=== PATIENT | female | born 1955 | race African-American/Black ===

== ENCOUNTER 2017-09-06 04:04 | Inpatient (IN) | payer MEDICARE ==
[~2017-09-06] VITALS: Ht 152.4 cm; Wt 76.6 kg
[2017-09-06] MEDS ORDERED: methylPREDNISolone SOD SUCC 125 MG/2 ML VL IV ONE (04:15)
[2017-09-06 04:43] LABS: Basophils # (auto) 0.2 uL; Basophils % (auto) 2.5 % (0.0-2.0); Eosinophils # (auto) 0.4 uL; Eosinophils % (auto) 5.7 % (0.0-7.0); Hematocrit 42.5 % (36.0-46.0); Hemoglobin 13.9 g/dL (12.2-16.2); Lymphocytes # (auto) 3.1 uL; Lymphocytes % (auto) 43.4 % (10.0-50.0); Mean Corpuscular Hemoglobin 28.5 pg (28.0-32.0); Mean Corpuscular Hgb Conc. 32.6 g/dL (32.0-36.0); Mean Corpuscular Volume 87.5 fL (80.0-100.0); Monocytes # (auto) 0.5 uL; Monocytes % (auto) 6.7 % (0.0-12.0); Neutrophils % (auto) 41.7 % (37.0-80.0); Nucleated Red Blood Cells % 0.1 %; Platelet Count (auto) 206 10^3/uL (140-450); Red Blood Cells 4.86 10^6/uL (4.0-5.20); White Blood Cell 7.2 10^3/uL (4.4-10.8)
[2017-09-06] MEDS ORDERED: ALBUTEROL SULF 2.5 MG/0.5ML(0.5%) NEB SOLN NEB ONE (04:45)
[2017-09-06] MEDS ORDERED: HYDROcodone-ACET 5/325MG TAB PO ONE (04:45)
[2017-09-06] MEDS ORDERED: IPRATROPIUM BROM 0.5 MG/2.5ML INH SOL NEB ONE (04:45)
[2017-09-06 04:59] LABS: Albumin 3.7 g/dL (3.4-5.0); Anion Gap 10 (5-15); BUN/Creatinine Ratio 17.1; Blood Urea Nitrogen 12 mg/dL (7-18); Carbon Dioxide 24 mmol/L (21-32); Chloride 106 mmol/L (98-107); GFR African American 109 mL/min; GFR Non-African American 90 mL/min; Glucose 142 mg/dL (74-106); INR 0.92 (0.9-1.15); Magnesium 2.3 mg/dL (1.6-2.6); Potassium 4.7 mmol/L (3.5-5.1); Sodium 140 mmol/L (136-145)
[2017-09-06 05:04] LABS: Alanine Aminotransferase 33 U/L (13-56); Alkaline Phosphatase 91 U/L (45-117); Aspartate Aminotransferase 33 U/L (15-37); Bilirubin, Total 0.3 mg/dL (0.2-1.0); Total Protein 7.6 g/dL (6.4-8.2)
[2017-09-06 06:56] LABS: Urine Bacteria NONE SEEN /hpf (None Seen); Urine Blood Negative /uL (Negative); Urine Specific Gravity 1.021 (1.001-1.035); Urine WBC 3 /hpf (0 - 5)
[2017-09-06] MEDS ORDERED: METOCLOPRAMIDE HCL 5MG/ml INJ 2ml VIAL IV ONE (07:30)
[2017-09-06] MEDS ORDERED: MORPHINE SULFATE 4 MG/ML SYR/VIAL IV ONE (07:30)
[2017-09-06] MEDS ORDERED: DOXYCYCLINE 100MG/250ML 250 ML IV SCH (09:00)
[2017-09-06] MEDS ORDERED: NITROGLYCERIN 0.4 MG SL TAB SL PRN (09:00)
[2017-09-06] MEDS ORDERED: PROMETHAZINE HCL 25 MG/ML 1ML IV PRN (09:00)
[2017-09-06] MEDS ORDERED: LACTULOSE 20Gm/30ML SOLN PO PRN (09:00)
[2017-09-06] MEDS ORDERED: DEXTROSE (50%) 50ML SYRG IV PRN (09:00)
[2017-09-06] MEDS ORDERED: LORazepam 0.5 MG TAB PO PRN (09:00)
[2017-09-06] MEDS ORDERED: ACETAMINOPHEN 500 MG TAB PO PRN (09:00)
[2017-09-06] MEDS ORDERED: HYDROcodone-ACET 5/325MG TAB PO PRN (09:00)
[2017-09-06] MEDS ORDERED: ALBUTEROL SULF 2.5 MG/0.5ML(0.5%) NEB SOLN NEB PRN (09:00)
[2017-09-06] MEDS ORDERED: MORPHINE SULFATE 4 MG/ML SYR/VIAL IV PRN ×3 (09:00→15:15)
[2017-09-06] MEDS: SODIUM CHLORIDE 0.9% 1,000 ML IV SCH ×2 (09:22→22:11)
[2017-09-06] MEDS: ALBUTEROL SULF 2.5 MG/0.5ML(0.5%) NEB SOLN NEB SCH ×2 (09:25→20:14)
[2017-09-06] MEDS: ENOXAPARIN SOD 40 MG/0.4 ML SYRINGE SC SCH (09:41)
[2017-09-06] MEDS: PANTOPRAZOLE 40 MG TAB PO SCH (09:42)
[2017-09-06] MEDS: cefTRIAXone 1GM/10ml IVPUSH 10 ML IV SCH (09:42)
[2017-09-06] MEDS: DOXYCYCLINE 100MG/250ML 250 ML IV SCH ×2 (09:42→20:40)
[2017-09-06] MEDS: ACCU-CHEK COMFORT CURVE STRIP VI SCH ×3 (12:00→20:38)
[2017-09-06] MEDS: InsuLIN REG 1unit/0.01ml Soln (100units/ml) SC SCH ×3 (12:00→20:39)
[2017-09-06] MEDS: IPRATROPIUM BROM 0.5 MG/2.5ML INH SOL NEB SCH ×2 (12:57→20:14)
[2017-09-06] MEDS: methylPREDNISolone SOD SUCC 40 MG/ML VL IV SCH ×2 (13:06→17:38)
[2017-09-06 13:37] VITALS: BP 109/77
[2017-09-06 14:22] VITALS: BP 113/77
[2017-09-06] MEDS ORDERED: CARISOPRODOL 350 MG TAB PO ONE (15:30)
[2017-09-06 16:21] VITALS: BP 119/82
[2017-09-06] MEDS ORDERED: MORPHINE SULFATE 8mg/ml INJ SDV IV PRN (18:00)
[2017-09-06] MEDS ORDERED: CARI-277 PO (18:30)
[2017-09-06] MEDS ORDERED: HYDR-531 PO (18:38)
[2017-09-06] MEDS ORDERED: METF-370 PO (18:38)
[2017-09-06] MEDS ORDERED: FLUT250M2 INH (18:38)
[2017-09-06] MEDS ORDERED: AML5T PO (18:38)
[2017-09-06] MEDS: MORPHINE SULFATE 8mg/ml INJ SDV IV PRN (19:27)
[2017-09-06 20:00] VITALS: BP 139/77
[2017-09-06] MEDS: CARISOPRODOL 350 MG TAB PO SCH (20:40)
[2017-09-06] MEDS: TEMAZEPAM 15 MG CAP PO PRN (20:40)
[2017-09-07] MEDS: IPRATROPIUM BROM 0.5 MG/2.5ML INH SOL NEB SCH ×4 (01:19→19:24)
[2017-09-07] MEDS: ALBUTEROL SULF 2.5 MG/0.5ML(0.5%) NEB SOLN NEB SCH ×4 (01:19→19:24)
[2017-09-07 04:55] VITALS: BP 151/104
[2017-09-07] MEDS: CARISOPRODOL 350 MG TAB PO SCH ×3 (05:14→21:38)
[2017-09-07] MEDS: MORPHINE SULFATE 8mg/ml INJ SDV IV PRN ×3 (05:14→15:26)
[2017-09-07] MEDS: methylPREDNISolone SOD SUCC 40 MG/ML VL IV SCH ×4 (05:15→18:00)
[2017-09-07] MEDS: InsuLIN REG 1unit/0.01ml Soln (100units/ml) SC SCH ×4 (05:16→22:00)
[2017-09-07] MEDS: ACCU-CHEK COMFORT CURVE STRIP VI SCH ×4 (05:16→22:08)
[2017-09-07 07:26] LABS: Cholesterol 278 mg/dL (< 200); HDL Cholesterol 98 mg/dL (40-59); LDL Cholesterol 172 mg/dL (< 100); Triglycerides 73 mg/dL (< 150)
[2017-09-07 09:00] VITALS: BP 135/99
[2017-09-07] MEDS: cefTRIAXone 1GM/10ml IVPUSH 10 ML IV SCH (10:02)
[2017-09-07] MEDS: DOXYCYCLINE 100MG/250ML 250 ML IV SCH (10:02)
[2017-09-07] MEDS: ENOXAPARIN SOD 40 MG/0.4 ML SYRINGE SC SCH (10:03)
[2017-09-07] MEDS: PANTOPRAZOLE 40 MG TAB PO SCH (10:03)
[2017-09-07] MEDS: SODIUM CHLORIDE 0.9% 1,000 ML IV SCH (11:48)
[2017-09-07 13:00] VITALS: BP 140/62
[2017-09-07 17:00] VITALS: BP 141/87
[2017-09-07] MEDS ORDERED: HYDROcodone-ACET 10/325MG TAB PO PRN (20:45)
[2017-09-07] MEDS: TEMAZEPAM 15 MG CAP PO PRN (21:38)
[2017-09-08] MEDS: methylPREDNISolone SOD SUCC 40 MG/ML VL IV SCH ×4 (00:11→18:19)
[2017-09-08 05:00] VITALS: BP 138/92
[2017-09-08] MEDS: CARISOPRODOL 350 MG TAB PO SCH ×3 (06:06→21:51)
[2017-09-08] MEDS: ACCU-CHEK COMFORT CURVE STRIP VI SCH ×4 (06:22→21:52)
[2017-09-08] MEDS: InsuLIN REG 1unit/0.01ml Soln (100units/ml) SC SCH ×4 (06:36→22:00)
[2017-09-08] MEDS: HYDROcodone-ACET 10/325MG TAB PO PRN ×3 (06:37→20:51)
[2017-09-08] MEDS: IPRATROPIUM BROM 0.5 MG/2.5ML INH SOL NEB SCH ×4 (06:42→18:27)
[2017-09-08] MEDS: ALBUTEROL SULF 2.5 MG/0.5ML(0.5%) NEB SOLN NEB SCH ×4 (06:42→18:27)
[2017-09-08 09:14] VITALS: BP 139/58
[2017-09-08] MEDS: cefTRIAXone 1GM/10ml IVPUSH 10 ML IV SCH (10:23)
[2017-09-08] MEDS: ENOXAPARIN SOD 40 MG/0.4 ML SYRINGE SC SCH (10:24)
[2017-09-08] MEDS: PANTOPRAZOLE 40 MG TAB PO SCH (10:24)
[2017-09-08 12:23] VITALS: BP 147/98
[2017-09-08 16:41] VITALS: BP 148/97
[2017-09-08] MEDS: TEMAZEPAM 15 MG CAP PO PRN (21:52)
[2017-09-08 22:00] VITALS: BP 137/92
[2017-09-09] VITALS (7 sets, daily range): BP systolic 126–154; BP diastolic 91–110
[2017-09-09] MEDS: methylPREDNISolone SOD SUCC 40 MG/ML VL IV SCH ×3 (00:36→12:07)
[2017-09-09] MEDS: ALBUTEROL SULF 2.5 MG/0.5ML(0.5%) NEB SOLN NEB SCH ×4 (01:00→18:25)
[2017-09-09] MEDS: IPRATROPIUM BROM 0.5 MG/2.5ML INH SOL NEB SCH ×4 (01:00→18:24)
[2017-09-09] MEDS: CARISOPRODOL 350 MG TAB PO SCH ×3 (05:46→21:26)
[2017-09-09] MEDS: ACCU-CHEK COMFORT CURVE STRIP VI SCH ×4 (05:46→21:30)
[2017-09-09] MEDS: InsuLIN REG 1unit/0.01ml Soln (100units/ml) SC SCH ×4 (06:32→21:28)
[2017-09-09 06:38] LABS: Basophils # (auto) 0 uL; Basophils % (auto) 0.1 % (0.0-2.0); Eosinophils # (auto) 0 uL; Hematocrit 43.1 % (36.0-46.0); Hemoglobin 14.2 g/dL (12.2-16.2); Lymphocytes # (auto) 0.8 uL; Lymphocytes % (auto) 7.7 % (10.0-50.0); Mean Corpuscular Volume 87.8 fL (80.0-100.0); Monocytes # (auto) 0.4 uL; Monocytes % (auto) 3.5 % (0.0-12.0); Neutrophils # (auto) 9.4 uL; Neutrophils % (auto) 88.7 % (37.0-80.0); Platelet Count (auto) 227 10^3/uL (140-450); Red Cell Distribution Width 13.7 % (11.8-14.3); White Blood Cell 10.6 10^3/uL (4.4-10.8)
[2017-09-09] MEDS: HYDROcodone-ACET 10/325MG TAB PO PRN ×2 (08:13→15:45)
[2017-09-09] MEDS: cefTRIAXone 1GM/10ml IVPUSH 10 ML IV SCH (08:14)
[2017-09-09] MEDS: ENOXAPARIN SOD 40 MG/0.4 ML SYRINGE SC SCH (08:14)
[2017-09-09] MEDS: PANTOPRAZOLE 40 MG TAB PO SCH (08:14)
[2017-09-09] MEDS: amLODIPine BESYLATE 5 MG TAB PO SCH (09:39)
[2017-09-09] MEDS: TEMAZEPAM 15 MG CAP PO PRN (21:27)
[2017-09-10] MEDS: ALBUTEROL SULF 2.5 MG/0.5ML(0.5%) NEB SOLN NEB SCH ×2 (00:12→07:00)
[2017-09-10] MEDS: IPRATROPIUM BROM 0.5 MG/2.5ML INH SOL NEB SCH ×2 (00:12→07:00)
[2017-09-10 05:00] VITALS: BP 135/98
[2017-09-10] MEDS: HYDROcodone-ACET 10/325MG TAB PO PRN (05:38)
[2017-09-10] MEDS: CARISOPRODOL 350 MG TAB PO SCH (05:38)
[2017-09-10] MEDS: ACCU-CHEK COMFORT CURVE STRIP VI SCH (06:12)
[2017-09-10] MEDS: InsuLIN REG 1unit/0.01ml Soln (100units/ml) SC SCH (06:13)
[2017-09-10] MEDS: PANTOPRAZOLE 40 MG TAB PO SCH (08:12)
[2017-09-10] MEDS: ENOXAPARIN SOD 40 MG/0.4 ML SYRINGE SC SCH (08:13)
[2017-09-10] MEDS: amLODIPine BESYLATE 5 MG TAB PO SCH (08:13)
[2017-09-10] MEDS: cefTRIAXone 1GM/10ml IVPUSH 10 ML IV SCH (08:14)
[2017-09-10 08:33] VITALS: BP 145/108
[2017-09-10] MEDS ORDERED: HCTZ 25 MG TAB PO SCH (10:00)
[2017-09-10] MEDS ORDERED: predniSONE 20 MG TAB PO SCH (10:00)
== END 2017-09-10 10:38 | disposition home or self-care (01) | DRG 189 ==
LOC: EDBD 04:04 → ER 04:15 → TELE 04:16 → TELE-WESTW 14:53
PROVIDERS: ADMIT Internal Medicine; ATTEND Internal Medicine
PROC: 5A09357 Assistance with Respiratory Ventilation, Less than 24 Consecutive Hours, Continuous Positive Airway Pressure (ICD-10-PCS; principal; 2017-09-06)
DX: J96.20 Acute and chronic respiratory failure, unspecified whether with hypoxia or hypercapnia (principal); I11.0 Hypertensive heart disease with heart failure; I50.9 Heart failure, unspecified; J45.902 Unspecified asthma with status asthmaticus; N39.0 Urinary tract infection, site not specified; M19.90 Unspecified osteoarthritis, unspecified site; E66.9 Obesity, unspecified; E11.9 Type 2 diabetes mellitus without complications; G89.4 Chronic pain syndrome; Z90.710 Acquired absence of both cervix and uterus; Z98.51 Tubal ligation status; Z79.899 Other long term (current) drug therapy; Z68.33 Body mass index [BMI] 33.0-33.9, adult
CPT/HCPCS: 36415; 36600; 71045; 80053; 80061; 81001; 82805; 82962; 83036; 83605; 83735; 83880; 84132; 84484; 85025; 85379; 85610; 85730; 87040; 87086; 93005; 94640; 94660; 94761; 96361; 96374; J1815; J2270; J3490

== ENCOUNTER 2021-01-13 08:01 | Inpatient (IN) | payer BC, MEDICAID ==
[2021-01-12] MEDS: CLINDAMYCIN 600MG IV 50 ML IV SCH (23:50)
[~2021-01-13] VITALS: Ht 152.4 cm; Wt 79.0 kg
[~2021-01-13 08:01] MED LIST: ALBU1AER4 IN; AML5T PO; CARI-277 PO; FLUT250M2 INH; HYDR-531 PO; LEVO500T31 PO; METF-370 PO
[2021-01-13] MEDS ORDERED: methylPREDNISolone SOD SUCC 125 MG/2 ML VL IV ONE (08:30)
[2021-01-13] MEDS ORDERED: IPRATROPIUM BROM 0.5 MG/2.5ML INH SOL NEB ONE ×2 (08:30→14:00)
[2021-01-13] MEDS ORDERED: ALBUTEROL SULF 2.5 MG/0.5ML(0.5%) NEB SOLN NEB ONE ×2 (08:30→14:00)
[2021-01-13] MEDS ORDERED: NALOXONE HCL 0.4 MG/ML VIAL IV ONE (08:30)
[2021-01-13] MEDS ORDERED: ONDANSETRON HCL 4 MG/2 ML VIAL IV ONE (08:30)
[2021-01-13] MEDS ORDERED: FUROSEMIDE 40 MG/4 ML VIAL IV ONE (08:30)
[2021-01-13 09:06] LABS: Basophils # (auto) 0.1 10 ^3/uL (0-0.2); Basophils % (auto) 0.5 % (0.0-2.0); Eosinophils # (auto) 0 10 ^3/uL (0-0.8); Eosinophils % (auto) 0.4 % (0.0-7.0); Hematocrit 40.9 % (36.0-46.0); Hemoglobin 12.9 g/dL (12.2-16.2); Lymphocytes # (auto) 0.6 10 ^3/uL (0.4-5.4); Lymphocytes % (auto) 5.3 % (10.0-50.0); Mean Corpuscular Hemoglobin 27.4 pg (28.0-32.0); Mean Corpuscular Hgb Conc. 31.6 g/dL (32.0-36.0); Mean Corpuscular Volume 86.8 fL (80.0-100.0); Monocytes # (auto) 0.6 10 ^3/uL (0-1.3); Monocytes % (auto) 4.9 % (0.0-12.0); Neutrophils # (auto) 10.3 10 ^3/uL (1.6-8.6); Neutrophils % (auto) 88.9 % (37.0-80.0); Red Blood Cells 4.71 10^6/uL (4.0-5.20); White Blood Cell 11.6 10^3/uL (4.4-10.8)
[2021-01-13 09:21] LABS: Salicylate < 1.7 mg/dL (2.8-20.0)
[2021-01-13 09:21] LABS: Urine Bacteria NONE SEEN /hpf (None Seen); Urine Blood Negative /uL (Negative); Urine Hyaline Cast MOD /lpf (0 - 2); Urine Mucus FEW (None Seen); Urine Specific Gravity 1.016 (1.001-1.035); Urine WBC 1 /hpf (0 - 5)
[2021-01-13 09:22] LABS: Albumin 3.9 g/dL (3.4-5.0); Calcium 8.9 mg/dL (8.5-10.1)
[2021-01-13 09:23] LABS: Alanine Aminotransferase 31 U/L (13-56); Albumin 3.8 g/dL (3.4-5.0); Aspartate Aminotransferase 40 U/L (15-37); Bilirubin, Direct < 0.1 mg/dL (0-0.2)
[2021-01-13 09:25] LABS: Alkaline Phosphatase 66 U/L (45-117); Bilirubin, Total 0.3 mg/dL (0.2-1.0); Total Protein 7.3 g/dL (6.4-8.2)
[2021-01-13 09:26] LABS: BUN/Creatinine Ratio 8.4; Bilirubin, Total 0.2 mg/dL (0.2-1.0); Total Protein 7.4 g/dL (6.4-8.2)
[2021-01-13 09:29] LABS: Acetaminophen < 2.0 ug/mL (10-30)
[2021-01-13 09:36] LABS: Amphetamine Screen, Urine NEGATIVE (NEGATIVE); Benzodiazephine Screen, Urine NEGATIVE (NEGATIVE); Cannabinoid Screen, Urine POSITIVE (NEGATIVE); Cocaine Screen, Urine NEGATIVE (NEGATIVE); Opiate Scree,Urine NEGATIVE (NEGATIVE); Phencyclidine Screen, Urine NEGATIVE (NEGATIVE)
[2021-01-13 09:43] LABS: Barbiturate Scree,Urine NEGATIVE (NEGATIVE)
[2021-01-13 13:23] LABS: Albumin 3.9 g/dL (3.4-5.0); Potassium 4.3 mmol/L (3.5-5.1)
[2021-01-13 13:27] LABS: BUN/Creatinine Ratio 8.5; Bilirubin, Total 0.4 mg/dL (0.2-1.0); Total Protein 7.6 g/dL (6.4-8.2)
[2021-01-13] MEDS ORDERED: DEXTROSE (50%) 50ML SYRG IV PRN (13:30)
[2021-01-13] MEDS ORDERED: MORPHINE SULFATE INJECTION 2 MG/ML SYRG IV PRN ×2 (13:30→14:00)
[2021-01-13] MEDS ORDERED: NITROGLYCERIN 0.4 MG SL TAB SL PRN ×2 (13:30→14:00)
[2021-01-13] MEDS ORDERED: METF-929 PO (13:57)
[2021-01-13] MEDS ORDERED: NITR0.4S29 SL (13:58)
[2021-01-13] MEDS ORDERED: ACETAMINOPHEN 325 MG TAB PO PRN (14:00)
[2021-01-13] MEDS ORDERED: LORazepam 0.5 MG TAB PO PRN (14:00)
[2021-01-13] MEDS ORDERED: METOPROLOL SUCCINATE XL 50 MG TAB PO ONE (14:00)
[2021-01-13] MEDS ORDERED: ALUM & MAG HYDROX-SIMETH LIQ(MAALOX) 30 ML PO PRN (14:00)
[2021-01-13] MEDS ORDERED: ONDANSETRON HCL 4 MG/2 ML VIAL IV PRN (14:00)
[2021-01-13] MEDS ORDERED: LISINOPRIL 5 MG TAB PO ONE (14:00)
[2021-01-13] MEDS ORDERED: ENOXAPARIN SOD 40 MG/0.4 ML SYRINGE SC ONE (14:00)
[2021-01-13] MEDS ORDERED: NIFEdipine ER 30 MG TAB PO ONE (14:00)
[2021-01-13] MEDS ORDERED: DOCUSATE SOD 100 MG CAP PO PRN (14:00)
[2021-01-13] MEDS ORDERED: FAMOTIDINE (10MG/ML) 2ML VL IV ONE (14:15)
[2021-01-13] MEDS ORDERED: METH12IN SC (14:22)
[2021-01-13] MEDS ORDERED: PRAV20TA3 PO (14:22)
[2021-01-13] MEDS ORDERED: ALBU108A5 INH (14:22)
[2021-01-13] MEDS ORDERED: DICL1GEL50 TOP (14:22)
[2021-01-13] MEDS ORDERED: GABA-339 PO (14:22)
[2021-01-13] MEDS ORDERED: MET25T PO (14:22)
[2021-01-13] MEDS ORDERED: PRED20TA2 PO (14:22)
[2021-01-13] MEDS ORDERED: OXYC325T14 PO (14:23)
[2021-01-13] MEDS ORDERED: AMLO-496 PO (14:24)
[2021-01-13] MEDS ORDERED: BENA5TAB9 PO (14:24)
[2021-01-13] MEDS ORDERED: DOCU100C10 PO (14:26)
[2021-01-13] MEDS ORDERED: ALBU0.084 NEB (14:26)
[2021-01-13] MEDS ORDERED: OXY5T PO (14:27)
[2021-01-13] MEDS ORDERED: cefTRIAXone 1GM/50ML D5W 50 ML IV ONE (14:30)
[2021-01-13] MEDS: SODIUM CHLORIDE 0.9% 1,000 ML IV SCH (14:47)
[2021-01-13] MEDS: IPRATROPIUM BROM 0.5 MG/2.5ML INH SOL NEB SCH ×2 (14:49→18:59)
[2021-01-13] MEDS: ALBUTEROL SULF 2.5 MG/0.5ML(0.5%) NEB SOLN NEB SCH ×2 (14:50→18:59)
[2021-01-13] MEDS ORDERED: CLINDAMYCIN 600MG IV 50 ML IV ONE (15:00)
[2021-01-13 15:05] VITALS: BP 145/99
[2021-01-13] MEDS: CLINDAMYCIN 600MG IV 50 ML IV SCH (15:10)
[2021-01-13] MEDS ORDERED: AZITHROMYCIN 500MG/ 250ML 250 ML IV ONE (16:00)
[2021-01-13] MEDS: InsuLIN REG 1unit/0.01ml Soln (100units/ml) SC SCH ×2 (17:04→22:25)
[2021-01-13] MEDS: ACCU-CHEK COMFORT CURVE STRIP VI SCH ×2 (17:04→22:00)
[2021-01-13] MEDS: FUROSEMIDE 20 MG/2 ML VIAL IV SCH (18:07)
[2021-01-13] MEDS: MORPHINE SULFATE INJECTION 2 MG/ML SYRG IV PRN (20:21)
[2021-01-13] MEDS: FAMOTIDINE (10MG/ML) 2ML VL IV SCH (22:00)
[2021-01-13] MEDS: ATORVASTATIN 20 MG TAB PO SCH (22:30)
[2021-01-13] MEDS: methylPREDNISolone SOD SUCC 40 MG/ML VL IV SCH (22:30)
[2021-01-14] MEDS: CLINDAMYCIN 600MG IV 50 ML IV SCH ×3 (06:00→13:54)
[2021-01-14] MEDS: SODIUM CHLORIDE 0.9% 1,000 ML IV SCH ×2 (06:10→08:30)
[2021-01-14] MEDS: IPRATROPIUM BROM 0.5 MG/2.5ML INH SOL NEB SCH ×5 (06:10→22:23)
[2021-01-14] MEDS: ALBUTEROL SULF 2.5 MG/0.5ML(0.5%) NEB SOLN NEB SCH ×5 (06:10→22:23)
[2021-01-14] MEDS: FUROSEMIDE 20 MG/2 ML VIAL IV SCH (06:21)
[2021-01-14] MEDS: methylPREDNISolone SOD SUCC 40 MG/ML VL IV SCH ×3 (06:21→23:24)
[2021-01-14] MEDS: ACCU-CHEK COMFORT CURVE STRIP VI SCH ×4 (07:35→23:16)
[2021-01-14] MEDS: InsuLIN REG 1unit/0.01ml Soln (100units/ml) SC SCH ×4 (07:41→23:00)
[2021-01-14] MEDS: cefTRIAXone 1GM/50ML D5W 50 ML IV SCH (09:00)
[2021-01-14] MEDS: ASPirin 81 mg TAB PO SCH (09:57)
[2021-01-14] MEDS: FAMOTIDINE (10MG/ML) 2ML VL IV SCH ×2 (09:57→23:00)
[2021-01-14] MEDS: NIFEdipine ER 30 MG TAB PO SCH (09:58)
[2021-01-14] MEDS: METOPROLOL SUCCINATE XL 50 MG TAB PO SCH (09:58)
[2021-01-14] MEDS: LISINOPRIL 5 MG TAB PO SCH (09:58)
[2021-01-14] MEDS: ENOXAPARIN SOD 40 MG/0.4 ML SYRINGE SC SCH (10:09)
[2021-01-14] MEDS: AZITHROMYCIN 500MG/ 250ML 250 ML IV SCH (10:48)
[2021-01-14] MEDS: HYDROcodone-ACET 5/325MG TAB PO PRN (16:45)
[2021-01-14] MEDS ORDERED: HALOPERIDOL LACTATE 5 MG/ML INJ VIAL IM STA (19:22)
[2021-01-14] MEDS ORDERED: diphenhdrAMINE HCL 50 MG/1 ML VL ONE (19:24)
[2021-01-14] MEDS ORDERED: HALOPERIDOL LACTATE 5 MG/ML INJ VIAL ONE (19:24)
[2021-01-14] MEDS ORDERED: LORazepam 2MG/ML-1ML VIAL ONE (19:25)
[2021-01-14] MEDS ORDERED: LORazepam 2MG/ML-1ML VIAL IM ONE (19:30)
[2021-01-14] MEDS ORDERED: diphenhdrAMINE HCL 50 MG/1 ML VL IM ONE (19:30)
[2021-01-14] MEDS: ATORVASTATIN 20 MG TAB PO SCH ×2 (22:00→23:00)
[2021-01-15] MEDS: HALOPERIDOL LACTATE 5 MG/ML INJ VIAL IM PRN ×3 (00:27→17:09)
[2021-01-15] MEDS ORDERED: LORazepam 2MG/ML-1ML VIAL ONE (01:14)
[2021-01-15] MEDS: LORazepam 2MG/ML-1ML VIAL IV PRN ×4 (01:22→23:15)
[2021-01-15] MEDS: IPRATROPIUM BROM 0.5 MG/2.5ML INH SOL NEB SCH ×6 (02:38→23:41)
[2021-01-15] MEDS: ALBUTEROL SULF 2.5 MG/0.5ML(0.5%) NEB SOLN NEB SCH ×6 (02:39→23:40)
[2021-01-15] MEDS: CLINDAMYCIN 600MG IV 50 ML IV SCH ×3 (05:35→23:00)
[2021-01-15] MEDS: methylPREDNISolone SOD SUCC 40 MG/ML VL IV SCH ×3 (05:35→21:59)
[2021-01-15] MEDS: InsuLIN REG 1unit/0.01ml Soln (100units/ml) SC SCH ×4 (07:18→23:48)
[2021-01-15] MEDS: ACCU-CHEK COMFORT CURVE STRIP VI SCH ×4 (07:20→23:44)
[2021-01-15 07:28] LABS: Basophils # (auto) 0 10 ^3/uL (0-0.2); Basophils % (auto) 0.3 % (0.0-2.0); Eosinophils # (auto) 0 10 ^3/uL (0-0.8); Eosinophils % (auto) 0.3 % (0.0-7.0); Hematocrit 40.8 % (36.0-46.0); Hemoglobin 13.6 g/dL (12.2-16.2); Lymphocytes # (auto) 0.8 10 ^3/uL (0.4-5.4); Lymphocytes % (auto) 5.5 % (10.0-50.0); Mean Corpuscular Hemoglobin 28.4 pg (28.0-32.0); Mean Corpuscular Hgb Conc. 33.2 g/dL (32.0-36.0); Mean Corpuscular Volume 85.5 fL (80.0-100.0); Monocytes # (auto) 0.4 10 ^3/uL (0-1.3); Monocytes % (auto) 2.9 % (0.0-12.0); Nucleated Red Blood Cells % 0.1 %; Red Blood Cells 4.78 10^6/uL (4.0-5.20); Red Cell Distribution Width 13.8 % (11.8-14.3); White Blood Cell 14.2 10^3/uL (4.4-10.8)
[2021-01-15 07:36] LABS: BUN/Creatinine Ratio 17.4; Potassium 3.9 mmol/L (3.5-5.1)
[2021-01-15] MEDS ORDERED: LORazepam 2MG/ML-1ML VIAL IM ONE (07:45)
[2021-01-15] MEDS: cefTRIAXone 1GM/50ML D5W 50 ML IV SCH (09:25)
[2021-01-15] MEDS: ASPirin 81 mg TAB PO SCH (10:00)
[2021-01-15] MEDS: ENOXAPARIN SOD 40 MG/0.4 ML SYRINGE SC SCH (10:00)
[2021-01-15] MEDS: AZITHROMYCIN 500MG/ 250ML 250 ML IV SCH (10:00)
[2021-01-15] MEDS: LISINOPRIL 5 MG TAB PO SCH (10:00)
[2021-01-15] MEDS: NIFEdipine ER 30 MG TAB PO SCH (10:00)
[2021-01-15] MEDS: FAMOTIDINE (10MG/ML) 2ML VL IV SCH ×2 (10:00→21:58)
[2021-01-15] MEDS: METOPROLOL SUCCINATE XL 50 MG TAB PO SCH (10:00)
[2021-01-15] MEDS: OLANZapine 5 MG TAB PO SCH (10:22)
[2021-01-15] MEDS: MORPHINE SULFATE INJECTION 2 MG/ML SYRG IV PRN (12:07)
[2021-01-15] MEDS ORDERED: HALOPERIDOL LACTATE 5 MG/ML INJ VIAL IM ONE (22:00)
[2021-01-16] MEDS: hydrALAZINE HCL 20 MG/ML VL IV PRN ×2 (01:30→21:30)
[2021-01-16] MEDS: HALOPERIDOL LACTATE 5 MG/ML INJ VIAL IM PRN ×2 (01:39→13:51)
[2021-01-16] MEDS ORDERED: KETAMINE 50mg/ML 10ml Vial (500mg/10ml) IV STA (05:17)
[2021-01-16] MEDS ORDERED: KETAMINE HCL 10 ML ONE (05:23)
[2021-01-16] MEDS ORDERED: LORazepam 2MG/ML-1ML VIAL IV STA ×2 (06:00→07:03)
[2021-01-16] MEDS: ALBUTEROL SULF 2.5 MG/0.5ML(0.5%) NEB SOLN NEB SCH ×5 (06:06→22:20)
[2021-01-16] MEDS: IPRATROPIUM BROM 0.5 MG/2.5ML INH SOL NEB SCH ×5 (06:06→22:20)
[2021-01-16] MEDS: methylPREDNISolone SOD SUCC 40 MG/ML VL IV SCH ×3 (06:46→21:55)
[2021-01-16] MEDS: CLINDAMYCIN 600MG IV 50 ML IV SCH ×2 (06:46→15:06)
[2021-01-16] MEDS: ACCU-CHEK COMFORT CURVE STRIP VI SCH ×4 (06:47→21:57)
[2021-01-16] MEDS: InsuLIN REG 1unit/0.01ml Soln (100units/ml) SC SCH ×4 (07:02→21:58)
[2021-01-16 09:06] VITALS: BP 150/82
[2021-01-16] MEDS: cefTRIAXone 1GM/50ML D5W 50 ML IV SCH (09:06)
[2021-01-16] MEDS: LORazepam 2MG/ML-1ML VIAL IV PRN ×4 (09:11→22:20)
[2021-01-16] MEDS: OLANZapine 5 MG TAB PO SCH (10:00)
[2021-01-16] MEDS: NIFEdipine ER 30 MG TAB PO SCH (10:00)
[2021-01-16] MEDS: METOPROLOL SUCCINATE XL 50 MG TAB PO SCH (10:00)
[2021-01-16] MEDS: ASPirin 81 mg TAB PO SCH (10:00)
[2021-01-16] MEDS: LISINOPRIL 5 MG TAB PO SCH (10:00)
[2021-01-16 10:05] LABS: Folate (Folic Acid) 20.25 ng/mL (5.38-24)
[2021-01-16] MEDS: FAMOTIDINE (10MG/ML) 2ML VL IV SCH ×2 (10:17→21:54)
[2021-01-16] MEDS: AZITHROMYCIN 500MG/ 250ML 250 ML IV SCH (10:17)
[2021-01-16] MEDS: ENOXAPARIN SOD 40 MG/0.4 ML SYRINGE SC SCH (10:18)
[2021-01-16] MEDS: BUDESONIDE (INHALATION) 0.5 MG/2 ML NEB NEB SCH (18:20)
[2021-01-16] MEDS: ATORVASTATIN 20 MG TAB PO SCH (21:55)
[2021-01-17] MEDS: IPRATROPIUM BROM 0.5 MG/2.5ML INH SOL NEB SCH ×3 (02:22→09:53)
[2021-01-17] MEDS: ALBUTEROL SULF 2.5 MG/0.5ML(0.5%) NEB SOLN NEB SCH ×3 (02:22→09:54)
[2021-01-17] MEDS: LORazepam 2MG/ML-1ML VIAL IV PRN ×2 (04:30→09:04)
[2021-01-17] MEDS: BUDESONIDE (INHALATION) 0.5 MG/2 ML NEB NEB SCH ×2 (05:52→22:00)
[2021-01-17 06:00] LABS: Basophils # (auto) 0 10 ^3/uL (0-0.2); Basophils % (auto) 0.3 % (0.0-2.0); Eosinophils # (auto) 0 10 ^3/uL (0-0.8); Hematocrit 47.7 % (36.0-46.0); Hemoglobin 15.9 g/dL (12.2-16.2); Lymphocytes % (auto) 9.6 % (10.0-50.0); Mean Corpuscular Hemoglobin 28.5 pg (28.0-32.0); Mean Corpuscular Hgb Conc. 33.4 g/dL (32.0-36.0); Mean Corpuscular Volume 85.3 fL (80.0-100.0); Monocytes # (auto) 0.6 10 ^3/uL (0-1.3); Neutrophils % (auto) 84.1 % (37.0-80.0); Red Blood Cells 5.59 10^6/uL (4.0-5.20); White Blood Cell 10.7 10^3/uL (4.4-10.8)
[2021-01-17] MEDS: methylPREDNISolone SOD SUCC 40 MG/ML VL IV SCH (06:01)
[2021-01-17] MEDS: ACCU-CHEK COMFORT CURVE STRIP VI SCH ×4 (06:02→23:15)
[2021-01-17] MEDS: InsuLIN REG 1unit/0.01ml Soln (100units/ml) SC SCH ×4 (06:14→23:30)
[2021-01-17 06:18] LABS: BUN/Creatinine Ratio 18.8; Calcium 9.6 mg/dL (8.5-10.1); Potassium 3.8 mmol/L (3.5-5.1)
[2021-01-17] MEDS: HALOPERIDOL LACTATE 5 MG/ML INJ VIAL IM PRN (08:19)
[2021-01-17] MEDS: cefTRIAXone 1GM/50ML D5W 50 ML IV SCH (08:19)
[2021-01-17] MEDS ORDERED: SODIUM CHLORIDE 0.9% 1,000 ML IV ONE (09:30)
[2021-01-17] MEDS: ENOXAPARIN SOD 40 MG/0.4 ML SYRINGE SC SCH (10:55)
[2021-01-17] MEDS: METOPROLOL SUCCINATE XL 50 MG TAB PO SCH (10:55)
[2021-01-17] MEDS: AZITHROMYCIN 500MG/ 250ML 250 ML IV SCH ×2 (10:55→12:55)
[2021-01-17] MEDS: LISINOPRIL 5 MG TAB PO SCH (10:55)
[2021-01-17] MEDS: NIFEdipine ER 30 MG TAB PO SCH (10:55)
[2021-01-17] MEDS: FAMOTIDINE (10MG/ML) 2ML VL IV SCH ×2 (10:55→23:00)
[2021-01-17] MEDS: ASPirin 81 mg TAB PO SCH (10:55)
[2021-01-17] MEDS: OLANZapine 5 MG TAB PO SCH (10:55)
[2021-01-17] MEDS ORDERED: diphenhdrAMINE HCL 50 MG/1 ML VL IM ONE (12:45)
[2021-01-17] MEDS ORDERED: HALOPERIDOL LACTATE 5 MG/ML INJ VIAL IM ONE (12:45)
[2021-01-17] MEDS ORDERED: LORazepam 2MG/ML-1ML VIAL IM ONE (12:45)
[2021-01-17] MEDS ORDERED: OLANZAPINE IM ONE (13:00)
[2021-01-17] MEDS: ATORVASTATIN 20 MG TAB PO SCH (23:00)
[2021-01-18] MEDS: HALOPERIDOL LACTATE 5 MG/ML INJ VIAL IM PRN (01:00)
[2021-01-18] MEDS: ALBUTEROL SULF 2.5 MG/0.5ML(0.5%) NEB SOLN NEB PRN ×2 (05:49→22:03)
[2021-01-18] MEDS: BUDESONIDE (INHALATION) 0.5 MG/2 ML NEB NEB SCH ×2 (05:49→22:04)
[2021-01-18] MEDS: IPRATROPIUM BROM 0.5 MG/2.5ML INH SOL NEB PRN ×2 (05:49→22:03)
[2021-01-18] MEDS: ACCU-CHEK COMFORT CURVE STRIP VI SCH ×4 (06:28→22:18)
[2021-01-18] MEDS: InsuLIN REG 1unit/0.01ml Soln (100units/ml) SC SCH ×4 (06:33→22:22)
[2021-01-18] MEDS ORDERED: LORazepam 2MG/ML-1ML VIAL IV STA (07:00)
[2021-01-18 09:00] VITALS: BP 121/75
[2021-01-18] MEDS: cefTRIAXone 1GM/50ML D5W 50 ML IV SCH (09:00)
[2021-01-18] MEDS: FAMOTIDINE (10MG/ML) 2ML VL IV SCH ×2 (09:39→22:17)
[2021-01-18] MEDS: OLANZapine 5 MG TAB PO SCH (09:40)
[2021-01-18] MEDS: NIFEdipine ER 30 MG TAB PO SCH (09:40)
[2021-01-18] MEDS: ENOXAPARIN SOD 40 MG/0.4 ML SYRINGE SC SCH (09:40)
[2021-01-18] MEDS: METOPROLOL SUCCINATE XL 50 MG TAB PO SCH (09:40)
[2021-01-18] MEDS: LISINOPRIL 5 MG TAB PO SCH (09:40)
[2021-01-18] MEDS: ASPirin 81 mg TAB PO SCH (09:40)
[2021-01-18 13:00] VITALS: BP 114/69
[2021-01-18 17:00] VITALS: BP 119/86
[2021-01-18] MEDS: HYDROcodone-ACET 5/325MG TAB PO PRN ×2 (17:05→22:28)
[2021-01-18 20:00] VITALS: BP 132/81
[2021-01-18 22:00] VITALS: BP 132/81
[2021-01-18] MEDS: ATORVASTATIN 20 MG TAB PO SCH (22:17)
[2021-01-19 05:00] VITALS: BP 115/70
[2021-01-19] MEDS: ACCU-CHEK COMFORT CURVE STRIP VI SCH ×4 (06:36→22:20)
[2021-01-19] MEDS: InsuLIN REG 1unit/0.01ml Soln (100units/ml) SC SCH ×4 (06:36→22:35)
[2021-01-19] MEDS: BUDESONIDE (INHALATION) 0.5 MG/2 ML NEB NEB SCH ×2 (07:43→19:10)
[2021-01-19] MEDS: ALBUTEROL SULF 2.5 MG/0.5ML(0.5%) NEB SOLN NEB PRN ×2 (07:43→19:09)
[2021-01-19] MEDS: HYDROcodone-ACET 5/325MG TAB PO PRN ×3 (08:09→18:47)
[2021-01-19 08:52] VITALS: BP 117/78
[2021-01-19] MEDS: FAMOTIDINE (10MG/ML) 2ML VL IV SCH ×2 (09:17→22:10)
[2021-01-19] MEDS: ASPirin 81 mg TAB PO SCH (09:18)
[2021-01-19] MEDS: LISINOPRIL 5 MG TAB PO SCH (09:19)
[2021-01-19] MEDS: NIFEdipine ER 30 MG TAB PO SCH (09:20)
[2021-01-19] MEDS: cefTRIAXone 1GM/50ML D5W 50 ML IV SCH (09:23)
[2021-01-19] MEDS: AZITHROMYCIN 500MG/ 250ML 250 ML IV SCH (09:23)
[2021-01-19] MEDS: ENOXAPARIN SOD 40 MG/0.4 ML SYRINGE SC SCH (09:23)
[2021-01-19] MEDS: OLANZapine 5 MG TAB PO SCH (09:28)
[2021-01-19] MEDS: METOPROLOL SUCCINATE XL 50 MG TAB PO SCH (09:39)
[2021-01-19 13:00] VITALS: BP 90/62
[2021-01-19 15:09] VITALS: BP 117/78
[2021-01-19] MEDS ORDERED: METH500T22 PO (16:00)
[2021-01-19] MEDS ORDERED: CYCL-839 PO (16:00)
[2021-01-19] MEDS ORDERED: CALC500C52 PO (16:00)
[2021-01-19 17:00] VITALS: BP 92/58
[2021-01-19 22:00] VITALS: BP 93/56
[2021-01-19] MEDS: ATORVASTATIN 20 MG TAB PO SCH (22:10)
[2021-01-19] MEDS: LORazepam 2MG/ML-1ML VIAL IV PRN (22:35)
[2021-01-20 05:00] VITALS: BP 90/58
[2021-01-20] MEDS: ACCU-CHEK COMFORT CURVE STRIP VI SCH ×4 (06:35→21:11)
[2021-01-20 06:36] VITALS: BP 106/73
[2021-01-20] MEDS: InsuLIN REG 1unit/0.01ml Soln (100units/ml) SC SCH ×4 (06:47→21:25)
[2021-01-20 07:09] LABS: Basophils # (auto) 0 10 ^3/uL (0-0.2); Basophils % (auto) 0.4 % (0.0-2.0); Eosinophils # (auto) 0.3 10 ^3/uL (0-0.8); Eosinophils % (auto) 4.9 % (0.0-7.0); Hematocrit 45.3 % (36.0-46.0); Hemoglobin 14.4 g/dL (12.2-16.2); Lymphocytes # (auto) 2.2 10 ^3/uL (0.4-5.4); Mean Corpuscular Hemoglobin 27.9 pg (28.0-32.0); Mean Corpuscular Hgb Conc. 31.8 g/dL (32.0-36.0); Mean Corpuscular Volume 87.7 fL (80.0-100.0); Monocytes # (auto) 0.5 10 ^3/uL (0-1.3); Monocytes % (auto) 6.8 % (0.0-12.0); Neutrophils % (auto) 56.9 % (37.0-80.0); Nucleated Red Blood Cells % 0.1 %; Red Blood Cells 5.16 10^6/uL (4.0-5.20); Red Cell Distribution Width 13.7 % (11.8-14.3); White Blood Cell 7.1 10^3/uL (4.4-10.8)
[2021-01-20 07:24] LABS: Calcium 8.4 mg/dL (8.5-10.1)
[2021-01-20 07:26] LABS: BUN/Creatinine Ratio 28.1
[2021-01-20] MEDS: IPRATROPIUM BROM 0.5 MG/2.5ML INH SOL NEB PRN ×3 (07:35→19:43)
[2021-01-20] MEDS: BUDESONIDE (INHALATION) 0.5 MG/2 ML NEB NEB SCH ×2 (07:35→19:43)
[2021-01-20] MEDS: ALBUTEROL SULF 2.5 MG/0.5ML(0.5%) NEB SOLN NEB PRN ×3 (07:35→19:43)
[2021-01-20] MEDS: FAMOTIDINE (10MG/ML) 2ML VL IV SCH ×2 (09:42→21:09)
[2021-01-20] MEDS: METOPROLOL SUCCINATE XL 50 MG TAB PO SCH (09:42)
[2021-01-20] MEDS: ASPirin 81 mg TAB PO SCH (09:42)
[2021-01-20] MEDS: OLANZapine 5 MG TAB PO SCH (09:43)
[2021-01-20] MEDS: ENOXAPARIN SOD 40 MG/0.4 ML SYRINGE SC SCH (09:43)
[2021-01-20] MEDS: LISINOPRIL 5 MG TAB PO SCH (09:43)
[2021-01-20] MEDS: HYDROcodone-ACET 10/325MG TAB PO PRN ×2 (10:53→21:10)
[2021-01-20] MEDS: amLODIPine BESYLATE 5 MG TAB PO SCH (10:53)
[2021-01-20 17:00] VITALS: BP 106/69
[2021-01-20] MEDS: ATORVASTATIN 20 MG TAB PO SCH (21:09)
[2021-01-20 22:00] VITALS: BP 114/69
[2021-01-20] MEDS: LORazepam 2MG/ML-1ML VIAL IV PRN (22:08)
[2021-01-21 05:00] VITALS: BP 139/93
[2021-01-21] MEDS: ACCU-CHEK COMFORT CURVE STRIP VI SCH ×4 (06:06→21:45)
[2021-01-21] MEDS: InsuLIN REG 1unit/0.01ml Soln (100units/ml) SC SCH ×4 (06:26→21:46)
[2021-01-21 08:15] VITALS: BP 120/80
[2021-01-21] MEDS: HYDROcodone-ACET 10/325MG TAB PO PRN ×2 (08:37→21:20)
[2021-01-21 09:00] VITALS: BP 120/80
[2021-01-21] MEDS: ASPirin 81 mg TAB PO SCH (09:46)
[2021-01-21] MEDS: FAMOTIDINE (10MG/ML) 2ML VL IV SCH ×2 (09:46→21:45)
[2021-01-21] MEDS: amLODIPine BESYLATE 5 MG TAB PO SCH (09:46)
[2021-01-21] MEDS: LISINOPRIL 5 MG TAB PO SCH (09:47)
[2021-01-21] MEDS: ENOXAPARIN SOD 40 MG/0.4 ML SYRINGE SC SCH (09:47)
[2021-01-21] MEDS: OLANZapine 5 MG TAB PO SCH (09:47)
[2021-01-21] MEDS: METOPROLOL SUCCINATE XL 50 MG TAB PO SCH (09:47)
[2021-01-21] MEDS: ALBUTEROL SULF 2.5 MG/0.5ML(0.5%) NEB SOLN NEB PRN ×2 (10:48→19:18)
[2021-01-21] MEDS: BUDESONIDE (INHALATION) 0.5 MG/2 ML NEB NEB SCH ×2 (10:48→19:18)
[2021-01-21 13:00] VITALS: BP 101/58
[2021-01-21 17:00] VITALS: BP 114/79
[2021-01-21] MEDS: IPRATROPIUM BROM 0.5 MG/2.5ML INH SOL NEB PRN (19:18)
[2021-01-21] MEDS: ATORVASTATIN 20 MG TAB PO SCH (21:45)
[2021-01-21 22:00] VITALS: BP 102/60
[2021-01-21] MEDS: LORazepam 2MG/ML-1ML VIAL IV PRN (22:17)
[2021-01-22 05:00] VITALS: BP 125/80
[2021-01-22] MEDS: ACCU-CHEK COMFORT CURVE STRIP VI SCH ×2 (06:17→11:50)
[2021-01-22] MEDS: HYDROcodone-ACET 10/325MG TAB PO PRN (06:17)
[2021-01-22] MEDS: InsuLIN REG 1unit/0.01ml Soln (100units/ml) SC SCH ×2 (06:20→11:49)
[2021-01-22 06:24] LABS: Basophils # (auto) 0 10 ^3/uL (0-0.2); Basophils % (auto) 0.5 % (0.0-2.0); Eosinophils # (auto) 0.3 10 ^3/uL (0-0.8); Eosinophils % (auto) 3.8 % (0.0-7.0); Hematocrit 41.6 % (36.0-46.0); Hemoglobin 13.2 g/dL (12.2-16.2); Lymphocytes # (auto) 2.6 10 ^3/uL (0.4-5.4); Lymphocytes % (auto) 38.9 % (10.0-50.0); Mean Corpuscular Hemoglobin 27.2 pg (28.0-32.0); Mean Corpuscular Hgb Conc. 31.6 g/dL (32.0-36.0); Monocytes # (auto) 0.7 10 ^3/uL (0-1.3); Monocytes % (auto) 10.7 % (0.0-12.0); Neutrophils % (auto) 46.1 % (37.0-80.0); Nucleated Red Blood Cells % 0.1 %; Red Blood Cells 4.84 10^6/uL (4.0-5.20); Red Cell Distribution Width 13.7 % (11.8-14.3); White Blood Cell 6.6 10^3/uL (4.4-10.8)
[2021-01-22] MEDS: ALBUTEROL SULF 2.5 MG/0.5ML(0.5%) NEB SOLN NEB PRN (06:31)
[2021-01-22] MEDS: BUDESONIDE (INHALATION) 0.5 MG/2 ML NEB NEB SCH (06:31)
[2021-01-22 06:39] LABS: INR 0.99 (0.9-1.15); Partial Thromboplastin Time 26.1 sec (23.6-33.0)
[2021-01-22 06:43] LABS: Albumin 2.7 g/dL (3.4-5.0); Anion Gap 2 (5-15); Blood Urea Nitrogen 11 mg/dL (7-18); Calcium 8.3 mg/dL (8.5-10.1); Carbon Dioxide 29 mmol/L (21-32); Chloride 108 mmol/L (98-107); Glucose 166 mg/dL (74-106); Magnesium 2.1 mg/dL (1.6-2.6); Potassium 4.3 mmol/L (3.5-5.1); Sodium 139 mmol/L (136-145)
[2021-01-22 06:48] LABS: Alanine Aminotransferase 37 U/L (13-56); Alkaline Phosphatase 55 U/L (45-117); Aspartate Aminotransferase 19 U/L (15-37); BUN/Creatinine Ratio 14.5; Bilirubin, Total 0.6 mg/dL (0.2-1.0); GFR African American 98 mL/min; GFR Non-African American 81 mL/min; Phosphorus 3.2 mg/dL (2.5-4.90); Total Protein 5.6 g/dL (6.4-8.2)
[2021-01-22 08:00] VITALS: BP 132/83
[2021-01-22] MEDS: FAMOTIDINE (10MG/ML) 2ML VL IV SCH (09:32)
[2021-01-22] MEDS: ASPirin 81 mg TAB PO SCH (09:32)
[2021-01-22] MEDS: METOPROLOL SUCCINATE XL 50 MG TAB PO SCH (09:33)
[2021-01-22] MEDS: amLODIPine BESYLATE 5 MG TAB PO SCH (09:33)
[2021-01-22] MEDS: LISINOPRIL 5 MG TAB PO SCH (09:36)
[2021-01-22] MEDS: ENOXAPARIN SOD 40 MG/0.4 ML SYRINGE SC SCH (09:36)
[2021-01-22] MEDS: OLANZapine 5 MG TAB PO SCH (09:36)
[2021-01-22 13:28] VITALS: BP 132/83
[2021-01-22 13:55] VITALS: BP 132/83
== END 2021-01-22 16:25 | disposition home or self-care (01) | DRG 917 ==
LOC: EDBD 08:01 → ER 08:01 → TELE 13:25 → TELE-WESTW 01-18 09:03 → WEST WING 01-20 10:51
PROVIDERS: ADMIT Family Medicine; ATTEND Internal Medicine
DX: T40.601A Poisoning by unspecified narcotics, accidental (unintentional), initial encounter (principal); G92.9 Unspecified toxic encephalopathy; N17.0 Acute kidney failure with tubular necrosis; J96.21 Acute and chronic respiratory failure with hypoxia; J69.0 Pneumonitis due to inhalation of food and vomit; J96.22 Acute and chronic respiratory failure with hypercapnia; J44.1 Chronic obstructive pulmonary disease with (acute) exacerbation; J45.901 Unspecified asthma with (acute) exacerbation; I16.9 Hypertensive crisis, unspecified; J44.0 Chronic obstructive pulmonary disease with (acute) lower respiratory infection; I13.0 Hypertensive heart and chronic kidney disease with heart failure and stage 1 through stage 4 chronic kidney disease, or unspecified chronic kidney disease; F41.9 Anxiety disorder, unspecified; G89.4 Chronic pain syndrome; E66.01 Morbid (severe) obesity due to excess calories; Z20.822 Contact with and (suspected) exposure to COVID-19; N18.31 Chronic kidney disease, stage 3a; E11.22 Type 2 diabetes mellitus with diabetic chronic kidney disease; E78.5 Hyperlipidemia, unspecified; F17.200 Nicotine dependence, unspecified, uncomplicated; F32.A Depression, unspecified; D72.829 Elevated white blood cell count, unspecified; F12.10 Cannabis abuse, uncomplicated; M06.9 Rheumatoid arthritis, unspecified; M19.90 Unspecified osteoarthritis, unspecified site; I50.9 Heart failure, unspecified; M54.9 Dorsalgia, unspecified; Z68.33 Body mass index [BMI] 33.0-33.9, adult; Z79.51 Long term (current) use of inhaled steroids; Z79.84 Long term (current) use of oral hypoglycemic drugs; Z82.49 Family history of ischemic heart disease and other diseases of the circulatory system; Z83.3 Family history of diabetes mellitus; Z90.710 Acquired absence of both cervix and uterus; Z99.81 Dependence on supplemental oxygen; Z98.51 Tubal ligation status; Y92.89 Other specified places as the place of occurrence of the external cause; Z91.89 Other specified personal risk factors, not elsewhere classified
CPT/HCPCS: 36415; 36600; 70450; 70551; 71045; 80048; 80053; 80076; 80307; 80320; 80329; 81001; 82607; 82746; 82805; 82962; 82977; 83036; 83735; 83880; 84100; 84439; 84443; 84484; 85025; 85379; 85610; 85730; 87040; 87086; 87426; 93005; 93306; 93970; 94640; 95819; 96374; 96375; 99291; G0378; J0696; J1815; J2405; J3490

== ENCOUNTER 2021-08-22 01:32 | Emergency (ER) | payer BC, MEDICAID ==
[~2021-08-22] VITALS: Ht 160 cm; Wt 77.1 kg
[~2021-08-22 01:32] MED LIST changes: +ALBU0.084 NEB; +ALBU108A5 INH; -ALBU1AER4 IN; -AML5T PO; +AMLO-496 PO; +BENA5TAB9 PO; +CALC500C52 PO; -CARI-277 PO; +CYCL-839 PO; +DICL1GEL50 TOP; +DOCU100C10 PO; -FLUT250M2 INH; +GABA-339 PO; -HYDR-531 PO; -LEVO500T31 PO; +MET25T PO; -METF-370 PO; +METF-929 PO; +METH12IN SC; +NITR0.4S29 SL; +OXYC325T14 PO; +PRAV20TA3 PO
[2021-08-22] MEDS ORDERED: methylPREDNISolone SOD SUCC 125 MG/2 ML VL IV ONE (01:45)
[2021-08-22] MEDS ORDERED: FUROSEMIDE 40 MG/4 ML VIAL IV ONE (01:45)
[2021-08-22 02:03] LABS: Basophils # (auto) 0.1 10 ^3/uL (0-0.2); Basophils % (auto) 2.5 % (0.0-2.0); Eosinophils # (auto) 0.4 10 ^3/uL (0-0.8); Eosinophils % (auto) 8.1 % (0.0-7.0); Hematocrit 35.4 % (36.0-46.0); Hemoglobin 11.7 g/dL (12.2-16.2); Lymphocytes % (auto) 39.8 % (10.0-50.0); Mean Corpuscular Hemoglobin 28.5 pg (28.0-32.0); Mean Corpuscular Hgb Conc. 33.2 g/dL (32.0-36.0); Mean Corpuscular Volume 85.9 fL (80.0-100.0); Monocytes # (auto) 0.5 10 ^3/uL (0-1.3); Monocytes % (auto) 10.2 % (0.0-12.0); Neutrophils % (auto) 39.4 % (37.0-80.0); Red Blood Cells 4.12 10^6/uL (4.0-5.20); Red Cell Distribution Width 13.4 % (11.8-14.3); White Blood Cell 5.1 10^3/uL (4.4-10.8)
[2021-08-22 02:18] LABS: INR 0.94 (0.9-1.15); Partial Thromboplastin Time 27.3 sec (23.6-33.0)
[2021-08-22 02:21] LABS: Calcium 9.3 mg/dL (8.5-10.1); Potassium 4.3 mmol/L (3.5-5.1)
[2021-08-22 02:23] LABS: Bilirubin, Total 0.1 mg/dL (0.2-1.0); Total Protein 6.7 g/dL (6.4-8.2)
[2021-08-22 06:23] VITALS: BP 133/98
== END 2021-08-22 06:38 | disposition home or self-care (01) ==
LOC: EDBD 01:32 → ER 01:32
DX: I11.0 Hypertensive heart disease with heart failure (principal); I50.9 Heart failure, unspecified; R06.03 Acute respiratory distress; E11.9 Type 2 diabetes mellitus without complications; Z90.710 Acquired absence of both cervix and uterus; Z20.822 Contact with and (suspected) exposure to COVID-19; Z98.51 Tubal ligation status
CPT/HCPCS: 36415; 71045; 80053; 83880; 84484; 85025; 85379; 85610; 85730; 87426; 93005; 96374; 96375; 99291; J1940; J2930

== ENCOUNTER 2022-03-17 21:58 | Inpatient (IN) | payer BC, MEDICAID ==
[~2022-03-17] VITALS: Ht 165.1 cm; Wt 80.0 kg
[2022-03-18 00:53] LABS: Eosinophils # (auto) 0 10 ^3/uL (0-0.8); Hematocrit 42.7 % (36.0-46.0); Monocytes # (auto) 0.2 10 ^3/uL (0-1.3); Nucleated Red Blood Cells % 0.1 %
[2022-03-18 00:54] LABS: Basophils # (auto) 0 10 ^3/uL (0-0.2); Basophils % (auto) 0.4 % (0.0-2.0); Eosinophils % (auto) 0.3 % (0.0-7.0); Hemoglobin 13.4 g/dL (12.2-16.2); Lymphocytes # (auto) 0.4 10 ^3/uL (0.4-5.4); Lymphocytes % (auto) 4.7 % (10.0-50.0); Mean Corpuscular Hemoglobin 26.3 pg (28.0-32.0); Mean Corpuscular Hgb Conc. 31.4 g/dL (32.0-36.0); Monocytes % (auto) 2.5 % (0.0-12.0); Neutrophils # (auto) 8.1 10 ^3/uL (1.6-8.6); Neutrophils % (auto) 92.1 % (37.0-80.0); Red Blood Cells 5.09 10^6/uL (4.0-5.20); Red Cell Distribution Width 13.7 % (11.8-14.3); White Blood Cell 8.8 10^3/uL (4.4-10.8)
[2022-03-18 01:07] LABS: INR 0.96 (0.9-1.15); Partial Thromboplastin Time 26.6 sec (24.6-33.4)
[2022-03-18 01:11] LABS: Albumin 3.6 g/dL (3.4-5.0); Calcium 9.9 mg/dL (8.5-10.1); Potassium 4.5 mmol/L (3.5-5.1)
[2022-03-18 01:17] LABS: BUN/Creatinine Ratio 13.6
[2022-03-18 01:18] LABS: Bilirubin, Total 0.3 mg/dL (0.2-1.0); Total Protein 7.1 g/dL (6.4-8.2)
[2022-03-18] MEDS ORDERED: InsuLIN REG 1unit/0.01ml Soln (100units/ml) IV ONE (02:00)
[2022-03-18] MEDS ORDERED: HYDROcodone-ACET 10/325MG TAB PO ONE (02:00)
[2022-03-18] MEDS ORDERED: IPRATROPIUM BROM 0.5 MG/2.5ML INH SOL NEB ONE (02:45)
[2022-03-18] MEDS ORDERED: ALBUTEROL SULF 2.5 MG/0.5ML(0.5%) NEB SOLN NEB ONE (02:45)
[2022-03-18] MEDS ORDERED: ALBUTEROL SULF 2.5 MG/0.5ML(0.5%) NEB SOLN NEB PRN (04:30)
[2022-03-18] MEDS ORDERED: IPRATROPIUM BROM 0.5 MG/2.5ML INH SOL NEB PRN (04:30)
[2022-03-18] MEDS ORDERED: ONDANSETRON HCL 4 MG/2 ML VIAL IV PRN (04:30)
[2022-03-18] MEDS ORDERED: MORPHINE SULFATE INJ 2 MG/ml SYRG IV PRN (04:30)
[2022-03-18] MEDS ORDERED: DOCUSATE SOD 100 MG CAP PO PRN (04:30)
[2022-03-18] MEDS ORDERED: ACETAMINOPHEN 325 MG TAB PO PRN (04:30)
[2022-03-18] MEDS ORDERED: DEXTROSE (50%) 50ML SYRG IV PRN (04:30)
[2022-03-18] MEDS ORDERED: NITROGLYCERIN 0.4 MG SL TAB SL PRN (04:30)
[2022-03-18] MEDS ORDERED: hydrALAZINE HCL 20 MG/ML VL IV PRN (05:00)
[2022-03-18] MEDS: ACCU-CHEK COMFORT CURVE STRIP VI SCH ×4 (07:08→21:37)
[2022-03-18] MEDS: InsuLIN REG 1unit/0.01ml Soln (100units/ml) SC SCH ×4 (07:09→21:58)
[2022-03-18] MEDS: HYDROcodone-ACET 5/325MG TAB PO PRN ×2 (08:16→20:17)
[2022-03-18] MEDS: ALBUTEROL SULF 2.5 MG/0.5ML(0.5%) NEB SOLN NEB SCH ×5 (08:54→22:11)
[2022-03-18] MEDS: IPRATROPIUM BROM 0.5 MG/2.5ML INH SOL NEB SCH ×5 (08:54→22:11)
[2022-03-18 09:09] LABS: Basophils # (auto) 0.1 10 ^3/uL (0-0.2); Basophils % (auto) 0.7 % (0.0-2.0); Eosinophils # (auto) 0 10 ^3/uL (0-0.8); Eosinophils % (auto) 0.1 % (0.0-7.0); Hematocrit 40.3 % (36.0-46.0); Hemoglobin 12.7 g/dL (12.2-16.2); Lymphocytes # (auto) 1.1 10 ^3/uL (0.4-5.4); Lymphocytes % (auto) 14.8 % (10.0-50.0); Mean Corpuscular Hemoglobin 26.4 pg (28.0-32.0); Mean Corpuscular Hgb Conc. 31.6 g/dL (32.0-36.0); Mean Corpuscular Volume 83.5 fL (80.0-100.0); Monocytes # (auto) 0.7 10 ^3/uL (0-1.3); Monocytes % (auto) 9.1 % (0.0-12.0); Neutrophils # (auto) 5.7 10 ^3/uL (1.6-8.6); Neutrophils % (auto) 75.3 % (37.0-80.0); Nucleated Red Blood Cells % 0.2 %; Red Blood Cells 4.82 10^6/uL (4.0-5.20); Red Cell Distribution Width 13.4 % (11.8-14.3); White Blood Cell 7.5 10^3/uL (4.4-10.8)
[2022-03-18 09:26] LABS: BUN/Creatinine Ratio 15.3; Potassium 3.6 mmol/L (3.5-5.1)
[2022-03-18] MEDS: methylPREDNISolone SOD SUCC 40 MG/ML VL IV SCH ×2 (11:03→21:30)
[2022-03-18] MEDS: DOXYCYCLINE 100 MG TAB/CAP PO SCH ×2 (11:03→21:30)
[2022-03-18 14:10] VITALS: BP 146/119
[2022-03-18] MEDS: OSELTAMIVIR 75 MG CAP PO SCH (21:33)
[2022-03-18] MEDS ORDERED: ZOLPIDEM TARTRATE 5 MG TAB PO ONE (21:45)
[2022-03-19] MEDS: ALBUTEROL SULF 2.5 MG/0.5ML(0.5%) NEB SOLN NEB SCH ×2 (01:55→06:05)
[2022-03-19] MEDS: IPRATROPIUM BROM 0.5 MG/2.5ML INH SOL NEB SCH ×2 (01:55→06:06)
[2022-03-19 04:56] LABS: Basophils # (auto) 0 10 ^3/uL (0-0.2); Basophils % (auto) 0.7 % (0.0-2.0); Eosinophils # (auto) 0 10 ^3/uL (0-0.8); Hematocrit 40.8 % (36.0-46.0); Hemoglobin 13.3 g/dL (12.2-16.2); Lymphocytes # (auto) 0.6 10 ^3/uL (0.4-5.4); Lymphocytes % (auto) 8.8 % (10.0-50.0); Mean Corpuscular Hemoglobin 27.1 pg (28.0-32.0); Mean Corpuscular Hgb Conc. 32.6 g/dL (32.0-36.0); Mean Corpuscular Volume 83.3 fL (80.0-100.0); Monocytes # (auto) 0.2 10 ^3/uL (0-1.3); Monocytes % (auto) 2.9 % (0.0-12.0); Neutrophils # (auto) 5.6 10 ^3/uL (1.6-8.6); Neutrophils % (auto) 87.6 % (37.0-80.0); Red Cell Distribution Width 13.7 % (11.8-14.3); White Blood Cell 6.4 10^3/uL (4.4-10.8)
[2022-03-19] MEDS: HYDROcodone-ACET 5/325MG TAB PO PRN ×2 (06:07→11:23)
[2022-03-19 06:33] LABS: Anion Gap 9 (5-15); BUN/Creatinine Ratio 15.2; Blood Urea Nitrogen 10 mg/dL (7-18); Calcium 9.3 mg/dL (8.5-10.1); Carbon Dioxide 27 mmol/L (21-32); Chloride 103 mmol/L (98-107); GFR African American 115 mL/min; GFR Non-African American 95 mL/min; Glucose 246 mg/dL (74-106); Potassium 4.7 mmol/L (3.5-5.1); Sodium 139 mmol/L (136-145)
[2022-03-19] MEDS: InsuLIN REG 1unit/0.01ml Soln (100units/ml) SC SCH ×2 (06:56→11:24)
[2022-03-19] MEDS: ACCU-CHEK COMFORT CURVE STRIP VI SCH ×2 (06:59→11:05)
[2022-03-19] MEDS: OSELTAMIVIR 75 MG CAP PO SCH (11:22)
[2022-03-19] MEDS: methylPREDNISolone SOD SUCC 40 MG/ML VL IV SCH (11:22)
[2022-03-19] MEDS: DOXYCYCLINE 100 MG TAB/CAP PO SCH (11:22)
[2022-03-19] MEDS ORDERED: TAMIFLU PO (12:29)
[2022-03-19 12:51] VITALS: BP 149/101
== END 2022-03-19 12:54 | disposition home or self-care (01) | DRG 193 ==
LOC: EDBD 21:58 → ER 21:58 → TELE 03-18 04:42
PROVIDERS: ADMIT Nurse Practitioner Family; ATTEND Nurse Practitioner Family
DX: J10.1 Influenza due to other identified influenza virus with other respiratory manifestations (principal); J96.01 Acute respiratory failure with hypoxia; E11.65 Type 2 diabetes mellitus with hyperglycemia; Z20.822 Contact with and (suspected) exposure to COVID-19; E78.00 Pure hypercholesterolemia, unspecified; I11.0 Hypertensive heart disease with heart failure; I50.9 Heart failure, unspecified; J44.9 Chronic obstructive pulmonary disease, unspecified; Z78.9 Other specified health status; Z82.49 Family history of ischemic heart disease and other diseases of the circulatory system; Z83.3 Family history of diabetes mellitus; Z90.710 Acquired absence of both cervix and uterus; Z98.51 Tubal ligation status; Z79.84 Long term (current) use of oral hypoglycemic drugs
CPT/HCPCS: 36415; 80048; 80053; 82962; 83880; 84484; 85025; 85379; 85610; 85730; 87426; 87804; 94640; 96374; G0378; J1815

== ENCOUNTER 2023-04-17 10:28 | Inpatient (IN) | payer BC, MEDICAID ==
[~2023-04-17] VITALS: Ht 165.1 cm; Wt 79.5 kg
[2023-04-17] VITALS (9 sets, daily range): PULSE 77–94; RESP 11–24; O2SAT 92–97
[~2023-04-17 10:28] MED LIST changes: -AMLO-496 PO; +AMLO1TAB23 PO; -DICL1GEL50 TOP; +DICL1GEL73 TOP; +DOCU-265 PO; -DOCU100C10 PO; +TAMIFLU PO
[2023-04-17] MEDS ORDERED: methylPREDNISolone SOD SUCC 125 MG/2 ML VL IV ONE (10:45)
[2023-04-17] MEDS ORDERED: MAGNESIUM SULFATE 1GM/100ML 100 ML IV ONE (11:15)
[2023-04-17 11:25] LABS: Basophils # (auto) 0.1 10 ^3/uL (0-0.2); Basophils % (auto) 1.1 % (0.0-2.0); Eosinophils # (auto) 0.5 10 ^3/uL (0-0.8); Eosinophils % (auto) 8.1 % (0.0-7.0); Hematocrit 41.3 % (36.0-46.0); Lymphocytes # (auto) 2.2 10 ^3/uL (0.4-5.4); Lymphocytes % (auto) 37.1 % (10.0-50.0); Mean Corpuscular Hemoglobin 27.2 pg (28.0-32.0); Mean Corpuscular Hgb Conc. 31.5 g/dL (32.0-36.0); Mean Corpuscular Volume 86.4 fL (80.0-100.0); Monocytes # (auto) 0.4 10 ^3/uL (0-1.3); Monocytes % (auto) 7.3 % (0.0-12.0); Neutrophils # (auto) 2.8 10 ^3/uL (1.6-8.6); Neutrophils % (auto) 46.4 % (37.0-80.0); Nucleated Red Blood Cells % 0.1 %; Red Blood Cells 4.79 10^6/uL (4.0-5.20); Red Cell Distribution Width 15.3 % (11.8-14.3)
[2023-04-17 11:43] LABS: Alanine Aminotransferase 12 U/L (7-40); Albumin 4.3 g/dL (3.2-4.8); Alkaline Phosphatase 66 U/L (46-116); Anion Gap 8 (5-15); Aspartate Aminotransferase 13 U/L (13-40); BUN/Creatinine Ratio 9.5 (10.0-20.0); Blood Urea Nitrogen 8 mg/dL (9-23); Calcium 9.2 mg/dL (8.5-10.1); Carbon Dioxide 25 mmol/L (20-30); Chloride 108 mmol/L (98-107); Glucose 130 mg/dL (74-106); Potassium 3.8 mmol/L (3.5-5.1); Sodium 141 mmol/L (136-145)
[2023-04-17 11:44] LABS: Bilirubin, Total 0.4 mg/dL (0.2-1.0); Total Protein 6.3 g/dL (5.7-8.2)
[2023-04-17] MEDS ORDERED: ONDANSETRON HCL 4 MG/2 ML VIAL IV PRN (13:00)
[2023-04-17] MEDS ORDERED: DEXTROSE (50%) 50ML SYRG IV PRN (13:00)
[2023-04-17] MEDS ORDERED: NITROGLYCERIN 0.4 MG SL TAB SL PRN (13:00)
[2023-04-17] MEDS ORDERED: ACETAMINOPHEN 325 MG TAB PO PRN (13:00)
[2023-04-17] MEDS ORDERED: DOCUSATE SOD 100 MG CAP PO PRN (13:00)
[2023-04-17] MEDS ORDERED: MORPHINE SULFATE INJ 2 MG/ml SYRG IV PRN (13:00)
[2023-04-17 13:25] LABS: COVID19 ANTIGEN SOFIA FIA NEGATIVE (NEGATIVE)
[2023-04-17 13:26] LABS: Rapid Influenza A Negative (Negative); Rapid Influenza B Negative (Negative)
[2023-04-17] MEDS ORDERED: LOSA100T58 PO (13:47)
[2023-04-17] MEDS ORDERED: GABA800T97 PO (13:47)
[2023-04-17] MEDS ORDERED: MONT-8 PO (13:47)
[2023-04-17] MEDS ORDERED: EZET-10 PO (13:47)
[2023-04-17] MEDS ORDERED: OXYC15TA PO (13:47)
[2023-04-17] MEDS: HYDROcodone-ACET 5/325MG TAB PO PRN (14:22)
[2023-04-17] MEDS: ALBUTEROL SULF 2.5 MG/0.5ML(0.5%) NEB SOLN NEB SCH ×3 (14:48→21:41)
[2023-04-17] MEDS: IPRATROPIUM BROM 0.5 MG/2.5ML INH SOL NEB SCH ×3 (14:48→21:41)
[2023-04-17] MEDS: InsuLIN REG 1unit/0.01ml Soln (100units/ml) SC SCH ×2 (16:39→21:36)
[2023-04-17] MEDS: ACCU-CHEK COMFORT CURVE STRIP VI SCH (16:40)
[2023-04-17] MEDS: oxyCODONE HCL 5MG TAB PO PRN (21:11)
[2023-04-17] MEDS: methylPREDNISolone SOD SUCC 40 MG/ML VL IV SCH (21:35)
[2023-04-17] MEDS: GABAPENTIN 400 MG CAP PO SCH (21:35)
[2023-04-18] VITALS (18 sets, daily range): BP systolic 121–155; BP diastolic 65–96; PULSE 60–100; RESP 17–20; TEMP 97.4–98.4; O2SAT 91–100
[2023-04-18] MEDS: ACCU-CHEK COMFORT CURVE STRIP VI SCH ×5 (00:46→21:01)
[2023-04-18] MEDS: oxyCODONE HCL 5MG TAB PO PRN ×4 (03:51→22:24)
[2023-04-18 05:46] LABS: Basophils # (auto) 0 10 ^3/uL (0-0.2); Basophils % (auto) 0.3 % (0.0-2.0); Eosinophils # (auto) 0 10 ^3/uL (0-0.8); Hematocrit 44.1 % (36.0-46.0); Hemoglobin 14.1 g/dL (12.2-16.2); Lymphocytes # (auto) 1.2 10 ^3/uL (0.4-5.4); Lymphocytes % (auto) 18.2 % (10.0-50.0); Mean Corpuscular Hemoglobin 27.7 pg (28.0-32.0); Mean Corpuscular Volume 86.4 fL (80.0-100.0); Monocytes # (auto) 0.3 10 ^3/uL (0-1.3); Neutrophils % (auto) 77.5 % (37.0-80.0); Nucleated Red Blood Cells % 0.1 %; Red Cell Distribution Width 15.1 % (11.8-14.3); White Blood Cell 6.4 10^3/uL (4.4-10.8)
[2023-04-18 06:01] LABS: Chloride 105 mmol/L (98-107); Potassium 4.6 mmol/L (3.5-5.1); Sodium 139 mmol/L (136-145)
[2023-04-18] MEDS: GABAPENTIN 400 MG CAP PO SCH ×3 (06:04→21:00)
[2023-04-18 06:33] LABS: Anion Gap 10 (5-15); Calcium 9.8 mg/dL (8.7-10.4); Carbon Dioxide 24 mmol/L (20-30)
[2023-04-18 06:37] LABS: Alkaline Phosphatase 73 U/L (46-116)
[2023-04-18 06:38] LABS: Alanine Aminotransferase 15 U/L (7-40); BUN/Creatinine Ratio 9.2 (10.0-20.0); Blood Urea Nitrogen 7 mg/dL (9-23); Glucose 153 mg/dL (74-106)
[2023-04-18 06:39] LABS: Albumin 4.9 g/dL (3.2-4.8)
[2023-04-18 06:40] LABS: Aspartate Aminotransferase 12 U/L (13-40); Bilirubin, Total 0.4 mg/dL (0.2-1.0); Total Protein 7.4 g/dL (5.7-8.2)
[2023-04-18] MEDS: InsuLIN REG 1unit/0.01ml Soln (100units/ml) SC SCH ×4 (07:09→21:01)
[2023-04-18] MEDS: IPRATROPIUM BROM 0.5 MG/2.5ML INH SOL NEB SCH ×5 (07:48→22:15)
[2023-04-18] MEDS: ALBUTEROL SULF 2.5 MG/0.5ML(0.5%) NEB SOLN NEB SCH ×5 (07:48→22:15)
[2023-04-18] MEDS: MONTELUKAST SODIUM 10 MG TAB PO SCH (09:30)
[2023-04-18] MEDS: LOSARTAN POTASSIUM 50 MG TAB PO SCH (09:31)
[2023-04-18] MEDS: methylPREDNISolone SOD SUCC 40 MG/ML VL IV SCH (09:31)
[2023-04-18] MEDS: EZETIMIBE 10 MG TABLETS PO SCH (09:32)
[2023-04-18] MEDS ORDERED: DICL75TA3 PO (09:58)
[2023-04-18] MEDS ORDERED: ROSU1TAB15 PO (09:58)
[2023-04-18] MEDS ORDERED: PANTOPRAZOLE 40 MG/10 ML VIAL INJ IV SCH (10:00)
[2023-04-18] MEDS ORDERED: FLUT110A INH (10:05)
[2023-04-18] MEDS ORDERED: AZITHROMYCIN 250 MG TAB PO ONE (18:00)
[2023-04-18] MEDS ORDERED: predniSONE 20 MG TAB PO ONE (18:00)
[2023-04-18] MEDS: HYDROcodone-ACET 5/325MG TAB PO PRN (22:12)
[2023-04-19] VITALS (17 sets, daily range): BP systolic 125–168; BP diastolic 65–109; PULSE 72–104; RESP 16–22; TEMP 36.6–36.8; O2SAT 91–99
[2023-04-19] MEDS: ALBUTEROL SULF 2.5 MG/0.5ML(0.5%) NEB SOLN NEB PRN ×2 (03:02→04:09)
[2023-04-19 05:34] LABS: Basophils # (auto) 0.1 10 ^3/uL (0-0.2); Basophils % (auto) 0.7 % (0.0-2.0); Eosinophils # (auto) 0 10 ^3/uL (0-0.8); Hematocrit 42.3 % (36.0-46.0); Hemoglobin 13.6 g/dL (12.2-16.2); Lymphocytes # (auto) 1.3 10 ^3/uL (0.4-5.4); Lymphocytes % (auto) 13.8 % (10.0-50.0); Mean Corpuscular Hemoglobin 27.7 pg (28.0-32.0); Mean Corpuscular Hgb Conc. 32.2 g/dL (32.0-36.0); Mean Corpuscular Volume 86.1 fL (80.0-100.0); Monocytes # (auto) 0.2 10 ^3/uL (0-1.3); Monocytes % (auto) 2.2 % (0.0-12.0); Neutrophils # (auto) 7.8 10 ^3/uL (1.6-8.6); Neutrophils % (auto) 83.3 % (37.0-80.0); Nucleated Red Blood Cells % 0.1 %; Red Blood Cells 4.91 10^6/uL (4.0-5.20); Red Cell Distribution Width 15.3 % (11.8-14.3); White Blood Cell 9.4 10^3/uL (4.4-10.8)
[2023-04-19 05:40] LABS: Anion Gap 10 (5-15); Carbon Dioxide 23 mmol/L (20-30); Chloride 106 mmol/L (98-107); Potassium 4.4 mmol/L (3.5-5.1); Sodium 139 mmol/L (136-145)
[2023-04-19 05:41] LABS: Calcium 9.7 mg/dL (8.5-10.1)
[2023-04-19 05:46] LABS: BUN/Creatinine Ratio 9.5 (10.0-20.0); Blood Urea Nitrogen 8 mg/dL (9-23); Glucose 213 mg/dL (74-106)
[2023-04-19] MEDS: GABAPENTIN 400 MG CAP PO SCH ×2 (05:53→14:11)
[2023-04-19] MEDS: InsuLIN REG 1unit/0.01ml Soln (100units/ml) SC SCH ×2 (05:53→12:15)
[2023-04-19] MEDS: oxyCODONE HCL 5MG TAB PO PRN ×2 (05:53→12:28)
[2023-04-19] MEDS: ACCU-CHEK COMFORT CURVE STRIP VI SCH ×2 (05:54→12:07)
[2023-04-19] MEDS: IPRATROPIUM BROM 0.5 MG/2.5ML INH SOL NEB SCH ×3 (06:29→14:51)
[2023-04-19] MEDS: ALBUTEROL SULF 2.5 MG/0.5ML(0.5%) NEB SOLN NEB SCH ×3 (06:29→14:50)
[2023-04-19] MEDS: MONTELUKAST SODIUM 10 MG TAB PO SCH (09:57)
[2023-04-19] MEDS: LOSARTAN POTASSIUM 50 MG TAB PO SCH (09:58)
[2023-04-19] MEDS: EZETIMIBE 10 MG TABLETS PO SCH (09:59)
[2023-04-19] MEDS ORDERED: AZITHROMYCIN 250 MG TAB PO SCH (10:00)
[2023-04-19] MEDS ORDERED: predniSONE 20 MG TAB PO SCH (10:00)
[2023-04-19] MEDS ORDERED: FLUT1AER3 IN (10:18)
[2023-04-19] MEDS ORDERED: AZIT500T66 PO (10:18)
[2023-04-19] MEDS ORDERED: ALBU108A5 INH (10:18)
[2023-04-19] MEDS ORDERED: PRED20TA2 PO (10:18)
== END 2023-04-19 16:15 | disposition home or self-care (01) | DRG 189 ==
LOC: EDBD 10:28 → ER 10:28 → TELE 12:58 → TELE-WESTW 23:18
PROVIDERS: ADMIT Internal Medicine Pulmonary Disease; ATTEND Emergency Medicine
DX: J96.21 Acute and chronic respiratory failure with hypoxia (principal); J44.1 Chronic obstructive pulmonary disease with (acute) exacerbation; J45.901 Unspecified asthma with (acute) exacerbation; I50.32 Chronic diastolic (congestive) heart failure; I11.0 Hypertensive heart disease with heart failure; Z20.822 Contact with and (suspected) exposure to COVID-19; E78.5 Hyperlipidemia, unspecified; E11.40 Type 2 diabetes mellitus with diabetic neuropathy, unspecified; Z90.710 Acquired absence of both cervix and uterus
CPT/HCPCS: 36415; 71045; 80048; 80053; 82962; 83880; 84484; 85025; 87426; 87804; 93005; 94640; C9113; G0378; J1815

== ENCOUNTER 2024-01-04 11:33 | Inpatient (IN) | payer BC, MEDICAID ==
[~2024-01-04] VITALS: Ht 152.4 cm; Wt 82.0 kg
[2024-01-04] VITALS (8 sets, daily range): BP systolic 137–144; BP diastolic 98–100; PULSE 80–98; RESP 16–22; TEMP 98–98.4; O2SAT 92–98
[~2024-01-04 11:33] MED LIST changes: -ALBU0.084 NEB; +AZIT500T66 PO; -BENA5TAB9 PO; -CALC500C52 PO; -CYCL-839 PO; -DICL1GEL73 TOP; +DICL75TA3 PO; -DOCU-265 PO; +EZET-10 PO; +FLUT110A INH; +FLUT1AER3 IN; -GABA-339 PO; +GABA800T97 PO; +LOSA-535 PO; -MET25T PO; -METH12IN SC; +MONT-8 PO; -NITR0.4S29 SL; +OXYC15TA PO; -OXYC325T14 PO; -PRAV20TA3 PO; +PRED20TA2 PO; +ROSU40TA47 PO; -TAMIFLU PO
[2024-01-04 12:28] LABS: Basophils # (auto) 0.1 10 ^3/uL (0-0.2); Eosinophils # (auto) 0.8 10 ^3/uL (0-0.8); Eosinophils % (auto) 12.1 % (0.0-7.0); Hematocrit 41.3 % (36.0-46.0); Hemoglobin 13.4 g/dL (12.2-16.2); Lymphocytes # (auto) 2.8 10 ^3/uL (0.4-5.4); Lymphocytes % (auto) 42.6 % (10.0-50.0); Mean Corpuscular Hemoglobin 27.8 pg (28.0-32.0); Mean Corpuscular Hgb Conc. 32.5 g/dL (32.0-36.0); Mean Corpuscular Volume 85.5 fL (80.0-100.0); Monocytes # (auto) 0.6 10 ^3/uL (0-1.3); Monocytes % (auto) 8.5 % (0.0-12.0); Neutrophils # (auto) 2.3 10 ^3/uL (1.6-8.6); Neutrophils % (auto) 35.8 % (37.0-80.0); Nucleated Red Blood Cells % 0.1 %; Platelet Count (auto) 151 10^3/uL (140-450); Red Blood Cells 4.82 10^6/uL (4.0-5.20); Red Cell Distribution Width 13.9 % (11.8-14.3); White Blood Cell 6.5 10^3/uL (4.4-10.8)
[2024-01-04 12:43] LABS: Alanine Aminotransferase 14 U/L (7-40); Albumin 4.4 g/dL (3.2-4.8); Alkaline Phosphatase 69 U/L (46-116); Anion Gap 9 (5-15); Aspartate Aminotransferase 13 U/L (13-40); BUN/Creatinine Ratio 10.8 (10.0-20.0); Blood Urea Nitrogen 10 mg/dL (9-23); Calcium 9.6 mg/dL (8.7-10.4); Carbon Dioxide 28 mmol/L (20-30); Chloride 105 mmol/L (98-107); Glucose 95 mg/dL (74-106); Magnesium 1.8 mg/dL (1.6-2.6); Potassium 4.7 mmol/L (3.5-5.1); Sodium 142 mmol/L (136-145)
[2024-01-04 12:44] LABS: Bilirubin, Total 0.4 mg/dL (0.2-1.0); Total Protein 6.3 g/dL (5.7-8.2)
[2024-01-04] MEDS: methylPREDNISolone SOD SUCC 125 MG/2 ML VL IV ONE (13:45)
[2024-01-04] MEDS: FUROSEMIDE 40 MG/4 ML VIAL IV ONE ×2 (13:45→17:00)
[2024-01-04] MEDS: ALBUTEROL SULF 2.5 MG/0.5ML(0.5%) NEB SOLN NEB ONE ×2 (13:56→18:13)
[2024-01-04] MEDS: IPRATROPIUM BROM 0.5 MG/2.5ML INH SOL NEB ONE ×2 (13:56→18:13)
[2024-01-04] MEDS: ASPirin 325 MG TAB PO ONE (14:38)
[2024-01-04] MEDS: NITROGLYCERIN 0.4 MG SL TAB SL ONE (14:38)
[2024-01-04] MEDS ORDERED: DOCUSATE SOD 100 MG CAP PO PRN ×2 (17:00→17:15)
[2024-01-04] MEDS: PANTOPRAZOLE 40 MG/10 ML VIAL INJ IV ONE (17:00)
[2024-01-04] MEDS ORDERED: FUROSEMIDE 40 MG/4 ML VIAL IV ONE (17:00)
[2024-01-04] MEDS ORDERED: PATIENTS OWN MEDICATION (Oxycodone HCl (Oxycodone Hydrochloride) 1 TAB) PO SCH (17:00)
[2024-01-04] MEDS ORDERED: PANTOPRAZOLE 40 MG/10 ML VIAL INJ IV ONE (17:00)
[2024-01-04] MEDS ORDERED: NITROGLYCERIN 0.4 MG SL TAB SL PRN ×2 (17:00→17:15)
[2024-01-04] MEDS ORDERED: ONDANSETRON HCL 4 MG/2 ML VIAL IV PRN ×2 (17:00→17:15)
[2024-01-04] MEDS ORDERED: ALBUTEROL SULF 2.5 MG/0.5ML(0.5%) NEB SOLN NEB ONE (17:00)
[2024-01-04] MEDS ORDERED: IPRATROPIUM BROM 0.5 MG/2.5ML INH SOL NEB ONE (17:00)
[2024-01-04] MEDS ORDERED: MORPHINE SULFATE INJ 2 MG/ml SYRG IV PRN ×2 (17:00→17:15)
[2024-01-04] MEDS ORDERED: FUROSEMIDE 40 MG/4 ML VIAL IV SCH (18:00)
[2024-01-04] MEDS ORDERED: ALBUTEROL SULF 2.5 MG/0.5ML(0.5%) NEB SOLN NEB SCH (18:00)
[2024-01-04] MEDS ORDERED: IPRATROPIUM BROM 0.5 MG/2.5ML INH SOL NEB SCH (18:00)
[2024-01-04] MEDS: FUROSEMIDE 40 MG/4 ML VIAL IV SCH (18:00)
[2024-01-04 19:35] LABS: INR 1.03 (0.9-1.15); Prothrombin Time 10.9 sec (9.3-11.8)
[2024-01-04] MEDS: oxyCODONE HCL 5MG TAB PO PRN (21:04)
[2024-01-04] MEDS: ENOXAPARIN SOD 80 MG/0.8ML SYRINGE SC SCH (21:04)
[2024-01-04] MEDS: ATORVASTATIN 20 MG TAB PO SCH (21:05)
[2024-01-04] MEDS: methylPREDNISolone SOD SUCC 125 MG/2 ML VL IV SCH (21:11)
[2024-01-04] MEDS: GABAPENTIN 400 MG CAP PO SCH (21:27)
[2024-01-04] MEDS ORDERED: methylPREDNISolone SOD SUCC 125 MG/2 ML VL IV SCH (22:00)
[2024-01-04] MEDS ORDERED: PATIENTS OWN MEDICATION (Gabapentin 1 TAB) PO SCH (22:00)
[2024-01-04] MEDS ORDERED: PATIENTS OWN MEDICATION (Rosuvastatin Calcium 1 TAB) PO SCH (22:00)
[2024-01-04] MEDS: IPRATROPIUM BROM 0.5 MG/2.5ML INH SOL NEB SCH (22:16)
[2024-01-04] MEDS: ALBUTEROL SULF 2.5 MG/0.5ML(0.5%) NEB SOLN NEB SCH (22:16)
[2024-01-05] VITALS (21 sets, daily range): BP systolic 118–153; BP diastolic 68–95; PULSE 58–107; RESP 16–20; TEMP 98–98.1; O2SAT 91–100
[2024-01-05 06:44] LABS: Basophils # (auto) 0 10 ^3/uL (0-0.2); Basophils % (auto) 0.5 % (0.0-2.0); Eosinophils # (auto) 0 10 ^3/uL (0-0.8); Hemoglobin 13.8 g/dL (12.2-16.2); Lymphocytes # (auto) 1.1 10 ^3/uL (0.4-5.4); Lymphocytes % (auto) 18.2 % (10.0-50.0); Mean Corpuscular Hemoglobin 28.5 pg (28.0-32.0); Mean Corpuscular Hgb Conc. 33.7 g/dL (32.0-36.0); Mean Corpuscular Volume 84.6 fL (80.0-100.0); Monocytes # (auto) 0.1 10 ^3/uL (0-1.3); Monocytes % (auto) 1.4 % (0.0-12.0); Neutrophils % (auto) 79.9 % (37.0-80.0); Nucleated Red Blood Cells % 0.1 %; Platelet Count (auto) 153 10^3/uL (140-450); Red Blood Cells 4.84 10^6/uL (4.0-5.20); Red Cell Distribution Width 13.2 % (11.8-14.3); White Blood Cell 6.2 10^3/uL (4.4-10.8)
[2024-01-05 06:51] LABS: Alanine Aminotransferase 13 U/L (7-40); Albumin 4.5 g/dL (3.2-4.8); Alkaline Phosphatase 65 U/L (46-116); Anion Gap 11 (5-15); Aspartate Aminotransferase 11 U/L (13-40); Blood Urea Nitrogen 12 mg/dL (9-23); Carbon Dioxide 22 mmol/L (20-30); Chloride 104 mmol/L (98-107); Glucose 216 mg/dL (74-106); Sodium 137 mmol/L (136-145)
[2024-01-05 06:52] LABS: Bilirubin, Total 0.4 mg/dL (0.2-1.0); Total Protein 6.7 g/dL (5.7-8.2)
[2024-01-05] MEDS ORDERED: EZETIMIBE 10 MG TAB PO SCH (10:00)
[2024-01-05] MEDS ORDERED: PATIENTS OWN MEDICATION (Losartan Potassium 1 TAB) PO SCH (10:00)
[2024-01-05] MEDS: EZETIMIBE 10 MG TAB PO SCH (10:00)
[2024-01-05] MEDS ORDERED: MONTELUKAST SODIUM 10 MG TAB PO SCH (10:00)
[2024-01-05] MEDS ORDERED: PANTOPRAZOLE 40 MG/10 ML VIAL INJ IV SCH (10:00)
[2024-01-05] MEDS ORDERED: PATIENTS OWN MEDICATION (Amlodipine Besylate 1 TAB) PO SCH (10:00)
[2024-01-05] MEDS: LOSARTAN POTASSIUM 50 MG TAB PO SCH (10:17)
[2024-01-05] MEDS: amLODIPine BESYLATE 5 MG TAB PO SCH (10:18)
[2024-01-05] MEDS: MONTELUKAST SODIUM 10 MG TAB PO SCH (10:18)
[2024-01-05] MEDS: PANTOPRAZOLE 40 MG/10 ML VIAL INJ IV SCH (10:19)
[2024-01-05] MEDS: methylPREDNISolone SOD SUCC 125 MG/2 ML VL IV SCH (14:13)
[2024-01-05] MEDS: FUROSEMIDE 40 MG/4 ML VIAL IV SCH (14:14)
[2024-01-05 15:11] LABS: Rapid Influenza A Negative (Negative); Rapid Influenza B Negative (Negative)
[2024-01-05 15:12] LABS: COVID19 ANTIGEN SOFIA FIA NEGATIVE (NEGATIVE)
[2024-01-06] VITALS (11 sets, daily range): BP systolic 95–137; BP diastolic 60–82; PULSE 73–90; RESP 16–20; TEMP 97.5–98.1; O2SAT 93–99
[2024-01-06 07:04] LABS: Basophils # (auto) 0 10 ^3/uL (0-0.2); Basophils % (auto) 0.2 % (0.0-2.0); Eosinophils # (auto) 0 10 ^3/uL (0-0.8); Hematocrit 41.1 % (36.0-46.0); Hemoglobin 13.7 g/dL (12.2-16.2); Lymphocytes # (auto) 1.9 10 ^3/uL (0.4-5.4); Lymphocytes % (auto) 16.2 % (10.0-50.0); Mean Corpuscular Hemoglobin 28.2 pg (28.0-32.0); Mean Corpuscular Hgb Conc. 33.4 g/dL (32.0-36.0); Mean Corpuscular Volume 84.5 fL (80.0-100.0); Monocytes # (auto) 0.8 10 ^3/uL (0-1.3); Monocytes % (auto) 6.6 % (0.0-12.0); Neutrophils # (auto) 9.1 10 ^3/uL (1.6-8.6); Nucleated Red Blood Cells % 0.1 %; Platelet Count (auto) 159 10^3/uL (140-450); Red Blood Cells 4.87 10^6/uL (4.0-5.20); Red Cell Distribution Width 13.4 % (11.8-14.3); White Blood Cell 11.8 10^3/uL (4.4-10.8)
[2024-01-06 07:05] LABS: Chloride 105 mmol/L (98-107); Sodium 141 mmol/L (136-145)
[2024-01-06 07:06] LABS: Anion Gap 6 (5-15); Carbon Dioxide 30 mmol/L (20-30)
[2024-01-06 07:07] LABS: Calcium 9.9 mg/dL (8.7-10.4)
[2024-01-06 07:11] LABS: Blood Urea Nitrogen 15 mg/dL (9-23); Glucose 119 mg/dL (74-106)
[2024-01-06 07:20] LABS: BUN/Creatinine Ratio 15.2 (10.0-20.0)
[2024-01-06] MEDS: ENOXAPARIN SOD 40 MG/0.4 ML SYRINGE SC SCH (09:30)
[2024-01-06] MEDS ORDERED: FUROSEMIDE 40 MG/4 ML VIAL IV SCH (10:00)
[2024-01-06] MEDS ORDERED: DOXY-286 PO (12:03)
[2024-01-06] MEDS ORDERED: ALBUAER3 IN (12:03)
[2024-01-06] MEDS ORDERED: PRED20TA2 PO (12:03)
== END 2024-01-06 14:54 | disposition home or self-care (01) | DRG 291 ==
LOC: ER 11:33 → EDBD 11:33 → TELE 17:06 → ER 17:06 → TELE-CENTR 23:31
PROVIDERS: ADMIT Internal Medicine; ATTEND Internal Medicine
DX: I11.0 Hypertensive heart disease with heart failure (principal); I50.43 Acute on chronic combined systolic (congestive) and diastolic (congestive) heart failure; J96.01 Acute respiratory failure with hypoxia; J45.901 Unspecified asthma with (acute) exacerbation; J98.11 Atelectasis; E78.5 Hyperlipidemia, unspecified; Z20.822 Contact with and (suspected) exposure to COVID-19; E11.65 Type 2 diabetes mellitus with hyperglycemia; T38.0X5A Adverse effect of glucocorticoids and synthetic analogues, initial encounter; J44.9 Chronic obstructive pulmonary disease, unspecified; Z90.710 Acquired absence of both cervix and uterus; Z83.3 Family history of diabetes mellitus; Z82.49 Family history of ischemic heart disease and other diseases of the circulatory system; Z79.899 Other long term (current) drug therapy; Y92.89 Other specified places as the place of occurrence of the external cause; I16.0 Hypertensive urgency; M19.90 Unspecified osteoarthritis, unspecified site
CPT/HCPCS: 36415; 71045; 80048; 80053; 83735; 83880; 84484; 85025; 85379; 85610; 87426; 87804; 93005; 93306; 94640; G0378; J2470

== ENCOUNTER 2024-02-25 16:34 | Inpatient (IN) | payer BC, MEDICAID ==
[~2024-02-25] VITALS: Ht 152.4 cm; Wt 68.9 kg
[~2024-02-25 16:34] MED LIST changes: +ALBUAER3 IN; +DOXY-286 PO
--- NOTE | 2024-02-25 16:41 | ECG ---
[facility] Test Date: 2024-02-25 Test Time: 16:40:03 Pat Name: BERNADINE PRUITT Department: er Room: [facility] Gender: F Director Of Enrollment: gp : 1955 Requested By: KRISTINA JACKSON Order Number: [id number] Reading MD: Tk Milligan Measurements Intervals [place] Rate: 124 P: 53 ND: 142 QRS: 31 QRSD: 90 T: 98 QT: 303 QTc: 436 Interpretive Statements Sinus tachycardia Low voltage, extremity and precordial leads Baseline wander in lead(s) II,V3 Electronically Signed On 02-27-2024 11:54:29 PST by Tk Milligan Please click the below link to view image of tracing.
--- NOTE | 2024-02-25 16:43 | ED.PDOC ---
SOB-HPI HPI Comments HPI: Poor Historian. 68-year-old female brought in by ambulance from home for shortness of breath for the last three days progressively getting worse. Patient does not use oxygen at home. Patient has history of COPD and CHF. She used her inhaler at least 3 times a day today. Patient complains of generalized shortness of breath on nonspecific chest discomfort. Vitals: Temp:98.6 F Heart rate: 112 RR: 20 BP: 116/72 02 sat: 91% on room air PMH: Hypertension ,diabetes ,CHF, hyperlipidemia, DDD, asthma, PSH: Hysterectomy social history: denies tobacco use, denies ETOH use, denies drug use medications: [place], metformin, nitroglycerin, allergies: NKDA REVIEW OF SYSTEMS: CONSTITUTIONAL: Denies acute: fever, diaphoresis, chills, HEAD: Denies acute: headache, photophobia Eyes: Denies acute: Double vision, vision loss, eye pain, eye discharge. EARS: Denies acute: tinnitus, hearing loss, ear discharge, ear pain, THROAT: Denies acute: sore throat, swelling, difficulty swallowing , pain with swallowing, change in voice. NECK: Denies acute: neck pain, neck swelling, stiff neck. HEART: Denies acute : palpitations, LUNGS: Denies acute: wheezing, cough, hemoptysis ABDOMEN: Denies acute: abdominal pain, Nausea, Vomiting, diarrhea, melena , hematemesis, hematochezia SKIN: Denies acute: rash, redness, lesions, itchiness. EXTREMITIES: Denies acute: calf pain, numbness, tingling, weakness, denies pain in extremity. Denies acute: Low back pain. Neuro: Denies acute: focal neurological deficit, motor or sensory focal neurological deficit, tremors, seizure like activity, confusion, dizziness, change in mental status, loss of bowel or bladder function, cauda equina like symptoms. : Denies acute: dysuria, hematuria, flank pain, increase in urinary frequency. PSYCH: Denies acute: hallucination, suicidal ideation, homicidal ideation. FEMALE: Denies acute: abnormal vaginal bleeding, foul odor, unusual discharge. PHYSICAL EXAM: General: mild acute distress, awake and alert. Head: normocephalic, atraumatic. Neck: supple, trachea is midline, no swelling. Throat: Normal phonation. Eyes:, no erythema, no purulent discharge, no proptosis, no icterus. Heart: regular tachycardic, no significant murmur appreciated. Lungs: Mild respiratory distress, Bilateral wheezing, no rhonchi, no crackles. No stridors Abdomen: non tender to palpation, non distended, soft, no guarding, no rebound, + bowel sounds. Neuro: Awake, Alert, oriented to name, self, situation, follows commands GCS=15. Speech is normal. Skin: no petechia, no purpura, no cyanosis, non-pale, not jaundice. Lower extremities: --trace bilateral - Pitting edema no deformity, no focal swelling, no calf TTP. Makes eye contact. moves all four extremities. Face: no apparent facial droop. Chief Complaint: shortness of breath Time Seen by MD: 16:35 Primary Care Provider: JUANCARLOS Garza notes: Medications, Allergies Information Source: Patient, Emergency Med Personnel Mode of Arrival: EMS Past Medical History PAST MEDICAL HISTORY: Arthritis, Asthma, CHF, COPD, DM, High Lipids, HTN Surgical History: , Hysterectomy, Tubal Ligation MATERIALS HANDLER History: No Pertinent MATERIALS HANDLER History Family History Family History: Unknown Social History Smoker: Non-Smoker Alcohol: Occasionally Drugs: Denies Drug Use Lives In: Home Was a procedure done? Was a procedure done?: No Differential Dx Differential Diagnosis: Other (DDx include ACS, unstable angina, anxiety, PE, pneumothroax, neoplasm, cardiac ischemia, COPD, asthma, CHF, pleural effusion, tobacco abuse, pneumonia, hypoxia, hypercapnia, anemia., infection/sepsis., pulmonary edema. Asthma, Cardiac tamponade, infection.) X-Ray, Labs, Meds, VS Vital Signs Date Time Temp Pulse Resp B/P (MAP) Pulse Ox O2 Delivery O2 Flow Rate FiO2 02/25/24 20:00 100.1 117 20 131/74 (93) 96 100.1 02/25/24 18:00 112 20 122/98 (106) 92 02/25/24 17:47 16 95 Nasal Cannula* 3 32 02/25/24 17:28 98.6 112 20 116/72 (87) 91 98.6 02/25/24 17:28 112 20 91 Nasal Cannula* 2 28 02/25/24 17:05 115 02/25/24 16:45 100.6 110 20 131/73 (92) 93 Lab Test 02/25/24 19:44 02/25/24 17:45 02/25/24 16:48 Range/Units Lactic Acid Level 1.2 2.1 H 0.4-2.0 mmol/L Troponin I High Sensitivity 4 4 < 3 L </=34 ng/L White Blood Count 13.2 H 4.4-10.8 10^3/uL Red Blood Count 4.40 4.0-5.20 10^6/uL Hemoglobin 12.1 L 12.2-16.2 g/dL Hematocrit 38.0 36.0-46.0 % Mean Corpuscular Volume 86.5 80.0-100.0 fL Mean Corpuscular Hemoglobin 27.6 L 28.0-32.0 pg Mean Corpuscular Hemoglobin Concent 31.9 L 32.0-36.0 g/dL Red Cell Distribution Width 14.5 H 11.8-14.3 % Platelet Count 172 140-450 10^3/uL Mean Platelet Volume 9.1 6.9-10.8 fL Neutrophils (%) (Auto) 77.1 37.0-80.0 % Lymphocytes (%) (Auto) 14.0 10.0-50.0 % Monocytes (%) (Auto) 6.1 0.0-12.0 % Eosinophils (%) (Auto) 2.0 0.0-7.0 % Basophils (%) (Auto) 0.8 0.0-2.0 % Neutrophils # (Auto) 10.2 H 1.6-8.6 10 ^3/uL Lymphocytes # (Auto) 1.9 0.4-5.4 10 ^3/uL Monocytes # (Auto) 0.8 0-1.3 10 ^3/uL Eosinophils # (Auto) 0.3 0-0.8 10 ^3/uL Basophils # (Auto) 0.1 0-0.2 10 ^3/uL Nucleated Red Blood Cells 0.1 % Sodium Level 139 136-145 mmol/L Potassium Level 4.1 3.5-5.1 mmol/L Chloride Level 106 98-107 mmol/L Carbon Dioxide Level 25 20-31 mmol/L Anion Gap 8 5-15 Blood Urea Nitrogen 27 H 9-23 mg/dL Creatinine 1.36 H 0.550-1.02 mg/dL Glomerular Filtration Rate Calc 42 >90 mL/min BUN/Creatinine Ratio 19.9 10.0-20.0 Serum Glucose 155 H 74-106 mg/dL Calcium Level 10.1 8.7-10.4 mg/dL Magnesium Level 1.9 1.6-2.6 mg/dL Total Bilirubin 0.4 0.2-1.0 mg/dL Aspartate Amino Transferase (AST) 27 13-40 U/L Alanine Aminotransferase (ALT) 17 7-40 U/L Alkaline Phosphatase 74 46-116 U/L B-Type Natriuretic Peptide 70.46 0-100 pg/mL Total Protein 6.9 5.7-8.2 g/dL Albumin 4.6 3.2-4.8 g/dL Current Medications Medications (Trade) Dose Ordered Sig/Liz Route Start Time Stop Time Status Last Admin Albuterol (Ventolin Medneb) 2.5 mg ONCE ONCE NEB 02/25/24 17:30 02/25/24 17:31 DC 02/25/24 17:47 Ipratropium [place] (Atrovent Medneb) 1 mg ONCE ONCE NEB 02/25/24 17:30 02/25/24 17:31 DC 02/25/24 17:46 Methylprednisolone Sodium Succinate (Solu Medrol) 125 mg ONCE ONCE IV 02/25/24 17:30 02/25/24 17:31 DC 02/25/24 17:36 [place] [id number] Ph: [phone] DIAGNOSTIC IMAGING Diagnostic Imaging Report : [id number] Signed PATIENT: BERNADINE PRUITT ACCT: [id number] UNIT: [id number] : 1955 LOC: ER ROOM / BED: / AGE / SEX: 68 / F ADM STATUS: REG ER SERVICE [id number] ORDERING PHYSICIAN: KRISTINA JACKSON DO PROCEDURE(s): CXRP - CHEST PORTABLE REASON: sob ORDER NUMBER(s): [id number], ACCESSION NUMBER(s): [id number] EXAMINATION: AP portable chest radiograph CLINICAL HISTORY: sob COMPARISON: XY CHEST PORTABLE on DOS: 01/04/24 FINDINGS: Lead wires overlie the thorax. Apices partially excluded. Patient is rotated to the left. Interstitial prominence. No dominant consolidation in the visualized lung ace. No definite pleural effusion or pneumothorax as visualized. The cardiomediastinal silhouette appears within normal limits given technique. IMPRESSION: Limited study. Pulmonary vascular congestion. Please correlate to exclude atypical infection. ATED BY: EDDIE BOX MD DICTATED DATE/TIME: 02/25/241754 SIGNED BY: EDDIE BOX MD SIGNED DATE/TIME: 02/25/241754 CC: Time of 1ST Reevaluation: 21:28 Reevaluation 1ST: Improved Patient Education/Counseling: Diagnosis, Treatment Family Education/Counseling: No Family Present Comments Patient presented with the above HPI.---dyspnea/chest pain---workup was initiated. patient was found with the above mentioned diagnosis. Patient was given: DuoNeb treatment, Solu-Medrol, Lasix. Patient ED course and VS have been stabilized. Patient has been reassessed in the ED and remained in a stable condition. Pertinent incidental findings were discussed with the patient and/or family. Patient/family voices understanding and is agreeable with plan. Patient has been observed in the ED adequate length of time to insure improvement/stability. patient was admitted to the medicine team for further evaluation and treatment of their presentation. All the reports of any imaging studies that were ordered by myself were reviewed by myself. Departure 1 Departure Time of Disposition: 18:19 Impression: Primary Impression: CHF exacerbation Additional Impression: COPD exacerbation Disposition: ADMITTED INPATIENT Admit to: [facility] Condition: Guarded Discharged With: Self Critical Care Note Critical Care Time?: Yes (45 min-critical care time only) Heart Score Heart Score: Heart Score Response (Comments) Value History Moderate Suspicious 1 EKG Normal 0 Age >65 2 Risk Factors >3 or Hx ASHD 2 Troponin Normal limit 0 Total 5 I personally scribed for KRISTINA JACKSON DO ([email or web address]) on 02/25/24 at 16:43. Electronically submitted by Jenniffer Kan ([email or web address]). I personally scribed for KRISTINA JACKSON DO ([email or web address]) on 02/25/24 at 17:41. Electronically submitted by Jenniffer Kan ([email or web address]). I personally scribed for KRISTINA JACKSON DO ([email or web address]) on 02/25/24 at 18:49. Electronically submitted by Jenniffer Kan ([facility] [place]). KRISTINA JACKSON DO Feb 25, 2024 16:43
[2024-02-25 17:02] LABS: Basophils # (auto) 0.1 10 ^3/uL (0-0.2); Basophils % (auto) 0.8 % (0.0-2.0); Eosinophils # (auto) 0.3 10 ^3/uL (0-0.8); Hemoglobin 12.1 g/dL (12.2-16.2); Lymphocytes # (auto) 1.9 10 ^3/uL (0.4-5.4); Mean Corpuscular Hemoglobin 27.6 pg (28.0-32.0); Mean Corpuscular Hgb Conc. 31.9 g/dL (32.0-36.0); Mean Corpuscular Volume 86.5 fL (80.0-100.0); Monocytes # (auto) 0.8 10 ^3/uL (0-1.3); Monocytes % (auto) 6.1 % (0.0-12.0); Neutrophils # (auto) 10.2 10 ^3/uL (1.6-8.6); Neutrophils % (auto) 77.1 % (37.0-80.0); Nucleated Red Blood Cells % 0.1 %; Platelet Count (auto) 172 10^3/uL (140-450); Red Cell Distribution Width 14.5 % (11.8-14.3); White Blood Cell 13.2 10^3/uL (4.4-10.8)
[2024-02-25 17:20] LABS: Alanine Aminotransferase 17 U/L (7-40); Albumin 4.6 g/dL (3.2-4.8); Alkaline Phosphatase 74 U/L (46-116); Anion Gap 8 (5-15); Aspartate Aminotransferase 27 U/L (13-40); BUN/Creatinine Ratio 19.9 (10.0-20.0); Bilirubin, Total 0.4 mg/dL (0.2-1.0); Blood Urea Nitrogen 27 mg/dL (9-23); Calcium 10.1 mg/dL (8.7-10.4); Carbon Dioxide 25 mmol/L (20-31); Chloride 106 mmol/L (98-107); Glucose 155 mg/dL (74-106); Lactic Acid w/Reflex 2.1 mmol/L (0.4-2.0); Magnesium 1.9 mg/dL (1.6-2.6); Potassium 4.1 mmol/L (3.5-5.1); Sodium 139 mmol/L (136-145); Total Protein 6.9 g/dL (5.7-8.2)
[2024-02-25 17:28] VITALS: PULSE 112; RESP 20; O2SAT 91
[2024-02-25] MEDS: methylPREDNISolone SOD SUCC 125 MG/2 ML VL IV ONE (17:36)
[2024-02-25] MEDS: IPRATROPIUM BROM 0.5 MG/2.5ML INH SOL NEB ONE (17:46)
[2024-02-25] MEDS: ALBUTEROL SULF 2.5 MG/0.5ML(0.5%) NEB SOLN NEB ONE (17:47)
--- NOTE | 2024-02-25 17:58 | DVH ---
EXAMINATION: AP portable chest radiograph CLINICAL HISTORY: sob COMPARISON: XY CHEST PORTABLE on DOS: 01/04/24 FINDINGS: Lead wires overlie the thorax. Apices partially excluded. Patient is rotated to the left. Interstitial prominence. No dominant consolidation in the visualized lung ace. No definite pleura l effusion or pneumothorax as visualized. The cardiomediastinal silhouette appears within normal viera its given technique. IMPRESSION: Limited study. Pulmonary vascular congestion. Please correlate to exclude atypical infection.
[2024-02-25] MEDS ORDERED: HYDROcodone-ACET 5/325MG TAB PO PRN (22:00)
[2024-02-25] MEDS ORDERED: MORPHINE SULFATE INJ 2 MG/ml SYRG IV PRN (22:00)
[2024-02-25] MEDS ORDERED: NITROGLYCERIN 0.4 MG SL TAB SL PRN (22:00)
[2024-02-25] MEDS ORDERED: ONDANSETRON HCL 4 MG/2 ML VIAL IV PRN (22:00)
--- NOTE | 2024-02-25 22:03 | DVHHPRES ---
History of Present Illness Resident Creating Document: FERNANDA RASHID RESIDENT History of Present Illness This is a 68-year-old female with past medical history of asthma, CHF, degenerative disc disease, type 2 diabetes mellitus, hypertension, hyperlipidemia, polysubstance abuse presented to the ED with a chief complaint of shortness of breath and dry cough for last 3 days prior to this admission. According to the patient shortness of breath started 3 days ago getting worse associated with dry cough which prompted this visit. The patient denies any flu-like illness, sick contact, recent traveling, chest pain, dizziness, diaphoresis, abdominal pain, nausea, vomiting or any change in bowel and bladder habit. The patient also mentioned generalized weakness, tiredness and back pain for the same duration. Past Medical History Asthma, CHF, degenerative disc disease, type 2 diabetes mellitus, hypertension, hyperlipidemia Past Surgical History Hysterectomy, Family History None Past Social History Smoker, 50 pack year smoking history and quit 2 months ago, occasional drinker and polysubstance abuse disorder Review of Systems Constitutional: Yes: Fever, Weakness; No: Chills, Sweats, Malaise, Other Eyes: No: Pain, Vision change, Conjunctivae inflammation, Eyelid inflammation, Other, Redness ENT: No: Ear pain, Ear discharge, Nose pain, Nose discharge, Nose congestion, Mouth pain, Mouth swelling, Throat pain, Throat swelling, Other Respiratory: Dry, Shortness of breath, Wheezing; No: Cough, SOB with excertion, Hemoptysis, Pleuritic Pain, Sputum, Wheezing, Other Cardiovascular: No: Chest Pain, Palpitations, Orthopnea, Paroxysmal Noc. Dyspnea, Edema, Lt Headedness, Other Gastrointestinal: No: Nausea, Vomiting, Abdominal Pain, Diarrhea, Constipation, Melena, Hematochezia, Other Genitourinary: No Dysuria, No Frequency, No Incontinence, No Hematuria, No Retention, No Other Musculoskeletal: No: other, neck pain, shoulder pain, arm pain, back pain, hand pain, leg pain, foot pain Skin: No: Rash, Lesions, Jaundice, Bruising, Other Neurological: No: Weakness, Numbness, Incoordination, Change in speech, Confusion, Seizures, Other Allergies: Coded Allergies: NO KNOWN ALLERGIES (Unverified , 09/06/17) Medications Current Medications Medications Dose Ordered Sig/Liz Route Start Time Stop Time Status Last Admin Dose Admin Sodium Chloride 10 ml Q8HR IV 02/25/24 22:00 UNV Acetaminophen 325 mg Q4HP PRN PO 02/25/24 22:00 UNV Acetaminophen/ Hydrocodone Bitart 1 tab Q4HP PRN PO 02/25/24 22:00 UNV Ondansetron HCl 4 mg Q4HP PRN IV 02/25/24 22:00 UNV Enoxaparin Sodium 40 mg DAILY SC 02/26/24 10:00 UNV Nitroglycerin 0.4 mg Q5MINP PRN SL 02/25/24 22:00 UNV Morphine Sulfate 2 mg Q30M PRN IV 02/25/24 22:00 UNV Exam Vital Signs Vital Signs Date Time Temp Pulse Resp B/P (MAP) Pulse Ox O2 Delivery O2 Flow Rate FiO2 02/25/24 20:00 100.1 117 20 131/74 (93) 96 100.1 02/25/24 17:47 Nasal Cannula* 3 32 Exam Physical examination: General Appearance: Alert, Oriented X3, Cooperative, mild distress with 3 L oxygen through nasal cannula HEENT: Atraumatic, PERRLA, EOMI, Mucous membrane moist/pink Respiratory: Bilateral wheezing and mild crackles in both lung field Cardiovascular: Regular rate, Normal S1, Normal S2, No murmurs, no chest wall tenderness Abdominal: Normal bowel sounds, Soft, No tenderness, No hepatospenomegaly, No masses Extremities: No clubbing, No cyanosis, No edema, Normal pulses, No tenderness/swelling Skin: No rashes, No breakdown, No significant lesion Neuro: Normal gait, Normal speech, Strength at 5/5 X4 ext, Normal tone, Sensation intact, grossly intact cranial nerves. Psych/Mental Status: Mental status NL, Mood NL Labs/Xrays Labs Test 02/25/24 19:44 02/25/24 16:48 Range/Units Lactic Acid Level 1.2 0.4-2.0 mmol/L Troponin I High Sensitivity 4 </=34 ng/L White Blood Count 13.2 H 4.4-10.8 10^3/uL Red Blood Count 4.40 4.0-5.20 10^6/uL Hemoglobin 12.1 L 12.2-16.2 g/dL Hematocrit 38.0 36.0-46.0 % Mean Corpuscular Volume 86.5 80.0-100.0 fL Mean Corpuscular Hemoglobin 27.6 L 28.0-32.0 pg Mean Corpuscular Hemoglobin Concent 31.9 L 32.0-36.0 g/dL Red Cell Distribution Width 14.5 H 11.8-14.3 % Platelet Count 172 140-450 10^3/uL Mean Platelet Volume 9.1 6.9-10.8 fL Neutrophils (%) (Auto) 77.1 37.0-80.0 % Lymphocytes (%) (Auto) 14.0 10.0-50.0 % Monocytes (%) (Auto) 6.1 0.0-12.0 % Eosinophils (%) (Auto) 2.0 0.0-7.0 % Basophils (%) (Auto) 0.8 0.0-2.0 % Neutrophils # (Auto) 10.2 H 1.6-8.6 10 ^3/uL Lymphocytes # (Auto) 1.9 0.4-5.4 10 ^3/uL Monocytes # (Auto) 0.8 0-1.3 10 ^3/uL Eosinophils # (Auto) 0.3 0-0.8 10 ^3/uL Basophils # (Auto) 0.1 0-0.2 10 ^3/uL Nucleated Red Blood Cells 0.1 % Sodium Level 139 136-145 mmol/L Potassium Level 4.1 3.5-5.1 mmol/L Chloride Level 106 98-107 mmol/L Carbon Dioxide Level 25 20-31 mmol/L Anion Gap 8 5-15 Blood Urea Nitrogen 27 H 9-23 mg/dL Creatinine 1.36 H 0.550-1.02 mg/dL Glomerular Filtration Rate Calc 42 >90 mL/min BUN/Creatinine Ratio 19.9 10.0-20.0 Serum Glucose 155 H 74-106 mg/dL Calcium Level 10.1 8.7-10.4 mg/dL Magnesium Level 1.9 1.6-2.6 mg/dL Total Bilirubin 0.4 0.2-1.0 mg/dL Aspartate Amino Transferase (AST) 27 13-40 U/L Alanine Aminotransferase (ALT) 17 7-40 U/L Alkaline Phosphatase 74 46-116 U/L B-Type Natriuretic Peptide 70.46 0-100 pg/mL Total Protein 6.9 5.7-8.2 g/dL Albumin 4.6 3.2-4.8 g/dL Assessment/Plan Assessment/Plan Assessment and plan: # Sepsis due to possible Gram-positive/Gram-negative pneumonia - Patient is presented elevated lactic acid, tachycardia, elevated temperature, tachypnea and WBC count is also elevated - IV normal saline at 75 mL/hour - IV ceftriaxone 1 g daily and IV azithromycin 500 mg daily - Ordered blood and urine culture # Acute respiratory failure due to possible acute exacerbation of bronchial asthma/Gram-positive or Gram-negative pneumonia - Patient is on 4 L oxygen with saturation 94% # Acute exacerbation of bronchial asthma - DuoNeb treatment with ipratropium and albuterol q.4 hours - IV methylprednisolone 40 mg b.i.d. # Possible Gram-positive/Gram-negative pneumonia - IV ceftriaxone 1 g daily and IV azithromycin 500 mg daily - Ordered blood and urine culture - Ordered COVID and flu # HIRAL likely secondary to hemodynamically mediated/VMN - IV normal saline at 75 mL/hour - Monitor BMP # Type 2 diabetes mellitus - mild sliding scale of insulin # DVT prophylaxis - Lovenox 40 mg sc daily Goal care discussed with the patient for more than 15 minutes full code Plan of treatment discussed with Dr. aZldivar Plan discussed with: Patient, Other My Orders Orders - FERNANDA RASHID RESIDENT Procedure Category Date Status Time Admit ADMIT 02/25/24 Transmitted 21:56 Allergies CRISSY 02/25/24 In Process 21:56 Code Status CODE 02/25/24 Transmitted 21:56 2 Gm Sodium Diet DIET 02/26/24 Transmitted Breakfast Sodium Chloride Lock PHA 02/25/24 Logged (Saline Lock Ns) 22:00 Oxygen Per Hour RT 02/25/24 Transmitted 21:56 Acetaminophen Tablet PHA 02/25/24 Logged (Tylenol Tablet) 22:00 Hydrocodone-Acet PHA 02/25/24 Logged 5/325mg Tab ([place] 22:00 Ondansetron Hcl PHA 02/25/24 Logged (Zofran) 22:00 Enoxaparin Sodium PHA 02/26/24 Logged (Lovenox) 10:00 Complete Blood Count LAB 02/26/24 Verified 04:00 Comprehensive LAB 02/26/24 Verified Metabolic Panel 04:00 Pt Request For Service PT 02/25/24 Logged 21:56 Echo 2d Mode Cardiac US 02/25/24 Logged DOP 21:56 Nitroglycerin PHA 02/25/24 Logged Sublingual (Ntrostat 22:00 Morphine Sulfate [facility] 02/25/24 Logged Injection 22:00 Oxygen By Nasal RT 02/25/24 Transmitted Cannula 21:56 Stat Ekg For Chest [facility] 02/25/24 In Process Pain 21:56 Notify Of Changes [facility] 02/25/24 In Process From Base 21:56 Family Preservation Officer For [facility] 02/25/24 In Process 24 Hours 21:56 Emergency Dysrhythmia [facility] 02/25/24 In Process Protocol 21:56 Rhythm Strips Once [facility] 02/25/24 In Process Every Shift 21:56 NS [facility] 02/25/24 Verified 22:15 FERNANDA RASHID RESIDENT Feb 25, 2024 22:03
[2024-02-25] MEDS: SODIUM CHLOR 0.9% PF (SALINE LOCK) 10ML VIAL/SYR IV SCH (22:13)
[2024-02-25] MEDS: SODIUM CHLORIDE 0.9% 1,000 ML IV SCH (22:15)
[2024-02-25] MEDS ORDERED: DEXTROSE (50%) 50ML SYRG IV PRN (23:00)
[2024-02-25 23:07] VITALS: BP 131/74; PULSE 117; RESP 20; TEMP 100.1; O2SAT 96
[2024-02-25 23:11] VITALS: O2SAT 96
[2024-02-26] VITALS (21 sets, daily range): BP systolic 119–157; BP diastolic 65–90; PULSE 82–118; RESP 17–21; TEMP 97.8–98.5; O2SAT 92–100
[2024-02-26] MEDS: AZITHROMYCIN 500MG/ 250ML 250 ML IV ONE (00:15)
[2024-02-26] MEDS: cefTRIAXone 1GM/50ML D5W 50 ML IV ONE (00:15)
[2024-02-26] MEDS: IPRATROPIUM BROM 0.5 MG/2.5ML INH SOL NEB SCH (02:04)
[2024-02-26] MEDS: ALBUTEROL SULF 2.5 MG/0.5ML(0.5%) NEB SOLN NEB SCH (02:05)
[2024-02-26] MEDS ORDERED: ENOXAPARIN SOD 30 MG/0.3 ML SYRINGE SC SCH ×2 (02:30→10:00)
[2024-02-26] MEDS: ACETAMINOPHEN 325 MG TAB PO PRN (03:16)
[2024-02-26] MEDS: oxyCODONE HCL 5MG TAB PO PRN (03:16)
[2024-02-26 03:45] LABS: Urine Bacteria FEW /hpf (None Seen); Urine Blood Negative /uL (Negative); Urine Clarity Clear (Clear); Urine Color Light-Yellow (Yellow); Urine Protein, UAD Negative (Negative); Urine Specific Gravity 1.018 (1.001-1.035); Urine Urobilinogen Normal (Negative); Urine WBC 3 /hpf (0 - 5)
[2024-02-26 03:49] LABS: Amphetamine Screen, Urine Neg (NEGATIVE); Barbiturate Scree,Urine Neg (NEGATIVE); Benzodiazephine Screen, Urine Neg (NEGATIVE); Cocaine Screen, Urine Neg (NEGATIVE)
[2024-02-26 03:50] LABS: Cannabinoid Screen, Urine Neg (NEGATIVE); Opiate Scree,Urine Neg (NEGATIVE); Phencyclidine Screen, Urine Neg (NEGATIVE)
[2024-02-26 06:43] LABS: Basophils # (auto) 0 10 ^3/uL (0-0.2); Basophils % (auto) 0.1 % (0.0-2.0); Eosinophils # (auto) 0 10 ^3/uL (0-0.8); Hematocrit 36.8 % (36.0-46.0); Hemoglobin 12.1 g/dL (12.2-16.2); Lymphocytes # (auto) 0.9 10 ^3/uL (0.4-5.4); Lymphocytes % (auto) 7.3 % (10.0-50.0); Mean Corpuscular Hemoglobin 28.3 pg (28.0-32.0); Mean Corpuscular Hgb Conc. 32.8 g/dL (32.0-36.0); Mean Corpuscular Volume 86.5 fL (80.0-100.0); Monocytes # (auto) 0.2 10 ^3/uL (0-1.3); Monocytes % (auto) 1.5 % (0.0-12.0); Neutrophils # (auto) 10.9 10 ^3/uL (1.6-8.6); Neutrophils % (auto) 91.1 % (37.0-80.0); Platelet Count (auto) 163 10^3/uL (140-450); Red Blood Cells 4.26 10^6/uL (4.0-5.20); Red Cell Distribution Width 14.8 % (11.8-14.3)
[2024-02-26 06:54] LABS: Alanine Aminotransferase 19 U/L (7-40); Albumin 4.6 g/dL (3.2-4.8); Alkaline Phosphatase 74 U/L (46-116); Anion Gap 9 (5-15); Aspartate Aminotransferase 21 U/L (13-40); BUN/Creatinine Ratio 19.8 (10.0-20.0); Blood Urea Nitrogen 24 mg/dL (9-23); Calcium 9.9 mg/dL (8.7-10.4); Carbon Dioxide 23 mmol/L (20-31); Chloride 104 mmol/L (98-107); Glucose 317 mg/dL (74-106); Potassium 4.7 mmol/L (3.5-5.1); Sodium 136 mmol/L (136-145)
[2024-02-26 06:55] LABS: Bilirubin, Total 0.4 mg/dL (0.2-1.0)
[2024-02-26] MEDS: ACCU-CHEK COMFORT CURVE STRIP VI SCH (07:07)
[2024-02-26] MEDS: InsuLIN REG 1unit/0.01ml Soln (100units/ml) SC SCH (07:08)
[2024-02-26] MEDS: ENOXAPARIN SOD 30 MG/0.3 ML SYRINGE SC SCH (10:00)
[2024-02-26] MEDS ORDERED: AZITHROMYCIN 500MG/ 250ML 250 ML IV SCH (10:00)
[2024-02-26] MEDS ORDERED: ENOXAPARIN SOD 40 MG/0.4 ML SYRINGE SC SCH (10:00)
[2024-02-26] MEDS: methylPREDNISolone SOD SUCC 40 MG/ML VL IV SCH (10:56)
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
[2024-02-26] MEDS: MELATONIN 5 MG TAB PO ONE (21:44)
[2024-02-26] MEDS: GABAPENTIN 300 MG CAP PO SCH (21:44)
[2024-02-26] MEDS: ERGOCALCIFEROL 50,000 UNIT(1.25MG) CAP PO SCH (21:44)
[2024-02-26] MEDS: oxyCODONE ER 10 MG TAB PO SCH (21:44)
[2024-02-26] MEDS: CYANOCOBALAMIN (B-12) 1000 MCG/1 ML VIAL IM ONE (21:49)
[2024-02-26] MEDS ORDERED: PATIENTS OWN MEDICATION (Gabapentin 1 TAB) PO SCH (22:00)
[2024-02-27] VITALS (11 sets, daily range): BP systolic 93–160; BP diastolic 42–97; PULSE 51–112; RESP 16–20; TEMP 97.9–98.2; O2SAT 91–98
[2024-02-27] MEDS: cefTRIAXone 1GM/50ML D5W 50 ML IV SCH (01:59)
[2024-02-27 06:44] LABS: Basophils # (auto) 0 10 ^3/uL (0-0.2); Basophils % (auto) 0.3 % (0.0-2.0); Eosinophils # (auto) 0 10 ^3/uL (0-0.8); Hematocrit 43.8 % (36.0-46.0); Hemoglobin 14.1 g/dL (12.2-16.2); Lymphocytes # (auto) 0.8 10 ^3/uL (0.4-5.4); Lymphocytes % (auto) 8.5 % (10.0-50.0); Mean Corpuscular Hemoglobin 27.6 pg (28.0-32.0); Mean Corpuscular Hgb Conc. 32.3 g/dL (32.0-36.0); Mean Corpuscular Volume 85.4 fL (80.0-100.0); Monocytes # (auto) 0.3 10 ^3/uL (0-1.3); Monocytes % (auto) 2.6 % (0.0-12.0); Neutrophils # (auto) 8.7 10 ^3/uL (1.6-8.6); Neutrophils % (auto) 88.6 % (37.0-80.0); Nucleated Red Blood Cells % 0.1 %; Platelet Count (auto) 189 10^3/uL (140-450); Red Blood Cells 5.12 10^6/uL (4.0-5.20); Red Cell Distribution Width 14.6 % (11.8-14.3); White Blood Cell 9.8 10^3/uL (4.4-10.8)
[2024-02-27 06:49] LABS: Chloride 105 mmol/L (98-107); Potassium 4.2 mmol/L (3.5-5.1); Sodium 138 mmol/L (136-145)
[2024-02-27 06:50] LABS: Anion Gap 7 (5-15); Calcium 10.1 mg/dL (8.7-10.4); Carbon Dioxide 26 mmol/L (20-31)
[2024-02-27 06:55] LABS: BUN/Creatinine Ratio 10.7 (10.0-20.0); Blood Urea Nitrogen 9 mg/dL (9-23); Glucose 192 mg/dL (74-106)
[2024-02-27 09:16] LABS: Hepatitis B Surface Antigen Negative (Negative)
[2024-02-27] MEDS: AZITHROMYCIN 500MG/ 250ML 250 ML IV SCH (09:32)
[2024-02-27 09:37] LABS: Hepatitis A Ab IgM Negative; Hepatitis B Core IgM Negative
[2024-02-27 09:38] LABS: Hepatitis C Antibody Negative (Negative)
[2024-02-27] MEDS ORDERED: PRED20TA2 PO (18:31)
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
== END 2024-02-27 13:30 | disposition home or self-care (01) | DRG 871 ==
LOC: EDUNIT# 16:34 → EDBD 16:34 → ER 16:38 → OVERFLOW 21:56 → WEST WING 23:55
PROVIDERS: ADMIT Student in an Organized Health Care Education/Training Program; ATTEND Student in an Organized Health Care Education/Training Program
DX: A41.50 Gram-negative sepsis, unspecified (principal); J15.69 Pneumonia due to other Gram-negative bacteria; J96.01 Acute respiratory failure with hypoxia; J15.9 Unspecified bacterial pneumonia; J45.901 Unspecified asthma with (acute) exacerbation; J44.1 Chronic obstructive pulmonary disease with (acute) exacerbation; N17.9 Acute kidney failure, unspecified; Z20.822 Contact with and (suspected) exposure to COVID-19; E78.5 Hyperlipidemia, unspecified; E53.8 Deficiency of other specified B group vitamins; E55.9 Vitamin D deficiency, unspecified; I12.9 Hypertensive chronic kidney disease with stage 1 through stage 4 chronic kidney disease, or unspecified chronic kidney disease; N18.2 Chronic kidney disease, stage 2 (mild); E11.22 Type 2 diabetes mellitus with diabetic chronic kidney disease; E66.3 Overweight; Z90.710 Acquired absence of both cervix and uterus; Z68.29 Body mass index [BMI] 29.0-29.9, adult; Z79.899 Other long term (current) drug therapy
CPT/HCPCS: 36415; 71045; 80048; 80053; 80074; 80307; 81001; 82306; 82607; 82962; 83036; 83605; 83735; 83880; 84443; 84484; 85025; 86703; 87040; 93005; 94640; 97116; 97163; 97530; 99291; G0378; J1815

== ENCOUNTER 2024-05-10 14:11 | Inpatient (IN) | payer BC, MEDICAID ==
[~2024-05-10] VITALS: Ht 152.4 cm; Wt 79.0 kg
[~2024-05-10 14:11] MED LIST changes: +ALBU108A5 IN; +ASPI81CH59 PO; +DOCU250C12 PO
--- NOTE | 2024-05-10 14:51 | ECG ---
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
--- NOTE | 2024-05-10 15:03 | ED.PDOC ---
SOB-HPI HPI Comments 68-year-old female brought in by EMS presents with a chief complaint of cough, SOB, and wheezing. Patient states that she was given a breathing treatment by EMS and reports feeling relief of symptoms. Patient mentions that she has an inhaler, but that it was not providing her any relief. Patient received 1 breathing treatment en route, according to EMS. No other symptoms or modifying factors present at this time. 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 History Family History Family History: Unknown Social History Smoker: Non-Smoker Alcohol: Occasionally Drugs: Denies Drug Use Lives In: Home Constitutional: denies: chills, diaphoresis, fatigue, fever, malaise, sweats, weakness, others EENTM: denies: blurred vision, double vision, ear bleeding, ear discharge, ear drainage, ear pain, ear ringing, eye pain, eye redness, hearing loss, mouth pain, mouth swelling, nasal discharge, nose bleeding, nose congestion, nose pain, photophobia, tearing, throat pain, throat swelling, voice changes, others Respiratory: reports: cough, shortness of breath, wheezing; denies: hemoptysis, orthopnea, SOB at rest, SOB with excertion, stridor, others Cardiovascular: denies: chest pain, dizzy spells, diaphoresis, Dyspnea on exertion, edema, irregular heart beat, left arm pain, lightheadedness, palpitations, PND, syncope, others Gastrointestinal: denies: abdomen distended, abdominal pain, blood streaked bowels, constipated, diarrhea, dysphagia, difficulty swallowing, hematemesis, melena, nausea, poor appetite, poor fluid intake, rectal bleeding, rectal pain, vomiting, others Genitourinary: denies: abnormal vagina bleeding, burning, dyspareunia, dysuria, flank pain, frequency, hematuria, incontinence, pain, , vagina discharge, urgency, others Neurological: denies: dizziness, fainting, headache, left sided numbness, left sided weakness, numbness, paresthesia, pre-existing deficit, right sided numbness, right sided weakness, seizure, speech problems, tingling, tremors, weakness, others Musculoskeletal: denies: back pain, gout, joint pain, joint swelling, muscle pain, muscle stiffness, neck pain, others Integumetry: denies: bruises, change in color, change in hair/nails, dryness, laceration, lesions, lumps, rash, wounds, others Allergic/Immunocompromised: denies: Difficulty Healing, Frequent Infections, Hives, Itching, others Hematologic/Lymphatic: denies: anemia, blood clots, easy bleeding, easy bruising, swollen glands, others Endocrine: denies: excessive hunger, excessive sweating, excessive thirst, excessive urination, flushing, intolerance to cold, intolerance to heat, unexplained weight gain, unexplained weight loss, others Psychiatric: denies: anxiety, bipolar disorder, depression, hopeless, panic disorder, schizophrenia, sleepless, suicidal, others All Other Systems: Reviewed and Negative Physical Exam General Appearance: No Apparent Distress, Normal HEENT: Normal ENT Inspection, Pharynx Normal, TMs Normal Neck: Full Range of Motion, Non-Tender, Normal, Normal Inspection Respiratory: Chest Non-Tender, Wheezing (BILATERAL) Cardiovascular: No Edema, No JVD, No Murmur, No Gallop, Normal Peripheral Pulses, Regular Rate/Rhythm Breast Exam: Deferred Gastrointestinal: No Organomegaly, Non Tender, No Pulsatile Mass, Normal Bowel Sounds, Soft Genitalia: Deferred Pelvic: Deferred Rectal: Deferred Extremities: No calf tenderness, Normal capillary refill, Normal inspection, Normal range of motion, Non-tender, No pedal edema Musculoskeletal : Apperance: Normal Neurologic: Alert, salesforce trainer II-XII nml as Tested, No Motor Deficits, Normal Affect, Normal Mood, No Sensory Deficits Cerebellar Function: Normal Reflexes: Normal Skin: Dry, Normal Color, Warm Lymphatic: No Adenopathy EKG EKG : Pulse Rate (adult): 91 [place]: Normal Cardiac Rhythm: NSR Block: None Hypertrophy: None ST: Normal Was a procedure done? Was a procedure done?: No Differential Dx Differential Diagnosis: Anxiety, Asthma, Bronchitis, CHF, COPD, Dysrhythmia, Hyperventilation, Myocardial infarction, Panic Attack, Pneumonia, Pneumothorax, Respiratory Distress, URI X-Ray, Labs, Meds, VS Vital Signs Date Time Temp Pulse Resp B/P (MAP) Pulse Ox O2 Delivery O2 Flow Rate FiO2 05/10/24 14:35 91 05/10/24 14:24 98.3 94 18 115/60 (78) 95 Lab Test 05/10/24 16:26 05/10/24 16:14 Range/Units White Blood Count 7.7 4.4-10.8 10^3/uL Red Blood Count 4.65 4.0-5.20 10^6/uL Hemoglobin 12.9 12.2-16.2 g/dL Hematocrit 40.3 36.0-46.0 % Mean Corpuscular Volume 86.8 80.0-100.0 fL Mean Corpuscular Hemoglobin 27.7 L 28.0-32.0 pg Mean Corpuscular Hemoglobin Concent 31.9 L 32.0-36.0 g/dL Red Cell Distribution Width 13.9 11.8-14.3 % Platelet Count 162 140-450 10^3/uL Mean Platelet Volume 9.2 6.9-10.8 fL Neutrophils (%) (Auto) 46.5 37.0-80.0 % Lymphocytes (%) (Auto) 31.0 10.0-50.0 % Monocytes (%) (Auto) 12.7 H 0.0-12.0 % Eosinophils (%) (Auto) 8.6 H 0.0-7.0 % Basophils (%) (Auto) 1.2 0.0-2.0 % Neutrophils # (Auto) 3.6 1.6-8.6 10 ^3/uL Lymphocytes # (Auto) 2.4 0.4-5.4 10 ^3/uL Monocytes # (Auto) 1.0 0-1.3 10 ^3/uL Eosinophils # (Auto) 0.7 0-0.8 10 ^3/uL Basophils # (Auto) 0.1 0-0.2 10 ^3/uL Nucleated Red Blood Cells 0.1 % Sodium Level 142 136-145 mmol/L Potassium Level 4.2 3.5-5.1 mmol/L Chloride Level 106 98-107 mmol/L Carbon Dioxide Level 29 20-31 mmol/L Anion Gap 7 5-15 Blood Urea Nitrogen 16 9-23 mg/dL Creatinine 0.86 0.550-1.02 mg/dL Glomerular Filtration Rate Calc 73 >90 mL/min BUN/Creatinine Ratio 18.6 10.0-20.0 Serum Glucose 80 74-106 mg/dL Calcium Level 10.5 H 8.7-10.4 mg/dL Troponin I High Sensitivity < 3 L </=34 ng/L Influenza Type A Antigen Pending Influenza Type B Antigen Pending SARS-CoV-2 Antigen (Rapid) Pending Current Medications Medications (Trade) Dose Ordered Sig/Liz Route Start Time Stop Time Status Last Admin Prednisone 40 mg ONCE ONCE PO 05/10/24 16:00 05/10/24 16:21 DC 05/10/24 16:26 Azithromycin 250 ml @ 125 mls/hr ONCE ONCE IV 05/10/24 16:00 05/10/24 17:59 05/10/24 16:27 Time of 1ST Reevaluation: 15:29 Reevaluation 1ST: Unchanged (PRIVATE DUTY RN- NSR) Time of 2ND Reevaluation: 17:07 Reevaluation 2ND: Unchanged (PRIVATE DUTY RN NSR) Time of 3RD Reevaluation: 17:11 Reevaluation 3RD: Unchanged (PRIVATE DUTY RN- NSR) Patient Education/Counseling: Diagnosis, Treatment, Prognosis, Need For Follow Up Family Education/Counseling: No Family Present Additional Information PT HAS ASTHMA AND HAS BEEN COUGHING FOR 5 DAYS. SHE HAS COARSE BREATH SOUNDS AND RES[PONDS TO MED NEB TREATMENTS. HOWEVER, SHE STILL IS VERY SYMPTOMATIC. IN ADDITION, THE CXR SUGGESTS CHF A COMPONENT OF HER SYMPTOMS WELL. SHE WILL BE ADMITTED FOR FURTHER TREATMENTS AND EVALUATION Departure 1 Departure Time of Disposition: 17:09 Impression: Primary Impression: Asthma exacerbation Additional Impressions: Bronchitis CHF (congestive heart failure) Disposition: ADMITTED INPATIENT Admit to: Tele Condition: Serious Discharged With: Self Critical Care Note Critical Care Time?: Yes (1 hr-critical care time only) Critical care comment: Due to concerns for patients condition deteriorating, the care required my highest level of attention and readiness to intervene. I assessed the patient, reviewed the medical records, ordered the appropriate tests and treatments, then reassessed for results and responsiveness. I communicated with medical personnel and consultants and formulated a plan of care. Total critical care time excludes any procedures Stability Stability form required: No Heart Score Heart Score: Heart Score Response (Comments) Value History Slightly Suspicious (91) 0 EKG Normal 0 Age >65 2 Risk Factors 1 or 2 risk factors 1 Troponin Normal limit 0 Total 3 I personally scribed for PAULETTE RIVERA MD ([email or web address]) on 05/10/24 at 15:03. Electronically submitted by Pramod Sheldon ([email or web address]). PAULETTE RIVERA MD May 10, 2024 15:03
--- NOTE | 2024-05-10 16:18 | DVH ---
EXAM: XY CHEST PORTABLE TECHNIQUE: Single frontal chest radiograph CLINICAL HISTORY: sob COMPARISON: XY CHEST PORTABLE on DOS: 02/25/24, XY CHEST PORTABLE on DOS: 01/04/24, XY CHEST PORTABLE o n DOS: 04/17/23 Findings/Impression: Frontal chest radiograph demonstrates no acute osseous or superficial soft tissue abnormalities. The trachea is midline. Borderline cardiomegaly with pulmonary vascular congestion. No pneumothorax, pleural effusions, or consolidations.
[2024-05-10] MEDS: predniSONE 20 MG TAB PO ONE (16:26)
[2024-05-10] MEDS: AZITHROMYCIN 500MG/ 250ML 250 ML IV ONE (16:27)
[2024-05-10 16:34] LABS: Basophils # (auto) 0.1 10 ^3/uL (0-0.2); Basophils % (auto) 1.2 % (0.0-2.0); Eosinophils # (auto) 0.7 10 ^3/uL (0-0.8); Eosinophils % (auto) 8.6 % (0.0-7.0); Hematocrit 40.3 % (36.0-46.0); Hemoglobin 12.9 g/dL (12.2-16.2); Lymphocytes # (auto) 2.4 10 ^3/uL (0.4-5.4); Mean Corpuscular Hemoglobin 27.7 pg (28.0-32.0); Mean Corpuscular Hgb Conc. 31.9 g/dL (32.0-36.0); Mean Corpuscular Volume 86.8 fL (80.0-100.0); Monocytes % (auto) 12.7 % (0.0-12.0); Neutrophils # (auto) 3.6 10 ^3/uL (1.6-8.6); Neutrophils % (auto) 46.5 % (37.0-80.0); Nucleated Red Blood Cells % 0.1 %; Platelet Count (auto) 162 10^3/uL (140-450); Red Blood Cells 4.65 10^6/uL (4.0-5.20); Red Cell Distribution Width 13.9 % (11.8-14.3); White Blood Cell 7.7 10^3/uL (4.4-10.8)
[2024-05-10 16:51] LABS: Anion Gap 7 (5-15); Carbon Dioxide 29 mmol/L (20-31); Chloride 106 mmol/L (98-107); Potassium 4.2 mmol/L (3.5-5.1); Sodium 142 mmol/L (136-145)
[2024-05-10 16:57] LABS: BUN/Creatinine Ratio 18.6 (10.0-20.0); Blood Urea Nitrogen 16 mg/dL (9-23); Glucose 80 mg/dL (74-106)
[2024-05-10 16:59] LABS: Calcium 10.5 mg/dL (8.7-10.4)
[2024-05-10] MEDS: ALBUTEROL SULF 2.5 MG/0.5ML(0.5%) NEB SOLN NEB ONE (17:19)
[2024-05-10] MEDS: IPRATROPIUM BROM 0.5 MG/2.5ML INH SOL NEB ONE (17:20)
[2024-05-10 18:05] LABS: Rapid Influenza A Negative (Negative); Rapid Influenza B Negative (Negative)
[2024-05-10 18:06] LABS: COVID19 ANTIGEN SOFIA FIA NEGATIVE (NEGATIVE)
[2024-05-10] MEDS: HYDROcodone-ACET 5/325MG TAB PO ONE (18:30)
[2024-05-10] MEDS: FUROSEMIDE 40 MG/4 ML VIAL IV ONE (18:31)
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
[2024-05-10] MEDS ORDERED: DOCUSATE SOD 100 MG CAP PO PRN (21:30)
[2024-05-10 21:55] VITALS: PULSE 91; RESP 18; O2SAT 96
[2024-05-10] MEDS: IPRATROPIUM BROM 0.5 MG/2.5ML INH SOL NEB SCH (21:57)
[2024-05-10] MEDS: LEVALBUTEROL HCL 1.25 MG/3 ML NEB NEB SCH (21:58)
[2024-05-10] MEDS: ENOXAPARIN SOD 40 MG/0.4 ML SYRINGE SC ONE (22:00)
[2024-05-10 22:03] VITALS: PULSE 85; RESP 20; O2SAT 99
[2024-05-10 22:15] VITALS: BP 124/76; PULSE 91; PULSE 97; RESP 14; RESP 18; TEMP 98.3; O2SAT 96; O2SAT 98
[2024-05-10 22:22] LABS: Alanine Aminotransferase 14 U/L (7-40); Alkaline Phosphatase 72 U/L (46-116); Aspartate Aminotransferase 16 U/L (13-40); Total Protein 6.9 g/dL (5.7-8.2)
[2024-05-10 22:23] LABS: Albumin 4.8 g/dL (3.2-4.8); Bilirubin, Total 0.3 mg/dL (0.2-1.0)
[2024-05-10 22:24] LABS: Bilirubin, Direct < 0.1 mg/dL (<0.3)
[2024-05-10] MEDS: GABAPENTIN 400 MG CAP PO SCH (22:28)
[2024-05-10] MEDS: oxyCODONE HCL 5MG TAB PO PRN (22:29)
[2024-05-10] MEDS: FUROSEMIDE 20 MG/2 ML VIAL IV ONE (22:33)
[2024-05-10 23:08] VITALS: BP 138/76; PULSE 99; RESP 16; RESP 20; TEMP 97.8; O2SAT 95
[2024-05-10 23:56] VITALS: BP 107/59; PULSE 99; RESP 18; TEMP 98.3; O2SAT 95
[2024-05-11] VITALS (15 sets, daily range): BP systolic 110–135; BP diastolic 69–89; PULSE 62–104; RESP 14–20; TEMP 97.8–98.3; O2SAT 91–100
--- NOTE | 2024-05-11 09:47 | ECG ---
[facility] Test Date: 2024-05-10 Test Time: 21:00:28 Pat Name: BERNADINE PRUITT Department: ER Room: 0298 B Gender: F Planning Assistant: CAROLYN : 1955 Requested By: KENDAL GODOY Order Number: [id number] Reading MD: Tk Milligan Measurements Intervals [place] Rate: 97 P: 35 WI: 153 QRS: -6 QRSD: 70 T: -4 QT: 325 QTc: 413 Interpretive Statements Sinus rhythm LVH by voltage Inferior infarct, old Electronically Signed On 05-14-2024 16:29:10 PST by Tk Milligan Please click the below link to view image of tracing.
[2024-05-11] MEDS: FUROSEMIDE 20 MG/2 ML VIAL IV SCH (10:00)
[2024-05-11] MEDS: methylPREDNISolone SOD SUCC 40 MG/ML VL IV SCH (10:00)
[2024-05-11] MEDS: LOSARTAN POTASSIUM 50 MG TAB PO SCH (10:01)
[2024-05-11] MEDS: EZETIMIBE 10 MG TAB PO SCH (10:01)
[2024-05-11] MEDS: amLODIPine BESYLATE 5 MG TAB PO SCH (10:01)
[2024-05-11] MEDS: MONTELUKAST SODIUM 10 MG TAB PO SCH (10:01)
[2024-05-11] MEDS: ENOXAPARIN SOD 40 MG/0.4 ML SYRINGE SC SCH (10:02)
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
[2024-05-11] MEDS: cefTRIAXone 1GM/50ML D5W 50 ML IV SCH (13:47)
[2024-05-11] MEDS: AZITHROMYCIN 500MG/ 250ML 250 ML IV SCH (14:38)
[2024-05-11] MEDS: methylPREDNISolone SOD SUCC 40 MG/ML VL IV ONE (17:29)
[2024-05-11] MEDS: MELATONIN 5 MG TAB PO ONE (21:58)
[2024-05-12] VITALS (19 sets, daily range): BP systolic 113–127; BP diastolic 63–80; PULSE 83–107; RESP 17–24; TEMP 98–98.4; O2SAT 91–100
[2024-05-12] MEDS: MAGNESIUM SULFATE 1GM/100ML 100 ML IV SCH (07:27)
[2024-05-12 07:32] LABS: Basophils # (auto) 0.1 10 ^3/uL (0-0.2); Basophils % (auto) 0.9 % (0.0-2.0); Eosinophils # (auto) 0.1 10 ^3/uL (0-0.8); Eosinophils % (auto) 1.2 % (0.0-7.0); Hematocrit 39.3 % (36.0-46.0); Hemoglobin 12.8 g/dL (12.2-16.2); Lymphocytes % (auto) 28.7 % (10.0-50.0); Mean Corpuscular Hgb Conc. 32.6 g/dL (32.0-36.0); Monocytes # (auto) 0.8 10 ^3/uL (0-1.3); Monocytes % (auto) 11.1 % (0.0-12.0); Neutrophils # (auto) 4.1 10 ^3/uL (1.6-8.6); Neutrophils % (auto) 58.1 % (37.0-80.0); Nucleated Red Blood Cells % 0.1 %; Platelet Count (auto) 168 10^3/uL (140-450); Red Blood Cells 4.57 10^6/uL (4.0-5.20); Red Cell Distribution Width 13.6 % (11.8-14.3)
[2024-05-12 07:43] LABS: Chloride 107 mmol/L (98-107); Potassium 4.3 mmol/L (3.5-5.1); Sodium 140 mmol/L (136-145)
[2024-05-12 07:44] LABS: Anion Gap 5 (5-15); Calcium 9.9 mg/dL (8.7-10.4); Carbon Dioxide 28 mmol/L (20-31)
[2024-05-12 07:49] LABS: BUN/Creatinine Ratio 12.4 (10.0-20.0); Blood Urea Nitrogen 11 mg/dL (9-23)
[2024-05-12 07:50] LABS: Magnesium 1.9 mg/dL (1.6-2.6)
[2024-05-12 08:00] LABS: Glucose 225 mg/dL (74-106)
[2024-05-12] MEDS: methylPREDNISolone SOD SUCC 40 MG/ML VL IV SCH (09:49)
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
[2024-05-12] MEDS: BUDESONIDE (INHALATION) 0.5 MG/2 ML NEB NEB SCH (10:54)
[2024-05-12] MEDS ORDERED: guaiFENesin 200 MG/10 ML UD GT PRN (14:15)
[2024-05-12] MEDS: ACETYLCYSTEINE 20%(200MG/ML) SOL 4ML NEB SCH (18:52)
[2024-05-12] MEDS: methylPREDNISolone SOD SUCC 40 MG/ML VL IV ONE (21:02)
[2024-05-12] MEDS: MELATONIN 5 MG TAB PO SCH (21:05)
[2024-05-13] VITALS (22 sets, daily range): BP systolic 121–144; BP diastolic 70–96; PULSE 83–115; RESP 18–24; TEMP 97.6–98.2; O2SAT 90–100
[2024-05-13 07:46] LABS: Anion Gap 9 (5-15); Carbon Dioxide 26 mmol/L (20-31); Chloride 103 mmol/L (98-107); Potassium 4.7 mmol/L (3.5-5.1); Sodium 138 mmol/L (136-145)
[2024-05-13 07:52] LABS: BUN/Creatinine Ratio 11.2 (10.0-20.0); Blood Urea Nitrogen 11 mg/dL (9-23)
[2024-05-13 07:55] LABS: Calcium 10.8 mg/dL (8.7-10.4); Glucose 235 mg/dL (74-106)
[2024-05-13 08:03] LABS: Basophils # (auto) 0 10 ^3/uL (0-0.2); Basophils % (auto) 0.4 % (0.0-2.0); Eosinophils # (auto) 0 10 ^3/uL (0-0.8); Hematocrit 42.9 % (36.0-46.0); Hemoglobin 13.7 g/dL (12.2-16.2); Lymphocytes # (auto) 1.5 10 ^3/uL (0.4-5.4); Lymphocytes % (auto) 15.7 % (10.0-50.0); Mean Corpuscular Hemoglobin 27.9 pg (28.0-32.0); Mean Corpuscular Volume 87.2 fL (80.0-100.0); Monocytes # (auto) 0.4 10 ^3/uL (0-1.3); Monocytes % (auto) 4.7 % (0.0-12.0); Neutrophils # (auto) 7.4 10 ^3/uL (1.6-8.6); Neutrophils % (auto) 79.2 % (37.0-80.0); Nucleated Red Blood Cells % 0.1 %; Platelet Count (auto) 184 10^3/uL (140-450); Red Blood Cells 4.92 10^6/uL (4.0-5.20); Red Cell Distribution Width 13.6 % (11.8-14.3); White Blood Cell 9.3 10^3/uL (4.4-10.8)
[2024-05-13] MEDS: guaiFENesin 200 MG/10 ML UD GT SCH (10:16)
[2024-05-13] MEDS ORDERED: DEXTROSE (50%) 50ML SYRG IV PRN (11:00)
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
[2024-05-13] MEDS: ACCU-CHEK COMFORT CURVE STRIP VI SCH (12:25)
[2024-05-13] MEDS: InsuLIN REG 1unit/0.01ml Soln (100units/ml) SC SCH ×2 (12:37→21:09)
[2024-05-13 23:56] LABS: Urine Bacteria None Seen /hpf (None Seen)
[2024-05-14] VITALS (10 sets, daily range): BP systolic 113–135; BP diastolic 65–90; PULSE 80–110; RESP 18–20; TEMP 98.2–98.6; O2SAT 90–100
[2024-05-14 00:08] LABS: Urine Blood Negative /uL (Negative); Urine Clarity Clear (Clear); Urine Color Light-Yellow (Yellow); Urine Protein, UAD Negative (Negative); Urine Specific Gravity 1.013 (1.001-1.035); Urine Squamous Epithelial Cell FEW /hpf (<5); Urine Urobilinogen Normal (Negative); Urine WBC 1 /hpf (0 - 5)
[2024-05-14 00:23] LABS: Opiate Scree,Urine Neg (NEGATIVE)
[2024-05-14 00:25] LABS: Amphetamine Screen, Urine Neg (NEGATIVE); Barbiturate Scree,Urine Neg (NEGATIVE); Benzodiazephine Screen, Urine Neg (NEGATIVE); Cannabinoid Screen, Urine Neg (NEGATIVE); Cocaine Screen, Urine Neg (NEGATIVE); Phencyclidine Screen, Urine Neg (NEGATIVE)
[2024-05-14] MEDS ORDERED: FLUT1AER3 IN (07:05)
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
[2024-05-14 07:53] LABS: Chloride 103 mmol/L (98-107); Potassium 4.2 mmol/L (3.5-5.1); Sodium 138 mmol/L (136-145)
[2024-05-14 07:54] LABS: Anion Gap 8 (5-15); Carbon Dioxide 27 mmol/L (20-31)
[2024-05-14 08:00] LABS: BUN/Creatinine Ratio 12.5 (10.0-20.0); Blood Urea Nitrogen 12 mg/dL (9-23); Magnesium 2.1 mg/dL (1.6-2.6)
[2024-05-14 08:04] LABS: Glucose 141 mg/dL (74-106)
[2024-05-14] MEDS: ACETAMINOPHEN 325 MG TAB PO PRN (12:36)
== END 2024-05-14 13:36 | disposition home or self-care (01) | DRG 177 ==
LOC: EDBD 14:11 → ER 14:11 → OVERFLOW 21:16 → WEST WING 23:51 → TELE 05-11 00:44 → WEST WING 05-11 04:32
PROVIDERS: ADMIT Student in an Organized Health Care Education/Training Program; ATTEND Student in an Organized Health Care Education/Training Program
DX: J15.69 Pneumonia due to other Gram-negative bacteria (principal); I50.33 Acute on chronic diastolic (congestive) heart failure; J45.901 Unspecified asthma with (acute) exacerbation; J82.83 Eosinophilic asthma; J44.0 Chronic obstructive pulmonary disease with (acute) lower respiratory infection; J44.1 Chronic obstructive pulmonary disease with (acute) exacerbation; Z20.822 Contact with and (suspected) exposure to COVID-19; I11.0 Hypertensive heart disease with heart failure; E11.9 Type 2 diabetes mellitus without complications; E78.5 Hyperlipidemia, unspecified; G89.29 Other chronic pain; J15.9 Unspecified bacterial pneumonia; Z90.710 Acquired absence of both cervix and uterus; Z87.891 Personal history of nicotine dependence
CPT/HCPCS: 36415; 71045; 80048; 80076; 80307; 81001; 82962; 83735; 83880; 84484; 85025; 87426; 87804; 93005; 94640; 96365; 96375; 99291; G0378; J1815

== ENCOUNTER 2024-05-30 13:17 | Emergency (ER) | payer BC, MEDICAID ==
[~2024-05-30] VITALS: Ht 154.9 cm; Wt 73.4 kg
[~2024-05-30 13:17] MED LIST changes: -ALBU108A5 INH; -ALBUAER3 IN; -AZIT500T66 PO; -DOXY-286 PO; -FLUT110A INH; -PRED20TA2 PO
--- NOTE | 2024-05-30 13:51 | ED.PDOC ---
History of Present Illness Chief Complaint: Body Pain Comments pt is on chronic percocet. and her doctor refilled it, but the pharmacy does not have it in stock. she has chronic back pain, no new symptoms Time Seen by MD: 13:22 Primary Care Provider: JUANCARLOS Allergies: Coded Allergies: NO KNOWN ALLERGIES (Unverified , 09/06/17) Home Meds Active Scripts [id number] (Trelegy Ellipta 100-62.5-25 Mcg/INH) 1 Aer Aer, 1 AER IN BID for 30 Days, #1 AER Prov:GREGORIO LAWSON RESIDENT 05/14/24 Reported Medications Albuterol Sulfate (Albuterol Sulfate Hfa) 108 Mcg/Act Aer, 108 MCG IN UD for 16 Days, #6.7 05/11/24 Aspirin (Aspirin Low Dose) 81 Mg Chw, 1 TAB PO DAILY for 90 Days, #90 05/11/24 Docusate Sodium (Docusate Sodium) 250 Mg Cap, 1 CAP PO BID for 30 Days, #60 05/11/24 Rosuvastatin Calcium (Rosuvastatin Calcium) 40 Mg Tab, 1 TAB PO HS 04/18/23 Diclofenac Sodium (Diclofenac Sodium Dr) 75 Mg Tab, 1 TAB PO BID 04/18/23 Montelukast Sodium (MONTELUKAST SODIUM) 10 Mg Tab, 1 TAB PO DAILY 04/17/23 Ezetimibe (Ezetimibe) 10 Mg Tab, 1 TAB PO DAILY 04/17/23 Gabapentin (Gabapentin) 800 Mg Tab, 1 TAB PO TID 04/17/23 Losartan Potassium (Losartan Potassium) 100 Mg Tab, 1 TAB PO DAILY 04/17/23 Oxycodone HCl (Oxycodone Hydrochloride) 15 Mg Tab, 1 TAB PO Q6H PRN 04/17/23 Amlodipine Besylate (Amlodipine Besylate) 10 Mg Tab, 1 TAB PO DAILY 01/13/21 Metformin HCl (Metformin Hydrochloride) 1,000 Mg Tab, 1 TAB PO BID 01/13/21 Mode of Arrival: Ambulatory Past Medical History PAST MEDICAL HISTORY: Arthritis, Asthma, CHF, COPD, DM, High Lipids, HTN Surgical History: , Hysterectomy, 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: No Pertinent ACID LEVELER History Family History Family History: Unknown Social History Smoker: Non-Smoker Alcohol: Occasionally Drugs: Denies Drug Use Lives In: Home Musculoskeletal: reports: back pain Physical Exam General Appearance: No Apparent Distress, Normal HEENT: Normal ENT Inspection, Pharynx Normal, TMs Normal Neck: Full Range of Motion, Non-Tender, Normal, Normal Inspection Respiratory: Chest Non-Tender, Lungs Clear, No Accessory Muscle Use, No Respiratory Distress, Normal Breath Sounds Cardiovascular: No Edema, No JVD, No Murmur, No Gallop, Normal Peripheral Pulses, Regular Rate/Rhythm Breast Exam: Deferred Gastrointestinal: No Organomegaly, Non Tender, No Pulsatile Mass, Normal Bowel Sounds, Soft Genitalia: Deferred Pelvic: Deferred Rectal: Deferred Extremities: No calf tenderness, Normal capillary refill, Normal inspection, Normal range of motion, Non-tender, No pedal edema Musculoskeletal : Apperance: Normal Neurologic: Alert, rewriter II-XII nml as Tested, No Motor Deficits, Normal Affect, Normal Mood, No Sensory Deficits Cerebellar Function: Normal Reflexes: Normal Skin: Dry, Normal Color, Warm Lymphatic: No Adenopathy Was a procedure done? Was a procedure done?: No Differential Dx Considerations may include: chronic pain syndrome. medicatin refill, drug seeking behavior. chronic lbp, renal colic X-Ray, Labs, Meds, VS Vital Signs Date Time Temp Pulse Resp B/P (MAP) Pulse Ox O2 Delivery O2 Flow Rate FiO2 05/30/24 13:38 97.7 104 18 150/120 (130) 96 Time of 1ST Reevaluation: 13:50 Reevaluation 1ST: Improved Patient Education/Counseling: Diagnosis, Treatment, Prognosis, Need For Follow Up Family Education/Counseling: No Family Present Additional Information i will give pt one dose of oxycodone here, but she will follow up with her doctor to get her refills Departure 1 Departure Time of Disposition: 13:51 Impression: Primary Impression: Chronic pain syndrome Disposition: 01 HOME / SELF CARE / HOMELESS Condition: Good Discharged With: Self Critical Care Note Critical Care Time?: No Stability Stability form required: PAULETTE Akhtar MD May 30, 2024 13:51
[2024-05-30 15:16] VITALS: TEMP 98.5
[2024-05-30] MEDS: oxyCODONE ER 10 MG TAB PO ONE (15:22)
[2024-05-30 15:43] VITALS: BP 140/99; PULSE 100; RESP 16; O2SAT 98
== END 2024-05-30 15:44 | disposition home or self-care (01) ==
LOC: ER 13:17
DX: G89.4 Chronic pain syndrome (principal); M54.59 Other low back pain; J44.9 Chronic obstructive pulmonary disease, unspecified; J45.909 Unspecified asthma, uncomplicated; I11.0 Hypertensive heart disease with heart failure; I50.89 Other heart failure; E11.9 Type 2 diabetes mellitus without complications; E78.5 Hyperlipidemia, unspecified; Z98.890 Other specified postprocedural states; Z90.710 Acquired absence of both cervix and uterus; Z79.899 Other long term (current) drug therapy; Z79.84 Long term (current) use of oral hypoglycemic drugs

== ENCOUNTER 2024-12-07 22:50 | Emergency (ER) | payer BC, MEDICAID ==
[~2024-12-07] VITALS: Ht 152.4 cm; Wt 72.8 kg
[2024-12-07 23:27] LABS: Hematocrit 38.0 % (36.0-46.0); Hemoglobin 12.7 g/dL (12.2-16.2); Mean Corpuscular Hemoglobin 27.2 pg (28.0-32.0); Mean Corpuscular Volume 81.6 fL (80.0-100.0); Nucleated Red Blood Cells % 0.2 %
[2024-12-07 23:39] LABS: Alanine Aminotransferase 13 U/L (7-40); Alkaline Phosphatase 56 U/L (46-116); Calcium 9.1 mg/dL (8.7-10.4); Carbon Dioxide 27 mmol/L (20-31); Chloride 106 mmol/L (98-107)
[2024-12-07 23:40] LABS: Albumin 4.0 g/dL (3.2-4.8); Anion Gap 9 (5-15); BUN/Creatinine Ratio 6.2 (10.0-20.0); Bilirubin, Total 0.4 mg/dL (0.2-1.0); Blood Urea Nitrogen 6 mg/dL (9-23); Glucose 94 mg/dL (74-106); Potassium 3.9 mmol/L (3.5-5.1); Sodium 142 mmol/L (136-145); Total Protein 5.8 g/dL (5.7-8.2)
[2024-12-07 23:57] VITALS: RESP 17; O2SAT 99
--- NOTE | 2024-12-08 00:30 | DVH ---
CT HEAD WITHOUT CONTRAST INDICATION: ALOC EXAM DATE: 12/07/2024 11:42 PM COMPARISON: BRAIN HEAD WO CONTRAST on DOS: 01/19/21, HEAD WITHOUT CONTRAST on DOS: 01/13/21 RADIATION DOSE: CTDIvol: 58.09 mGy, DLP: 1047.31 mGy*cm PROCEDURE: CT scans of the head were obtained from the vertex to the skull base. Sagittal and coronal reconstructions were provided. All CT scans at this medical facility are performed using dose modulation techniques as appropriate t o a performed exam including the following: Automated exposure control was utilized; adjustment of th e MA and/or KV according to patient size; and use of iterative reconstruction technique. FINDINGS: No acute territorial infarct, intracranial hemorrhage, or mass effect. There are global involutional changes with compensatory prominence of the ventricles and sulci. Patchy periventricular and subcorti devan white matter hypoattenuation is nonspecific but may be related to small vessel ischemic disease. Chronic deep cerebral lacunar infarcts. The orbits are normal. The paranasal sinuses and mastoid air cells are clear. The osseous structures are unremarkable. IMPRESSION: 1. No acute territorial infarct, intracranial hemorrhage, or mass effect. 2. Age-related involutional changes. Chronic microvascular changes. Chronic lacunar infarcts.
--- NOTE | 2024-12-08 00:48 | ED.PDOC ---
History of Present Illness HPI Comments 69 obese F is BIBA from home for generalized weakness and AMS. Per EMS report, patient's family called after endorsing on patient acting more lethargic than her usual baseline. Patient was noted to have been slow to respond, with a notable SpO2 of 93% on 2LPM home O2, capillary refill of 36, and a blood glucose of 91. All other vitals were noted ot have been stable and within normal limits. No endorsed recent ailments or sick contact. No chest pain, shortness of breath, or further acute symptoms endorsed. Significant history of CHF, NSTEMI, HTN, DMII, CVA, and noncompliance. Chief Complaint: General Weakness Time Seen by MD: 23:00 Primary Care Provider: JUANCARLOS Reviewed Notes: Nurses Notes, Ham Sawyer Notes, Medications, Allergies Allergies: Coded Allergies: NO KNOWN ALLERGIES (Unverified , 09/06/17) Home Meds Active Scripts Ghvnhzpgfab-Zyewahfisgia-Uuhly (Trelegy Ellipta 100-62.5-25 Mcg/INH) 1 Aer Aer, 1 AER IN BID for 30 Days, #1 AER Prov:GREGORIO LAWSON RESIDENT 05/14/24 Reported Medications Albuterol Sulfate (Albuterol Sulfate Hfa) 108 Mcg/Act Aer, 108 MCG IN UD for 16 Days, #6.7 05/11/24 Aspirin (Aspirin Low Dose) 81 Mg Chw, 1 TAB PO DAILY for 90 Days, #90 05/11/24 Docusate Sodium (Docusate Sodium) 250 Mg Cap, 1 CAP PO BID for 30 Days, #60 05/11/24 Rosuvastatin Calcium (Rosuvastatin Calcium) 40 Mg Tab, 1 TAB PO HS 04/18/23 Diclofenac Sodium (Diclofenac Sodium Dr) 75 Mg Tab, 1 TAB PO BID 04/18/23 Montelukast Sodium (MONTELUKAST SODIUM) 10 Mg Tab, 1 TAB PO DAILY 04/17/23 Ezetimibe (Ezetimibe) 10 Mg Tab, 1 TAB PO DAILY 04/17/23 Gabapentin (Gabapentin) 800 Mg Tab, 1 TAB PO TID 04/17/23 Losartan Potassium (Losartan Potassium) 100 Mg Tab, 1 TAB PO DAILY 04/17/23 Oxycodone HCl (Oxycodone Hydrochloride) 15 Mg Tab, 1 TAB PO Q6H PRN 04/17/23 Amlodipine Besylate (Amlodipine Besylate) 10 Mg Tab, 1 TAB PO DAILY 01/13/21 Metformin HCl (Metformin Hydrochloride) 1,000 Mg Tab, 1 TAB PO BID 01/13/21 Information Source: Patient, Relative, Emergency Med Personnel Mode of Arrival: EMS Severity: Moderate Timing: Hours Duration: Since onset Prehospital treatment: 12 Lead EKG, Accucheck, Yardage Control Operator Forming Past Medical History PAST MEDICAL HISTORY: Arthritis, Asthma, CHF, COPD, DM, High Lipids, HTN Surgical History: , Hysterectomy, Tubal Ligation CELERY TIER History: No Pertinent CELERY TIER History Family History Family History: Unknown Social History Smoker: Non-Smoker Alcohol: Occasionally Drugs: Denies Drug Use Lives In: Home All Other Systems: Reviewed and Negative (Comprehensive systems review obtained and negative except for what is stated in the HPI.) Physical Exam General Appearance: Mild Distress, Obese, Other (elderly appearing ) HEENT: Normal ENT Inspection, Pharynx Normal, TMs Normal Neck: Full Range of Motion, Non-Tender, Normal, Normal Inspection Respiratory: Chest Non-Tender, Lungs Clear, No Accessory Muscle Use, No Respiratory Distress, Normal Breath Sounds Cardiovascular: No Edema, No JVD, No Murmur, No Gallop, Normal Peripheral Pulses, Regular Rate/Rhythm Breast Exam: Deferred Gastrointestinal: No Organomegaly, Non Tender, No Pulsatile Mass, Normal Bowel Sounds, Soft Genitalia: Deferred Pelvic: Deferred Rectal: Deferred Extremities: No calf tenderness, Normal capillary refill, Normal inspection, Normal range of motion, Non-tender, No pedal edema Musculoskeletal : Apperance: Normal Neurologic: Alert, review engineer II-XII nml as Tested, No Motor Deficits, Normal Affect, Normal Mood, No Sensory Deficits Cerebellar Function: Normal Reflexes: Normal Skin: Dry, Normal Color, Warm Lymphatic: No Adenopathy Was a procedure done? Was a procedure done?: No Differential Dx Considerations may include: CHF exacerbation, hypoxia, hypoglycemia, dehydration, electrolyte imbalance, viral syndrome, encephalopathy, noncompliance, among others X-Ray, Labs, Meds, VS Vital Signs Date Time Temp Pulse Resp B/P (MAP) Pulse Ox O2 Delivery O2 Flow Rate FiO2 12/08/24 01:36 96 20 128/80 (96) 100 12/07/24 23:57 98.6 80 17 108/70 (83) 99 98.6 12/07/24 23:57 17 99 Nasal Cannula* 2 28 12/07/24 23:03 98.8 71 20 153/89 93 98.8 12/07/24 22:57 79 Lab Test 12/08/24 00:47 12/07/24 23:14 Range/Units Troponin I High Sensitivity < 3 L < 3 L </=34 ng/L White Blood Count 5.3 4.4-10.8 10^3/uL Red Blood Count 4.66 4.0-5.20 10^6/uL Hemoglobin 12.7 12.2-16.2 g/dL Hematocrit 38.0 36.0-46.0 % Mean Corpuscular Volume 81.6 80.0-100.0 fL Mean Corpuscular Hemoglobin 27.2 L 28.0-32.0 pg Mean Corpuscular Hemoglobin Concent 33.4 32.0-36.0 g/dL Red Cell Distribution Width 14.5 H 11.8-14.3 % Platelet Count 151 140-450 10^3/uL Mean Platelet Volume 9.3 6.9-10.8 fL Neutrophils (%) (Auto) 39.8 37.0-80.0 % Lymphocytes (%) (Auto) 44.7 10.0-50.0 % Monocytes (%) (Auto) 7.0 0.0-12.0 % Eosinophils (%) (Auto) 7.8 H 0.0-7.0 % Basophils (%) (Auto) 0.7 0.0-2.0 % Neutrophils # (Auto) 2.1 1.6-8.6 10 ^3/uL Lymphocytes # (Auto) 2.4 0.4-5.4 10 ^3/uL Monocytes # (Auto) 0.4 0-1.3 10 ^3/uL Eosinophils # (Auto) 0.4 0-0.8 10 ^3/uL Basophils # (Auto) 0 0-0.2 10 ^3/uL Nucleated Red Blood Cells 0.2 % Sodium Level 142 136-145 mmol/L Potassium Level 3.9 3.5-5.1 mmol/L Chloride Level 106 98-107 mmol/L Carbon Dioxide Level 27 20-31 mmol/L Anion Gap 9 5-15 Blood Urea Nitrogen 6 L 9-23 mg/dL Creatinine 0.97 0.550-1.02 mg/dL Glomerular Filtration Rate Calc 63 >90 mL/min BUN/Creatinine Ratio 6.2 L 10.0-20.0 Serum Glucose 94 74-106 mg/dL Calcium Level 9.1 8.7-10.4 mg/dL Total Bilirubin 0.4 0.2-1.0 mg/dL Aspartate Amino Transferase (AST) 16 13-40 U/L Alanine Aminotransferase (ALT) 13 7-40 U/L Alkaline Phosphatase 56 46-116 U/L Total Protein 5.8 5.7-8.2 g/dL Albumin 4.0 3.2-4.8 g/dL [place] [id number] Ph: [phone] DIAGNOSTIC IMAGING Diagnostic Imaging Report : [id number] Signed PATIENT: BERNADINE PRUITT ACCT: [id number] UNIT: [id number] : 1955 LOC: ER ROOM / BED: / AGE / SEX: 69 / F ADM STATUS: REG ER SERVICE 2310 ORDERING PHYSICIAN: TANJA JOHNSON MD PROCEDURE(s): HWOCT - HEAD WITHOUT CONTRAST REASON: ALOC ORDER NUMBER(s): [id number], ACCESSION NUMBER(s): [id number] CT HEAD WITHOUT CONTRAST INDICATION: ALOC EXAM DATE: 12/07/2024 11:42 PM COMPARISON: BRAIN HEAD WO CONTRAST on DOS: 01/19/21, HEAD WITHOUT CONTRAST on DOS: 01/13/21 RADIATION DOSE: CTDIvol: 58.09 mGy, DLP: 1047.31 mGy*cm PROCEDURE: CT scans of the head were obtained from the vertex to the skull base. Sagittal and coronal reconstructions were provided. All CT scans at this medical facility are performed using dose modulation techniques as appropriate to a performed exam including the following: Automated exposure control was utilized; adjustment of the MA and/or KV according to patient size; and use of iterative reconstruction technique. FINDINGS: No acute territorial infarct, intracranial hemorrhage, or mass effect. There are global involutional changes with compensatory prominence of the ventricles and sulci. Patchy periventricular and subcortical white matter hypoattenuation is nonspecific but may be related to small vessel ischemic disease. Chronic deep cerebral lacunar infarcts. The orbits are normal. The paranasal sinuses and mastoid air cells are clear. The osseous structures are unremarkable. IMPRESSION: 1. No acute territorial infarct, intracranial hemorrhage, or mass effect. 2. Age-related involutional changes. Chronic microvascular changes. Chronic lacunar infarcts. ATED BY: FABRIZIO WHITNEY MD DICTATED DATE/TIME: 12/08/2426 SIGNED BY: FABRIZIO WHITNEY MD SIGNED DATE/TIME: 12/08/2426 CC: Time of 1ST Reevaluation: 23:30 Reevaluation 1ST: Unchanged Patient Education/Counseling: Diagnosis, Treatment, Need For Follow Up Family Education/Counseling: Diagnosis, Treatment, Need For Follow Up SEPSIS Sepsis Screen Date sepsis recognized/suspect: Dec 08, 2024 Time Sepsis recognized/suspect: 0001 Recent Procedure: No On Antibiotic Therapy: No Respiratory Rate >20: No Heart Rate >90: No Temp<36 C (96.8 F) or >38.3 C: No SBP <90 or MAP <65 mmHG: No New Acute Mental Status Change: No Is the patient on CPAP, BIPAP,: No Physician Orders Urinalysis (12/07/24 23:07) Drug Screen (12/07/24 23:07) Head Without Contrast (12/07/24 23:10) Vital Signs Date Time Temp Pulse Resp B/P (MAP) Pulse Ox O2 Delivery O2 Flow Rate FiO2 12/08/24 01:36 96 20 128/80 (96) 100 12/07/24 23:57 98.6 80 17 108/70 (83) 99 98.6 12/07/24 23:57 17 99 Nasal Cannula* 2 28 12/07/24 23:03 98.8 71 20 153/89 93 98.8 12/07/24 22:57 79 Laboratory Tests Test 12/07/24 23:14 White Blood Count 5.3 10^3/uL (4.4-10.8) Departure 1 Departure Time of Disposition: 01:30 Impression: Primary Impression: Generalized weakness Disposition: 01 HOME / SELF CARE / HOMELESS Condition: Stable Discharged With: Self Critical Care Note Critical Care Time?: No Stability Stability form required: No Heart Score Heart Score: Heart Score Response (Comments) Value History N/A 0 EKG N/A 0 Age N/A 0 Risk Factors N/A 0 Troponin N/A 0 Total 0 I personally scribed for TANJA JOHNSON MD ([email or web address]) on 12/08/24 at 00:48. Electronically submitted by Yg Reyes [email or web address]). TANJA JOHNSON MD Dec 08, 2024 00:48
[2024-12-08 01:36] VITALS: BP 128/80; PULSE 96; RESP 20; O2SAT 100
--- NOTE | 2024-12-08 02:27 | ECG ---
[facility] Test Date: 2024-12-07 Test Time: 22:57:39 Pat Name: BERNADINE PRUITT Department: [facility] ED Patient ID: [id number] Room: Gender: F Water Main Inspector: DHEERAJ : 1955 Requested By: TANJA JOHNSON Order Number: [id number] Reading MD: Tk Milligan Measurements Intervals [place] Rate: 79 P: 48 PA: 150 QRS: -21 QRSD: 72 T: 3 QT: 355 QTc: 407 Interpretive Statements Sinus rhythm Borderline left axis deviation Low voltage, precordial leads Electronically Signed On 12-08-2024 22:59:04 PDT by Tk Milligan Please click the below link to view image of tracing.
== END 2024-12-08 01:24 | disposition home or self-care (01) ==
LOC: EDBD 22:50 → ER 22:50
DX: R53.1 Weakness (principal); R40.4 Transient alteration of awareness; I11.0 Hypertensive heart disease with heart failure; I50.9 Heart failure, unspecified; E78.5 Hyperlipidemia, unspecified; J44.9 Chronic obstructive pulmonary disease, unspecified; J45.909 Unspecified asthma, uncomplicated; M19.90 Unspecified osteoarthritis, unspecified site; F10.90 Alcohol use, unspecified, uncomplicated; E66.9 Obesity, unspecified; I25.2 Old myocardial infarction; Z79.899 Other long term (current) drug therapy; Z90.710 Acquired absence of both cervix and uterus; Z86.73 Personal history of transient ischemic attack (TIA), and cerebral infarction without residual deficits; Z79.84 Long term (current) use of oral hypoglycemic drugs; Z79.82 Long term (current) use of aspirin; Z68.31 Body mass index [BMI] 31.0-31.9, adult; Y90.9 Presence of alcohol in blood, level not specified
CPT/HCPCS: 36415; 70450; 80053; 84484; 85025; 93005

== ENCOUNTER 2024-12-25 16:03 | Inpatient (IN) | payer BC, MEDICAID ==
[~2024-12-25] VITALS: Ht 152.4 cm; Wt 66.7 kg
[2024-12-25 16:30] VITALS: PULSE 121; RESP 15; O2SAT 93
--- NOTE | 2024-12-25 16:33 | ED.PDOC ---
History of Present Illness HPI Comments This is a 69-year-old female with past medical history of diabetes, hypertension, asthma, degenerative disc disease, brought brought in by EMS due to generalized weakness since 2 days. Per patient's family, has patient has been more weak and altered since 2 weeks. She also reports of decreased oral intake. Upon my assessment, patient is alert, but disoriented to time, place and person. Collateral history taken from patient's family at the bedside and AMS. Per EMS report, blood pressure at the scene was low. She also reports of nausea, vomiting, chest pain on shortness of breaths. Chief Complaint: Low Blood Pressure Time Seen by MD: 16:15 Primary Care Provider: JUANCARLOS Reviewed Notes: Instructional Paraprofessional Notes Allergies: Coded Allergies: NO KNOWN ALLERGIES (Unverified , 09/06/17) Home Meds Active Scripts Ojzkofytxpk-Hdyfvkdmnijk-Stetd (Trelegy Ellipta 100-62.5-25 Mcg/INH) 1 Aer Aer, 1 AER IN BID for 30 Days, #1 AER Prov:GREGORIO LAWSON RESIDENT 05/14/24 Reported Medications Albuterol Sulfate (Albuterol Sulfate Hfa) 108 Mcg/Act Aer, 108 MCG IN UD for 16 Days, #6.7 05/11/24 Aspirin (Aspirin Low Dose) 81 Mg Chw, 1 TAB PO DAILY for 90 Days, #90 05/11/24 Docusate Sodium (Docusate Sodium) 250 Mg Cap, 1 CAP PO BID for 30 Days, #60 05/11/24 Rosuvastatin Calcium (Rosuvastatin Calcium) 40 Mg Tab, 1 TAB PO HS 04/18/23 Diclofenac Sodium (Diclofenac Sodium Dr) 75 Mg Tab, 1 TAB PO BID 04/18/23 Montelukast Sodium (MONTELUKAST SODIUM) 10 Mg Tab, 1 TAB PO DAILY 04/17/23 Ezetimibe (Ezetimibe) 10 Mg Tab, 1 TAB PO DAILY 04/17/23 Gabapentin (Gabapentin) 800 Mg Tab, 1 TAB PO TID 04/17/23 Losartan Potassium (Losartan Potassium) 100 Mg Tab, 1 TAB PO DAILY 04/17/23 Oxycodone HCl (Oxycodone Hydrochloride) 15 Mg Tab, 1 TAB PO Q6H PRN 04/17/23 Amlodipine Besylate (Amlodipine Besylate) 10 Mg Tab, 1 TAB PO DAILY 9/24/21 Metformin HCl (Metformin Hydrochloride) 1,000 Mg Tab, 1 TAB PO BID 01/13/21 Information Source: Significant Other Mode of Arrival: EMS Severity: Severe Timing: Days Past Medical History PAST MEDICAL HISTORY: Arthritis, Asthma, CHF, COPD, DM, High Lipids, HTN Surgical History: , Hysterectomy, Tubal Ligation KETTLEMAN History: No Pertinent KETTLEMAN History Family History Family History: Unknown Social History Smoker: Non-Smoker Alcohol: Occasionally Drugs: Denies Drug Use Lives In: Home Constitutional: reports: fatigue, malaise, weakness EENTM: denies: blurred vision, double vision, ear bleeding, ear discharge, ear drainage, ear pain, ear ringing, eye pain, eye redness, hearing loss, mouth pain, mouth swelling, nasal discharge, nose bleeding, nose congestion, nose pain , photophobia, tearing, throat pain, throat swelling, voice changes, others Respiratory: reports: cough, shortness of breath; denies: hemoptysis, orthopnea, SOB at rest, SOB with excertion, stridor, wheezing, others Cardiovascular: denies: chest pain, dizzy spells, diaphoresis, Dyspnea on exertion, edema, irregular heart beat, left arm pain, lightheadedness, palpitations, PND, syncope, others Gastrointestinal: reports: abdominal pain; denies: abdomen distended, blood streaked bowels, constipated, diarrhea, dysphagia, difficulty swallowing, hematemesis, melena, nausea, poor appetite, poor fluid intake, rectal bleeding, rectal pain, vomiting, others Genitourinary: denies: abnormal vagina bleeding, burning, dyspareunia, dysuria, flank pain, frequency, hematuria, incontinence, pain, , vagina discharge, urgency, others Neurological: denies: dizziness, fainting, headache, left sided numbness, left sided weakness, numbness, paresthesia, pre-existing deficit, right sided numbness, right sided weakness, seizure, speech problems, tingling, tremors, weakness, others Musculoskeletal: denies: back pain, gout, joint pain, joint swelling, muscle pain, muscle stiffness, neck pain, others Integumetry: denies: bruises, change in color, change in hair/nails, dryness, laceration, lesions, lumps, rash, wounds, others Allergic/Immunocompromised: denies: Difficulty Healing, Frequent Infections, Hives, Itching, others Hematologic/Lymphatic: denies: anemia, blood clots, easy bleeding, easy bruising, swollen glands, others Endocrine: denies: excessive hunger, excessive sweating, excessive thirst, excessive urination, flushing, intolerance to cold, intolerance to heat, unexplained weight gain, unexplained weight loss, others Psychiatric: denies: anxiety, bipolar disorder, depression, hopeless, panic disorder, schizophrenia, sleepless, suicidal, others Physical Exam General Appearance: Moderate Distress HEENT: Normal ENT Inspection, Pharynx Normal, TMs Normal Neck: Full Range of Motion, Non-Tender, Normal, Normal Inspection Respiratory: Chest Non-Tender, Lungs Clear, No Accessory Muscle Use, No Respiratory Distress, Normal Breath Sounds Cardiovascular: No Edema, No JVD, No Murmur, No Gallop, Normal Peripheral Pulses, Regular Rate/Rhythm Breast Exam: Deferred Gastrointestinal: Distended, Tenderness Genitalia: Deferred Pelvic: Deferred Rectal: Deferred Extremities: No calf tenderness, Normal capillary refill, Normal inspection, Normal range of motion, Non-tender, No pedal edema Neurologic: Alert, machine farmworker II-XII nml as Tested, No Motor Deficits, Normal Affect, Normal Mood, No Sensory Deficits Cerebellar Function: Normal Reflexes: Normal Skin: Dry, Normal Color, Warm Lymphatic: No Adenopathy Was a procedure done? Was a procedure done?: No Differential Dx Considerations may include: Pneumonia Gastroenteritis Respiratory failure HIRAL You tract infection Pancreatitis X-Ray, Labs, Meds, VS Vital Signs Date Time Temp Pulse Resp B/P (MAP) Pulse Ox O2 Delivery O2 Flow Rate FiO2 12/25/24 19:27 115 95 Nasal Cannula* 4 36 12/25/24 19:27 97.6 115 16 91/73 (79) 95 97.6 12/25/24 17:19 12 92 Nasal Cannula* 5 40 12/25/24 16:55 99.4 121 15 92/58 93 99.4 12/25/24 16:30 99.4 121 15 92/58 (69) 93 99.4 12/25/24 16:30 121 15 93 Nasal Cannula* 4 36 12/25/24 16:05 118 Lab Test 12/25/24 20:42 12/25/24 19:00 12/25/24 17:43 12/25/24 16:44 Range/Units Lactic Acid Level Pending 8.8 *H 0.4-2.0 mmol/L Troponin I High Sensitivity Pending 10 </=34 ng/L Influenza Type A Antigen Negative Negative Influenza Type B Antigen Negative Negative SARS-CoV-2 Antigen (Rapid) Negative NEGATIVE Blood Gas Specimen Type Arterial Blood Gas Sample Site Left radial Blood Gas Patient Temperature 37.0 Arterial Blood Date Drawn [id number] Arterial Blood pH 7.206 *L 7.350-7.450 Arterial Blood Partial Pressure CO2 28.8 L 32.0-45.0 mmHg Arterial Blood Partial Pressure O2 86.0 83.0-108.0 mmHg Arterial Blood HCO3 11.2 L 21.0-28.0 mmol/L Arterial Blood Oxygen Saturation 95.6 94.0-98.0 % Arterial Blood Base Excess -15.3 L -2.0-3.0 mmol/L Arterial Blood Oxyhemoglobin 94.5 94.0-98.0 % Arterial Blood Carboxyhemoglobin 0.4 L 0.5-1.5 % Arterial Blood Methemoglobin 0.7 0.0-1.5 % Willem Test Yes Blood Gas Total Hemoglobin 12.80 12.0-16.0 g/dL Blood Gas Modality Nasal cannula FiO2 % 32.0 Specimen Drawn By Head Cook varsha gardner Blood Gas Critical Value Read Back Yes Blood Gas Notified Whom jabari Montalvo Blood Gas Notified Time [id number] Blood Gas Notified By Head Cook varsha gardner White Blood Count 10.5 4.4-10.8 10^3/uL Red Blood Count 4.68 4.0-5.20 10^6/uL Hemoglobin 12.9 12.2-16.2 g/dL Hematocrit 39.2 36.0-46.0 % Mean Corpuscular Volume 83.8 80.0-100.0 fL Mean Corpuscular Hemoglobin 27.5 L 28.0-32.0 pg Mean Corpuscular Hemoglobin Concent 32.8 32.0-36.0 g/dL Red Cell Distribution Width 15.1 H 11.8-14.3 % Platelet Count 134 L 140-450 10^3/uL Mean Platelet Volume 9.8 6.9-10.8 fL Neutrophils (%) (Auto) 71.8 37.0-80.0 % Lymphocytes (%) (Auto) 17.5 10.0-50.0 % Monocytes (%) (Auto) 8.6 0.0-12.0 % Eosinophils (%) (Auto) 1.3 0.0-7.0 % Basophils (%) (Auto) 0.8 0.0-2.0 % Neutrophils # (Auto) 7.5 1.6-8.6 10 ^3/uL Lymphocytes # (Auto) 1.8 0.4-5.4 10 ^3/uL Monocytes # (Auto) 0.9 0-1.3 10 ^3/uL Eosinophils # (Auto) 0.1 0-0.8 10 ^3/uL Basophils # (Auto) 0.1 0-0.2 10 ^3/uL Nucleated Red Blood Cells 0.1 % Sodium Level 137 136-145 mmol/L Potassium Level 5.0 3.5-5.1 mmol/L Chloride Level 99 98-107 mmol/L Carbon Dioxide Level 14 L 20-31 mmol/L Anion Gap 24 H 5-15 Blood Urea Nitrogen 46 H 9-23 mg/dL Creatinine 7.31 H 0.550-1.02 mg/dL Glomerular Filtration Rate Calc 6 >90 mL/min BUN/Creatinine Ratio 6.3 L 10.0-20.0 Serum Glucose 77 74-106 mg/dL Calcium Level 8.5 L 8.7-10.4 mg/dL Total Bilirubin 0.5 0.2-1.0 mg/dL Aspartate Amino Transferase (AST) 44 H 13-40 U/L Alanine Aminotransferase (ALT) 20 7-40 U/L Alkaline Phosphatase 57 46-116 U/L B-Type Natriuretic Peptide 148.36 0-100 pg/mL Total Protein 6.2 5.7-8.2 g/dL Albumin 4.0 3.2-4.8 g/dL Current Medications Medications (Trade) Dose Ordered Sig/Liz Route Start Time Stop Time Status Last Admin Sodium Chloride 1,000 ml @ 1,000 mls/hr Q1H ONCE IV 12/25/24 16:30 12/25/24 17:29 DC 12/25/24 16:47 Cefepime HCl 50 ml @ 12.5 mls/hr ONCE ONCE IV 12/25/24 16:30 12/25/24 20:29 DC 12/25/24 16:47 Albuterol (Ventolin Medneb) 2.5 mg ONCE ONCE NEB 12/25/24 16:30 12/25/24 16:33 DC 12/25/24 17:19 Ipratropium [place] (Atrovent Medneb) 0.5 mg ONCE ONCE NEB 12/25/24 16:30 12/25/24 16:33 DC 12/25/24 17:19 Methylprednisolone Sodium Succinate (Solu Medrol) 40 mg ONCE ONCE IV 12/25/24 16:30 12/25/24 16:33 DC 12/25/24 16:48 Sodium Chloride 1,000 ml @ 1,000 mls/hr Q1H ONCE IV 12/25/24 17:45 12/25/24 18:44 DC 12/25/24 18:35 Acetaminophen/ Hydrocodone Bitart ([place] 5/325MG Tab) 1 tab ONCE ONCE PO 12/25/24 19:00 12/25/24 19:01 DC 12/25/24 19:05 Time of 1ST Reevaluation: 19:00 Reevaluation 1ST: Unchanged Patient Education/Counseling: Diagnosis, Treatment, Prognosis, Need For Follow Up Family Education/Counseling: Diagnosis, Treatment, Prognosis, Need For Follow Up Comments Patient was brought to the hospital due to generalized weakness, shortness of breaths nausea and vomiting. Patient's blood pressure was low CBC showed raised creatinine at 7.3 ABGs shows metabolic acidosis Lactic acid raised at 8.8 Chest x-ray shows right lower zone infiltration Head CT scan shows chronic changes Patient was given IV fluid Patient was given IV antibiotic On subsequent checkup, patient's status had not improved. Patient will be admitted for inpatient care. SEPSIS Sepsis Screen Physician Orders Urinalysis (12/25/24 16:26) Chest Portable (12/25/24 16:26) Head Without Contrast (12/25/24 16:26) Blood Culture (12/25/24 16:26) Urine Bacterial Culture (12/25/24 16:26) Electrocardigram (12/25/24 16:26) Troponin-I Hs (12/25/24 17:26) Troponin-I Hs (12/25/24 19:26) Electrocardigram (12/25/24 17:26) Electrocardigram (12/25/24 19:26) Abg W/ Co-Ox (12/25/24 16:30) Ct Ab Pel Wo Con-No Oral Or Iv (12/25/24 18:48) Respiratory Culture W/ Gs (12/25/24 18:51) Vital Signs Date Time Temp Pulse Resp B/P (MAP) Pulse Ox O2 Delivery O2 Flow Rate FiO2 12/25/24 19:27 115 95 Nasal Cannula* 4 36 12/25/24 19:27 97.6 115 16 91/73 (79) 95 97.6 12/25/24 17:19 12 92 Nasal Cannula* 5 40 12/25/24 16:55 99.4 121 15 92/58 93 99.4 12/25/24 16:30 99.4 121 15 92/58 (69) 93 99.4 12/25/24 16:30 121 15 93 Nasal Cannula* 4 36 12/25/24 16:05 118 Laboratory Tests Test 12/25/24 16:44 12/25/24 20:42 Lactic Acid Level 8.8 mmol/L (0.4-2.0) *H Pending White Blood Count 10.5 10^3/uL (4.4-10.8) Medications Medications Dose Ordered Sig/Liz Route Start Time Stop Time Status Last Admin Dose Admin Acetaminophen/ Hydrocodone Bitart 1 tab ONCE ONCE PO 12/25/24 19:00 12/25/24 19:01 DC 12/25/24 19:05 Albuterol 2.5 mg ONCE ONCE NEB 12/25/24 16:30 12/25/24 16:33 DC 12/25/24 17:19 Cefepime HCl 50 ml @ 12.5 mls/hr ONCE ONCE IV 12/25/24 16:30 12/25/24 20:29 DC 12/25/24 16:47 Ipratropium [place] 0.5 mg ONCE ONCE NEB 12/25/24 16:30 12/25/24 16:33 DC 12/25/24 17:19 Methylprednisolone Sodium Succinate 40 mg ONCE ONCE IV 12/25/24 16:30 12/25/24 16:33 DC 12/25/24 16:48 Sodium Chloride 1,000 ml @ 1,000 mls/hr Q1H ONCE IV 12/25/24 16:30 12/25/24 17:29 DC 12/25/24 16:47 Sodium Chloride 1,000 ml @ 1,000 mls/hr Q1H ONCE IV 12/25/24 17:45 12/25/24 18:44 DC 12/25/24 18:35 Departure 1 Departure Time of Disposition: 21:22 Impression: Primary Impression: Asthma exacerbation Additional Impressions: Hypoxia Acute respiratory distress COPD exacerbation Generalized weakness Disposition: ADMITTED INPATIENT Condition: Serious Critical Care Note Critical Care Time?: No Stability Stability form required: No Heart Score Heart Score: Heart Score Response (Comments) Value History N/A 0 EKG N/A 0 Age N/A 0 Risk Factors N/A 0 Troponin N/A 0 Total 0 KENDAL GODOY RESNELSONENT Dec 25, 2024 16:33
[2024-12-25] MEDS: CEFEPIME 2GM/50ML NS 50 ML IV ONE (16:47)
[2024-12-25] MEDS: SODIUM CHLORIDE 0.9% 1,000 ML IV ONE ×3 (16:47→21:32)
[2024-12-25] MEDS: methylPREDNISolone SOD SUCC 40 MG/ML VL IV ONE (16:48)
[2024-12-25 17:02] LABS: Hematocrit 39.2 % (36.0-46.0); Hemoglobin 12.9 g/dL (12.2-16.2); Mean Corpuscular Hemoglobin 27.5 pg (28.0-32.0); Mean Corpuscular Volume 83.8 fL (80.0-100.0); Nucleated Red Blood Cells % 0.1 %
[2024-12-25 17:18] LABS: Alanine Aminotransferase 20 U/L (7-40); Albumin 4.0 g/dL (3.2-4.8); Alkaline Phosphatase 57 U/L (46-116); Anion Gap 24 (5-15); BUN/Creatinine Ratio 6.3 (10.0-20.0); Chloride 99 mmol/L (98-107); Glucose 77 mg/dL (74-106); Potassium 5.0 mmol/L (3.5-5.1); Sodium 137 mmol/L (136-145); Total Protein 6.2 g/dL (5.7-8.2)
[2024-12-25 17:19] LABS: Bilirubin, Total 0.5 mg/dL (0.2-1.0)
[2024-12-25] MEDS: IPRATROPIUM BROM 0.5 MG/2.5ML INH SOL NEB ONE (17:19)
[2024-12-25] MEDS: ALBUTEROL SULF 2.5 MG/0.5ML(0.5%) NEB SOLN NEB ONE (17:19)
[2024-12-25 17:24] LABS: Blood Urea Nitrogen 46 mg/dL (9-23); Calcium 8.5 mg/dL (8.7-10.4); Carbon Dioxide 14 mmol/L (20-31)
--- NOTE | 2024-12-25 17:26 | DVH ---
Indication: ams Comparison: CT HEAD WITHOUT CONTRAST on DOS: 12/07/24, BRAIN HEAD WO CONTRAST on DOS: 01/19/21, HEAD WI THOUT CONTRAST on DOS: 01/13/21 Technique: Utilizing a multislice CT scanner, a CT scan of the brain was performed without intravenou s contrast. Coronal and sagittal reformatted images. All CT scans at this facility use dose modulation, iterative reconstruction, and/or weight based dosi ng when appropriate to reduce radiation dose to as low as reasonably achievable. Findings: There is no acute infarct, intracranial hemorrhage, or mass effect. There is no hydrocephalus or sign ificant midline shift. chronic infarction of the striatocapsular region bilaterally. There is mild chronic microvascular ischemic changes and mild parenchymal volume loss. No acute, depressed calvarial fractures. No large scalp hematomas. Impression: 1. There is no acute infarct, intracranial hemorrhage, or mass effect. 2. There is no hydrocephalus or significant midline shift. 3. 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 4. Mild chronic microvascular ischemic changes and mild parenchymal volume loss. 5. No acute, depressed calvarial fractures. 6. No large scalp hematomas.
--- NOTE | 2024-12-25 17:30 | DVH ---
CHEST RADIOGRAPH Indication: ams Technique: Single frontal view of the chest was obtained Comparison: XY CHEST PORTABLE on DOS: 05/10/24, XY CHEST PORTABLE on DOS: 02/25/24, XY CHEST PORTABLE o n DOS: 01/04/24 FINDINGS: Lines and Tubes: None Lungs: Bronchovascular crowding due 2 low lung volumes. Mild cardiomegaly. Mild interstitial promine nce. Pleura: No effusion. No pneumothorax. Cardiomediastinal contours: Unremarkable Bones: No acute osseous abnormality. IMPRESSION: Bronchovascular crowding due to low lung volumes. Underlying pulmonary vascular congestion can not b e excluded.
[2024-12-25 17:32] LABS: Lactic Acid w/Reflex 8.8 mmol/L (0.4-2.0)
[2024-12-25 17:59] LABS: Base Excess -15.3 mmol/L (-2.0-3.0)
[2024-12-25] MEDS: HYDROcodone-ACET 5/325MG TAB PO ONE (19:05)
[2024-12-25 19:27] VITALS: PULSE 115; O2SAT 95
[2024-12-25 19:56] LABS: COVID19 ANTIGEN SOFIA FIA NEGATIVE (NEGATIVE)
--- NOTE | 2024-12-25 20:13 | DVH ---
Exam: CT CT AB PEL WO CON-NO ORAL OR IV History: ABDOMINAL PAIN Comparison Study: None TECHNIQUE: Multidetector CT of the abdomen pelvis without IV contrast. Axial, coronal and sagittal mu ltiplanar reformats were obtained from the axial data set by the technologist. Radiation Dose Information: CT Dose: CTDI volume is 21.17 mGy. Dose-length product is 3.92 mGy*cm FINDINGS: Small right-sided pleural effusion with bibasilar atelectasis. Mild cardiomegaly with trace pericardi al effusion. Calcified granulomas within the spleen. Otherwise, liver, spleen, gallbladder, pancreas and adrenal glands are unremarkable. Kidneys, ureters and urinary bladder are unremarkable. Status post hysterectomy. Small hiatal hernia. Stomach is unremarkable. Small bowel loops unremarkable. Appendix is unremarka ble. Moderate amount of fecal material within the colon. Descending colon and sigmoid diverticulosi s without diverticulitis. Wall thickening of the rectum. No evidence of intraperitoneal free air or free fluid. No evidence of aortic aneurysm. Mild atherosclerotic calcification of the aorta. No significant lymphadenopathy. Minimal body wall edema. Tiny fat containing umbilical hernia. 2.3 x 1.2 cm lipoma within the left a nterolateral hip musculatures. No evidence of acute osseous abnormalities. IMPRESSION: Wall thickening of the rectum which may be due to inadequate distention /proctitis. Descending colon and sigmoid diverticulosis without diverticulitis. Moderate amount of fecal material within the colon. Small right-sided pleural effusion with bibasilar atelectasis. Right basilar pneumonia can not be exc luded.
[2024-12-25] MEDS ORDERED: MORPHINE SULFATE INJ 2 MG/ml SYRG IV PRN (23:45)
[2024-12-25] MEDS ORDERED: VANCOMYCIN PER PHARMACY 0 MG IV SCH (23:45)
[2024-12-25] MEDS ORDERED: NITROGLYCERIN 0.4 MG SL TAB SL PRN (23:45)
[2024-12-25] MEDS: VANCOMYCIN 1GM/250ML KIT 250 ML IV ONE (23:56)
[2024-12-25] MEDS: LACTATED RINGER'S 1,000 ML IV ONE (23:56)
[2024-12-26] VITALS (10 sets, daily range): BP systolic 96–149; BP diastolic 55–90; PULSE 114–129; RESP 22–25; O2SAT 93–100
[2024-12-26 00:20] LABS: Chloride 100 mmol/L (98-107); Sodium 138 mmol/L (136-145)
[2024-12-26] MEDS: PANTOPRAZOLE 40 MG/10 ML VIAL INJ IV SCH (00:20)
[2024-12-26 00:21] LABS: Anion Gap 28.00001 (5-15)
[2024-12-26 00:27] LABS: BUN/Creatinine Ratio 5.0 (10.0-20.0); Glucose 83 mg/dL (74-106)
[2024-12-26] MEDS: ONDANSETRON HCL 4 MG/2 ML VIAL IV ONE (00:41)
--- NOTE | 2024-12-26 00:46 | DVH ---
INDICATION: rule out obstruction on kidenys, ureter and bladder TECHNIQUE: Multiple real-time sonographic images of the kidneys and bladder were obtained. COMPARISON: None FINDINGS: RIGHT kidney measures 8.3 cm in length with normal parenchymal echotexture and cortical thickness. No evidence of nephrolithiasis or hydronephrosis. LEFT kidney measures 10.4 cm in length with normal parenchymal echotexture and cortical thickness. No evidence of nephrolithiasis or hydronephrosis. Urinary bladder is partially distended. No large intraluminal masses are seen in the bladder. No calc eric. No significant postvoid residual. IMPRESSION: 1. Mild right renal atrophy relative to the left without evidence of focal abnormality. 2. The urinary bladder is partially distended but otherwise unremarkable.
[2024-12-26] MEDS: LEVALBUTEROL HCL 1.25 MG/3 ML NEB NEB SCH (00:50)
[2024-12-26] MEDS: IPRATROPIUM BROM 0.5 MG/2.5ML INH SOL NEB SCH (00:51)
[2024-12-26 00:54] LABS: Blood Urea Nitrogen 37 mg/dL (9-23)
[2024-12-26] MEDS: SODIUM BICARB 8.4% 50Meq/50ml SYR Vial IV ONE ×6 (00:55→21:33)
[2024-12-26 00:56] LABS: Calcium 8.4 mg/dL (8.7-10.4)
[2024-12-26 01:02] LABS: Carbon Dioxide < 10 mmol/L (20-31); Potassium 6.1 mmol/L (3.5-5.1)
[2024-12-26 01:35] LABS: Base Excess -22.6 mmol/L (-2.0-3.0)
[2024-12-26 02:01] LABS: Urine Budding Yeast MODERATE /hpf (None Seen); Urine Protein, UAD 2+ (Negative); Urine WBC Clumps PRESENT /hpf (None Seen)
[2024-12-26 02:06] LABS: Protein, Urine 249.3 mg/dL (1-14)
[2024-12-26] MEDS: LACTATED RINGER'S 500 ML IV ONE (02:16)
--- NOTE | 2024-12-26 03:19 | DVHHPRES ---
History of Present Illness Resident Creating Document: LETICIA DANIELS RESIDENT History of Present Illness Ms. Felice Del Angel, a 69-year-old female with a history of diabetes, hypertension, asthma, and degenerative disc disease was brought to the ER by EMS for generalized weakness for 2 days, with family reporting progressive weakness and altered mental status for 2 weeks. She also has decreased oral intake and reports nausea, vomiting, chest pain, and shortness of breath. On arrival, the patient was alert but disoriented to time, place, and person; collateral history was obtained from family. EMS noted hypotension at the scene. Symptoms have been severe and ongoing for several days. Past Medical History: Arthritis, Asthma, CHF, COPD, DM, High Lipids, HTN Surgical History: denies MELTING SUPERVISOR History: No Pertinent MELTING SUPERVISOR History Family History: Not pertinent to this hospitalization. Social History: The patient is a non-smoker, drinks alcohol occasionally, denies drug use, and lives at home. Review of Systems Constitutional: Yes: Weakness; No: Fever, Chills, Sweats, Malaise, Other Eyes: No: Pain, Vision change, Conjunctivae inflammation, Eyelid inflammation, Other, Redness ENT: No: Ear pain, Ear discharge, Nose pain, Nose discharge, Nose congestion, Mouth pain, Mouth swelling, Throat pain, Throat swelling, Other Respiratory: Shortness of breath Cardiovascular: No: Chest Pain, Palpitations, Orthopnea, Paroxysmal Noc. Dyspnea, Edema, Lt Headedness, Other Gastrointestinal: Vomiting, Abdominal Pain; No: Nausea, Diarrhea, Constipation, Melena, Hematochezia, Other Genitourinary: No Dysuria, No Frequency, No Incontinence, No Hematuria, No Retention, No Other Musculoskeletal: No: other, neck pain, shoulder pain, arm pain, back pain, hand pain, leg pain, foot pain Skin: No: Rash, Lesions, Jaundice, Bruising, Other Neurological: No: Weakness, Numbness, Incoordination, Change in speech, Confusion, Seizures, Other Allergies: Coded Allergies: NO KNOWN ALLERGIES (Unverified , 09/06/17) Medications Current Medications Medications Dose Ordered Sig/Liz Route Start Time Stop Time Status Last Admin Dose Admin Nitroglycerin 0.4 mg Q5MINP PRN SL 12/25/24 23:45 Morphine Sulfate 2 mg Q30M PRN IV 12/25/24 23:45 Vancomycin HCl 0 ml @ 0 mls/hr UD IV 12/25/24 23:45 UNV Cefepime HCl 50 ml @ 12.5 mls/hr Q24H IV 12/26/24 16:00 Pantoprazole Sodium 40 mg DAILY IV 12/26/24 00:00 12/26/24 00:20 40 MG Levalbuterol HCl 0.625 mg Q6HR NEB 12/26/24 00:00 12/26/24 00:50 0.625 MG Ipratropium [place] 0.5 mg Q6HR NEB 12/26/24 00:00 12/26/24 00:51 0.5 MG Exam Vital Signs Vital Signs Date Time Temp Pulse Resp B/P (MAP) Pulse Ox O2 Delivery O2 Flow Rate FiO2 12/26/24 02:00 97.6 112 17 90/47 (61) 96 97.6 12/26/24 00:54 Nasal Cannula* 5 40 Exam General: Patient alert and oriented in person, and time but not to place. Patient following commands. Moderate distress, labored breathing HEENT: Normocephalic, atraumatic, moist mucous membranes Respiratory/pulmonary: labored breathing, bilateral expiratory wheezes heard on auscultation Cardiovascular: Normal heart sounds S1 and S2 with no associated murmurs Abdomen: Abdomen mildly distended, left sided tenderness on palpation Extremities: There is no peripheral edema present at the lower extremities. Peripheral Pulses: 3+ Radial (R). 3+ Radial (L). 3+ Dorsalis pedis (R). 3+ Dorsalis pedis(L) Skin: No rashes or pruritus, there is no sacral edema present at this time. Neurological: Intact cranial nerves with no focal neurologic deficits Psych/mood: Disoriented, Labs/Xrays Labs Test 12/26/24 00:04 12/25/24 20:42 12/25/24 19:00 12/25/24 17:43 Range/Units Blood Gas Specimen Type Arterial Blood Gas Sample Site Left radial Blood Gas Patient Temperature 37.0 Arterial Blood Date Drawn [id number] Arterial Blood pH 7.047 *L 7.350-7.450 Arterial Blood Partial Pressure CO2 24.2 L 32.0-45.0 mmHg Arterial Blood Partial Pressure O2 79.7 L 83.0-108.0 mmHg Arterial Blood HCO3 6.5 L 21.0-28.0 mmol/L Arterial Blood Oxygen Saturation 93.5 L 94.0-98.0 % Arterial Blood Base Excess -22.6 L -2.0-3.0 mmol/L Arterial Blood Oxyhemoglobin 92.1 L 94.0-98.0 % Arterial Blood Carboxyhemoglobin 0.7 0.5-1.5 % Arterial Blood Methemoglobin 0.8 0.0-1.5 % Willem Test Yes Blood Gas Total Hemoglobin 12.80 12.0-16.0 g/dL Blood Gas Liter Flow 4.00 Blood Gas Modality Nasal cannula FiO2 % 36.0 Blood Gas Critical Value Read Back Yes Blood Gas Notified Whom masha Bolden Blood Gas Notified Time [id number] Blood Gas Notified By Brush Holder Assembler varsha gardner Sodium Level 138 136-145 mmol/L Potassium Level 6.1 *H 3.5-5.1 mmol/L Chloride Level 100 98-107 mmol/L Carbon Dioxide Level < 10 *L 20-31 mmol/L Anion Gap 28.83110 H 5-15 Blood Urea Nitrogen 37 H 9-23 mg/dL Creatinine 7.34 H 0.550-1.02 mg/dL Glomerular Filtration Rate Calc 6 >90 mL/min BUN/Creatinine Ratio 5.0 L 10.0-20.0 Serum Glucose 83 74-106 mg/dL Lactic Acid Level 10.0 *H 0.4-2.0 mmol/L Calcium Level 8.4 L 8.7-10.4 mg/dL Troponin I High Sensitivity 12 </=34 ng/L Influenza Type A Antigen Negative Negative Influenza Type B Antigen Negative Negative SARS-CoV-2 Antigen (Rapid) Negative NEGATIVE Specimen Drawn By Brush Holder Assembler varsha gardner Test 12/25/24 16:44 12/25/24 00:45 Range/Units White Blood Count 10.5 4.4-10.8 10^3/uL Red Blood Count 4.68 4.0-5.20 10^6/uL Hemoglobin 12.9 12.2-16.2 g/dL Hematocrit 39.2 36.0-46.0 % Mean Corpuscular Volume 83.8 80.0-100.0 fL Mean Corpuscular Hemoglobin 27.5 L 28.0-32.0 pg Mean Corpuscular Hemoglobin Concent 32.8 32.0-36.0 g/dL Red Cell Distribution Width 15.1 H 11.8-14.3 % Platelet Count 134 L 140-450 10^3/uL Mean Platelet Volume 9.8 6.9-10.8 fL Neutrophils (%) (Auto) 71.8 37.0-80.0 % Lymphocytes (%) (Auto) 17.5 10.0-50.0 % Monocytes (%) (Auto) 8.6 0.0-12.0 % Eosinophils (%) (Auto) 1.3 0.0-7.0 % Basophils (%) (Auto) 0.8 0.0-2.0 % Neutrophils # (Auto) 7.5 1.6-8.6 10 ^3/uL Lymphocytes # (Auto) 1.8 0.4-5.4 10 ^3/uL Monocytes # (Auto) 0.9 0-1.3 10 ^3/uL Eosinophils # (Auto) 0.1 0-0.8 10 ^3/uL Basophils # (Auto) 0.1 0-0.2 10 ^3/uL Nucleated Red Blood Cells 0.1 % Total Bilirubin 0.5 0.2-1.0 mg/dL Aspartate Amino Transferase (AST) 44 H 13-40 U/L Alanine Aminotransferase (ALT) 20 7-40 U/L Alkaline Phosphatase 57 46-116 U/L B-Type Natriuretic Peptide 148.36 0-100 pg/mL Total Protein 6.2 5.7-8.2 g/dL Albumin 4.0 3.2-4.8 g/dL Urine Color Light-orange Yellow Urine Clarity Ex.turbid Clear Urine pH 5.5 5.0-9.0 Urine Specific [place] 1.024 1.001-1.035 Urine Protein 2+ H Negative Urine Ketones Negative Negative Urine Blood 1+ H Negative /uL Urine Nitrite Negative Negative Urine Bilirubin Negative Negative Urine Urobilinogen Normal Negative mg/dL Urine Leukocyte Esterase 3+ Negative /uL Urine RBC 10 0 - 4 /hpf Urine WBC Clumps Present None Seen /hpf Urine Microscopic WBC 342 H 0-5 /HPF Urine Squamous Epithelial Cells Few <5 /hpf Urine Bacteria Many H None Seen /hpf Urine Hyaline Casts Few 0 - 2 /lpf Urine Yeast (Budding) Moderate None Seen /hpf Urine Creatinine 196.43 H 30.0-125.0 mg/dL Urine Sodium 41 40-220 mmol/L Urine Potassium 15 12-62 mmol/L Urine Glucose Normal Normal mg/dL Urine Total Protein 249.3 H 1-14 mg/dL SEPSIS Sepsis Screen Date sepsis recognized/suspect: Dec 25, 2024 Time Sepsis recognized/suspect: 1926 Recent Procedure: No On Antibiotic Therapy: Yes Respiratory Rate >20: No Heart Rate >90: Yes Temp<36 C (96.8 F) or >38.3 C: No SBP <90 or MAP <65 mmHG: No New Acute Mental Status Change: Yes Is the patient on CPAP, BIPAP,: No Physician Orders Admit (12/25/24 23:35) Nitroglycerin Sublingual (Ntrostat Subli (12/25/24 23:45) Morphine Sulfate Injection (12/25/24 23:45) Oxygen By Nasal Cannula (12/25/24 23:35) Stat Ekg For Chest Pain (12/25/24 23:35) Notify Md Of Changes From Base (12/25/24 23:35) Shipping Agent For 24 Hours (12/25/24 23:35) Emergency Dysrhythmia Protocol (12/25/24 23:35) Rhythm Strips Once Every Shift (12/25/24 23:35) Vancomycin Per Pharmacy (12/25/24 23:45) Intake And Output (12/25/24 23:35) Insert/Manage Urinary Catheter QSHIFT (12/25/24 23:35) Cefepime 1gm/50ml (Maxipime 1gm/50ml) (12/26/24 16:00) Lactated Ringer's (12/25/24 23:45) *[facility] (12/25/24 23:42) Respiratory Culture W/ Gs (12/25/24 23:42) Urine Bacterial Culture (12/25/24 23:42) Mrsa Screen (12/25/24 23:44) Strict Aspiration Precautions (12/25/24 23:44) Abg W/ Co-Ox (12/25/24 23:44) Pantoprazole (Protonix) (12/26/24 00:00) Osmolality Urine (12/25/24 23:53) Kidney (12/26/24 00:03) Levalbuterol Hcl (Xopenex Medneb) (12/26/24 00:00) Ipratropium Medneb (Atrovent Medneb) (12/26/24 00:00) * Video Game Script Writer Consult (12/26/24 ) * Neurology Consult (12/26/24 01:32) Vital Signs Date Time Temp Pulse Resp B/P (MAP) Pulse Ox O2 Delivery O2 Flow Rate FiO2 12/26/24 02:00 97.6 112 17 90/47 (61) 96 97.6 12/26/24 00:54 18 97 Nasal Cannula* 5 40 12/26/24 00:53 97 Nasal Cannula* 5 40 12/26/24 00:00 97.7 114 18 87/61 (70) 95 97.7 12/25/24 23:00 115 16 94/52 (66) 95 12/25/24 22:00 97.6 114 16 101/68 (79) 95 97.6 12/25/24 21:00 115 16 93/64 (74) 95 12/25/24 20:00 116 14 96/64 (75) 95 12/25/24 19:27 115 95 Nasal Cannula* 4 36 12/25/24 19:27 97.6 115 16 91/73 (79) 95 97.6 Laboratory Tests Test 12/25/24 16:44 12/25/24 20:42 Lactic Acid Level 8.8 mmol/L (0.4-2.0) *H 10.0 mmol/L (0.4-2.0) *H White Blood Count 10.5 10^3/uL (4.4-10.8) Medications Medications Dose Ordered Sig/Liz Route Start Time Stop Time Status Last Admin Dose Admin Acetaminophen/ Hydrocodone Bitart 1 tab ONCE ONCE PO 12/25/24 19:00 12/25/24 19:01 DC 12/25/24 19:05 1 TAB Albuterol 2.5 mg ONCE ONCE NEB 12/25/24 16:30 12/25/24 16:33 DC 12/25/24 17:19 2.5 MG Cefepime HCl 50 ml @ 12.5 mls/hr ONCE ONCE IV 12/25/24 16:30 12/25/24 20:29 DC 12/25/24 16:47 12.5 MLS/HR Ipratropium [place] 0.5 mg ONCE ONCE NEB 12/25/24 16:30 12/25/24 16:33 DC 12/25/24 17:19 0.5 MG Ipratropium [place] 0.5 mg Q6HR NEB 12/26/24 00:00 12/26/24 00:51 0.5 MG Lactated Ringer's 500 ml @ 500 mls/hr Q1H ONCE IV 12/26/24 02:15 12/26/24 03:14 [place] 12/26/24 02:16 500 MLS/HR Lactated Ringer's 1,000 ml @ 50 mls/hr Q20H ONCE IV 12/25/24 23:45 12/26/24 19:44 12/25/24 23:56 50 MLS/HR Levalbuterol HCl 0.625 mg Q6HR [facility] 12/26/24 00:00 12/26/24 00:50 0.625 MG Methylprednisolone Sodium Succinate 40 mg ONCE ONCE IV 12/25/24 16:30 12/25/24 16:33 [place] 12/25/24 16:48 40 MG Ondansetron HCl 4 mg ONCE ONCE IV 12/26/24 00:45 12/26/24 00:46 [place] 12/26/24 00:41 4 MG Pantoprazole Sodium 40 mg DAILY IV 12/26/24 00:00 12/26/24 00:20 40 MG Sodium Bicarbonate 50 ml ONCE ONCE IV 12/26/24 00:15 12/26/24 00:30 W[place] 12/26/24 00:55 50 ML Sodium Chloride 1,000 ml @ 1,000 mls/hr Q1H ONCE IV 12/25/24 16:30 12/25/24 17:29 W[place] 12/25/24 16:47 1,000 MLS/HR Sodium Chloride 1,000 ml @ 1,000 mls/hr Q1H ONCE IV 12/25/24 17:45 12/25/24 18:44 WV 12/25/24 18:35 1,000 MLS/HR Sodium Chloride 1,000 ml @ 1,000 mls/hr Q1H ONCE IV 12/25/24 21:30 12/25/24 22:29 W[place] 12/25/24 21:32 1,000 MLS/HR Vancomycin HCl 250 ml @ 250 mls/hr ONCE ONCE IV 12/25/24 23:45 12/26/24 00:44 W[place] 12/25/24 23:56 250 MLS/HR Assessment/Plan Assessment/Plan #Aspiration pneumonia: repeat cxr in 24 hours, check MRSA sputum culture, broad- spectrum antibiotic to continue, patient came from home, less chance of vigilant bacteria. #Likely community-acquired pneumonia Gram-positive/Gram-negative: Came from home low probability of high violent infection, check MRSA aspiration precautions #R/o Viral pneumonia with negative COVID and influenza: Patient is well immunized as per family. #Severe Septic shock check lactate cultures f/u with broad abx #Mild thrombocytopenia: fu cbc and rule out petechia avoid anti pletlets, avoid linezolid #Anion-Gap Metabolic acidosis with lactic acidosis: repeat lactic acid shows persistent increase and worsening acidosis: Status post several IV #Chronic hypoxic respiratory failure: At baseline patient has 3-4 L of nasal cannula oxygen most of the time round the clock #Acute on chronic hypoxic respiratory failure: At presentation 5-6 L of nasal cannula oxygen, close respiratory monitoring if needed/respiratory fatigue/hypoxic/hypercapnic failure noted possible need of intubation. ABG ordered close follow up. #Acute Renal Failure / HIRAL due to VMN: Nephrology close follow up, check intake output, foleys shows poor urine output, no previous history of hemodialysis. Persistently hypotensive- Has narrow room for initiation of dialysis needs close follow up by Nephrology for further discussion with the family for initiation of dialysis. #Type 2 lactic acidosis: As per family patient is taking metformin 1000 b.i.d., along with albuterol for shortness of breath, could be contributory of lactic acidosis #history of hypertension: At present patient is septic, we will hold any antihypertensives in this hospital, target to keep the map over 65. IV fluid given, likely septic shock worsening hemodynamics, on peripheral line with IV Levophed. #Toxic vs Metabolic encephalopathy: Active infection, sepsis, uremia, among others to precipitate encephalopathy. Delirium precautions, seizure precautions to continue. #Possible COPD exacerbation: Likely due to aspiration/community-acquired pneumonia, Check for sputum culture, active wheezing, levalbuterol and ipratropium to continue, IV steroid to continue, antibiotic to continue. #Prior history of aspiration pneumonia: Could be due to dementia, delirium, poor bulbar function, continue aspiration precautions. 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 \Mild chronic microvascular ischemic changes and mild parenchymal volume loss: Patient is waiting for follow up with Neurology outpatient phillips. Likely we will not need inpatient MRI at this point, neurology consult for expert opinion, poor overall outcome likely, family discussion reveals different expectations. Perhaps a goals of care discussion might be helpful. #Atelectasis: Noted in CXR, incentive spirometry to continue, out of bed. #hypertensive heart disease, with Cardiomegaly: Echo and further workup pending. EKG to follow #known dyslipidemia: NPO for now in possible restart home statin. #known diabetes mellitus: Target blood glucose between 140-180 as per NICE sugar trial. #Possible proctitis: As noted in CT abdomen, could be due to secondary to constipation. No known last bowel movement. Gram-negative and anaerobic coverage to continue, patient denies any active pain, stool culture/blood culture to cough follow. #Chronic constipation: Lactulose, with Colace to continue, high-fiber diet when possible. #Small right-sided pleural effusion likely parapneumonic collection: continue treatment with current medications if needed repeat CXR/CT chest #Surgical History of distant prior , Hysterectomy, Tubal Ligation. #Osteoarthritis [id number]: Likely age-related, as needed Tylenol, no active joint pain noted. #Diet: NPO high risk for aspiration. Aspiration precautions to continue. #DVT prophylaxis: With low platelets SCDs only #GI Prophylaxis: IV PPI PCP: Dr. Diego, patient follows at [facility]. Specialist relevant to admission: New consult for Nephrology for acute renal failure/ ATN. Neurology consult done for encephalopathy versus vascular dementia, worsening decline. Patient waiting for outpatient neurology close follow up Barriers to discharge: multiorgan failure, septic shock with extremely poor prognosis. Family updated Case discussed with Dr. Samayoa. Code status: Full code. Complex patient care discussion needed total 39 minute s. Critical care time spent 47 minutes without any procedure. Extensive discussion with the family members for close follow up. Granddaughter aware of the poor prognosis and family is on the way to visit the patient at bedside. Disposition: Patient is upgraded from the telemetry floor to ICU level of care with peripheral IV line for Levophed, family is aware of poor prognosis and impending intubation/ central venous catheter placement for vasopressor support. Discussed with POI over phone erica Bonds at [phone] Plan discussed with: Patient, Other (Granddaughter over phone, power of litigation attorney next kin, Cammie) My Orders Orders - LETICIA DANIELS Procedure Category Date Status Time Admit ADMIT 12/25/24 Transmitted 23:35 Nitroglycerin [facility] 12/25/24 In Process Sublingual (Ntrostat 23:45 Morphine Sulfate PHA 12/25/24 In Process Injection 23:45 Oxygen By Nasal RT 12/25/24 Transmitted Cannula 23:35 Stat Ekg For Chest [facility] 12/25/24 In Process Pain 23:35 Notify Md Of Changes [facility] 12/25/24 In Process From Base 23:35 Shipping Agent For [facility] 12/25/24 In Process 24 Hours 23:35 Emergency Dysrhythmia [facility] 12/25/24 In Process Protocol 23:35 Rhythm Strips Once [facility] 12/25/24 In Process Every Shift 23:35 * Video Game Script Writer CONS 12/26/24 Transmitted Consult * Neurology Consult CONS 12/26/24 Transmitted 01:32 Date of Service: Dec 26, 2024 Billing Provider: PAULINO SAMAYOA MD Common Visit Codes: 73587-[id number] INP/OBS CARE (HIGH) Secondary Visit Codes: [id number] CARE PLAN 30 MINUTES LETICIA DANIELS RESIDENT Dec 26, 2024 03:19 VINCENT GOODEN RESIDENT Dec 26, 2024 07:53
[2024-12-26] MEDS: NOREPINEPHRINE 8 MG/250ML KIT 250 ML IV SCH (04:10)
[2024-12-26 06:16] LABS: Base Excess -29.1 mmol/L (-2.0-3.0)
[2024-12-26 07:47] LABS: Lactic Acid w/Reflex 13.1 mmol/L (0.4-2.0)
[2024-12-26] MEDS ORDERED: LACTATED RINGER'S 1,000 ML IV SCH (08:15)
[2024-12-26] MEDS ORDERED: SODIUM CHLORIDE 0.9% 1,000 ML IV SCH (09:45)
[2024-12-26] MEDS ORDERED: ENOXAPARIN SOD 30 MG/0.3 ML SYRINGE SC SCH (10:00)
--- NOTE | 2024-12-26 10:09 | DVH ---
CHEST RADIOGRAPH Indication: CVC placement Technique: Single frontal view of the chest was obtained Comparison: XY CHEST PORTABLE on DOS: 12/25/24, XY CHEST PORTABLE on DOS: 05/10/24, XY CHEST PORTABLE on DOS: 02/25/24, XY CHEST PORTABLE on DOS: 01/04/24, XY CHEST PORTABLE on DOS: 04/17/23 FINDINGS: Lines and Tubes: Right IJ line. Lungs: Right middle lobe opacity. Mild pulmonary vascular congestion. Pleura: No effusion. No pneumothorax. Cardiomediastinal contours: Mild cardiomegaly. Bones: No acute osseous abnormality. IMPRESSION: 1. Right IJ line in appropriate position. 2. Right middle lobe opacity. 3. Mild pulmonary vascular congestion. Mild cardiomegaly.
[2024-12-26] MEDS: SODIUM BICARB 50mEq/50ml Vial 75 ML in D5W 5% 1,000 ML IV SCH (10:20)
[2024-12-26] MEDS: SODIUM BICARB 8.4% 50Meq/50ml SYR INJ ONE (11:02)
[2024-12-26 11:20] LABS: Hematocrit 42.3 % (36.0-46.0); Hemoglobin 12.5 g/dL (12.2-16.2); Mean Corpuscular Hemoglobin 27.0 pg (28.0-32.0)
[2024-12-26 11:22] LABS: Mean Corpuscular Volume 91.3 fL (80.0-100.0); Nucleated Red Blood Cells % 0.1 %
[2024-12-26] MEDS: SODIUM CHLORIDE 0.9% 1,000 ML IV ONE (11:28)
[2024-12-26 11:29] LABS: Alanine Aminotransferase 27 U/L (7-40); Albumin 4.3 g/dL (3.2-4.8); Alkaline Phosphatase 62 U/L (46-116); Anion Gap 29.00001 (5-15); BUN/Creatinine Ratio 5.5 (10.0-20.0); Chloride 100 mmol/L (98-107); Cholesterol 188 mg/dL (< 200); HDL Cholesterol 52 mg/dL (40-59); Magnesium 1.9 mg/dL (1.6-2.6); Sodium 139 mmol/L (136-145); Total Protein 6.7 g/dL (5.7-8.2)
[2024-12-26] MEDS: SODIUM CHLORIDE 0.9% 1,000 ML IV SCH ×2 (11:29→19:15)
[2024-12-26 11:30] LABS: Bilirubin, Total 0.4 mg/dL (0.2-1.0)
[2024-12-26] MEDS: methylPREDNISolone SOD SUCC 125 MG/2 ML VL IV ONE (11:48)
[2024-12-26] MEDS: AZITHROMYCIN 500MG/ 250ML 250 ML IV SCH (11:48)
[2024-12-26] MEDS: methylPREDNISolone SOD SUCC 40 MG/ML VL IV SCH (11:49)
[2024-12-26 11:53] LABS: Lactic Acid w/Reflex 12.3 mmol/L (0.4-2.0); Potassium 7.5 mmol/L (3.5-5.1)
[2024-12-26 11:54] LABS: Blood Urea Nitrogen 47 mg/dL (9-23); Calcium 8.2 mg/dL (8.7-10.4); Carbon Dioxide < 10 mmol/L (20-31); Glucose 107 mg/dL (74-106); Triglycerides 154 mg/dL (< 150)
[2024-12-26 12:07] LABS: Lipase 31 U/L (12-53)
[2024-12-26 12:54] LABS: INR 1.03 (0.9-1.15); Partial Thromboplastin Time 30.5 SEC (24.5-34.5); Prothrombin Time 10.9 sec (9.3-11.8)
[2024-12-26] MEDS ORDERED: InsuLIN REG 1unit/0.01ml Soln (100units/ml) IV ONE (14:00)
[2024-12-26] MEDS ORDERED: SODIUM ZIRCONIUM CYCL 10 GM PAK PO ONE (14:00)
[2024-12-26] MEDS: SODIUM BICARB 8.4% 50Meq/50ml SYR INJ IV ONE (14:00)
[2024-12-26] MEDS ORDERED: ALBUTEROL SULF 2.5 MG/0.5ML(0.5%) NEB SOLN NEB ONE (14:00)
[2024-12-26] MEDS ORDERED: DEXTROSE (50%) 50ML SYRG IV ONE (14:00)
[2024-12-26] MEDS ORDERED: CALCIUM GLUC 1,000mg/50ml-NS 50 ML IV ONE (14:00)
[2024-12-26] MEDS: CALCIUM GLUC 1,000mg/50ml-NS 50 ML IV ONE (14:17)
[2024-12-26] MEDS: ETOMIDATE (2MG/ML) 20ML VIAL IV ONE ×2 (14:40→14:41)
[2024-12-26] MEDS: ROCURONIUM 10MG/ML 10ML VIAL IV ONE ×2 (14:41→14:42)
[2024-12-26 14:56] LABS: Base Excess -27.0 mmol/L (-2.0-3.0)
[2024-12-26] MEDS: DEXTROSE (50%) 50ML SYRG IV ONE (15:13)
[2024-12-26] MEDS: SODIUM ZIRCONIUM CYCL 10 GM PAK PO ONE (15:14)
[2024-12-26] MEDS: InsuLIN REG 1unit/0.01ml Soln (100units/ml) IV ONE (15:14)
--- NOTE | 2024-12-26 15:14 | DVHNC2 ---
Central Line Recorder of insertion practice: Boiler Fitter Occupation of pallet stone inserter: Attending Physician Indication: Hypotension, CVP monitoring Room prepared for procedure: Yes Boiler Fitter performed hand hygien: Yes Maximal sterile barrier precau: Mask/Eye shield, Sterile gown Skin Preparation: Chlorhexidine gluconate, Providine iodine Skin preparation completely dr: Yes Insertion site: Right, Internal jugular Central line catheter type: Nsd-[id number] dialysis Number of lumens: 3 Antiseptic ointment applied to: Yes Post Assessment: Chest X-Ray Date of Service: Dec 26, 2024 Billing Provider: SAMMY GONZALEZ MD Common Visit Codes: [id number] INP/OBS CARE (HIGH) Secondary Visit Codes: [id number] STANDBY SERVICE Consultation Codes: [id number] CONSULT <45MIN Procedure Codes: [id number] NON-TUNNEL CV CATH SAMMY GONZALEZ MD Dec 26, 2024 15:14
[2024-12-26] MEDS: FUROSEMIDE 20 MG/2 ML VIAL IV ONE (15:15)
--- NOTE | 2024-12-26 15:29 | DVHINCON2 ---
Date of service: Dec 26, 2024 Reason for Consultation HIRAL History of Present Illness 69-year-old female limited history as patient is critically ill intubated. Obtained limited information from patient's granddaughter. 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 The ER course is notable for respiratory distress status post intubation. She is known to have severe hyperkalemia and metabolic acidosis with a pH less than 7.0. Nephrology consulted for stat hemodialysis. Past Medical History As above Past Surgical History As above Allergies: Coded Allergies: NO KNOWN ALLERGIES (Unverified , 09/06/17) Home Meds Active Scripts Rrwdsiovqqw-Mlrziquusdpk-Skodj (Trelegy Ellipta 100-62.5-25 Mcg/INH) 1 Aer Aer, 1 AER IN BID for 30 Days, #1 AER Prov:GREGORIO LAWSON RESIDENT 05/14/24 Reported Medications Albuterol Sulfate (Albuterol Sulfate Hfa) 108 Mcg/Act Aer, 108 MCG IN UD for 16 Days, #6.7 05/11/24 Aspirin (Aspirin Low Dose) 81 Mg Chw, 1 TAB PO DAILY for 90 Days, #90 05/11/24 Docusate Sodium (Docusate Sodium) 250 Mg Cap, 1 CAP PO BID for 30 Days, #60 05/11/24 Rosuvastatin Calcium (Rosuvastatin Calcium) 40 Mg Tab, 1 TAB PO HS 04/18/23 Diclofenac Sodium (Diclofenac Sodium Dr) 75 Mg Tab, 1 TAB PO BID 04/18/23 Montelukast Sodium (MONTELUKAST SODIUM) 10 Mg Tab, 1 TAB PO DAILY 04/17/23 Ezetimibe (Ezetimibe) 10 Mg Tab, 1 TAB PO DAILY 04/17/23 Gabapentin (Gabapentin) 800 Mg Tab, 1 TAB PO TID 04/17/23 Losartan Potassium (Losartan Potassium) 100 Mg Tab, 1 TAB PO DAILY 04/17/23 Oxycodone HCl (Oxycodone Hydrochloride) 15 Mg Tab, 1 TAB PO Q6H PRN 04/17/23 Amlodipine Besylate (Amlodipine Besylate) 10 Mg Tab, 1 TAB PO DAILY 01/13/21 Metformin HCl (Metformin Hydrochloride) 1,000 Mg Tab, 1 TAB PO BID 01/13/21 Current Medications Current Medications Medications (Trade) Dose Ordered Sig/Liz Route PRN Reason Start Time Stop Time Status Last Admin Nitroglycerin (Ntrostat Sublingual) 0.4 mg Q5MINP PRN SL FOR CHEST PAIN 12/25/24 23:45 12/26/24 08:03 DC Morphine Sulfate 2 mg Q30M PRN IV FOR CHEST PAIN 12/25/24 23:45 12/26/24 08:06 DC Vancomycin HCl 0 ml @ 0 mls/hr UD IV 12/25/24 23:45 Cefepime HCl 50 ml @ 12.5 mls/hr Q24H IV 12/26/24 16:00 Pantoprazole Sodium (Protonix) 40 mg DAILY IV 12/26/24 00:00 12/26/24 11:48 Levalbuterol HCl (Xopenex Medneb) 0.625 mg Q6HR NEB 12/26/24 00:00 12/26/24 10:28 Ipratropium [facility] (Atrovent Medneb) 0.5 mg Q6HR NEB 12/26/24 00:00 12/26/24 10:28 Norepinephrine Bitartrate 250 ml @ 3.75 mls/hr Q24H IV 12/26/24 04:15 12/26/24 04:10 Sodium Bicarbonate 75 ml/ Dextrose 1,075 ml @ 100 mls/hr [id number] IV 12/26/24 05:45 12/26/24 10:20 Lactated Ringer's 1,000 ml @ 100 mls/hr Q10H IV 12/26/24 08:15 12/26/24 08:07 DC Methylprednisolone Sodium Succinate (Solu Medrol) 40 mg BID IV 12/26/24 10:00 Enoxaparin Sodium (Lovenox) 30 mg DAILY SC 12/26/24 10:00 12/26/24 10:04 DC Azithromycin 250 ml @ 125 mls/hr DAILY IV 12/26/24 10:00 12/26/24 11:48 Sodium Chloride 1,000 ml @ 60 mls/hr [id number] IV 12/26/24 09:45 12/26/24 10:45 DC Heparin Sodium (Porcine) 5,000 units Q12HR SC 12/26/24 22:00 Sodium Chloride 1,000 ml @ 100 mls/hr Q10H IV 12/26/24 10:45 12/26/24 11:29 Propofol 100 ml @ 1.908 mls/ hr Q24H IV 12/26/24 15:30 12/26/24 15:46 Fentanyl Citrate 250 ml @ 2.5 mls/hr Q24H IV 12/26/24 15:30 12/26/24 15:50 Family History: FH: cancer G8 MOTHER G8 FATHER FH: diabetes mellitus G8 MOTHER G8 FATHER FH: hypertension G8 MOTHER G8 FATHER Review of Systems Can not seem to the critical illness H&P Exam Vital Signs/I&O Vital Sign Date Time Temp Pulse Resp B/P (MAP) Pulse Ox O2 Delivery O2 Flow Rate FiO2 12/26/24 16:19 128 24 96/55 96 12/26/24 16:06 40 12/26/24 10:20 Nasal Cannula 4.0 12/26/24 06:00 97.7 97.7 Intake and Output 12/25/24 12/26/24 19:00 07:00 Intake Total 1000 ml 2450 ml Balance 1000 ml 2450 ml Intake IV Total 1000 ml 2450 ml Physical Exam female Intubated Sedated All pressors Mild JVD Abdomen soft No pitting edema Fontenot catheter with no urinary output Labs/Diagnostic Data Labs/Diagnostic Data Laboratory Tests Test 12/26/24 15:32 12/26/24 14:48 12/26/24 12:23 12/26/24 10:41 Range/Units Sodium Level 140 139 136-145 mmol/L Potassium Level 6.8 *H 7.5 *H 3.5-5.1 mmol/L Chloride Level 101 100 98-107 mmol/L Carbon Dioxide Level < 10 *L < 10 *L 20-31 mmol/L Anion Gap 29.74711 H 29.96992 H 5-15 Blood Urea Nitrogen 43 H 47 #H 9-23 mg/dL Creatinine 8.20 H 8.48 H 0.550-1.02 mg/dL Glomerular Filtration Rate Calc 5 5 >90 mL/min BUN/Creatinine Ratio 5.2 L 5.5 L 10.0-20.0 Serum Glucose 228 H 107 H 74-106 mg/dL Lactic Acid Level 9.5 *H 12.3 *H 0.4-2.0 mmol/L Calcium Level 7.6 L 8.2 L 8.7-10.4 mg/dL Blood Gas Specimen Type Arterial Blood Gas Sample Site Right radial Blood Gas Patient Temperature 37.0 Arterial Blood Date Drawn [id number] Arterial Blood pH 6.894 *L 7.350-7.450 Arterial Blood Partial Pressure CO2 26.5 L 32.0-45.0 mmHg Arterial Blood Partial Pressure O2 364.9 *H 83.0-108.0 mmHg Arterial Blood HCO3 5.0 L 21.0-28.0 mmol/L Arterial Blood Oxygen Saturation 99.6 H 94.0-98.0 % Arterial Blood Base Excess -27.0 L -2.0-3.0 mmol/L Arterial Blood Oxyhemoglobin 98.6 H 94.0-98.0 % Arterial Blood Carboxyhemoglobin 0.1 L 0.5-1.5 % Arterial Blood Methemoglobin 0.9 0.0-1.5 % Willem Test Modified Blood Gas Total Hemoglobin 12.20 12.0-16.0 g/dL Blood Gas Set Respiration Rate 24.0 Blood Gas Modality Vent - ac FiO2 % 100.0 Blood Gas Tidal Volume 400.0 Blood Gas PEEP or CPAP 5.0 Blood Gas Critical Value Read Back yes Blood Gas Notified Whom shilpi juarez md Blood Gas Notified Time [id number] Blood Gas Notified By denice woo rrt Prothrombin Time 10.9 9.3-11.8 sec Prothrombin Time INR 1.03 0.9-1.15 Activated Partial Thromboplast Time 30.5 24.5-34.5 SEC White Blood Count 21.8 #H 4.4-10.8 10^3/uL Red Blood Count 4.63 4.0-5.20 10^6/uL Hemoglobin 12.5 12.2-16.2 g/dL Hematocrit 42.3 36.0-46.0 % Mean Corpuscular Volume 91.3 # 80.0-100.0 fL Mean Corpuscular Hemoglobin 27.0 L 28.0-32.0 pg Mean Corpuscular Hemoglobin Concent 29.5 L 32.0-36.0 g/dL Red Cell Distribution Width 17.0 H 11.8-14.3 % Platelet Count 156 140-450 10^3/uL Mean Platelet Volume 10.6 6.9-10.8 fL Neutrophils (%) (Auto) 74.6 37.0-80.0 % Lymphocytes (%) (Auto) 14.7 10.0-50.0 % Monocytes (%) (Auto) 8.1 0.0-12.0 % Eosinophils (%) (Auto) 0.9 0.0-7.0 % Basophils (%) (Auto) 1.7 0.0-2.0 % Neutrophils # (Auto) 16.3 H 1.6-8.6 10 ^3/uL Lymphocytes # (Auto) 3.2 0.4-5.4 10 ^3/uL Monocytes # (Auto) 1.8 H 0-1.3 10 ^3/uL Eosinophils # (Auto) 0.2 0-0.8 10 ^3/uL Basophils # (Auto) 0.4 H 0-0.2 10 ^3/uL Nucleated Red Blood Cells 0.1 % Hemoglobin A1c 5.6 <5.7 % A1C Phosphorus Level 15.4 H 2.4-5.1 mg/dL Magnesium Level 1.9 1.6-2.6 mg/dL Total Bilirubin 0.4 0.2-1.0 mg/dL Aspartate Amino Transferase (AST) 56 H 13-40 U/L Alanine Aminotransferase (ALT) 27 7-40 U/L Alkaline Phosphatase 62 46-116 U/L Ammonia 87 H 11-32 umol/L Total Protein 6.7 5.7-8.2 g/dL Albumin 4.3 3.2-4.8 g/dL Triglycerides Level 154 H < 150 mg/dL Cholesterol Level 188 < 200 mg/dL LDL Cholesterol 117 H < 100 mg/dL HDL Cholesterol 52 40-59 mg/dL Lipase 31 12-53 U/L Thyroid Stimulating Hormone (TSH) 0.87 0.55-4.78 uIU/mL Test 12/26/24 08:23 12/26/24 06:48 12/26/24 06:00 12/26/24 00:04 Range/Units Lactic Acid Level 6.3 *H 13.1 *H 0.4-2.0 mmol/L Blood Gas Specimen Type Arterial Arterial Blood Gas Sample Site Right radial Left radial Blood Gas Patient Temperature 37.0 37.0 Arterial Blood Date Drawn [id number] Arterial Blood pH 6.844 *L 7.047 *L 7.350-7.450 Arterial Blood Partial Pressure CO2 23.3 L 24.2 L 32.0-45.0 mmHg Arterial Blood Partial Pressure O2 66.7 L 79.7 L 83.0-108.0 mmHg Arterial Blood HCO3 3.9 L 6.5 L 21.0-28.0 mmol/L Arterial Blood Oxygen Saturation 87.0 L 93.5 L 94.0-98.0 % Arterial Blood Base Excess -29.1 L -22.6 L -2.0-3.0 mmol/L Arterial Blood Oxyhemoglobin 85.9 L 92.1 L 94.0-98.0 % Arterial Blood Carboxyhemoglobin 0.4 L 0.7 0.5-1.5 % Arterial Blood Methemoglobin 0.9 0.8 0.0-1.5 % Willem Test Yes Yes Blood Gas Total Hemoglobin 13.50 12.80 12.0-16.0 g/dL Blood Gas Modality Nasal cannula Nasal cannula FiO2 % 36.0 36.0 Blood Gas Critical Value Read Back Yes Yes Blood Gas Notified Whom masha Anderson Md Blood Gas Notified Time [id number] Blood Gas Notified By Industry Analyst varsha gardner Blood Gas Liter Flow 4.00 Test 12/25/24 20:42 12/25/24 19:00 12/25/24 17:43 12/25/24 16:44 Range/Units Sodium Level 138 137 136-145 mmol/L Potassium Level 6.1 *H 5.0 3.5-5.1 mmol/L Chloride Level 100 99 98-107 mmol/L Carbon Dioxide Level < 10 *L 14 L 20-31 mmol/L Anion Gap 28.42320 H 24 H 5-15 Blood Urea Nitrogen 37 H 46 H 9-23 mg/dL Creatinine 7.34 H 7.31 H 0.550-1.02 mg/dL Glomerular Filtration Rate Calc 6 6 >90 mL/min BUN/Creatinine Ratio 5.0 L 6.3 L 10.0-20.0 Serum Glucose 83 77 74-106 mg/dL Lactic Acid Level 10.0 *H 8.8 *H 0.4-2.0 mmol/L Calcium Level 8.4 L 8.5 L 8.7-10.4 mg/dL Troponin I High Sensitivity 12 10 </=34 ng/L Influenza Type A Antigen Negative Negative Influenza Type B Antigen Negative Negative SARS-CoV-2 Antigen (Rapid) Negative NEGATIVE Blood Gas Specimen Type Arterial Blood Gas Sample Site Left radial Blood Gas Patient Temperature 37.0 Arterial Blood Date Drawn [id number] Arterial Blood pH 7.206 *L 7.350-7.450 Arterial Blood Partial Pressure CO2 28.8 L 32.0-45.0 mmHg Arterial Blood Partial Pressure O2 86.0 83.0-108.0 mmHg Arterial Blood HCO3 11.2 L 21.0-28.0 mmol/L Arterial Blood Oxygen Saturation 95.6 94.0-98.0 % Arterial Blood Base Excess -15.3 L -2.0-3.0 mmol/L Arterial Blood Oxyhemoglobin 94.5 94.0-98.0 % Arterial Blood Carboxyhemoglobin 0.4 L 0.5-1.5 % Arterial Blood Methemoglobin 0.7 0.0-1.5 % Willem Test Yes Blood Gas Total Hemoglobin 12.80 12.0-16.0 g/dL Blood Gas Modality Nasal cannula FiO2 % 32.0 Specimen Drawn By Kath gardner Blood Gas Critical Value Read Back Yes Blood Gas Notified Whom jabari Montalvo Blood Gas Notified Time [id number] Blood Gas Notified By Industry Analyst varsha gardner White Blood Count 10.5 4.4-10.8 10^3/uL Red Blood Count 4.68 4.0-5.20 10^6/uL Hemoglobin 12.9 12.2-16.2 g/dL Hematocrit 39.2 36.0-46.0 % Mean Corpuscular Volume 83.8 80.0-100.0 fL Mean Corpuscular Hemoglobin 27.5 L 28.0-32.0 pg Mean Corpuscular Hemoglobin Concent 32.8 32.0-36.0 g/dL Red Cell Distribution Width 15.1 H 11.8-14.3 % Platelet Count 134 L 140-450 10^3/uL Mean Platelet Volume 9.8 6.9-10.8 fL Neutrophils (%) (Auto) 71.8 37.0-80.0 % Lymphocytes (%) (Auto) 17.5 10.0-50.0 % Monocytes (%) (Auto) 8.6 0.0-12.0 % Eosinophils (%) (Auto) 1.3 0.0-7.0 % Basophils (%) (Auto) 0.8 0.0-2.0 % Neutrophils # (Auto) 7.5 1.6-8.6 10 ^3/uL Lymphocytes # (Auto) 1.8 0.4-5.4 10 ^3/uL Monocytes # (Auto) 0.9 0-1.3 10 ^3/uL Eosinophils # (Auto) 0.1 0-0.8 10 ^3/uL Basophils # (Auto) 0.1 0-0.2 10 ^3/uL Nucleated Red Blood Cells 0.1 % Total Bilirubin 0.5 0.2-1.0 mg/dL Aspartate Amino Transferase (AST) 44 H 13-40 U/L Alanine Aminotransferase (ALT) 20 7-40 U/L Alkaline Phosphatase 57 46-116 U/L B-Type Natriuretic Peptide 148.36 0-100 pg/mL Total Protein 6.2 5.7-8.2 g/dL Albumin 4.0 3.2-4.8 g/dL Test 12/25/24 00:45 Range/Units Urine Color Light-orange Yellow Urine Clarity Ex.turbid Clear Urine pH 5.5 5.0-9.0 Urine Specific [place] 1.024 1.001-1.035 Urine Protein 2+ H Negative Urine Ketones Negative Negative Urine Blood 1+ H Negative /uL Urine Nitrite Negative Negative Urine Bilirubin Negative Negative Urine Urobilinogen Normal Negative mg/dL Urine Leukocyte Esterase 3+ Negative /uL Urine RBC 10 0 - 4 /hpf Urine WBC Clumps Present None Seen /hpf Urine Microscopic WBC 342 H 0-5 /HPF Urine Squamous Epithelial Cells Few <5 /hpf Urine Bacteria Many H None Seen /hpf Urine Hyaline Casts Few 0 - 2 /lpf Urine Yeast (Budding) Moderate None Seen /hpf Urine Osmolality 317 mOsm/kg Urine Creatinine 196.43 H 30.0-125.0 mg/dL Urine Sodium 41 40-220 mmol/L Urine Potassium 15 12-62 mmol/L Urine Glucose Normal Normal mg/dL Urine Total Protein 249.3 H 1-14 mg/dL Microbiology Date/Time Source Procedure Growth Status 12/25/24 01:01 Nose MRSA Screen - Final Complete Assessment 69-year-old female presents to the hospital constitutional symptoms was intubated in the ER due to respiratory distress Acute kidney injury due to septic shock acute respiratory failure PNA dementia metabolic acidosis severe hyperkalemia Anuric sodium bicarbonate drip IV ABX medical treatment for elevated potassium stat dialysis discussed with patient grand daughter who agrees. Consent signed by family at bedside risk and benefits discussed critical illness high risk of cardiac event or hypotension family aware Hemodialysis today Subsequent hemodialysis tentatively scheduled for tomorrow patient's assessment and condition. critical care time 72 mins Plan discussed with: Other (dranddaughter) YANI REYES MD Dec 26, 2024 15:29
[2024-12-26] MEDS: SODIUM CHL 0.9% 1000 ML BAG XX ONE (15:30)
[2024-12-26] MEDS: PROPOFOL 100 ML IV SCH (15:46)
[2024-12-26] MEDS: fentaNYL Drip 2500mCg/250mlNS 250 ML IV SCH (15:50)
[2024-12-26 15:52] LABS: Chloride 101 mmol/L (98-107); Sodium 140 mmol/L (136-145)
[2024-12-26 15:53] LABS: Anion Gap 29.00001 (5-15)
[2024-12-26 15:58] LABS: BUN/Creatinine Ratio 5.2 (10.0-20.0)
[2024-12-26] MEDS: PROPOFOL 100 ML IV ONE (15:58)
[2024-12-26] MEDS: fentaNYL Drip 2500mCg/250mlNS 250 ML IV ONE (15:58)
--- NOTE | 2024-12-26 15:58 | DVH ---
CHEST RADIOGRAPH Indication: VERIFY ETT AND NGT Technique: Single frontal view of the chest was obtained Comparison: XY CHEST XRAY 1 VIEW on DOS: 12/26/24, XY CHEST PORTABLE on DOS: 12/25/24, XY CHEST PORTABLE on DOS: 05/10/24 FINDINGS: Lines and Tubes: Endotracheal tube 2.7 cm above the gabriel. Enteric tube below the left diaphragm in the stomach in good position. Right internal jugular catheter in the superior vena cava of the right atrium. Lungs: No focal consolidation. Pleura: No effusion. No pneumothorax. Cardiomediastinal contours: Unremarkable Bones: No acute osseous abnormality. IMPRESSION: 1. No acute cardiopulmonary disease. 2. Pulmonary markings reflect supine 3. Endotracheal tube 2.7 cm above the gabriel 4. Enteric tube below the left diaphragm in the stomach 5. Right internal jugular catheter in good position at the cavoatrial junction.
[2024-12-26 16:05] LABS: Blood Urea Nitrogen 43 mg/dL (9-23); Calcium 7.6 mg/dL (8.7-10.4); Glucose 228 mg/dL (74-106)
[2024-12-26 16:08] LABS: Carbon Dioxide < 10 mmol/L (20-31); Potassium 6.8 mmol/L (3.5-5.1)
[2024-12-26 16:14] LABS: Lactic Acid w/Reflex 9.5 mmol/L (0.4-2.0)
[2024-12-26 16:51] LABS: Opiate Scree,Urine Neg (NEGATIVE)
[2024-12-26] MEDS: CEFEPIME 1GM/50ML 50 ML IV SCH (16:54)
[2024-12-26 16:56] LABS: Amphetamine Screen, Urine Neg (NEGATIVE); Barbiturate Scree,Urine Neg (NEGATIVE); Benzodiazephine Screen, Urine Neg (NEGATIVE); Cannabinoid Screen, Urine Neg (NEGATIVE); Cocaine Screen, Urine Neg (NEGATIVE); Phencyclidine Screen, Urine Neg (NEGATIVE)
--- NOTE | 2024-12-26 17:00 | DVH ---
CHEST RADIOGRAPH Indication: TUBE PLACEMENT VERIFICATION Technique: Single frontal view of the chest was obtained Comparison: XY CHEST PORTABLE on DOS: 12/26/24, XY CHEST XRAY 1 VIEW on DOS: 12/26/24, XY CHEST PORTABLE on DOS: 12/25/24, XY CHEST PORTABLE on DOS: 05/10/24, XY CHEST PORTABLE on DOS: 02/25/24 FINDINGS: Lines and Tubes: ET tube 3 cm from gabriel. NG tube in stomach. right CVC tip in SVC. Left CVC tip in SVC. Lungs: No focal consolidation. Pleura: No effusion. No pneumothorax. Cardiomediastinal contours: cardiomegaly Bones: No acute osseous abnormality. IMPRESSION: cardiomegaly with CHF . Lines and tubes are in good position.
[2024-12-26] MEDS ORDERED: VANCOMYCIN 500mg/100mL 100 ML IV SCH ×2 (17:15)
--- NOTE | 2024-12-26 18:35 | DVHNC2 ---
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) Indication: Hypotension, CVP monitoring, Other (Hemodyalisis) Room prepared for procedure: Yes Dynamo Tender performed hand hygien: Yes Maximal sterile barrier precau: Mask/Eye shield, Sterile gown, Cap, Sterlie gloves, Large sterlie drape Skin Preparation: Chlorhexidine gluconate Skin preparation completely dr: Yes Insertion site: Left, Internal jugular, Line secured Number of lumens: 2 Central line exchanged over a: No Antiseptic ointment applied to: Yes Post Assessment: Chest X-Ray, Proper placement Informed consent obtained: Yes Risks/benefits/alt described: Yes UTO Consent Procedure completed under supervision of Dr Gonzalez Date of Service: Dec 26, 2024 Billing Provider: SAMMY GONZALEZ MD Common Visit Codes: PROCEDURE ONLY Procedure Codes: 70421-[id number] NON-TUNNEL CV CATH LUTHER SEPULVEDA RESIDENT Dec 26, 2024 18:35
--- NOTE | 2024-12-26 18:40 | DVHPNRES ---
Progress Note Date Seen: Dec 26, 2024 Resident Creating Document: ULTHER SEPULVEDA RESIDENT Medical Necessity Reason Pt with a Central, PICC or Fol: Yes The following are medically ne: Central Line, Fontenot Catheter Subjective Review of Systems Mer Viveros is a 69-year-old female who presents to the ER via EMS for progressive altered level of consciousness, generalized weakness for the past weeks, which worsened significantly 24 hours before her admission. Due to clinical status, could not obtain review of systems. Obtained history from granddaughter (Cammie DASILVA). Per BROWN, she is completely normal at baseline, no cognitive impairments and can complete ADLs, regardless her history of CVA. The day of her admission, BROWN saw patient with increased respiratory effort, prompting her visit. Past Medical History: Hypertension, diabetes, dyslipidemia, CHF, COPD/asthma with multiple admissions, CVA arthritis, Surgical History: Denies Family History: Sister had breast cancer Social History: Lives in [place] with granddaughter (she is the caregiver and the [id number]). Ex tobacco abuse (10 pack-year history of smoking). Denies current tobacco, alcohol and other drug abuse. Allergies: Denies Home Medications: Gabapentin 800 mg daily, amlodipine 5 mg p.o. daily, nitroglycerin p.r.n., oxycodone, inhalers, losartan, acetaminophen, montelukast, rosuvastatin, aspirin, metformin Patient seen and examined at bedside. Patient was found with increased respiratory effort, severe metabolic acidosis, multi end-organ failure. Discussed with family extensively (granddaughter is [id number], Cammie), confirm full code status and agreed on intubation, placement of central line and initiating hemodialysis session. All procedures were completed successfully. Patient has poor prognosis. Patient is on sedation, can not obtain review of system at this time. Objective vital signs Vital Sign Date Time Temp Pulse Resp B/P (MAP) Pulse Ox O2 Delivery O2 Flow Rate FiO2 12/26/24 16:19 128 24 96/55 96 12/26/24 16:06 40 12/26/24 10:20 Nasal Cannula 4.0 12/26/24 07:30 98.0 98.0 Total Intake and Output 12/25/24 12/25/24 12/26/24 15:00 23:00 07:00 Intake Total 3050 ml 400 ml Balance 3050 ml 400 ml medications Current Medications Medications Dose Ordered Sig/Liz Route Start Time Stop Time Status Last Admin Dose Admin Vancomycin HCl 0 ml @ 0 mls/hr UD IV 12/25/24 23:45 Cefepime HCl 50 ml @ 12.5 mls/hr Q24H IV 12/26/24 16:00 Pantoprazole Sodium 40 mg DAILY IV 12/26/24 00:00 12/26/24 11:48 40 MG Levalbuterol HCl 0.625 mg Q6HR NEB 12/26/24 00:00 12/26/24 10:28 0.625 MG Ipratropium [place] 0.5 mg Q6HR NEB 12/26/24 00:00 12/26/24 10:28 0.5 MG Norepinephrine Bitartrate 250 ml @ 3.75 mls/hr Q24H IV 12/26/24 04:15 12/26/24 04:10 3.75 MLS/HR Methylprednisolone Sodium Succinate 40 mg BID IV 12/26/24 10:00 Azithromycin 250 ml @ 125 mls/hr DAILY IV 12/26/24 10:00 12/26/24 11:48 125 MLS/HR Heparin Sodium (Porcine) 5,000 units Q12HR SC 12/26/24 22:00 Propofol 100 ml @ 1.908 mls/ hr Q24H IV 12/26/24 15:30 12/26/24 15:46 1.908 MLS/HR Fentanyl Citrate 250 ml @ 2.5 mls/hr Q24H IV 12/26/24 15:30 12/26/24 15:50 2.5 MLS/HR Sodium Chloride 1,000 ml @ 100 mls/hr Q10H IV 12/26/24 16:30 Vancomycin HCl 100 ml @ 200 mls/hr POSTDI IV 12/26/24 17:15 12/26/24 23:59 Examination Patient lying in bed, under sedoanalgesia due to mechanical ventilation General: RASS -3, afebrile, mucosae are moist Cardiovascular: Normal S1 and S2. No murmurs, gallops or rubs Respiratory: Mechanically assisted ventilation, equal bilateral airway entree. Bilateral rhonchus predominantly in right base Abdomen: Soft, nontender, no organomegaly, normal bowel sounds MSK/skin: Mobilization of limbs cannot be evaluated. Skin is dry and warm Neurological: Orientation cannot be assessed. No apparent motor no sensitive deficits. Pupils are isocoric and reactive laboratory and microbiology Laboratory Tests 12/26/24 15:32 12/26/24 10:41 Test 12/26/24 15:32 Range/Units Serum Glucose 228 H 74-106 mg/dL Microbiology Date/Time Source Procedure Growth Status 12/25/24 16:44 Blood Blood Culture - Preliminary NO GROWTH AFTER 24 HOURS OF INCUBATION. Resulted 12/25/24 01:01 Nose MRSA Screen - Final Complete Problem List/Assessment/Plan Problem List/Assessment/Plan Metabolic encephalopathy secondary to septic shock likely due to aspiration pneumonia History of CVA Completed head CT which showed no acute intracranial pathology. Present chronic microvascular changes Currently under sedoanalgesia due to mechanical assisted ventilation Neurology on board: consulted due to progressive ALOC, which most likely cause is metabolic encephalopathy due to septic shock. Septic shock secondary to aspiration pneumia vs UTI Aspiration pneumonia Gram positive / Gram negative UTI Currently under empiric IV antibiotics (Meropenem, Vancomycin, Azithromycin, previously on Cefepime) Required IV fluid resuscitation Ordered culture (sputum, blood and urine). COVID, Influenza and MRSA swab negative Obtained abdomen and pelvis CT which showed thick rectal wall (probable proctitis), diverticulosis, small right pleural effusion and probable right pneumonia Acute respiratory failure due to aspiration pneumonia COPD/Asthma exacerbation On mechanical assisted ventilation (VCV Vt: 400 RR: 24 PEEP: 5 FIO2: 40%) On bronchodilator, IV steroids, IV antibiotics and oxygen therapy HIRAL hemodynamically mediated (VMN) Anion-Gap metabolic acidosis with non compensated respiratory alkalosis Hyperlactacidemia Severe hyperkalemia Hyperphosphatemia Anuria Nephrology on board: Indicated emergent hemodialysis sessions, optimized medical therapy (bicarbonate drip) Required multiple hyperkalemia protocol treatments Completed EKG which showed sinus tachycardia, no sine wave or other fatal arrhythmias Failed medical management, required emergent hemodialysis session Chronic diastolic congestive heart failure (HFpEF, LVEF 55%) - Unlikely exacerbation Moderate-severe pulmonary hypertension Troponin x3 negative, EKG shows no ST elevation, BNP mildly elevated 12/2023 echocardiogram showed LVEF 55%, moderately severely elevated RVSP (54 mmHg) Ordered new echocardiogram Mild thrombocytopenia Follow up cbc Currently on Heparin. Will discontinue if suspected HIT Diabetes - Controlled (Hemoglobin A1C 5.6%) Hypertension Dyslipidemia Continue aspirin, statin and ezetimibe On insulin sliding scale Nutrition: NPO Prophylaxis for PUD and DVT: Pantoprazol and heparin 5000UI bid (mild thromboctopenia) Lines: 12/26/2024 Right IJ VCV 12/26/2024 ET tube 7.5 12/26/2024 NG tube 12/26/2024 Left IJ HD catheter 12/26/2024 Fontenot catheter Drips Norepinephrine 4 ml/min HCO3 drip 75meq 100ml/h Propofol Fentanyl Goals of care discussed with patient and POA (granddaughter Cammie at [phone]) for over 28 minutes: Full code status Discussed plan with Dr Lujan, patient, granddaughter, sister, son and nurses: Patient currently on ICU status under sedoanalgesia, on mechanical assisted ventilation, with IV vasopressors, IV fluids, bicarbonate drip, empiric IV antibiotics, IV steroids and hemodialysis sessions. Patient has critical prognosis. Family is adamant of transferring patient to [facility] ([place]) where she has received care previously, social worker masters and team explained in detail that patient is hemodynamically unstable to complete transfer at this time, sister says she understands. Critical care time spent including chart review, discussion with family and patient evaluation, excluding procedures: 76 minutes Plan discussed with: Patient, Son, Other (Sister, grandaughther and nurses) My Orders My Orders Orders - LUTHER SEPULVEDA RESIDENT Procedure Category Date Status Time Bladder Scan ED NURSING 12/26/24 Transmitted Fontenot Catheters ED NURSING 12/26/24 Transmitted Methylprednisolone PHA 12/26/24 In Process Sod Succ (Solu Medrol 10:00 Vitamin D, 25-Hydroxy LAB 12/26/24 In Process 09:27 Vitamin B12 LAB 12/26/24 In Process 09:27 Azithromycin 500mg/ PHA 12/26/24 In Process 250ml (Zithromax 50 10:00 Pharmacy [facility] 12/26/24 In Process Clarification: 09:58 Heparin Sodium PHA 12/26/24 In Process (Porcine) 22:00 Incentive Spirometry ORDERS 12/26/24 Transmitted 11:11 Pt Request For Service PT 12/26/24 Logged 11:11 Potassium LAB 12/26/24 Logged 17:25 Abg W/ Co-Ox RT 12/26/24 Logged 14:02 Chest Portable XY 9/6/25 Resulted 14:49 Propofol (Diprivan) PHA 12/26/24 In Process 15:30 Fentanyl Drip PHA 12/26/24 In Process 2500mcg/250mlns 15:30 Rass Sedation Scale CRISSY 12/26/24 In Process 15:16 Chest Xray 1 View XY 12/26/24 Resulted 16:12 Date of Service: Dec 26, 2024 Billing Provider: BEVERLY LUJAN MD Common Visit Codes: [id number] CARE 30-74 MIN (crit care time 75 minutes) LUTHER SEPULVEDA RESIDENT Dec 26, 2024 18:40 BEVERLY LUJAN MD Jan 01, 2025 21:55
[2024-12-26 19:38] LABS: Base Excess -12.7 mmol/L (-2.0-3.0)
--- NOTE | 2024-12-26 20:13 | DVHINCON2 ---
Date of service: Dec 26, [address] Knox Reason for Consultation ALOC, history of stroke, concern for vascular dementia versus recurrent ischemic stroke History of Present Illness Ms. Viveros is a 69 years old female with a history of hypertension, diabetes, congestive heart failure, COPD, asthma, rheumatoid arthritis, chronic pain syndrome/lumbar disc disease, she was brought to the hospital on 12/25/2024 with a chief complaint of low blood pressure. At this time, she is intubated, the history is obtained from Lilia, her granddaughter I saw her on 01/15/2021 for ALOC/opiate ALOC/opiate overdose For two days before he came to the hospital, the patient's reports intense general weakness/fatigue, left-sided body pain because she run out her Percocet, but the patient did not have chills, fever, cough, nausea, vomiting. When EMS came over, the patient was said to have a little bit fever. In the emergency room, the patient was found to have hypothermia, lactic acidosis, altered mental status, and she was intubated on 12/26/2024 When I saw on 01/15/25, her in his granddaughter reported short-term memory difficulty. But Cammie on 12/25/2024 reported the patient's memory problem started in 09/2024 after she was discharged from for overdosing, she also reports sundown phenomena on her. Hypothermia and hypotension were noticed in the emergency room Fentanyl 250 mcg/hour, propofol 50 mcg/minute, Levo 10 mcg/minutes, FiO2: 40% Blood culture, 12/25/2024: Hepatitis panel, 12/26/2024: UDS, 01/13/2021: Cannabinoids, alcohol: 6 12/26/2024: Negative Urinalysis, 12/25/2024: WBC: 342, urine WBC clumps: Present, urine leukocyte esterase: 3+ ABG, 12/25/2024: Metabolic acidosis, 12/26/2024: Hypoxia, metabolic acidosis, WBC/HGB/PLT/MCV, 12/25/2024: 10.5/12.9/134/83.8. 12/26/2024: 21.8/12.5/156/91.3 K 12/25/2024: 5, 6.1, 12/26/2024: 7.5, 6.8 Anion gap, 12/26/2024: 29 BUN/CR, 12/26/2024: 43/able to GFR, 12/26/2024: Five Lactic acid, 12/25/2024: 8.8, 13.1, 12/26/2024: 6.3, 9.5 HGB A1c, 12/26/2024: 5.6 TBI/AST/ALT/AP, 12/26/2024: 0.4/56/26/62 Ammonia, 12/26/2024: 87 TG/HDL/LDL/HDL, 12/26/2024: 154/188/117/52 Vitamin B12, 02/26/2024: 490 Folic acid, 12/2620: 20.25 TSH, 12/26/2024: 0.87 Chest x-ray, 12/25/2024: Bronchovascular crowding due to low lung volumes. Underlying pulmonary vascular congestion can not be excluded Chest x-ray, 12/26/24: 1. No acute cardiopulmonary disease. 2. Pulmonary markings reflect supine 3. Endotracheal tube 2.7 cm above the gabriel 4. Enteric tube below the left diaphragm in the stomach 5. Right internal jugular catheter in good position at the cavoatrial junction. CT head, 01/13/2021: No mass effect or acute intracranial bleed. Minimal chronic sinusitis change CT head, 12/25/2024: 1. There is no acute infarct, intracranial hemorrhage, or mass effect. 2. There is no hydrocephalus or significant midline shift. 3. 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 4. Mild chronic microvascular ischemic changes and mild parenchymal volume loss. 5. No acute, depressed calvarial fractures. 6. No large scalp hematomas CT abdomen/pelvis, 12/25/2024: Wall thickening of the rectum which may be due to inadequate distention /proctitis. Descending colon and sigmoid diverticulosis without diverticulitis. Moderate amount of fecal material within the colon. Small right-sided pleural effusion with bibasilar atelectasis. Right basilar pneumonia can not be excluded. Past Medical History Hypertension, diabetes, congestive heart failure, asthma, COPD, rheumatoid arthritis, chronic pain syndrome/lumbar disc degeneration Past Surgical History Tubal ligation, hysterectomy, Family History: FH: cancer G8 MOTHER G8 FATHER FH: diabetes mellitus G8 MOTHER G8 FATHER FH: hypertension G8 MOTHER G8 FATHER Family History Hypertension, diabetes, cancer, no dementia, no anxiety, no depression Social History She was a tobacco smoker, but no history of alcohol recreational substance abuse Allergies: Coded Allergies: NO KNOWN ALLERGIES (Unverified , 09/06/17) Home Meds Active Scripts Mbljnsbvagr-Jfyrhjkawsmp-Ciahy (Trelegy Ellipta 100-62.5-25 Mcg/INH) 1 Aer Aer, 1 AER IN BID for 30 Days, #1 AER Prov:ANGELJANELALICEISAIAH DaniiGREGORIO RESIDENT 05/14/24 Reported Medications Albuterol Sulfate (Albuterol Sulfate Hfa) 108 Mcg/Act Aer, 108 MCG IN UD for 16 Days, #6.7 05/11/24 Aspirin (Aspirin Low Dose) 81 Mg Chw, 1 TAB PO DAILY for 90 Days, #90 05/11/24 Docusate Sodium (Docusate Sodium) 250 Mg Cap, 1 CAP PO BID for 30 Days, #60 05/11/24 Rosuvastatin Calcium (Rosuvastatin Calcium) 40 Mg Tab, 1 TAB PO HS 04/18/23 Diclofenac Sodium (Diclofenac Sodium Dr) 75 Mg Tab, 1 TAB PO BID 04/18/23 Montelukast Sodium (MONTELUKAST SODIUM) 10 Mg Tab, 1 TAB PO DAILY 04/17/23 Ezetimibe (Ezetimibe) 10 Mg Tab, 1 TAB PO DAILY 04/17/23 Gabapentin (Gabapentin) 800 Mg Tab, 1 TAB PO TID 04/17/23 Losartan Potassium (Losartan Potassium) 100 Mg Tab, 1 TAB PO DAILY 04/17/23 Oxycodone HCl (Oxycodone Hydrochloride) 15 Mg Tab, 1 TAB PO Q6H PRN 04/17/23 Amlodipine Besylate (Amlodipine Besylate) 10 Mg Tab, 1 TAB PO DAILY 01/13/21 Metformin HCl (Metformin Hydrochloride) 1,000 Mg Tab, 1 TAB PO BID 01/13/21 Current Medications Current Medications Medications (Trade) Dose Ordered Sig/Liz Route PRN Reason Start Time Stop Time Status Last Admin Nitroglycerin (Ntrostat Sublingual) 0.4 mg Q5MINP PRN SL FOR CHEST PAIN 12/25/24 23:45 12/26/24 08:03 DC Morphine Sulfate 2 mg Q30M PRN IV FOR CHEST PAIN 12/25/24 23:45 12/26/24 08:06 DC Vancomycin HCl 0 ml @ 0 mls/hr UD IV 12/25/24 23:45 Cefepime HCl 50 ml @ 12.5 mls/hr Q24H IV 12/26/24 16:00 Pantoprazole Sodium (Protonix) 40 mg DAILY IV 12/26/24 00:00 12/26/24 11:48 Levalbuterol HCl (Xopenex Medneb) 0.625 mg Q6HR NEB 12/26/24 00:00 12/26/24 18:36 Ipratropium [place] (Atrovent Medneb) 0.5 mg Q6HR NEB 12/26/24 00:00 12/26/24 18:36 Norepinephrine Bitartrate 250 ml @ 3.75 mls/hr Q24H IV 12/26/24 04:15 12/26/24 04:10 Sodium Bicarbonate 75 ml/ Dextrose 1,075 ml @ 100 mls/hr [id number] IV 12/26/24 05:45 12/26/24 16:32 DC 12/26/24 10:20 Lactated Ringer's 1,000 ml @ 100 mls/hr Q10H IV 12/26/24 08:15 12/26/24 08:07 DC Methylprednisolone Sodium Succinate (Solu Medrol) 40 mg BID IV 12/26/24 10:00 Enoxaparin Sodium (Lovenox) 30 mg DAILY SC 12/26/24 10:00 12/26/24 10:04 DC Azithromycin 250 ml @ 125 mls/hr DAILY IV 12/26/24 10:00 12/26/24 11:48 Sodium Chloride 1,000 ml @ 60 mls/hr [id number] IV 12/26/24 09:45 12/26/24 10:45 DC Heparin Sodium (Porcine) 5,000 units Q12HR SC 12/26/24 22:00 Sodium Chloride 1,000 ml @ 100 mls/hr Q10H IV 12/26/24 10:45 12/26/24 16:39 DC 12/26/24 11:29 Propofol 100 ml @ 1.908 mls/ hr Q24H IV 12/26/24 15:30 12/26/24 15:46 Fentanyl Citrate 250 ml @ 2.5 mls/hr Q24H IV 12/26/24 15:30 12/26/24 15:50 Sodium Chloride 1,000 ml @ 100 mls/hr Q10H IV 12/26/24 16:30 Vancomycin HCl 100 ml @ 100 mls/hr POSTDI IV 12/26/24 17:15 12/26/24 17:09 DC Vancomycin HCl 100 ml @ 200 mls/hr POSTDI IV 12/26/24 17:15 12/26/24 23:59 Lactulose 30 ml BID PO 12/26/24 22:00 UNV Review of Systems As above, the other systematic Vital Signs Vital Signs Date Time Temp Pulse Resp B/P (MAP) Pulse Ox O2 Delivery O2 Flow Rate FiO2 12/26/24 16:19 128 24 96/55 96 12/26/24 16:06 40 12/26/24 12:00 98.4 98.4 12/26/24 10:20 Nasal Cannula 4.0 Physical Exam The patient is well-nourished and well-developed with no distress. The patient is intubated HEENT: Normocephalic, neck supple, no carotid bruits Lungs: Clear to auscultation Cardiovascular: Regular rate and region, S1, S2, no murmurs Abdomen: Soft, nontender, normal bowel sounds MENTAL STATUS: Not responsive to the surroundings, CRANIAL NERVES: Pupils are equal, round and reactive.There are corneal reflexes and doll's eyes phenomenon. No signs of facial weakness. There are gagging or coughing reflexes SENSATION: No responses to pain stimuli. MOTOR: Normal tone in the upper and lower extremity. Normal muscle bulk. No fasciculations. No spontaneous movement. REFLEXES: Deep tendon reflexes are symmetrical. No pathological reflexes. CEREBELLAR/COORDINATION: Deferred GAIT/STATION: deferred. Labs/Diagnostic Data Labs Test 12/26/24 19:29 12/26/24 17:32 12/26/24 16:24 12/26/24 15:32 Range/Units Blood Gas Specimen Type Arterial Blood Gas Sample Site Right radial Blood Gas Patient Temperature 37.0 Arterial Blood Date Drawn [id number] Arterial Blood pH 7.199 *L 7.350-7.450 Arterial Blood Partial Pressure CO2 38.3 32.0-45.0 mmHg Arterial Blood Partial Pressure O2 81.6 L 83.0-108.0 mmHg Arterial Blood HCO3 14.6 L 21.0-28.0 mmol/L Arterial Blood Oxygen Saturation 95.2 94.0-98.0 % Arterial Blood Base Excess -12.7 L -2.0-3.0 mmol/L Arterial Blood Oxyhemoglobin 94.2 94.0-98.0 % Arterial Blood Carboxyhemoglobin 0.2 L 0.5-1.5 % Arterial Blood Methemoglobin 0.8 0.0-1.5 % Willem Test Modified Blood Gas Total Hemoglobin 12.60 12.0-16.0 g/dL Blood Gas Set Respiration Rate 24.0 Blood Gas Modality Vent - ac FiO2 % 40.0 Blood Gas Tidal Volume 400.0 Blood Gas PEEP or CPAP 5.0 Blood Gas Critical Value Read Back Yes Blood Gas Notified Whom Dr. kristal john Blood Gas Notified Time [id number] Blood Gas Notified By Urine Opiates Screen Neg NEGATIVE Urine Fentanyl Screen Neg NEGATIVE Urine Barbiturates Screen Neg NEGATIVE Urine Phencyclidine Screen Neg NEGATIVE Urine Amphetamines Screen Neg NEGATIVE Urine Benzodiazepines Screen Neg NEGATIVE Urine Cocaine Screen Neg NEGATIVE Urine Cannabinoids Screen Neg NEGATIVE Sodium Level 140 136-145 mmol/L Chloride Level 101 98-107 mmol/L Carbon Dioxide Level < 10 *L 20-31 mmol/L Anion Gap 29.17472 H 5-15 Blood Urea Nitrogen 43 H 9-23 mg/dL Creatinine 8.20 H 0.550-1.02 mg/dL Glomerular Filtration Rate Calc 5 >90 mL/min BUN/Creatinine Ratio 5.2 L 10.0-20.0 Serum Glucose 228 H 74-106 mg/dL Lactic Acid Level 9.5 *H 0.4-2.0 mmol/L Calcium Level 7.6 L 8.7-10.4 mg/dL Random Vancomycin Level 14.3 H 5-10 ug/mL Test 12/26/24 12:23 12/26/24 10:41 12/26/24 00:04 12/25/24 20:42 Range/Units Prothrombin Time 10.9 9.3-11.8 sec Prothrombin Time INR 1.03 0.9-1.15 Activated Partial Thromboplast Time 30.5 24.5-34.5 SEC White Blood Count 21.8 #H 4.4-10.8 10^3/uL Red Blood Count 4.63 4.0-5.20 10^6/uL Hemoglobin 12.5 12.2-16.2 g/dL Hematocrit 42.3 36.0-46.0 % Mean Corpuscular Volume 91.3 # 80.0-100.0 fL Mean Corpuscular Hemoglobin 27.0 L 28.0-32.0 pg Mean Corpuscular Hemoglobin Concent 29.5 L 32.0-36.0 g/dL Red Cell Distribution Width 17.0 H 11.8-14.3 % Platelet Count 156 140-450 10^3/uL Mean Platelet Volume 10.6 6.9-10.8 fL Neutrophils (%) (Auto) 74.6 37.0-80.0 % Lymphocytes (%) (Auto) 14.7 10.0-50.0 % Monocytes (%) (Auto) 8.1 0.0-12.0 % Eosinophils (%) (Auto) 0.9 0.0-7.0 % Basophils (%) (Auto) 1.7 0.0-2.0 % Neutrophils # (Auto) 16.3 H 1.6-8.6 10 ^3/uL Lymphocytes # (Auto) 3.2 0.4-5.4 10 ^3/uL Monocytes # (Auto) 1.8 H 0-1.3 10 ^3/uL Eosinophils # (Auto) 0.2 0-0.8 10 ^3/uL Basophils # (Auto) 0.4 H 0-0.2 10 ^3/uL Nucleated Red Blood Cells 0.1 % Hemoglobin A1c 5.6 <5.7 % A1C Phosphorus Level 15.4 H 2.4-5.1 mg/dL Magnesium Level 1.9 1.6-2.6 mg/dL Total Bilirubin 0.4 0.2-1.0 mg/dL Aspartate Amino Transferase (AST) 56 H 13-40 U/L Alanine Aminotransferase (ALT) 27 7-40 U/L Alkaline Phosphatase 62 46-116 U/L Ammonia 87 H 11-32 umol/L Total Protein 6.7 5.7-8.2 g/dL Albumin 4.3 3.2-4.8 g/dL Triglycerides Level 154 H < 150 mg/dL Cholesterol Level 188 < 200 mg/dL LDL Cholesterol 117 H < 100 mg/dL HDL Cholesterol 52 40-59 mg/dL Lipase 31 12-53 U/L Thyroid Stimulating Hormone (TSH) 0.87 0.55-4.78 uIU/mL Blood Gas Liter Flow 4.00 Troponin I High Sensitivity 12 </=34 ng/L Test 12/25/24 19:00 12/25/24 17:43 12/25/24 16:44 12/25/24 00:45 Range/Units Influenza Type A Antigen Negative Negative Influenza Type B Antigen Negative Negative SARS-CoV-2 Antigen (Rapid) Negative NEGATIVE Specimen Drawn By [employer] varsha gardner B-Type Natriuretic Peptide 148.36 0-100 pg/mL Urine Color Light-orange Yellow Urine Clarity Ex.turbid Clear Urine pH 5.5 5.0-9.0 Urine Specific [place] 1.024 1.001-1.035 Urine Protein 2+ H Negative Urine Ketones Negative Negative Urine Blood 1+ H Negative /uL Urine Nitrite Negative Negative Urine Bilirubin Negative Negative Urine Urobilinogen Normal Negative mg/dL Urine Leukocyte Esterase 3+ Negative /uL Urine RBC 10 0 - 4 /hpf Urine WBC Clumps Present None Seen /hpf Urine Microscopic WBC 342 H 0-5 /HPF Urine Squamous Epithelial Cells Few <5 /hpf Urine Bacteria Many H None Seen /hpf Urine Hyaline Casts Few 0 - 2 /lpf Urine Yeast (Budding) Moderate None Seen /hpf Urine Osmolality 317 mOsm/kg Urine Creatinine 196.43 H 30.0-125.0 mg/dL Urine Sodium 41 40-220 mmol/L Urine Potassium 15 12-62 mmol/L Urine Glucose Normal Normal mg/dL Urine Total Protein 249.3 H 1-14 mg/dL Microbiology Date/Time Source Procedure Growth Status 12/25/24 16:44 Blood Blood Culture - Preliminary NO GROWTH AFTER 24 HOURS OF INCUBATION. Resulted 12/25/24 01:01 Nose MRSA Screen - Final Complete Assessment ALOC/Coma Acute metabolic encephalopathy Acute respiratory failure Toxic cephalopathy ? Hepatic encephalitis Lactic acidosis/leukocytosis/sepsis Urinary tract infection Hyperkalemia Kidney failure Cognitive dysfunction, ? MCI, ? Mild dementia/Alzheimer's disease Plan/Recommendation Monitoring Support treatment Blood culture Urine culture EEG ICU care Stabilize vitals/pressor drip Respiratory support/vent management Oxygen IV antibodies GI prophylaxis Nephrology on case More recommendation per clinical course Progress: Guarded Critical care time spent is 50 minutes This medical document was created using an electronic medical record system with [employer] dictation system. Although this document has been carefully reviewed, there may still be some phonetic and typographical errors. These areas are purely typographical due to imperfections of the software programs, and do not reflect any compromise in the patient's medical care. Plan discussed with: Other TERESA DSOUZA MD Dec 26, 2024 20:13
[2024-12-26] MEDS: LACTULOSE 20Gm/30ML SOLN PO ONE (20:55)
[2024-12-26 21:25] LABS: Chloride 99 mmol/L (98-107); Potassium 4.1 mmol/L (3.5-5.1); Sodium 142 mmol/L (136-145)
[2024-12-26 21:26] LABS: Anion Gap 27 (5-15)
[2024-12-26] MEDS: SODIUM BICARB 50mEq/50ml Vial 150 ML in D5W 5% 1,000 ML IV SCH (21:27)
[2024-12-26 21:30] LABS: Calcium 7.6 mg/dL (8.7-10.4); Carbon Dioxide 16 mmol/L (20-31)
--- NOTE | 2024-12-26 21:30 | DVHNC2 ---
Intubation Indication: Respiratory Insufficiency Prep: Preoxygenation Pretreated with: Sedation Medicated with: Other (etomidate, rocuronium) Intubation Approach: Orotracheal Intubation size: cm (7) Informed consent obtained: Yes Risks/benefits/alt described: Yes Date of Service: Dec 26, 2024 Billing Provider: BEVERLY BLAKE MD Common Visit Codes: [id number] INP/OBS CARE (HIGH) Secondary Visit Codes: [id number] CARE PLAN 30 MINUTES LUCY PETERSEN RESIDENT Dec 26, 2024 21:30
[2024-12-26 21:31] LABS: BUN/Creatinine Ratio 5.6 (10.0-20.0)
[2024-12-26 21:34] LABS: Blood Urea Nitrogen 34 mg/dL (9-23); Glucose 213 mg/dL (74-106)
[2024-12-26] MEDS ORDERED: DEXTROSE (50%) 50ML SYRG IV PRN (22:15)
[2024-12-26] MEDS: LACTULOSE 20Gm/30ML SOLN PO SCH (23:57)
[2024-12-26] MEDS: HEPARIN SODIUM (PORCINE) 5000 UNITS/ML 1ML VIAL SC SCH (23:58)
[2024-12-27] VITALS (14 sets, daily range): BP systolic 73–136; BP diastolic 45–84; PULSE 97–114; RESP 24–28; O2SAT 94–98
[2024-12-27 00:03] LABS: Hematocrit 33.9 % (36.0-46.0); Hemoglobin 10.9 g/dL (12.2-16.2); Magnesium 1.7 mg/dL (1.6-2.6); Mean Corpuscular Hemoglobin 27.0 pg (28.0-32.0); Mean Corpuscular Volume 84.6 fL (80.0-100.0)
[2024-12-27] MEDS: InsuLIN REG 1unit/0.01ml Soln (100units/ml) SC SCH (00:36)
[2024-12-27] MEDS: ACCU-CHEK COMFORT CURVE STRIP VI SCH (00:37)
[2024-12-27 00:48] LABS: Lactic Acid w/Reflex 5.8 mmol/L (0.4-2.0)
[2024-12-27 01:45] LABS: Total Cells Counted 100.0 (100)
[2024-12-27] MEDS: MEROPENEM 500MG IVPB 50 ML IV SCH (01:45)
[2024-12-27 01:46] LABS: Ovalocytes FEW
[2024-12-27 03:27] LABS: Base Excess -8.7 mmol/L (-2.0-3.0)
[2024-12-27 03:43] LABS: Hematocrit 32.1 % (36.0-46.0); Hemoglobin 10.6 g/dL (12.2-16.2); Mean Corpuscular Hemoglobin 27.3 pg (28.0-32.0); Mean Corpuscular Volume 82.5 fL (80.0-100.0); Nucleated Red Blood Cells % 0.1 %
[2024-12-27 03:57] LABS: Alanine Aminotransferase 19 U/L (7-40); Albumin 3.4 g/dL (3.2-4.8); Alkaline Phosphatase 50 U/L (46-116); Anion Gap 22 (5-15); BUN/Creatinine Ratio 6.1 (10.0-20.0); Bilirubin, Total 0.4 mg/dL (0.2-1.0); Carbon Dioxide 21 mmol/L (20-31); Chloride 99 mmol/L (98-107); Potassium 4.0 mmol/L (3.5-5.1); Sodium 142 mmol/L (136-145)
[2024-12-27 04:09] LABS: Blood Urea Nitrogen 37 mg/dL (9-23); Calcium 7.3 mg/dL (8.7-10.4); Glucose 219 mg/dL (74-106); Magnesium 1.6 mg/dL (1.6-2.6); Total Protein 5.3 g/dL (5.7-8.2)
[2024-12-27] MEDS ORDERED: MEROPENEM 1GM IVPB 50 ML IV SCH (06:00)
[2024-12-27] MEDS: SODIUM CHL 0.9% 1000 ML BAG XX ONE (07:00)
--- NOTE | 2024-12-27 07:15 | ECG ---
[facility] Test Date: 2024-12-25 Test Time: 16:05:24 Pat Name: BERNADINE PRUITT Department: Room: [address] [place] [address] A Gender: F Sugar Controller: ISA : 1955 Requested By: PANCHITO PADILLA Order Number: [id number] Reading MD: Tk Milligan Measurements Intervals [place] Rate: 118 P: 52 [place]: 153 QRS: -10 QRSD: 72 T: 30 QT: 314 QTc: 441 Interpretive Statements Sinus tachycardia Borderline low voltage, extremity leads Electronically Signed On 12-28-2024 13:25:14 PDT by Tk Milligan Please click the below link to view image of tracing.
[2024-12-27 07:22] LABS: Base Excess 0.5 mmol/L (-2.0-3.0)
--- NOTE | 2024-12-27 08:47 | DVHPN2 ---
Progress Note Date Seen: Dec 27, 2024 Medical Necessity Reason Pt with a Central, PICC or Fol: Yes The following are medically ne: Central Line (central line and Left IJ HD catheter), Fontenot Catheter Subjective Review of Systems: Deferred Objective vital signs Vital Sign Date Time Temp Pulse Resp B/P (MAP) Pulse Ox O2 Delivery O2 Flow Rate FiO2 12/27/24 08:05 98 24 112/80 (91) 97 40 12/27/24 07:20 Mechanical Ventilator+ 12/27/24 07:20 97.7 97.7 12/26/24 10:20 4.0 Total Intake and Output 12/26/24 12/26/24 12/27/24 15:00 23:00 07:00 Intake Total 1400 ml 775 ml 416.667 ml Output Total 20 ml Balance 1400 ml 755 ml 416.667 ml medications Current Medications Medications Dose Ordered Sig/Liz Route Start Time Stop Time Status Last Admin Dose Admin Vancomycin HCl 0 ml @ 0 mls/hr UD IV 12/25/24 23:45 Pantoprazole Sodium 40 mg DAILY IV 12/26/24 00:00 12/26/24 11:48 40 MG Levalbuterol HCl 0.625 mg Q6HR NEB 12/26/24 00:00 12/27/24 06:55 0.625 MG Ipratropium [place] 0.5 mg Q6HR NEB 12/26/24 00:00 12/27/24 06:55 0.5 MG Norepinephrine Bitartrate 250 ml @ 3.75 mls/hr Q24H IV 12/26/24 04:15 12/27/24 00:38 15 MLS/HR Methylprednisolone Sodium Succinate 40 mg BID IV 12/26/24 10:00 12/26/24 23:57 40 MG Azithromycin 250 ml @ 125 mls/hr DAILY IV 12/26/24 10:00 12/26/24 11:48 125 MLS/HR Heparin Sodium (Porcine) 5,000 units Q12HR SC 12/26/24 22:00 12/26/24 23:58 5,000 UNITS Propofol 100 ml @ 1.908 mls/ hr Q24H IV 12/26/24 15:30 12/27/24 02:59 13.356 MLS/HR Fentanyl Citrate 250 ml @ 2.5 mls/hr Q24H IV 12/26/24 15:30 12/27/24 03:06 25 MLS/HR Lactulose 30 ml BID PO 12/26/24 22:00 12/26/24 23:57 30 ML Aspirin 81 mg DAILY PO 12/27/24 10:00 Atorvastatin Calcium 80 mg HS PO 12/27/24 22:00 EZETIMIBE 10 mg DAILY PO 12/27/24 10:00 Diagnostic Test (Pha) 1 strip Q6HR 12/27/24 00:00 12/27/24 06:20 1 STRIP Insulin Human Regular Q6HR SC 12/27/24 00:00 12/27/24 06:30 3 UNITS Dextrose 50 ml UD PRN IV 12/26/24 22:15 Meropenem 50 ml @ 16.667 mls/ hr DAILY@0100 IV 12/27/24 01:00 12/27/24 01:45 16.667 MLS/HR Examination: GENERAL:Abnormal, LUNGS:Abnormal, CVS:Abnormal, SKIN:Normal laboratory and microbiology Laboratory Tests 12/27/24 03:19 Test 12/27/24 03:19 Range/Units Serum Glucose 219 H 74-106 mg/dL Microbiology Date/Time Source Procedure Growth Status 12/25/24 16:44 Blood Blood Culture - Preliminary NO GROWTH AFTER 24 HOURS OF INCUBATION. Resulted 12/25/24 01:01 Nose MRSA Screen - Final Complete Problem List/Assessment/Plan Problem List/Assessment/Plan 69-year-old female presents to the hospital constitutional symptoms was intubated in the ER due to respiratory distress Acute kidney injury due to septic shock requiring stat HD ckd unspecified baseline unknown acute respiratory failure PNA dementia metabolic acidosis severe hyperkalemia Anuric HD treatment today, nurse at bedside levophed on during HD DC bicarb drip IV ABX monitor for signs of UOP avoid contrast and nsaids at this time renal dose all ABX for GFR ~ 15% Subsequent hemodialysis treatments to be scheduled based on assessment Plan discussed with: Other (nurse) My Orders My Orders Orders - YANI REYES MD Procedure Category Date Status Time Hemodialysis Orders ORDERS 12/26/24 Transmitted 15:30 Dialysis Nursing CRISSY 12/26/24 In Process Message 15:30 Document Fluid Input CRISSY 12/26/24 In Process And Outpu 15:30 Acute Hepatitis Panel LAB 12/26/24 In Process 15:30 Strict I & O CRISSY 12/26/24 In Process 21:01 Dialysis Nursing CRISSY 12/27/24 In Process Message 07:00 Document Fluid Input CRISSY 12/27/24 In Process And Outpu 07:00 Hepatitis B Surface LAB 12/27/24 In Process Antigen 07:23 Hemodialysis Orders ORDERS 12/27/24 Transmitted 07:55 Basic Metabolic Panel LAB 12/28/24 Verified 04:00 Critical Care Time (mins): 33 YANI REYES MD Dec 27, 2024 08:47
[2024-12-27] MEDS: EZETIMIBE 10 MG TAB PO SCH (13:21)
--- NOTE | 2024-12-27 14:47 | DVH ---
CHEST RADIOGRAPH Indication: Intubated Technique: Single frontal view of the chest was obtained Comparison: XY CHEST XRAY 1 VIEW on DOS: 12/26/24, XY CHEST PORTABLE on DOS: 12/26/24, XY CHEST XRAY 1 EW on DOS: 12/26/24 FINDINGS: Lines and Tubes: Endotracheal tube terminates about 3.2 cm above the gabriel. Enteric tube is in sati sfactory position. Bilateral IJ approach central venous catheters are in satisfactory positions. Lungs: Mild interstitial prominence with right basilar opacities and indistinctness of the right cheryl diaphragm. No pneumothorax. Cardiomediastinal contours: Unremarkable Bones: No acute osseous abnormality. IMPRESSION: Lines and tubes are in satisfactory position. Mild pulmonary vascular congestion with bibasilar atelectasis and possible small right-sided pleural effusion.
--- NOTE | 2024-12-27 15:22 | DVHPN2 ---
Assessment/Plan Assessment/Plan ICU note 69 F with HTN NIDDM, HLD, HFpEF, COPD, CVA, arthritis admitted for ALOC, found to be in resp distress, intubated. hyperK managed, hd cath placed. now on HD with renal seen today, pressor on during HD, tachy later on, fluid down, have some ectopy and AIVR which later turned to bigeminy and resolved. echo pending. if no sig RMWA nad EF still preserved will start flecanide physical exam intubated, sedation on mech vent PERLLA cough and gag s1 s2 rrr mechanical breath sounds abdomen soft no LE edema Lines: 12/26/2024 Right IJ VCV 12/26/2024 ET tube 7.5 12/26/2024 NG tube 12/26/2024 Left IJ HD catheter 12/26/2024 Fontenot catheter Drips Norepinephrine 4 ml/min HCO3 drip 75meq 100ml/h Propofol Fentanyl labs ekg imaging reviewed assessment and plan metabolic encephalopathy acute hypoxic RF req mech vent acute systolic HF hyper kalemia refractory HIRAL ATN refractory dehydration COPD PHtn NIDDM hd per renal c/w empiric abx c/w mech vent start tf tomorrow echo considering antiarhythmic give fluid back diet NPO restart tomorrow dvt ppx heparin gi ppx protonix condition critical prognosis poor critical care time 65 minutes Plan discussed with: Other Date of Service: Dec 27, 2024 Billing Provider: BEVERLY BLAKE MD Common Visit Codes: [id number]-[id number] CARE 30-74 MIN BEVERLY BLAKE MD Dec 27, 2024 15:22
[2024-12-27] MEDS: SODIUM CHLORIDE 0.9% 500 ML IV ONE ×2 (15:30→15:56)
[2024-12-27] MEDS: CALCIUM GLUC 1,000mg/50ml-NS 50 ML IV SCH (15:55)
[2024-12-27] MEDS: VANCOMYCIN 500mg/100mL 100 ML IV ONE (17:09)
--- NOTE | 2024-12-27 20:27 | DVHSR ---
APPROVED REPORT EXAM: LIMITED Two-dimensional and M-mode echocardiogram with Doppler and color Doppler. Blood Pressure: 112/80 mmHg INDICATION SOB RISK FACTORS Height: 5', Weight: 140 DIMENSIONS LVDd4.1 (3.8-5.7cm)LA (2D)3.5 (1.9-4.0cm)Aortic Root3.5 (2.0-3.7cm) LVDs3.3 (2.5-4.0cm)LA (MM) (1.9-4.0cm)Aortic Cusp Exc1.7 (1.5-2.0cm) EF (%) 50.0 (55-70%)Rt. Atrium2.9 (1.9-4.0cm)Asc. Aorta cm IVSd1.2 (0.7-1.1cm)RV (D) (1.8-2.4cm) PWd1.2 (0.7-1.1cm) Mitral Valve MitralMitral Stenosis E wave0.50m/sMV Mean GR.mmHg A wave0.70m/sMV Peak GR.mmHg E/A ratio0.72D MVAcm2 Aortic Valve Aortic ValveAortic Stenosis V10.90m/Adama Mean GR.3mmHg V21.10m/Adama Peak GR.5mmHg LVOT Diameter2.1 (1.8-2.4cm)Doppler AVA2.83cm2 Pulmonic Valve V20.60m/s Tricuspid Valve TR Velocity3.10m/s [id number] Other Information Quality : Technically LimitedRhythm : Tachycardia Technically limited study due to body habitus, patient position and on vent. Conclusion NORMAL LV EF AND IS 65% NORMAL VALVES SLIGHTLY DILATED LA NORMAL RV FUNCTION MODERATE DEGREE PULMONARY HYPERTENSION RVSP IS 45 MM OF HG AND IS HIGH NO EFFUSION
[2024-12-27] MEDS: ATORVASTATIN 20 MG TAB PO SCH (22:04)
[2024-12-28] VITALS (19 sets, daily range): BP systolic 99–172; BP diastolic 63–109; PULSE 83–107; RESP 15–24; TEMP 98.1–99; O2SAT 93–98
[2024-12-28 04:57] LABS: Hematocrit 32.5 % (36.0-46.0); Hemoglobin 10.8 g/dL (12.2-16.2); Mean Corpuscular Hemoglobin 27.1 pg (28.0-32.0); Mean Corpuscular Volume 81.5 fL (80.0-100.0); Nucleated Red Blood Cells % 0.0 %
[2024-12-28 05:01] LABS: Chloride 102 mmol/L (98-107); Potassium 3.6 mmol/L (3.5-5.1); Sodium 140 mmol/L (136-145)
[2024-12-28 05:02] LABS: Anion Gap 10 (5-15); Carbon Dioxide 28 mmol/L (20-31)
[2024-12-28 05:06] LABS: Calcium 7.9 mg/dL (8.7-10.4)
[2024-12-28 05:08] LABS: BUN/Creatinine Ratio 6.1 (10.0-20.0); Blood Urea Nitrogen 21 mg/dL (9-23)
[2024-12-28 05:10] LABS: Glucose 151 mg/dL (74-106)
--- NOTE | 2024-12-28 07:46 | DVH ---
CHEST RADIOGRAPH Indication: Intubated Technique: Single frontal view of the chest was obtained Comparison: XY CHEST XRAY 1 VIEW on DOS: 12/27/24, XY CHEST XRAY 1 VIEW on DOS: 12/26/24, XY CHEST PORTAB LE on DOS: 12/26/24, XY CHEST XRAY 1 VIEW on DOS: 12/26/24, XY CHEST PORTABLE on DOS: 12/25/24, XY CHEST XR AY 1 VIEW on DOS: 12/27/24 FINDINGS: Lines and Tubes: Endotracheal tube terminates about 3.2 cm above the gabriel. Enteric tube is in sati sfactory position. Bilateral IJ approach central venous catheters are in satisfactory positions. Lungs: Mild interstitial prominence with right basilar opacities and indistinctness of the right cheryl diaphragm. No pneumothorax. Cardiomediastinal contours: Unremarkable Bones: No acute osseous abnormality. IMPRESSION: Lines and tubes are in satisfactory position. Mild pulmonary vascular congestion with bibasilar atelectasis and possible small right-sided pleural effusion.
[2024-12-28] MEDS: SODIUM CHL 0.9% 1000 ML BAG XX ONE (08:04)
[2024-12-28 08:31] LABS: Base Excess 1.9 mmol/L (-2.0-3.0)
--- NOTE | 2024-12-28 09:04 | DVHPN2 ---
Progress Note - Dictate Date Seen: Dec 28, 2024 Medical Necessity Reason Pt with a Central, PICC or Fol: Yes The following are medically ne: Central Line (central line and Left IJ HD catheter), Fontenot Catheter Subjective Ms. Viveros is a 69 years old female with a history of hypertension, diabetes, congestive heart failure, COPD, asthma, rheumatoid arthritis, chronic pain syndrome/lumbar disc disease, she was brought to the hospital on 12/25/2024 with a chief complaint of low blood pressure. I saw her on 01/15/2021 for ALOC/opiate ALOC/opiate overdose I have seen examined the patient, I have talked to her nurse, and other medical staff, she is responsive to verbal stimuli, her eyes are open, tracks, does not follow my verbal commands, she does not move extremities for me RN: He follows verbal commands Fentanyl 250 mcg/hour, propofol 40 mcg/minute, Levo 4 mcg/minutes Blood culture, 12/25/2024: Hepatitis panel, 12/26/2024: UDS, 01/13/2021: Cannabinoids, alcohol: 6 12/26/2024: Negative Urinalysis, 12/25/2024: WBC: 342, urine WBC clumps: Present, urine leukocyte esterase: 3+ ABG, 12/25/2024: Metabolic acidosis, 12/26/2024: Hypoxia, metabolic acidosis, WBC/HGB/PLT/MCV, 12/25/2024: 10.5/12.9/134/83.8. 12/26/2024: 21.8/12.5/156/91.3, 12/28/2024: 14.7/10.8/97/81.5 K 12/25/2024: 5, 6.1, 12/26/2024: 7.5, 6.8 Anion gap, 12/26/2024: 29 BUN/CR, 12/26/2024: 43/8.2, 11/24/2024: 21/3.42 GFR, 12/26/2024: 5, 12/28/2024: 14 Lactic acid, 12/25/2024: 8.8, 13.1, 12/26/2024: 6.3, 9.5 HGB A1c, 12/26/2024: 5.6 TBI/AST/ALT/AP, 12/26/2024: 0.4/56/26/62 Ammonia, 12/26/2024: 87 TG/HDL/LDL/HDL, 12/26/2024: 154/188/117/52 Vitamin B12, 02/26/2024: 490 Folic acid, 12/2620: 20.25 TSH, 12/26/2024: 0.87 Chest x-ray, 12/25/2024: Bronchovascular crowding due to low lung volumes. Underlying pulmonary vascular congestion can not be excluded Chest x-ray, 12/26/24: 1. No acute cardiopulmonary disease. 2. Pulmonary markings reflect supine 3. Endotracheal tube 2.7 cm above the gabriel 4. Enteric tube below the left diaphragm in the stomach 5. Right internal jugular catheter in good position at the cavoatrial junction. CT head, 01/13/2021: No mass effect or acute intracranial bleed. Minimal chronic sinusitis change CT head, 12/25/2024: 1. There is no acute infarct, intracranial hemorrhage, or mass effect. 2. There is no hydrocephalus or significant midline shift. 3. 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 4. Mild chronic microvascular ischemic changes and mild parenchymal volume loss. 5. No acute, depressed calvarial fractures. 6. No large scalp hematomas CT abdomen/pelvis, 12/25/2024: Wall thickening of the rectum which may be due to inadequate distention /proctitis. Descending colon and sigmoid diverticulosis without diverticulitis. Moderate amount of fecal material within the colon. Small right-sided pleural effusion with bibasilar atelectasis. Right basilar pneumonia can not be excluded vital signs Vital Sign Date Time Temp Pulse Resp B/P (MAP) Pulse Ox O2 Delivery O2 Flow Rate FiO2 12/28/24 08:15 105 24 123/86 (98) 92 12/28/24 08:00 Mechanical Ventilator+ 40 40 12/28/24 08:00 99.3 99.3 12/26/24 10:20 4.0 Total Intake and Output 12/27/24 12/27/24 12/28/24 15:00 23:00 07:00 Intake Total 250 ml 899.412 ml 239.674 ml Balance 250 ml 899.412 ml 239.674 ml medications Current Medications Medications Dose Ordered Sig/Liz Route Start Time Stop Time Status Last Admin Dose Admin Vancomycin HCl 0 ml @ 0 mls/hr UD IV 12/25/24 23:45 Pantoprazole Sodium 40 mg DAILY IV 12/26/24 00:00 12/27/24 12:58 40 MG Levalbuterol HCl 0.625 mg Q6HR NEB 12/26/24 00:00 12/28/24 07:03 0.625 MG Ipratropium [place] 0.5 mg Q6HR NEB 12/26/24 00:00 12/28/24 07:03 0.5 MG Norepinephrine Bitartrate 250 ml @ 3.75 mls/hr Q24H IV 12/26/24 04:15 12/27/24 00:38 15 MLS/HR Methylprednisolone Sodium Succinate 40 mg BID IV 12/26/24 10:00 12/27/24 22:03 40 MG Azithromycin 250 ml @ 125 mls/hr DAILY IV 12/26/24 10:00 12/27/24 13:07 125 MLS/HR Heparin Sodium (Porcine) 5,000 units Q12HR SC 12/26/24 22:00 12/26/24 23:58 5,000 UNITS Propofol 100 ml @ 1.908 mls/ hr Q24H IV 12/26/24 15:30 12/28/24 04:04 7.632 MLS/HR Fentanyl Citrate 250 ml @ 2.5 mls/hr Q24H IV 12/26/24 15:30 12/28/24 00:23 20 MLS/HR Lactulose 30 ml BID PO 12/26/24 22:00 12/27/24 22:03 30 ML Aspirin 81 mg DAILY PO 12/27/24 10:00 Atorvastatin Calcium 80 mg HS PO 12/27/24 22:00 12/27/24 22:04 80 MG EZETIMIBE 10 mg DAILY PO 12/27/24 10:00 12/27/24 13:21 10 MG Diagnostic Test (Pha) 1 strip Q6HR 12/27/24 00:00 12/28/24 06:39 1 STRIP Insulin Human Regular Q6HR SC 12/27/24 00:00 12/28/24 06:43 3 UNITS Dextrose 50 ml UD PRN IV 12/26/24 22:15 Meropenem 50 ml @ 16.667 mls/ hr DAILY@0100 IV 12/27/24 01:00 12/27/24 01:45 16.667 MLS/HR objective The patient is well-nourished and well-developed with no distress. The patient is intubated MENTAL STATUS: Subjective CRANIAL NERVES: Pupils are equal, round and reactive.There is conjugated eye movement. No signs of facial weakness. There are gagging or coughing reflexes SENSATION: No responses to pain stimuli. MOTOR: Normal tone in the upper and lower extremity. Normal muscle bulk. No fasciculations. No spontaneous movement. REFLEXES: Deep tendon reflexes are symmetrical. No pathological reflexes. CEREBELLAR/COORDINATION: Deferred GAIT/STATION: deferred laboratory and microbiology Laboratory Tests 12/28/24 04:16 Test 12/28/24 04:16 Range/Units Serum Glucose 151 H 74-106 mg/dL Problem List ALOC/Coma Acute metabolic encephalopathy Acute respiratory failure Toxic cephalopathy ? Hepatic encephalitis Lactic acidosis/leukocytosis/sepsis Urinary tract infection Hyperkalemia Kidney failure Cognitive dysfunction, ? MCI, ? Mild dementia/Alzheimer's disease Assessment/Plan Monitoring Support treatment Blood culture Urine culture EEG ICU care Stabilize vitals/pressor drip Respiratory support/vent management Oxygen IV antibodies GI prophylaxis Nephrology on case More recommendation per clinical course This medical document was created using an electronic medical record system with [employer] computerized dictation system. Although this document has been carefully reviewed, there may still be some phonetic and typographical errors. These areas are purely typographical due to imperfections of the software programs, and do not reflect any compromise in the patient's medical care. Prognosis guarded Plan discussed with: Other Critical Care Time(min): 35 TERESA DSOUZA MD Dec 28, 2024 09:04
[2024-12-28] MEDS: HEPARIN SODIUM (PORCINE) 5000 UNITS/ML 1ML VIAL IV ONE (10:00)
--- NOTE | 2024-12-28 10:46 | DVHPN2 ---
Progress Note Date Seen: Dec 28, 2024 Medical Necessity Reason Pt with a Central, PICC or Fol: Yes The following are medically ne: Central Line (central line and Left IJ HD catheter), Fontenot Catheter Subjective Other Systems: Patient seen and examined by myself today in follow-up Patient examined hemodialysis, blood pressure stable Objective vital signs Vital Sign Date Time Temp Pulse Resp B/P (MAP) Pulse Ox O2 Delivery O2 Flow Rate FiO2 12/28/24 10:06 98 24 161/101 (121) 95 40 12/28/24 09:45 99.0 99.0 12/28/24 08:00 Mechanical Ventilator+ 12/26/24 10:20 4.0 Total Intake and Output 12/27/24 12/27/24 12/28/24 14:59 22:59 06:59 Intake Total 125 ml 993.03 ml 239.674 ml Balance 125 ml 993.03 ml 239.674 ml medications Current Medications Medications Dose Ordered Sig/Liz Route Start Time Stop Time Status Last Admin Dose Admin Vancomycin HCl 0 ml @ 0 mls/hr UD IV 12/25/24 23:45 Pantoprazole Sodium 40 mg DAILY IV 12/26/24 00:00 12/27/24 12:58 40 MG Levalbuterol HCl 0.625 mg Q6HR NEB 12/26/24 00:00 12/28/24 07:03 0.625 MG Ipratropium [place] 0.5 mg Q6HR NEB 12/26/24 00:00 12/28/24 07:03 0.5 MG Norepinephrine Bitartrate 250 ml @ 3.75 mls/hr Q24H IV 12/26/24 04:15 12/27/24 00:38 15 MLS/HR Methylprednisolone Sodium Succinate 40 mg BID IV 12/26/24 10:00 12/27/24 22:03 40 MG Azithromycin 250 ml @ 125 mls/hr DAILY IV 12/26/24 10:00 12/27/24 13:07 125 MLS/HR Heparin Sodium (Porcine) 5,000 units Q12HR SC 12/26/24 22:00 12/26/24 23:58 5,000 UNITS Propofol 100 ml @ 1.908 mls/ hr Q24H IV 12/26/24 15:30 12/28/24 04:04 7.632 MLS/HR Fentanyl Citrate 250 ml @ 2.5 mls/hr Q24H IV 12/26/24 15:30 12/28/24 00:23 20 MLS/HR Lactulose 30 ml BID PO 12/26/24 22:00 12/27/24 22:03 30 ML Aspirin 81 mg DAILY PO 12/27/24 10:00 Atorvastatin Calcium 80 mg HS PO 12/27/24 22:00 12/27/24 22:04 80 MG EZETIMIBE 10 mg DAILY PO 12/27/24 10:00 12/27/24 13:21 10 MG Diagnostic Test (Pha) 1 strip Q6HR 12/27/24 00:00 12/28/24 06:39 1 STRIP Insulin Human Regular Q6HR SC 12/27/24 00:00 12/28/24 06:43 3 UNITS Dextrose 50 ml UD PRN IV 12/26/24 22:15 Meropenem 50 ml @ 16.667 mls/ hr DAILY@0100 IV 12/27/24 01:00 12/27/24 01:45 16.667 MLS/HR Examination: LUNGS:Normal, CVS:Normal, MSK:Normal laboratory and microbiology Laboratory Tests 12/28/24 04:16 Test 12/28/24 04:16 Range/Units Serum Glucose 151 H 74-106 mg/dL Microbiology Date/Time Source Procedure Growth Status 12/26/24 14:44 Sputum Gram Stain Pending Resulted 12/26/24 14:44 Sputum Respiratory Culture - Preliminary Resulted 12/25/24 16:44 Blood Blood Culture - Preliminary NO GROWTH AFTER 48 HOURS OF INCUBATION. Resulted 12/25/24 01:01 Nose MRSA Screen - Final Complete 12/25/24 00:45 Voided Urine Urine Culture - Preliminary Resulted Problem List/Assessment/Plan Problem List/Assessment/Plan Acute kidney injury superimposed Chronic Kidney Disease secondary hemodynamic mediated requiring intermittent hemodialysis acute respiratory failure, patient intubated on ventilator PNA dementia metabolic acidosis Hypokalemia Diabetes mellitus type 2 Hypertension Anemia of chronic kidney disease Recommendations Continue with UF 1-2 L as tolerated Epogen 86681 subQ 3 times weekly Strict I&Os Avoid nephrotoxic medications KCL replacement Insulin sliding scale Blood pressure control Kidneys reported within normal limit on CT of the abdomen We will continue to follow Plan discussed with: Patient My Orders My Orders Orders - CHUN TORRES MD Procedure Category Date Status Time Hemodialysis Orders ORDERS 12/28/24 Verified 10:39 CHUN TORRES MD Dec 28, 2024 10:45
[2024-12-28 11:02] LABS: Hepatitis B Surface Antigen Negative (Negative); Hepatitis C Antibody Negative (Negative)
[2024-12-28] MEDS: SODIUM CHLORIDE 0.9% 500 ML IV ONE (12:45)
[2024-12-28] MEDS: ALBUMIN 25% 100 ML IV ONE (14:48)
[2024-12-28] MEDS: VANCOMYCIN 750MG KIT 100 ML IV ONE (16:52)
--- NOTE | 2024-12-28 17:11 | DVHPNRES ---
Progress Note Date Seen: Dec 28, 2024 Resident Creating Document: LUTHER SEPULVEDA RESIDENT Medical Necessity Reason Pt with a Central, PICC or Fol: Yes The following are medically ne: Central Line (central line and Left IJ HD catheter), Fontenot Catheter Subjective Review of Systems Mer Viveros is a 69-year-old female who presents to the ER via EMS for progressive altered level of consciousness, generalized weakness for the past weeks, which worsened significantly 24 hours before her admission. Due to clinical status, could not obtain review of systems. Obtained history from granddaughter (BROWN, Cammie). Per POAshwini, she is completely normal at baseline, no cognitive impairments and can complete ADLs, regardless her history of CVA. The day of her admission, BROWN saw patient with increased respiratory effort, prompting her visit. Past Medical History: Hypertension, diabetes, dyslipidemia, CHF, COPD/asthma with multiple admissions, CVA. Surgical History: Denies Family History: Sister had breast cancer Social History: Lives in [place] with granddaughter (she is the caregiver and the [id number]). Ex tobacco abuse (10 pack-year history of smoking). Denies current tobacco, alcohol and other drug abuse. Allergies: Denies Home Medications: Gabapentin 800 mg daily, amlodipine 5 mg p.o. daily, nitroglycerin p.r.n., oxycodone, inhalers, losartan, acetaminophen, montelukast, rosuvastatin, aspirin, metformin Patient seen and examined at bedside. Cannot obtain ROS due to sedoanalgesia, on mechanical assisted ventilation. Hyperkalemia resolved after hemodialysis session, creatinine mildly improving. Urine cultures shows E coli multisensitive, blood and sputum cultures preliminary negative. Requires intermittent IV vasopressors during hemodialysis sessions. Objective vital signs Vital Sign Date Time Temp Pulse Resp B/P (MAP) Pulse Ox O2 Delivery O2 Flow Rate FiO2 12/28/24 14:55 102 24 121/83 (96) 96 40 12/28/24 11:30 97.7 97.7 12/28/24 08:00 Mechanical Ventilator+ 12/26/24 10:20 4.0 Total Intake and Output 12/27/24 12/27/24 12/28/24 15:00 23:00 07:00 Intake Total 250 ml 899.412 ml 239.674 ml Balance 250 ml 899.412 ml 239.674 ml medications Current Medications Medications Dose Ordered Sig/Liz Route Start Time Stop Time Status Last Admin Dose Admin Pantoprazole Sodium 40 mg DAILY IV 12/26/24 00:00 12/27/24 12:58 40 MG Levalbuterol HCl 0.625 mg Q6HR NEB 12/26/24 00:00 12/28/24 12:03 0.625 MG Ipratropium [place] 0.5 mg Q6HR NEB 12/26/24 00:00 12/28/24 12:04 0.5 MG Norepinephrine Bitartrate 250 ml @ 3.75 mls/hr Q24H IV 12/26/24 04:15 12/27/24 00:38 15 MLS/HR Methylprednisolone Sodium Succinate 40 mg BID IV 12/26/24 10:00 12/27/24 22:03 40 MG Azithromycin 250 ml @ 125 mls/hr DAILY IV 12/26/24 10:00 12/27/24 13:07 125 MLS/HR Propofol 100 ml @ 1.908 mls/ hr Q24H IV 12/26/24 15:30 12/28/24 04:04 7.632 MLS/HR Fentanyl Citrate 250 ml @ 2.5 mls/hr Q24H IV 12/26/24 15:30 12/28/24 00:23 20 MLS/HR Lactulose 30 ml BID PO 12/26/24 22:00 12/27/24 22:03 30 ML Aspirin 81 mg DAILY PO 12/27/24 10:00 Atorvastatin Calcium 80 mg HS PO 12/27/24 22:00 12/27/24 22:04 80 MG EZETIMIBE 10 mg DAILY PO 12/27/24 10:00 12/27/24 13:21 10 MG Diagnostic Test (Pha) 1 strip Q6HR 12/27/24 00:00 12/28/24 12:00 1 STRIP Insulin Human Regular Q6HR SC 12/27/24 00:00 12/28/24 06:43 3 UNITS Dextrose 50 ml UD PRN IV 12/26/24 22:15 Ceftriaxone Sodium 50 ml @ 100 mls/hr DAILY@09 IV 12/29/24 09:00 Examination Patient lying in bed, under sedoanalgesia due to mechanical ventilation General: RASS -3, afebrile, mucosae are moist Cardiovascular: Normal S1 and S2. No murmurs, gallops or rubs Respiratory: Mechanically assisted ventilation, equal bilateral airway entree. Bilateral rhonchus predominantly in right base Abdomen: Soft, nontender, no organomegaly, normal bowel sounds MSK/skin: Mobilization of limbs cannot be evaluated. Skin is dry and warm Neurological: Orientation cannot be assessed. No apparent motor no sensitive deficits. Pupils are isocoric and reactive laboratory and microbiology Laboratory Tests 12/28/24 04:16 Test 12/28/24 04:16 Range/Units Serum Glucose 151 H 74-106 mg/dL Microbiology Date/Time Source Procedure Growth Status 12/26/24 14:44 Sputum Gram Stain - Final Resulted 12/26/24 14:44 Sputum Respiratory Culture - Preliminary Resulted 12/25/24 16:44 Blood Blood Culture - Preliminary NO GROWTH AFTER 72 HOURS OF INCUBATION. Resulted 12/25/24 01:01 Nose MRSA Screen - Final Complete 12/25/24 00:45 Voided Urine Urine Culture - Final Escherichia coli Complete Problem List/Assessment/Plan Problem List/Assessment/Plan Metabolic encephalopathy secondary to septic shock likely due to aspiration pneumonia History of CVA Sedoanalgesia Hyperammonemia - Resolved Completed head CT which showed no acute intracranial pathology. Present chronic microvascular changes Currently under sedoanalgesia due to mechanical assisted ventilation Neurology on board: consulted due to progressive ALOC, which most likely cause is metabolic encephalopathy due to septic shock. Required lactulose, currently discontinued due to diarrhea Septic shock secondary to aspiration pneumia vs UTI Probable Aspiration pneumonia Gram positive / Gram negative Complicated UTI to E coli Questionable proctitis Currently under empiric IV antibiotics (Meropenem, Vancomycin, Azithromycin, previously on Cefepime) Required IV fluid resuscitation Urinary culture shows E coli, rest of cultures preliminary negative (sputum and blood). COVID, Influenza and MRSA swab negative Obtained abdomen and pelvis CT which showed thick rectal wall (probable proctitis), diverticulosis, small right pleural effusion and probable right pneumonia Acute respiratory failure due to aspiration pneumonia COPD/Asthma exacerbation On mechanical assisted ventilation (VCV Vt: 400 RR: 24 PEEP: 5 FIO2: 40%) On bronchodilator, IV steroids, IV antibiotics and oxygen therapy HIRAL hemodynamically mediated (VMN) Anion-Gap metabolic acidosis with non compensated respiratory alkalosis - Resolved Hyperlactacidemia Severe hyperkalemia - Resolved Hyperphosphatemia Anuria Nephrology on board: Indicated emergent hemodialysis sessions, optimized medical therapy (bicarbonate drip) Required multiple hyperkalemia protocol treatments Completed EKG which showed sinus tachycardia, no sine wave or other fatal arrhythmias Failed medical management, required emergent hemodialysis session Chronic diastolic congestive heart failure (HFpEF, LVEF 55%) - Unlikely exacerbation Moderate-severe pulmonary hypertension Troponin x3 negative, EKG shows no ST elevation, BNP mildly elevated 12/2023 echocardiogram showed LVEF 55%, moderately severely elevated RVSP (54 mmHg) New echocardiogram shows LVEF 65%, slightly dilated LA, normal RV function, moderate degree pulmonary hypertension (RVSP 45 mmHg) Mild thrombocytopenia Normocytic anemia Follow up cbc Currently on SCDs Discontinue heparin. Does received during hemodialysis session On erythropoietin 56053 units 3 times a week Diabetes - Controlled (Hemoglobin A1C 5.6%) Hypertension Dyslipidemia Continue aspirin, statin and ezetimibe On insulin sliding scale Nutrition: Glucerna Prophylaxis for PUD and DVT: Pantoprazol and SCDs Lines: 12/26/2024 Right IJ VCV 12/26/2024 ET tube 7.5 12/26/2024 NG tube 12/26/2024 Left IJ HD catheter 12/26/2024 Fontenot catheter Drips Norepinephrine 2 ml/min during hemodialysis sessions HCO3 drip discontinued Propofol Fentanyl Goals of care discussed with patient and POA (granddaughter Cammie at [phone]) for over 28 minutes: Full code status Discussed plan with Dr uLjan, patient, granddaughter and nurses: Patient currently on ICU status under sedoanalgesia, on mechanical assisted ventilation, with intermittent IV vasopressors during hemodialysis sessions, IV fluids, empiric IV antibiotics, IV steroids and hemodialysis sessions. Patient has critical prognosis. Critical care time spent including chart review, discussion with family and patient evaluation, excluding procedures: 68 minutes Plan discussed with: Patient, Other (Granddaughter ([id number] Lilia) and nurses) My Orders My Orders Orders - LUTHER SEPULVEDA RESIDENT Procedure Category Date Status Time Abg W/ Co-Ox RT 12/28/24 Logged 06:00 Ceftriaxone 1gm/50ml PHA 12/29/24 In Process (Rocephin) 09:00 Sequential CRISSY 12/28/24 In Process Compression Device 12:34 Date of Service: Dec 28, 2024 Billing Provider: BEVERLY LUJAN MD Common Visit Codes: [id number] CARE 30-74 MIN (crit care time 45 minutes) LUTHER SEPULVEDA RESIDENT Dec 28, 2024 17:11 BEVERLY LUJAN MD Jan 02, 2025 21:31
[2024-12-29] VITALS (100 sets, daily range): BP systolic 95–218; BP diastolic 48–125; PULSE 50–104; RESP 15–21; TEMP 97.7–98.7; O2SAT 92–100
[2024-12-29 04:15] LABS: Hematocrit 30.0 % (36.0-46.0); Hemoglobin 10.2 g/dL (12.2-16.2); Mean Corpuscular Hemoglobin 27.9 pg (28.0-32.0); Mean Corpuscular Volume 81.9 fL (80.0-100.0); Nucleated Red Blood Cells % 0.1 %
[2024-12-29 04:21] LABS: Anion Gap 9 (5-15); Carbon Dioxide 30 mmol/L (20-31); Chloride 104 mmol/L (98-107); Sodium 143 mmol/L (136-145)
[2024-12-29 04:23] LABS: Calcium 8.2 mg/dL (8.7-10.4); Potassium 3.2 mmol/L (3.5-5.1)
[2024-12-29 04:27] LABS: BUN/Creatinine Ratio 7.7 (10.0-20.0); Blood Urea Nitrogen 15 mg/dL (9-23)
[2024-12-29 04:28] LABS: Magnesium 1.9 mg/dL (1.6-2.6)
[2024-12-29 04:43] LABS: Glucose 157 mg/dL (74-106)
--- NOTE | 2024-12-29 05:22 | DVH ---
CHEST RADIOGRAPH Indication: Intubated Technique: Single frontal view of the chest was obtained COMPARISON: XY CHEST XRAY 1 VIEW on DOS: 12/28/24, XY CHEST XRAY 1 VIEW on DOS: 12/27/24, XY CHEST XRAY 1 VIEW on DOS: 12/26/24, XY CHEST PORTABLE on DOS: 12/26/24, XY CHEST XRAY 1 VIEW on DOS: 12/26/24, XY CHEST XRAY 1 VIEW on DOS: 12/28/24 FINDINGS: Lines and Tubes: Endotracheal tube terminates above the gabriel. Enteric tube is in satisfactory posi tion. Bilateral IJ approach central venous catheters are in satisfactory positions. Lungs: Mild interstitial prominence with right basilar opacities and indistinctness of the right cheryl diaphragm. No pneumothorax. Cardiomediastinal contours: Unremarkable Bones: No acute osseous abnormality. IMPRESSION: Lines and tubes are in satisfactory position. Mild pulmonary vascular congestion with bibasilar atelectasis and possible small right-sided pleural effusion.
[2024-12-29] MEDS: POTASSIUM CHL 20MEQ/100ML 100 ML IV ONE ×2 (06:32)
[2024-12-29 06:43] LABS: Base Excess 1.0 mmol/L (-2.0-3.0)
--- NOTE | 2024-12-29 08:02 | DVHPNRES ---
Progress Note Date Seen: Dec 29, 2024 Resident Creating Document: LUTHER SEPULVEDA RESIDENT Medical Necessity Reason Pt with a Central, PICC or Fol: Yes The following are medically ne: Central Line (central line and Left IJ HD catheter), Fontenot Catheter Subjective Review of Systems Mer Viveros is a 69-year-old female who presents to the ER via EMS for progressive altered level of consciousness, generalized weakness for the past weeks, which worsened significantly 24 hours before her admission. Due to clinical status, could not obtain review of systems. Obtained history from granddaughter (BROWN, Cammie). Per POAshwini, she is completely normal at baseline, no cognitive impairments and can complete ADLs, regardless her history of CVA. The day of her admission, BROWN saw patient with increased respiratory effort, prompting her visit. Past Medical History: Hypertension, diabetes, dyslipidemia, CHF, COPD/asthma with multiple admissions, CVA. Surgical History: Denies Family History: Sister had breast cancer Social History: Lives in [place] with granddaughter (she is the caregiver and the [id number]). Ex tobacco abuse (10 pack-year history of smoking). Denies current tobacco, alcohol and other drug abuse. Allergies: Denies Home Medications: Gabapentin 800 mg daily, amlodipine 5 mg p.o. daily, nitroglycerin p.r.n., oxycodone, inhalers, losartan, acetaminophen, montelukast, rosuvastatin, aspirin, metformin Patient seen and examined at bedside. Cannot obtain ROS due to sedoanalgesia, on mechanical assisted ventilation. Hyperkalemia resolved after hemodialysis session, creatinine mildly improving. Urine cultures shows E coli multisensitive, blood and sputum cultures preliminary negative. Requires intermittent IV vasopressors during hemodialysis sessions. Patient presented multiple episodes of diarrhea, discontinue lactulose (was placed previously because of hyperammonemia) Objective vital signs Vital Sign Date Time Temp Pulse Resp B/P (MAP) Pulse Ox O2 Delivery O2 Flow Rate FiO2 12/29/24 07:15 70 20 117/76 (90) 99 12/29/24 06:20 30 12/29/24 05:00 Mechanical Ventilator+ 12/29/24 04:00 97.7 207.9 Total Intake and Output 12/28/24 12/28/24 12/29/24 15:00 23:00 07:00 Intake Total 581.38 ml 176.712 ml 304.744 ml Output Total 1700 ml 1500 ml Balance -1118.62 ml 176.712 ml -1195.256 ml medications Current Medications Medications Dose Ordered Sig/Liz Route Start Time Stop Time Status Last Admin Dose Admin Pantoprazole Sodium 40 mg DAILY IV 12/26/24 00:00 12/27/24 12:58 40 MG Levalbuterol HCl 0.625 mg Q6HR NEB 12/26/24 00:00 12/29/24 06:19 0.625 MG Ipratropium [place] 0.5 mg Q6HR NEB 12/26/24 00:00 12/29/24 06:19 0.5 MG Norepinephrine Bitartrate 250 ml @ 3.75 mls/hr Q24H IV 12/26/24 04:15 12/27/24 00:38 15 MLS/HR Methylprednisolone Sodium Succinate 40 mg BID IV 12/26/24 10:00 12/28/24 21:53 40 MG Azithromycin 250 ml @ 125 mls/hr DAILY IV 12/26/24 10:00 12/27/24 13:07 125 MLS/HR Propofol 100 ml @ 1.908 mls/ hr Q24H IV 12/26/24 15:30 12/29/24 05:57 19.08 MLS/HR Fentanyl Citrate 250 ml @ 2.5 mls/hr Q24H IV 12/26/24 15:30 12/29/24 06:15 25 MLS/HR Aspirin 81 mg DAILY PO 12/27/24 10:00 Atorvastatin Calcium 80 mg HS PO 12/27/24 22:00 12/28/24 21:53 80 MG EZETIMIBE 10 mg DAILY PO 12/27/24 10:00 12/27/24 13:21 10 MG Diagnostic Test (Pha) 1 strip Q6HR 12/27/24 00:00 12/29/24 05:59 1 STRIP Insulin Human Regular Q6HR SC 12/27/24 00:00 12/29/24 05:58 2 UNITS Dextrose 50 ml UD PRN IV 12/26/24 22:15 Ceftriaxone Sodium 50 ml @ 100 mls/hr DAILY@09 IV 12/29/24 09:00 Enteral Nutritional Formula 1,000 ml 30ML/HR GT 12/28/24 22:00 Examination Patient lying in bed, under sedoanalgesia due to mechanical ventilation General: RASS -3, afebrile, mucosae are moist Cardiovascular: Normal S1 and S2. No murmurs, gallops or rubs Respiratory: Mechanically assisted ventilation, equal bilateral airway entree. Bilateral rhonchus predominantly in right base Abdomen: Soft, nontender, no organomegaly, normal bowel sounds MSK/skin: Mobilization of limbs cannot be evaluated. Skin is dry and warm Neurological: Orientation cannot be assessed. No apparent motor no sensitive deficits. Pupils are isocoric and reactive laboratory and microbiology Laboratory Tests 12/29/24 03:38 Test 12/29/24 03:38 Range/Units Serum Glucose 157 H 74-106 mg/dL Microbiology Date/Time Source Procedure Growth Status 12/26/24 14:44 Sputum Gram Stain - Final Resulted 12/26/24 14:44 Sputum Respiratory Culture - Preliminary Resulted 12/25/24 16:44 Blood Blood Culture - Preliminary NO GROWTH AFTER 72 HOURS OF INCUBATION. Resulted 12/25/24 01:01 Nose MRSA Screen - Final Complete 12/25/24 00:45 Voided Urine Urine Culture - Final Escherichia coli Complete Problem List/Assessment/Plan Problem List/Assessment/Plan Metabolic encephalopathy secondary to septic shock likely due to aspiration pneumonia History of CVA Sedoanalgesia Hyperammonemia - Resolved Completed head CT which showed no acute intracranial pathology. Present chronic microvascular changes Currently under sedoanalgesia due to mechanical assisted ventilation. Completing sedation vacation intermittently Neurology on board: consulted due to progressive ALOC, which most likely cause is metabolic encephalopathy due to septic shock. Required lactulose, currently discontinued due to diarrhea Septic shock secondary to aspiration pneumia vs UTI Probable Aspiration pneumonia Gram positive / Gram negative Complicated UTI to E coli Questionable proctitis Currently under empiric IV antibiotics (Meropenem, Vancomycin, previously on Cefepime and azithromycin) Required IV fluid resuscitation Urinary culture shows E coli, rest of cultures preliminary negative (sputum and blood). COVID, Influenza and MRSA swab negative Obtained abdomen and pelvis CT which showed thick rectal wall (probable proctitis), diverticulosis, small right pleural effusion and probable right pneumonia Acute respiratory failure due to aspiration pneumonia COPD/Asthma exacerbation On mechanical assisted ventilation (VCV Vt: 400 RR: 20 PEEP: 5 FIO2: 30%) On bronchodilator, IV steroids (reduced to methylprednisolone IV 40 mg daily), IV antibiotics and oxygen therapy HIRAL hemodynamically mediated (VMN) Anion-Gap metabolic acidosis with non compensated respiratory alkalosis - Resolved Hyperlactacidemia Severe hyperkalemia - Resolved Hyperphosphatemia Anuria Nephrology on board: Indicated emergent hemodialysis sessions, optimized medical therapy (bicarbonate drip) Required multiple hyperkalemia protocol treatments Completed EKG which showed sinus tachycardia, no sine wave or other fatal arrhythmias Failed medical management, required emergent hemodialysis session. Last session on 12/28/2024 (1 L off) Chronic diastolic congestive heart failure (HFpEF, LVEF 55%) - Unlikely exacerbation Moderate-severe pulmonary hypertension Troponin x3 negative, EKG shows no ST elevation, BNP mildly elevated 12/2023 echocardiogram showed LVEF 55%, moderately severely elevated RVSP (54 mmHg) New echocardiogram shows LVEF 65%, slightly dilated LA, normal RV function, moderate degree pulmonary hypertension (RVSP 45 mmHg) Mild thrombocytopenia Normocytic anemia History of DVT - ruled out acute DVT Follow up cbc Currently on SCDs Discontinue heparin. Does received during hemodialysis session On erythropoietin 26820 units 3 times a week Completed bilateral lower limb Venous US: No DVT Diabetes - Controlled (Hemoglobin A1C 5.6%) Hypertension Dyslipidemia Continue aspirin, statin and ezetimibe On insulin sliding scale Nutrition: Glucerna Prophylaxis for PUD and DVT: Pantoprazol and SCDs Lines: 12/26/2024 Right IJ VCV 12/26/2024 ET tube 7.5 12/26/2024 NG tube 12/26/2024 Left IJ HD catheter 12/26/2024 Fontenot catheter Drips Norepinephrine 2 ml/min during hemodialysis sessions Propofol Fentanyl Goals of care discussed with patient and POA (granddaughter Cammie at [phone]) for over 28 minutes: Full code status Discussed plan with Dr Lujan, patient, granddaughter and nurses: Patient currently on ICU status under sedoanalgesia, on mechanical assisted ventilation, with intermittent IV vasopressors during hemodialysis sessions, IV fluids, empiric IV antibiotics (currently only on meropenem and vancomycin, we will continue deescalation), IV steroids (reducing dose) and hemodialysis sessions. Planning on CPAP trial on 12/30/2024. Patient has critical prognosis. Critical care time spent including chart review, discussion with family and patient evaluation, excluding procedures: 73 minutes Plan discussed with: Other (Granddaughther (fgiit-il-eltoukyi, Cammie) and nurses) My Orders My Orders Orders - LUTHER SEPULVEDA RESIDENT Procedure Category Date Status Time Ceftriaxone 1gm/50ml PHA 12/29/24 In Process (Rocephin) 09:00 Sequential CRISSY 12/28/24 In Process Compression Device 12:34 Communication Order ORDERS 12/28/24 Transmitted 17:45 Nutritional PHA 12/28/24 In Process Supplements (Glucerna 22:00 Respiratory Misc. RT 12/28/24 Transmitted Order 21:54 Abg W/ Co-Ox RT 12/29/24 Logged 04:00 Ventilator Orders RT 12/28/24 Transmitted 22:54 Mrsa Screen ESTEFANI 12/28/24 In Process 23:22 Insert Rectal Tube ORDERS 12/29/24 Transmitted 04:52 Potassium Chl PHA 12/29/24 In Process 20meq/100ml 06:30 Date of Service: Dec 29, 2024 Billing Provider: BEVERLY LUJAN MD Common Visit Codes: [id number] INP/OBS CARE(HIGH) LUTHER SEPULVEDA RESIDENT Dec 29, 2024 08:02 BEVERLY LUJAN MD Jan 02, 2025 21:34
--- NOTE | 2024-12-29 09:42 | DVHPN2 ---
Progress Note Date Seen: Dec 29, 2024 Medical Necessity Reason Pt with a Central, PICC or Fol: Yes The following are medically ne: Central Line (central line and Left IJ HD catheter), Fontenot Catheter Subjective Review of Systems: RESPIRATORY:Abnormal Other Systems: Patient seen and examined by myself today in follow-up, patient remained intubated on ventilator Objective vital signs Vital Sign Date Time Temp Pulse Resp B/P (MAP) Pulse Ox O2 Delivery O2 Flow Rate FiO2 12/29/24 08:02 87 20 218/125 (156) 100 30 12/29/24 05:00 Mechanical Ventilator+ 12/29/24 04:00 97.7 207.9 Total Intake and Output 12/28/24 12/28/24 12/29/24 15:00 23:00 07:00 Intake Total 581.38 ml 176.712 ml 304.744 ml Output Total 1700 ml 1500 ml Balance -1118.62 ml 176.712 ml -1195.256 ml medications Current Medications Medications Dose Ordered Sig/Liz Route Start Time Stop Time Status Last Admin Dose Admin Pantoprazole Sodium 40 mg DAILY IV 12/26/24 00:00 12/27/24 12:58 40 MG Levalbuterol HCl 0.625 mg Q6HR NEB 12/26/24 00:00 12/29/24 06:19 0.625 MG Ipratropium [place] 0.5 mg Q6HR NEB 12/26/24 00:00 12/29/24 06:19 0.5 MG Norepinephrine Bitartrate 250 ml @ 3.75 mls/hr Q24H IV 12/26/24 04:15 12/27/24 00:38 15 MLS/HR Methylprednisolone Sodium Succinate 40 mg BID IV 12/26/24 10:00 12/28/24 21:53 40 MG Azithromycin 250 ml @ 125 mls/hr DAILY IV 12/26/24 10:00 12/27/24 13:07 125 MLS/HR Propofol 100 ml @ 1.908 mls/ hr Q24H IV 12/26/24 15:30 12/29/24 05:57 19.08 MLS/HR Fentanyl Citrate 250 ml @ 2.5 mls/hr Q24H IV 12/26/24 15:30 12/29/24 06:15 25 MLS/HR Aspirin 81 mg DAILY PO 12/27/24 10:00 Atorvastatin Calcium 80 mg HS PO 12/27/24 22:00 12/28/24 21:53 80 MG EZETIMIBE 10 mg DAILY PO 12/27/24 10:00 12/27/24 13:21 10 MG Diagnostic Test (Pha) 1 strip Q6HR 12/27/24 00:00 12/29/24 05:59 1 STRIP Insulin Human Regular Q6HR SC 12/27/24 00:00 12/29/24 05:58 2 UNITS Dextrose 50 ml UD PRN IV 12/26/24 22:15 Ceftriaxone Sodium 50 ml @ 100 mls/hr DAILY@09 IV 12/29/24 09:00 Enteral Nutritional Formula 1,000 ml 30ML/HR GT 12/28/24 22:00 Examination: LUNGS:Normal, CVS:Normal, MSK:Normal laboratory and microbiology Laboratory Tests 12/29/24 03:38 Test 12/29/24 03:38 Range/Units Serum Glucose 157 H 74-106 mg/dL Microbiology Date/Time Source Procedure Growth Status 12/26/24 14:44 Sputum Gram Stain - Final Resulted 12/26/24 14:44 Sputum Respiratory Culture - Preliminary Resulted 12/25/24 16:44 Blood Blood Culture - Preliminary NO GROWTH AFTER 72 HOURS OF INCUBATION. Resulted 12/25/24 01:01 Nose MRSA Screen - Final Complete 12/25/24 00:45 Voided Urine Urine Culture - Final Escherichia coli Complete Problem List/Assessment/Plan Problem List/Assessment/Plan Nurse Acute kidney injury superimposed Chronic Kidney Disease secondary hemodynamic mediated requiring intermittent hemodialysis acute respiratory failure, patient intubated on ventilator PNA dementia metabolic acidosis Hypokalemia Diabetes mellitus type 2 Hypertension Anemia of chronic kidney disease Recommendations Status post hemodialysis yesterday with 1 L removed Increased urine output Watch for renal recovery Strict I&Os Avoid nephrotoxic medications KCL replacement Insulin sliding scale Blood pressure control Kidneys reported within normal limit on CT of the abdomen We will continue to follow Plan discussed with: Other My Orders My Orders Orders - CHUN TORRES MD Procedure Category Date Status Time Hemodialysis Orders ORDERS 12/28/24 Transmitted 10:41 CHUN TORRES MD Dec 29, 2024 09:42
[2024-12-29] MEDS ORDERED: POTASSIUM CHL 20MEQ/100ML 100 ML IV ONE (10:00)
--- NOTE | 2024-12-29 10:36 | DVHPN2 ---
Progress Note - Dictate Date Seen: Dec 29, 2024 Medical Necessity Reason Pt with a Central, PICC or Fol: Yes The following are medically ne: Central Line (central line and Left IJ HD catheter), Fontenot Catheter Subjective Ms. Viveros is a 69 years old female with a history of hypertension, diabetes, congestive heart failure, COPD, asthma, rheumatoid arthritis, chronic pain syndrome/lumbar disc disease, she was brought to the hospital on 12/25/2024 with a chief complaint of low blood pressure. I saw her on 01/15/2021 for ALOC/opiate ALOC/opiate overdose I have seen examined the patient, I have talked to her nurse, she is responsive to stroke painful stimuli, pupils are very small and nonreactive Fentanyl 300 mcg/hour, propofol 50 mcg/minute, Levo 0 mcg/minutes Blood culture, 12/25/2024: Hepatitis panel, 12/26/2024: UDS, 01/13/2021: Cannabinoids, alcohol: 6 12/26/2024: Negative Urinalysis, 12/25/2024: WBC: 342, urine WBC clumps: Present, urine leukocyte esterase: 3+ ABG, 12/25/2024: Metabolic acidosis, 12/26/2024: Hypoxia, metabolic acidosis, WBC/HGB/PLT/MCV, 12/25/2024: 10.5/12.9/134/83.8. 12/26/2024: 21.8/12.5/156/91.3, 12/28/2024: 14.7/10.8/97/81.5 K 12/25/2024: 5, 6.1, 12/26/2024: 7.5, 6.8 Anion gap, 12/26/2024: 29 BUN/CR, 12/26/2024: 43/8.2, 11/24/2024: 21/3.42 GFR, 12/26/2024: 5, 12/28/2024: 14 Lactic acid, 12/25/2024: 8.8, 13.1, 12/26/2024: 6.3, 9.5 HGB A1c, 12/26/2024: 5.6 TBI/AST/ALT/AP, 12/26/2024: 0.4/56/26/62 Ammonia, 12/26/2024: 87 TG/HDL/LDL/HDL, 12/26/2024: 154/188/117/52 Vitamin B12, 02/26/2024: 490 Folic acid, 12/2620: 20.25 TSH, 12/26/2024: 0.87 Chest x-ray, 12/25/2024: Bronchovascular crowding due to low lung volumes. Underlying pulmonary vascular congestion can not be excluded Chest x-ray, 12/26/24: 1. No acute cardiopulmonary disease. 2. Pulmonary markings reflect supine 3. Endotracheal tube 2.7 cm above the gabriel 4. Enteric tube below the left diaphragm in the stomach 5. Right internal jugular catheter in good position at the cavoatrial junction. CT head, 01/13/2021: No mass effect or acute intracranial bleed. Minimal chronic sinusitis change CT head, 12/25/2024: 1. There is no acute infarct, intracranial hemorrhage, or mass effect. 2. There is no hydrocephalus or significant midline shift. 3. 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 4. Mild chronic microvascular ischemic changes and mild parenchymal volume loss. 5. No acute, depressed calvarial fractures. 6. No large scalp hematomas CT abdomen/pelvis, 12/25/2024: Wall thickening of the rectum which may be due to inadequate distention /proctitis. Descending colon and sigmoid diverticulosis without diverticulitis. Moderate amount of fecal material within the colon. Small right-sided pleural effusion with bibasilar atelectasis. Right basilar pneumonia can not be excluded vital signs Vital Sign Date Time Temp Pulse Resp B/P (MAP) Pulse Ox O2 Delivery O2 Flow Rate FiO2 12/29/24 10:18 104/74 12/29/24 09:54 67 20 98 30 12/29/24 05:00 Mechanical Ventilator+ 12/29/24 04:00 97.7 207.9 Total Intake and Output 12/28/24 12/28/24 12/29/24 15:00 23:00 07:00 Intake Total 581.38 ml 176.712 ml 304.744 ml Output Total 1700 ml 1500 ml Balance -1118.62 ml 176.712 ml -1195.256 ml medications Current Medications Medications Dose Ordered Sig/Liz Route Start Time Stop Time Status Last Admin Dose Admin Pantoprazole Sodium 40 mg DAILY IV 12/26/24 00:00 12/27/24 12:58 40 MG Levalbuterol HCl 0.625 mg Q6HR NEB 12/26/24 00:00 12/29/24 06:19 0.625 MG Ipratropium [place] 0.5 mg Q6HR NEB 12/26/24 00:00 12/29/24 06:19 0.5 MG Norepinephrine Bitartrate 250 ml @ 3.75 mls/hr Q24H IV 12/26/24 04:15 12/27/24 00:38 15 MLS/HR Methylprednisolone Sodium Succinate 40 mg BID IV 12/26/24 10:00 12/28/24 21:53 40 MG Azithromycin 250 ml @ 125 mls/hr DAILY IV 12/26/24 10:00 12/27/24 13:07 125 MLS/HR Propofol 100 ml @ 1.908 mls/ hr Q24H IV 12/26/24 15:30 12/29/24 10:18 19.08 MLS/HR Fentanyl Citrate 250 ml @ 2.5 mls/hr Q24H IV 12/26/24 15:30 12/29/24 06:15 25 MLS/HR Aspirin 81 mg DAILY PO 12/27/24 10:00 Atorvastatin Calcium 80 mg HS PO 12/27/24 22:00 12/28/24 21:53 80 MG EZETIMIBE 10 mg DAILY PO 12/27/24 10:00 12/27/24 13:21 10 MG Diagnostic Test (Pha) 1 strip Q6HR 12/27/24 00:00 12/29/24 05:59 1 STRIP Insulin Human Regular Q6HR SC 12/27/24 00:00 12/29/24 05:58 2 UNITS Dextrose 50 ml UD PRN IV 12/26/24 22:15 Ceftriaxone Sodium 50 ml @ 100 mls/hr DAILY@09 IV 12/29/24 09:00 Enteral Nutritional Formula 1,000 ml 30ML/HR GT 12/28/24 22:00 objective The patient is well-nourished and well-developed with no distress. The patient is intubated MENTAL STATUS: Subjective CRANIAL NERVES: Pupils are equal, round and nonreactive, very small.There is conjugated eye movement. No signs of facial weakness. There are gagging or coughing reflexes SENSATION: No responses to pain stimuli. MOTOR: Normal tone in the upper and lower extremity. Normal muscle bulk. No fasciculations. No spontaneous movement. REFLEXES: Deep tendon reflexes are symmetrical. No pathological reflexes. CEREBELLAR/COORDINATION: Deferred GAIT/STATION: deferred laboratory and microbiology Laboratory Tests 12/29/24 03:38 Test 12/29/24 03:38 Range/Units Serum Glucose 157 H 74-106 mg/dL Problem List ALOC/Coma Acute metabolic encephalopathy Acute respiratory failure Toxic cephalopathy ? Hepatic encephalitis Lactic acidosis/leukocytosis/sepsis Urinary tract infection Hyperkalemia Kidney failure Cognitive dysfunction, ? MCI, ? Mild dementia/Alzheimer's disease Assessment/Plan Monitoring Support treatment Blood culture Urine culture EEG ICU care Stabilize vitals/pressor drip Respiratory support/vent management Oxygen IV antibodies GI prophylaxis Nephrology on case More recommendation per clinical course This medical document was created using an electronic medical record system with [employer] dictation system. Although this document has been carefully reviewed, there may still be some phonetic and typographical errors. These areas are purely typographical due to imperfections of the software programs, and do not reflect any compromise in the patient's medical care. Prognosis guarded Plan discussed with: Other Critical Care Time(min): 30 TERESA DSOUZA MD Dec 29, 2024 10:36
--- NOTE | 2024-12-29 13:36 | DVH ---
Bilateral lower extremity venous duplex Clinical History: History of DVT Comparison: None Findings: Duplex Doppler evaluation of the deep venous systems of both lower extremities from the common femora l veins to the popliteal veins including color Doppler and spectral/pulsed waveform analysis was perf ormed. RIGHT SIDE: The common femoral vein demonstrates appropriate compressibility and waveform variability. There is compressibility/patency of the great saphenous vein at the proximal thigh. The femoral vein demonstrates appropriate compressibility and waveform variability. The deep femoral vein demonstrates appropriate compressibility and waveform variability. The popliteal vein demonstrates appropriate compressibility and waveform variability. There is normal compressibility at the tibioperoneal trunk. LEFT SIDE: The common femoral vein demonstrates appropriate compressibility and waveform variability. There is compressibility/patency of the great saphenous vein at the proximal thigh. The femoral vein demonstrates appropriate compressibility and waveform variability. The deep femoral vein demonstrates appropriate compressibility and waveform variability. The popliteal vein demonstrates appropriate compressibility and waveform variability. There is normal compressibility at the tibioperoneal trunk. IMPRESSION: No right or left femoropopliteal venous thrombosis. If clinical concern/symptoms persist or worsen, short-interval follow-up study is suggested. END IMPRESSION:
[2024-12-29] MEDS: POTASSIUM CHL 20MEQ/100ML 100 ML IV SCH (14:13)
[2024-12-29] MEDS: MAGNESIUM SULFATE 1GM/100ML 100 ML IV SCH (15:06)
[2024-12-29] MEDS: methylPREDNISolone SOD SUCC 40 MG/ML VL IV ONE (15:30)
[2024-12-29 18:44] LABS: Chloride 105 mmol/L (98-107); Potassium 4.2 mmol/L (3.5-5.1); Sodium 142 mmol/L (136-145)
[2024-12-29 18:45] LABS: Anion Gap 9 (5-15); Carbon Dioxide 28 mmol/L (20-31)
[2024-12-29 18:50] LABS: BUN/Creatinine Ratio 8.7 (10.0-20.0); Blood Urea Nitrogen 15 mg/dL (9-23)
[2024-12-29 19:09] LABS: Calcium 8.4 mg/dL (8.7-10.4); Glucose 166 mg/dL (74-106)
[2024-12-29] MEDS: Glucerna 1.2 Cal 1Liter BOTTLE GT SCH (19:24)
[2024-12-30] VITALS (106 sets, daily range): BP systolic 99–175; BP diastolic 66–116; PULSE 57–131; RESP 10–25; TEMP 97.7–99.2; O2SAT 65–100
[2024-12-30 04:49] LABS: INR 1.02 (0.9-1.15); Partial Thromboplastin Time 25.1 SEC (24.5-34.5); Prothrombin Time 10.8 sec (9.3-11.8)
[2024-12-30 04:50] LABS: Hematocrit 29.9 % (36.0-46.0); Hemoglobin 10.0 g/dL (12.2-16.2); Mean Corpuscular Hemoglobin 27.4 pg (28.0-32.0); Mean Corpuscular Volume 82.0 fL (80.0-100.0); Nucleated Red Blood Cells % 0.1 %
[2024-12-30 05:12] LABS: Potassium 4.2 mmol/L (3.5-5.1)
[2024-12-30 05:13] LABS: Anion Gap 9 (5-15); Carbon Dioxide 28 mmol/L (20-31)
[2024-12-30 05:18] LABS: BUN/Creatinine Ratio 10.8 (10.0-20.0); Blood Urea Nitrogen 17 mg/dL (9-23); Glucose 102 mg/dL (74-106)
[2024-12-30 05:19] LABS: Magnesium 2.2 mg/dL (1.6-2.6)
[2024-12-30 05:21] LABS: Calcium 7.9 mg/dL (8.7-10.4); Chloride 108 mmol/L (98-107); Sodium 145 mmol/L (136-145)
[2024-12-30] MEDS ORDERED: NITR0.4S29 SL (06:12)
--- NOTE | 2024-12-30 07:01 | DVH ---
CHEST RADIOGRAPH Indication: Intubated Technique: Single frontal view of the chest was obtained Comparison: XY CHEST XRAY 1 VIEW on DOS: 12/29/24 FINDINGS: Lines and Tubes: The endotracheal tube terminates 3.3 cm above the gabriel. There is a left central ve nous catheter with its tip terminating in the superior vena cava. Right central venous catheter term inates in the superior vena cava. Lungs: Decreased bilateral pulmonary opacities. Pleura: Small right pleural effusion, decreased since prior study. No pneumothorax. Cardiomediastinal contours: Stable cardiomegaly. Bones: No acute osseous abnormality. IMPRESSION: 1. Decreased pulmonary edema. 2. Small right pleural effusion, decreased since prior study.
[2024-12-30 07:19] LABS: Base Excess 1.0 mmol/L (-2.0-3.0)
[2024-12-30] MEDS: methylPREDNISolone SOD SUCC 40 MG/ML VL IV SCH (10:37)
--- NOTE | 2024-12-30 10:38 | DVHPN2 ---
Progress Note - Dictate Date Seen: Dec 30, 2024 Medical Necessity Reason Pt with a Central, PICC or Fol: Yes The following are medically ne: Central Line (central line and Left IJ HD catheter), Fontenot Catheter Subjective Ms. Viveros is a 69 years old female with a history of hypertension, diabetes, congestive heart failure, COPD, asthma, rheumatoid arthritis, chronic pain syndrome/lumbar disc disease, she was brought to the hospital on 12/25/2024 with a chief complaint of low blood pressure. I saw her on 01/15/2021 for ALOC/opiate ALOC/opiate overdose I have seen examined the patient with his nurse, she is respond to light touch, questionably to verbal stimuli, she does not move the arms and legs, Sedation was turned off around 12/30/2024 9:30 a.m. Blood culture, 12/25/2024: Hepatitis panel, 12/26/2024: UDS, 01/13/2021: Cannabinoids, alcohol: 6 12/26/2024: Negative Urinalysis, 12/25/2024: WBC: 342, urine WBC clumps: Present, urine leukocyte esterase: 3+ ABG, 12/25/2024: Metabolic acidosis, 12/26/2024: Hypoxia, metabolic acidosis, WBC/HGB/PLT/MCV, 12/25/2024: 10.5/12.9/134/83.8. 12/26/2024: 21.8/12.5/156/91.3, 12/28/2024: 14.7/10.8/97/81.5 K 12/25/2024: 5, 6.1, 12/26/2024: 7.5, 6.8 Anion gap, 12/26/2024: 29 BUN/CR, 12/26/2024: 43/8.2, 11/24/2024: 21/3.42 GFR, 12/26/2024: 5, 12/28/2024: 14 Lactic acid, 12/25/2024: 8.8, 13.1, 12/26/2024: 6.3, 9.5 HGB A1c, 12/26/2024: 5.6 TBI/AST/ALT/AP, 12/26/2024: 0.4/56/26/62 Ammonia, 12/26/2024: 87 TG/HDL/LDL/HDL, 12/26/2024: 154/188/117/52 Vitamin B12, 02/26/2024: 490 Folic acid, 12/2620: 20.25 TSH, 12/26/2024: 0.87 Chest x-ray, 12/25/2024: Bronchovascular crowding due to low lung volumes. Underlying pulmonary vascular congestion can not be excluded Chest x-ray, 12/26/24: 1. No acute cardiopulmonary disease. 2. Pulmonary markings reflect supine 3. Endotracheal tube 2.7 cm above the gabriel 4. Enteric tube below the left diaphragm in the stomach 5. Right internal jugular catheter in good position at the cavoatrial junction. CT head, 01/13/2021: No mass effect or acute intracranial bleed. Minimal chronic sinusitis change CT head, 12/25/2024: 1. There is no acute infarct, intracranial hemorrhage, or mass effect. 2. There is no hydrocephalus or significant midline shift. 3. 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 4. Mild chronic microvascular ischemic changes and mild parenchymal volume loss. 5. No acute, depressed calvarial fractures. 6. No large scalp hematomas CT abdomen/pelvis, 12/25/2024: Wall thickening of the rectum which may be due to inadequate distention /proctitis. Descending colon and sigmoid diverticulosis without diverticulitis. Moderate amount of fecal material within the colon. Small right-sided pleural effusion with bibasilar atelectasis. Right basilar pneumonia can not be excluded vital signs Vital Sign Date Time Temp Pulse Resp B/P (MAP) Pulse Ox O2 Delivery O2 Flow Rate FiO2 12/30/24 10:18 90 20 143/87 (105) 97 35 12/30/24 08:00 Mechanical Ventilator+ 12/30/24 04:00 97.7 97.7 Total Intake and Output 12/29/24 12/29/24 12/30/24 15:00 23:00 07:00 Intake Total 700.54 ml 750.14 ml 252.636 ml Output Total 1450 ml 1330 ml Balance 700.54 ml -699.86 ml -1077.364 ml medications Current Medications Medications Dose Ordered Sig/Liz Route Start Time Stop Time Status Last Admin Dose Admin Pantoprazole Sodium 40 mg DAILY IV 12/26/24 00:00 12/29/24 10:30 40 MG Levalbuterol HCl 0.625 mg Q6HR NEB 12/26/24 00:00 12/30/24 06:17 0.625 MG Ipratropium [place] 0.5 mg Q6HR NEB 12/26/24 00:00 12/30/24 06:17 0.5 MG Norepinephrine Bitartrate 250 ml @ 3.75 mls/hr Q24H IV 12/26/24 04:15 12/27/24 00:38 15 MLS/HR Propofol 100 ml @ 1.908 mls/ hr Q24H IV 12/26/24 15:30 12/30/24 04:27 11.448 MLS/HR Fentanyl Citrate 250 ml @ 2.5 mls/hr Q24H IV 12/26/24 15:30 12/30/24 00:43 22.5 MLS/HR Aspirin 81 mg DAILY PO 12/27/24 10:00 12/29/24 10:32 81 MG Atorvastatin Calcium 80 mg HS PO 12/27/24 22:00 12/29/24 22:08 80 MG EZETIMIBE 10 mg DAILY PO 12/27/24 10:00 12/29/24 10:33 10 MG Diagnostic Test (Pha) 1 strip Q6HR 12/27/24 00:00 12/30/24 06:13 1 STRIP Insulin Human Regular Q6HR SC 12/27/24 00:00 12/29/24 23:52 2 UNITS Dextrose 50 ml UD PRN IV 12/26/24 22:15 Ceftriaxone Sodium 50 ml @ 100 mls/hr DAILY@09 IV 12/29/24 09:00 12/30/24 08:45 100 MLS/HR Enteral Nutritional Formula 1,000 ml 30ML/HR GT 12/28/24 22:00 12/29/24 19:24 1,000 ML Methylprednisolone Sodium Succinate 40 mg DAILY IV 12/30/24 10:00 objective The patient is well-nourished and well-developed with no distress. The patient is intubated MENTAL STATUS: Subjective CRANIAL NERVES: Pupils are equal, round and nonreactive, very small.There is conjugated eye movement. No signs of facial weakness. There are gagging or coughing reflexes SENSATION: No responses to pain stimuli. MOTOR: Normal tone in the upper and lower extremity. Normal muscle bulk. No fasciculations. No spontaneous movement. REFLEXES: Deep tendon reflexes are symmetrical. No pathological reflexes. CEREBELLAR/COORDINATION: Deferred GAIT/STATION: deferred laboratory and microbiology Laboratory Tests 12/30/24 04:00 Test 12/30/24 04:00 Range/Units Serum Glucose 102 74-106 mg/dL Problem List ALOC/Coma Acute metabolic encephalopathy Acute respiratory failure Toxic cephalopathy ? Hepatic encephalitis Lactic acidosis/leukocytosis/sepsis Urinary tract infection Hyperkalemia Kidney failure Cognitive dysfunction, ? MCI, ? Mild dementia/Alzheimer's disease Assessment/Plan Monitoring Support treatment Blood culture Urine culture EEG ICU care Stabilize vitals/pressor drip Respiratory support/vent management Oxygen IV antibodies GI prophylaxis Nephrology on case More recommendation per clinical course This medical document was created using an electronic medical record system with [employer] dictation system. Although this document has been carefully reviewed, there may still be some phonetic and typographical errors. These areas are purely typographical due to imperfections of the software programs, and do not reflect any compromise in the patient's medical care. Prognosis Guarded Dietary Evaluation Review Comments: 1. Increase speed of TF Glucerna to 35ml/hr providing 1008kcal, 50g protein, 676ml free water, meeting 100% of pt's Protein needs 80% of energy needs. If includes the 504kcal from Propofol, pt's will have 120% of her energy needs met. 2. Reassess with updated lab values, kidney function and respiratory status 3. When off vent, consider CCHO-60 Renal Diet with 50g protein restriction after passing a [employer] eval Expected Outcomes/Goals: controlled blood glucose, avoid uremic syndrome, maintain BW. Plan discussed with: Other Critical Care Time(min): 30 TERESA DSOUZA MD Dec 30, 2024 10:37
--- NOTE | 2024-12-30 13:29 | DVHPN2 ---
Progress Note Date Seen: Dec 30, 2024 Medical Necessity Reason Pt with a Central, PICC or Fol: Yes The following are medically ne: Central Line (central line and Left IJ HD catheter), Fontenot Catheter Subjective Review of Systems: RESPIRATORY:Abnormal Other Systems: Patient seen and examined by myself today in follow-up, patient remained intubated on ventilator Objective vital signs Vital Sign Date Time Temp Pulse Resp B/P (MAP) Pulse Ox O2 Delivery O2 Flow Rate FiO2 12/30/24 13:17 88 12 163/102 (122) 94 30 12/30/24 12:15 99.0 99.0 12/30/24 12:00 Mechanical Ventilator+ Total Intake and Output 12/29/24 12/29/24 12/30/24 15:00 23:00 07:00 Intake Total 700.54 ml 750.14 ml 262.636 ml Output Total 1450 ml 1330 ml Balance 700.54 ml -699.86 ml -1067.364 ml medications Current Medications Medications Dose Ordered Sig/Liz Route Start Time Stop Time Status Last Admin Dose Admin Pantoprazole Sodium 40 mg DAILY IV 12/26/24 00:00 12/30/24 10:38 40 MG Levalbuterol HCl 0.625 mg Q6HR NEB 12/26/24 00:00 12/30/24 11:50 0.625 MG Ipratropium [place] 0.5 mg Q6HR NEB 12/26/24 00:00 12/30/24 11:50 0.5 MG Norepinephrine Bitartrate 250 ml @ 3.75 mls/hr Q24H IV 12/26/24 04:15 12/27/24 00:38 15 MLS/HR Propofol 100 ml @ 1.908 mls/ hr Q24H IV 12/26/24 15:30 12/30/24 04:27 11.448 MLS/HR Fentanyl Citrate 250 ml @ 2.5 mls/hr Q24H IV 12/26/24 15:30 12/30/24 00:43 22.5 MLS/HR Aspirin 81 mg DAILY PO 12/27/24 10:00 12/30/24 10:38 81 MG Atorvastatin Calcium 80 mg HS PO 12/27/24 22:00 12/29/24 22:08 80 MG EZETIMIBE 10 mg DAILY PO 12/27/24 10:00 12/30/24 10:38 10 MG Diagnostic Test (Pha) 1 strip Q6HR 12/27/24 00:00 12/30/24 12:22 1 STRIP Insulin Human Regular Q6HR SC 12/27/24 00:00 12/29/24 23:52 2 UNITS Dextrose 50 ml UD PRN IV 12/26/24 22:15 Ceftriaxone Sodium 50 ml @ 100 mls/hr DAILY@09 IV 12/29/24 09:00 12/30/24 08:45 100 MLS/HR Enteral Nutritional Formula 1,000 ml 30ML/HR GT 12/28/24 22:00 12/29/24 19:24 1,000 ML Methylprednisolone Sodium Succinate 40 mg DAILY IV 12/30/24 10:00 12/30/24 10:37 40 MG Examination: LUNGS:Normal, CVS:Normal, MSK:Normal laboratory and microbiology Laboratory Tests 12/30/24 04:00 Test 12/30/24 04:00 Range/Units Serum Glucose 102 74-106 mg/dL Microbiology Date/Time Source Procedure Growth Status 12/28/24 23:22 Nose MRSA Screen - Final Complete 12/26/24 14:44 Sputum Gram Stain - Final Complete 12/26/24 14:44 Sputum Respiratory Culture - Final Complete 12/25/24 16:44 Blood Blood Culture - Preliminary NO GROWTH AFTER 72 HOURS OF INCUBATION. Resulted 12/25/24 00:45 Voided Urine Urine Culture - Final Escherichia coli Complete Problem List/Assessment/Plan Problem List/Assessment/Plan Nurse Acute kidney injury superimposed Chronic Kidney Disease secondary hemodynamic mediated requiring intermittent hemodialysis off hemodialysis acute respiratory failure, patient intubated on ventilator PNA dementia metabolic acidosis Hypokalemia Diabetes mellitus type 2 Hypertension Anemia of chronic kidney disease Recommendations Kidney function slightly improving off hemodialysis Increased urine output Remove left IJ Boris catheter Strict I&Os Avoid nephrotoxic medications KCL replacement Insulin sliding scale Blood pressure control Kidneys reported within normal limit on CT of the abdomen We will continue to follow Plan discussed with: Other (Nurse) Dietary Evaluation Review Comments: 1. Increase speed of TF Glucerna to 35ml/hr providing 1008kcal, 50g protein, 676ml free water, meeting 100% of pt's Protein needs 80% of energy needs. If includes the 504kcal from Propofol, pt's will have 120% of her energy needs met. 2. Reassess with updated lab values, kidney function and respiratory status 3. When off vent, consider CCHO-60 Renal Diet with 50g protein restriction after passing a [employer] eval Expected Outcomes/Goals: controlled blood glucose, avoid uremic syndrome, maintain BW. CHUN TORRES MD Dec 30, 2024 13:29
[2024-12-30 14:44] LABS: Base Excess 0.7 mmol/L (-2.0-3.0)
--- NOTE | 2024-12-30 15:22 | DVHPNRES ---
Progress Note Date Seen: Dec 30, 2024 Resident Creating Document: LUTHER SEPULVEDA RESIDENT Medical Necessity Reason Pt with a Central, PICC or Fol: Yes The following are medically ne: Central Line (central line and Left IJ HD catheter), Fontenot Catheter Subjective Review of Systems Mer Viveros is a 69-year-old female who presents to the ER via EMS for progressive altered level of consciousness, generalized weakness for the past weeks, which worsened significantly 24 hours before her admission. Due to clinical status, could not obtain review of systems. Obtained history from granddaughter (BROWN, Cammie). Per POAshwini, she is completely normal at baseline, no cognitive impairments and can complete ADLs, regardless her history of CVA. The day of her admission, BROWN saw patient with increased respiratory effort, prompting her visit. Past Medical History: Hypertension, diabetes, dyslipidemia, CHF, COPD/asthma with multiple admissions, CVA. Surgical History: Denies Family History: Sister had breast cancer Social History: Lives in [place] with granddaughter (she is the caregiver and the [id number]). Ex tobacco abuse (10 pack-year history of smoking). Denies current tobacco, alcohol and other drug abuse. Allergies: Denies Home Medications: Gabapentin 800 mg daily, amlodipine 5 mg p.o. daily, nitroglycerin p.r.n., oxycodone, inhalers, losartan, acetaminophen, montelukast, rosuvastatin, aspirin, metformin Patient seen and examined at bedside. Cannot obtain ROS due to sedoanalgesia, on mechanical assisted ventilation. Hyperkalemia resolved after hemodialysis session, creatinine mildly improving. Urine cultures shows E coli multisensitive, blood and sputum cultures preliminary negative. Requires intermittent IV vasopressors during hemodialysis sessions, last hemodialysis session on 12/28/2024, nephrology specialist on board recommends removing hemodialysis catheter at this time. Patient completed 1st CPAP trial on 12/30/2024, stone not completely responding to commands, ABG within normal limits. We will try CPAP trial once again on 12/31/2024. Objective vital signs Vital Sign Date Time Temp Pulse Resp B/P (MAP) Pulse Ox O2 Delivery O2 Flow Rate FiO2 12/30/24 14:45 108 14 168/104 (125) 96 12/30/24 14:00 35 12/30/24 14:00 Mechanical Ventilator+ 12/30/24 12:15 99.0 99.0 Total Intake and Output 12/29/24 12/29/24 12/30/24 15:00 23:00 07:00 Intake Total 700.54 ml 750.14 ml 262.636 ml Output Total 1450 ml 1330 ml Balance 700.54 ml -699.86 ml -1067.364 ml medications Current Medications Medications Dose Ordered Sig/Liz Route Start Time Stop Time Status Last Admin Dose Admin Pantoprazole Sodium 40 mg DAILY IV 12/26/24 00:00 12/30/24 10:38 40 MG Levalbuterol HCl 0.625 mg Q6HR NEB 12/26/24 00:00 12/30/24 11:50 0.625 MG Ipratropium [place] 0.5 mg Q6HR NEB 12/26/24 00:00 12/30/24 11:50 0.5 MG Norepinephrine Bitartrate 250 ml @ 3.75 mls/hr Q24H IV 12/26/24 04:15 12/27/24 00:38 15 MLS/HR Propofol 100 ml @ 1.908 mls/ hr Q24H IV 12/26/24 15:30 12/30/24 04:27 11.448 MLS/HR Fentanyl Citrate 250 ml @ 2.5 mls/hr Q24H IV 12/26/24 15:30 12/30/24 00:43 22.5 MLS/HR Aspirin 81 mg DAILY PO 12/27/24 10:00 12/30/24 10:38 81 MG Atorvastatin Calcium 80 mg HS PO 12/27/24 22:00 12/29/24 22:08 80 MG EZETIMIBE 10 mg DAILY PO 12/27/24 10:00 12/30/24 10:38 10 MG Diagnostic Test (Pha) 1 strip Q6HR 12/27/24 00:00 12/30/24 12:22 1 STRIP Insulin Human Regular Q6HR SC 12/27/24 00:00 12/29/24 23:52 2 UNITS Dextrose 50 ml UD PRN IV 12/26/24 22:15 Ceftriaxone Sodium 50 ml @ 100 mls/hr DAILY@09 IV 12/29/24 09:00 12/30/24 08:45 100 MLS/HR Enteral Nutritional Formula 1,000 ml 30ML/HR GT 12/28/24 22:00 12/29/24 19:24 1,000 ML Methylprednisolone Sodium Succinate 40 mg DAILY IV 12/30/24 10:00 12/30/24 10:37 40 MG Examination Patient lying in bed, under sedoanalgesia due to mechanical ventilation General: RASS -2, afebrile, mucosae are moist Cardiovascular: Normal S1 and S2. No murmurs, gallops or rubs Respiratory: Mechanically assisted ventilation, equal bilateral airway entree. Bilateral rhonchus predominantly in right base Abdomen: Soft, nontender, no organomegaly, normal bowel sounds MSK/skin: Mobilization of limbs cannot be evaluated. Skin is dry and warm. Right foot is cooler the left foot. Presents generalized edema especially in bilateral hands Neurological: Orientation cannot be assessed. No apparent motor no sensitive deficits. Pupils are isocoric and reactive laboratory and microbiology Laboratory Tests 12/30/24 04:00 Test 12/30/24 04:00 Range/Units Serum Glucose 102 74-106 mg/dL Microbiology Date/Time Source Procedure Growth Status 12/28/24 23:22 Nose MRSA Screen - Final Complete 12/26/24 14:44 Sputum Gram Stain - Final Complete 12/26/24 14:44 Sputum Respiratory Culture - Final Complete 12/25/24 16:44 Blood Blood Culture - Preliminary NO GROWTH AFTER 72 HOURS OF INCUBATION. Resulted 12/25/24 00:45 Voided Urine Urine Culture - Final Escherichia coli Complete Problem List/Assessment/Plan Problem List/Assessment/Plan Metabolic encephalopathy secondary to septic shock likely due to aspiration pneumonia History of CVA Sedoanalgesia Hyperammonemia - Resolved Completed head CT which showed no acute intracranial pathology. Present chronic microvascular changes Currently under sedoanalgesia due to mechanical assisted ventilation. Completing sedation vacation intermittently Neurology on board: consulted due to progressive ALOC, which most likely cause is metabolic encephalopathy due to septic shock. Required lactulose, currently discontinued due to diarrhea Septic shock secondary to aspiration pneumia vs UTI Probable Aspiration pneumonia Gram positive / Gram negative Complicated UTI to E coli Questionable proctitis Currently under empiric IV antibiotics (Meropenem, Vancomycin, previously on Cefepime and azithromycin) Required IV fluid resuscitation and IV vasopressors, currently off vasoactive drugs Urinary culture shows E coli, rest of cultures preliminary negative (sputum and blood). COVID, Influenza and MRSA swab negative Obtained abdomen and pelvis CT which showed thick rectal wall (probable proctitis), diverticulosis, small right pleural effusion and probable right pneumonia Acute respiratory failure due to aspiration pneumonia COPD/Asthma exacerbation On mechanical assisted ventilation (VCV Vt: 400 RR: 20 PEEP: 5 FIO2: 30%). CPAP trial underway On bronchodilator, IV steroids (reduced to methylprednisolone IV 40 mg daily), IV antibiotics and oxygen therapy HIRAL hemodynamically mediated (VMN) Anion-Gap metabolic acidosis with non compensated respiratory alkalosis - Resolved Hyperlactacidemia Severe hyperkalemia - Resolved Hyperphosphatemia - Resolved Anuria - Resolved Nephrology on board: Indicated emergent hemodialysis sessions, optimized medical therapy (bicarbonate drip, currently off) Required multiple hyperkalemia protocol treatments Completed EKG which showed sinus tachycardia, no sine wave or other fatal arrhythmias Failed medical management, required emergent hemodialysis session. Last session on 12/28/2024 (1 L off). Nephrology recommends removing hemodialysis catheter on 12/30/2024. Chronic diastolic congestive heart failure (HFpEF, LVEF 55%) - Unlikely exacerbation Moderate-severe pulmonary hypertension Troponin x3 negative, EKG shows no ST elevation, BNP mildly elevated 12/2023 echocardiogram showed LVEF 55%, moderately severely elevated RVSP (54 mmHg) New echocardiogram shows LVEF 65%, slightly dilated LA, normal RV function, moderate degree pulmonary hypertension (RVSP 45 mmHg) Mild thrombocytopenia Normocytic anemia History of DVT - ruled out acute DVT Follow up cbc Currently on SCDs Discontinue heparin. Does received during hemodialysis session On erythropoietin 68182 units 3 times a week Completed bilateral lower limb Venous US: No DVT Diabetes - Controlled (Hemoglobin A1C 5.6%) Hypertension Dyslipidemia Continue aspirin, statin and ezetimibe On insulin sliding scale Nutrition: Glucerna Prophylaxis for PUD and DVT: Pantoprazol and SCDs Lines: 12/26/2024 Right IJ VCV 12/26/2024 ET tube 7.5 12/26/2024 NG tube 12/26/2024 Left IJ HD catheter - DC 12/30/2024 12/26/2024 Fontenot catheter Drips Propofol Off Fentanyl Off Goals of care discussed with patient and POA (granddaughter Cammie at [phone]) for over 28 minutes: Full code status Discussed plan with Dr Lujan, patient, granddaughter and nurses: Patient currently on ICU status under sedoanalgesia, on mechanical assisted ventilation,off IV vasopressors since 12/28/2024 (since discontinuing HD sessions), IV fluids, empiric IV antibiotics, IV steroids (reducing dose). CPAP trial underway (started on 12/30/2024). Patient has critical prognosis. Critical care time spent including chart review, discussion with family and patient evaluation, excluding procedures: 78 minutes Plan discussed with: Patient, Other (Granddaughter (Cammie DASILVA) and nurses) My Orders My Orders Orders - LUTHER SEPULVEDA RESIDENT Procedure Category Date Status Time Abg W/ Co-Ox RT 12/30/24 Logged 04:00 Methylprednisolone PHA 12/30/24 In Process Sod Succ (Solu Medrol 10:00 Cpap Trial For Am ORDERS 12/29/24 Transmitted 19:34 Cpap/Sed Vacation Med ORDERS 12/30/24 Transmitted Weaning 09:25 Abg W/ Co-Ox RT 12/30/24 Logged 14:24 Dietary Evaluation Review Comments: 1. Increase speed of TF Glucerna to 35ml/hr providing 1008kcal, 50g protein, 676ml free water, meeting 100% of pt's Protein needs 80% of energy needs. If includes the 504kcal from Propofol, pt's will have 120% of her energy needs met. 2. Reassess with updated lab values, kidney function and respiratory status 3. When off vent, consider CCHO-60 Renal Diet with 50g protein restriction after passing a [employer]ICIAN eval Expected Outcomes/Goals: controlled blood glucose, avoid uremic syndrome, maintain BW. Date of Service: Dec 30, 2024 Billing Provider: BEVERLY LUJAN MD Common Visit Codes: [id number] CARE 30-74 MIN (crit care time 40 minutes) LUTHER SEPULVEDA RESIDENT Dec 30, 2024 15:22 BEVERLY LUJAN MD Jan 02, 2025 21:41
[2024-12-30] MEDS: DEXMEDETOMIDINE HCL IN D5W 100 ML IV SCH (18:56)
[2024-12-31] VITALS (110 sets, daily range): BP systolic 97–171; BP diastolic 11–120; PULSE 70–120; RESP 13–28; TEMP 98.6–99.5; O2SAT 90–100
[2024-12-31 03:54] LABS: Hematocrit 31.5 % (36.0-46.0); Hemoglobin 10.5 g/dL (12.2-16.2); Mean Corpuscular Hemoglobin 27.5 pg (28.0-32.0); Mean Corpuscular Volume 82.2 fL (80.0-100.0); Nucleated Red Blood Cells % 0.0 %
[2024-12-31 03:59] LABS: Alanine Aminotransferase 21 U/L (7-40); Albumin 3.5 g/dL (3.2-4.8); Alkaline Phosphatase 52 U/L (46-116); Anion Gap 11 (5-15); BUN/Creatinine Ratio 16.7 (10.0-20.0); Bilirubin, Total 0.4 mg/dL (0.2-1.0); Blood Urea Nitrogen 22 mg/dL (9-23); Carbon Dioxide 25 mmol/L (20-31); Glucose 103 mg/dL (74-106); Magnesium 2.0 mg/dL (1.6-2.6); Potassium 3.6 mmol/L (3.5-5.1); Sodium 144 mmol/L (136-145)
[2024-12-31 04:05] LABS: Calcium 8.5 mg/dL (8.7-10.4); Chloride 108 mmol/L (98-107); Total Protein 5.3 g/dL (5.7-8.2)
--- NOTE | 2024-12-31 06:07 | DVH ---
CHEST RADIOGRAPH Indication: Intubated Technique: Single frontal view of the chest was obtained Comparison: XY CHEST XRAY 1 VIEW on DOS: 12/30/24 FINDINGS: Lines and Tubes: The endotracheal tube terminates 4.8 cm above the gabriel. There is a right central v enous catheter with its tip terminating in the superior vena cava. The enteric tube terminates in the stomach. Lungs: Bilateral airspace disease. Pleura: Stable bilateral pleural effusions. No pneumothorax. Cardiomediastinal contours: Stable cardiomegaly. Bones: No acute osseous abnormality. IMPRESSION: 1. Bilateral airspace disease and bilateral pleural effusions similar to prior study.
[2024-12-31 07:58] LABS: Base Excess -0.2 mmol/L (-2.0-3.0)
[2024-12-31] MEDS: FUROSEMIDE 40 MG/4 ML VIAL IV ONE (10:10)
--- NOTE | 2024-12-31 15:28 | DVHPN2 ---
Progress Note Date Seen: Dec 31, 2024 Medical Necessity Reason Pt with a Central, PICC or Fol: Yes The following are medically ne: Central Line (central line and Left IJ HD catheter), Fontenot Catheter Subjective Review of Systems: RESPIRATORY:Abnormal Other Systems: Patient seen and examined by myself today in follow-up, patient remained intubated on ventilator Objective vital signs Vital Sign Date Time Temp Pulse Resp B/P (MAP) Pulse Ox O2 Delivery O2 Flow Rate FiO2 12/31/24 14:11 118 24 140/94 (109) 91 30 12/31/24 06:00 Mechanical Ventilator+ 12/31/24 04:00 98.6 98.6 Total Intake and Output 12/30/24 12/30/24 12/31/24 15:00 23:00 07:00 Intake Total 131.448 ml 111.124 ml 392.512 ml Output Total 800 ml 630 ml Balance 131.448 ml -688.876 ml -237.488 ml medications Current Medications Medications Dose Ordered Sig/Liz Route Start Time Stop Time Status Last Admin Dose Admin Pantoprazole Sodium 40 mg DAILY IV 12/26/24 00:00 12/31/24 10:06 40 MG Levalbuterol HCl 0.625 mg Q6HR NEB 12/26/24 00:00 12/31/24 12:17 0.625 MG Ipratropium [place] 0.5 mg Q6HR NEB 12/26/24 00:00 12/31/24 12:17 0.5 MG Propofol 100 ml @ 1.908 mls/ hr Q24H IV 12/26/24 15:30 12/31/24 05:16 15.264 MLS/HR Fentanyl Citrate 250 ml @ 2.5 mls/hr Q24H IV 12/26/24 15:30 12/30/24 00:43 22.5 MLS/HR Aspirin 81 mg DAILY PO 12/27/24 10:00 12/31/24 10:07 81 MG Atorvastatin Calcium 80 mg HS PO 12/27/24 22:00 12/30/24 21:41 80 MG EZETIMIBE 10 mg DAILY PO 12/27/24 10:00 12/31/24 10:07 10 MG Diagnostic Test (Pha) 1 strip Q6HR 12/27/24 00:00 12/31/24 12:00 1 STRIP Insulin Human Regular Q6HR SC 12/27/24 00:00 12/30/24 18:29 2 UNITS Dextrose 50 ml UD PRN IV 12/26/24 22:15 Ceftriaxone Sodium 50 ml @ 100 mls/hr DAILY@09 IV 12/29/24 09:00 12/31/24 10:06 100 MLS/HR Enteral Nutritional Formula 1,000 ml 30ML/HR GT 12/28/24 22:00 12/29/24 19:24 1,000 ML Methylprednisolone Sodium Succinate 40 mg DAILY IV 12/30/24 10:00 12/31/24 10:06 40 MG Furosemide 40 mg BIDD IV 12/31/24 18:00 Amlodipine Besylate 10 mg DAILY PO 12/31/24 10:00 12/31/24 10:07 10 MG Potassium Chloride 100 ml @ 50 mls/hr Q2H IV 12/31/24 14:00 12/31/24 17:59 UNV Examination: LUNGS:Normal, CVS:Normal, MSK:Normal laboratory and microbiology Laboratory Tests 12/31/24 02:47 Test 12/31/24 02:47 Range/Units Serum Glucose 103 74-106 mg/dL Microbiology Date/Time Source Procedure Growth Status 12/28/24 23:22 Nose MRSA Screen - Final Complete 12/26/24 14:44 Sputum Gram Stain - Final Complete 12/26/24 14:44 Sputum Respiratory Culture - Final Complete 12/25/24 16:44 Blood Blood Culture - Final NO GROWTH AFTER 5 DAYS OF INCUBATION. Complete 12/25/24 00:45 Voided Urine Urine Culture - Final Escherichia coli Complete Problem List/Assessment/Plan Problem List/Assessment/Plan Nurse Acute kidney injury superimposed Chronic Kidney Disease secondary hemodynamic mediated requiring intermittent hemodialysis off hemodialysis acute respiratory failure, patient intubated on ventilator PNA dementia metabolic acidosis Hypokalemia Diabetes mellitus type 2 Hypertension Anemia of chronic kidney disease Recommendations Kidney function continues to improve off hemodialysis Increased urine output Strict I&Os Avoid nephrotoxic medications KCL replacement Insulin sliding scale Blood pressure control Kidneys reported within normal limit on CT of the abdomen We will continue to follow Plan discussed with: Other (Nurse) My Orders My Orders Orders - CHUN TORRES MD Procedure Category Date Status Time Potassium Chl PHA 12/31/24 Logged 20meq/100ml 14:00 Dietary Evaluation Review Comments: 1. Increase speed of TF Glucerna to 35ml/hr providing 1008kcal, 50g protein, 676ml free water, meeting 100% of pt's Protein needs 80% of energy needs. If includes the 504kcal from Propofol, pt's will have 120% of her energy needs met. 2. Reassess with updated lab values, kidney function and respiratory status 3. When off vent, consider CCHO-60 Renal Diet with 50g protein restriction after passing a HOT DIPPER eval Expected Outcomes/Goals: controlled blood glucose, avoid uremic syndrome, maintain BW. CHUN TORRES MD Dec 31, 2024 15:28
--- NOTE | 2024-12-31 17:14 | DVHPNRES ---
Progress Note Date Seen: Dec 31, 2024 Resident Creating Document: LUTHER SEPULVEDA RESIDENT Medical Necessity Reason Pt with a Central, PICC or Fol: Yes The following are medically ne: Central Line (central line and Left IJ HD catheter), Fontenot Catheter Subjective Review of Systems Mer Viveros is a 69-year-old female who presents to the ER via EMS for progressive altered level of consciousness, generalized weakness for the past weeks, which worsened significantly 24 hours before her admission. Due to clinical status, could not obtain review of systems. Obtained history from granddaughter (BROWN, Cammie). Per POAshwini, she is completely normal at baseline, no cognitive impairments and can complete ADLs, regardless her history of CVA. The day of her admission, BROWN saw patient with increased respiratory effort, prompting her visit. Past Medical History: Hypertension, diabetes, dyslipidemia, CHF, COPD/asthma with multiple admissions, CVA. Surgical History: Denies Family History: Sister had breast cancer Social History: Lives in [place] with granddaughter (she is the caregiver and the [id number]). Ex tobacco abuse (10 pack-year history of smoking). Denies current tobacco, alcohol and other drug abuse. Allergies: Denies Home Medications: Gabapentin 800 mg daily, amlodipine 5 mg p.o. daily, nitroglycerin p.r.n., oxycodone, inhalers, losartan, acetaminophen, montelukast, rosuvastatin, aspirin, metformin Patient seen and examined at bedside. Cannot obtain ROS due to on mechanical assisted ventilation, sedation is off. Urine cultures shows E coli multisensitive, blood and sputum cultures are negative finalized. Last hemodialysis session on 12/28/2024, nephrology specialist on board recommends no more HD at the time (removed HD catheter on 12/30/2024). Patient completed 1st CPAP trial on 12/30/2024, still persists weak, we will try CPAP trial once again on 01/01/2025. Consulted pulmonology for eventual bronchoscopy Objective vital signs Vital Sign Date Time Temp Pulse Resp B/P (MAP) Pulse Ox O2 Delivery O2 Flow Rate FiO2 12/31/24 15:30 118 22 124/87 (99) 96 30 12/31/24 06:00 Mechanical Ventilator+ 12/31/24 04:00 98.6 98.6 Total Intake and Output 12/30/24 12/30/24 12/31/24 15:00 23:00 07:00 Intake Total 131.448 ml 111.124 ml 392.512 ml Output Total 800 ml 630 ml Balance 131.448 ml -688.876 ml -237.488 ml medications Current Medications Medications Dose Ordered Sig/Liz Route Start Time Stop Time Status Last Admin Dose Admin Pantoprazole Sodium 40 mg DAILY IV 12/26/24 00:00 12/31/24 10:06 40 MG Levalbuterol HCl 0.625 mg Q6HR NEB 12/26/24 00:00 12/31/24 12:17 0.625 MG Ipratropium [place] 0.5 mg Q6HR NEB 12/26/24 00:00 12/31/24 12:17 0.5 MG Propofol 100 ml @ 1.908 mls/ hr Q24H IV 12/26/24 15:30 12/31/24 05:16 15.264 MLS/HR Fentanyl Citrate 250 ml @ 2.5 mls/hr Q24H IV 12/26/24 15:30 12/30/24 00:43 22.5 MLS/HR Aspirin 81 mg DAILY PO 12/27/24 10:00 12/31/24 10:07 81 MG Atorvastatin Calcium 80 mg HS PO 12/27/24 22:00 12/30/24 21:41 80 MG EZETIMIBE 10 mg DAILY PO 12/27/24 10:00 12/31/24 10:07 10 MG Diagnostic Test (Pha) 1 strip Q6HR 12/27/24 00:00 12/31/24 12:00 1 STRIP Insulin Human Regular Q6HR SC 12/27/24 00:00 12/30/24 18:29 2 UNITS Dextrose 50 ml UD PRN IV 12/26/24 22:15 Ceftriaxone Sodium 50 ml @ 100 mls/hr DAILY@09 IV 12/29/24 09:00 12/31/24 10:06 100 MLS/HR Enteral Nutritional Formula 1,000 ml 30ML/HR GT 12/28/24 22:00 12/29/24 19:24 1,000 ML Methylprednisolone Sodium Succinate 40 mg DAILY IV 12/30/24 10:00 12/31/24 10:06 40 MG Furosemide 40 mg BIDD IV 12/31/24 18:00 Amlodipine Besylate 10 mg DAILY PO 12/31/24 10:00 12/31/24 10:07 10 MG Potassium Chloride 100 ml @ 50 mls/hr Q2H IV 12/31/24 14:00 12/31/24 17:59 Examination Patient lying in bed, no sedoanalgesia due to mechanical ventilation General: RASS -1, afebrile, mucosae are moist Cardiovascular: Normal S1 and S2. No murmurs, gallops or rubs Respiratory: Mechanically assisted ventilation, equal bilateral airway entree. Bilateral rhonchus predominantly in right base Abdomen: Soft, nontender, no organomegaly, normal bowel sounds MSK/skin: Mobilizes limbs, follows commands. Skin is dry and warm. Presents generalized edema especially in bilateral hands Neurological: Orientation cannot be assessed. No apparent motor no sensitive deficits. Pupils are isocoric and reactive laboratory and microbiology Laboratory Tests 12/31/24 02:47 Test 12/31/24 02:47 Range/Units Serum Glucose 103 74-106 mg/dL Microbiology Date/Time Source Procedure Growth Status 12/28/24 23:22 Nose MRSA Screen - Final Complete 12/26/24 14:44 Sputum Gram Stain - Final Complete 12/26/24 14:44 Sputum Respiratory Culture - Final Complete 12/25/24 16:44 Blood Blood Culture - Final NO GROWTH AFTER 5 DAYS OF INCUBATION. Complete 12/25/24 00:45 Voided Urine Urine Culture - Final Escherichia coli Complete Problem List/Assessment/Plan Problem List/Assessment/Plan Metabolic encephalopathy secondary to septic shock likely due to aspiration pneumonia History of CVA Sedoanalgesia Hyperammonemia - Resolved Completed head CT which showed no acute intracranial pathology. Present chronic microvascular changes Turned off sedation for CPAP trial. Intermittent Precedex for agitation Neurology on board: consulted due to progressive ALOC, which most likely cause is metabolic encephalopathy due to septic shock. Required lactulose, currently discontinued due to diarrhea Septic shock secondary to aspiration pneumia vs UTI Probable Aspiration pneumonia Gram positive / Gram negative Complicated UTI to E coli Questionable proctitis Currently under empiric IV antibiotics (Ceftriaxone, previously on Meropenem, Vancomycin, Cefepime and azithromycin) Required IV fluid resuscitation and IV vasopressors, currently off vasoactive drugs Urinary culture shows E coli, rest of cultures finalized negative (sputum and blood). COVID, Influenza and MRSA swab negative Obtained abdomen and pelvis CT which showed thick rectal wall (probable proctitis), diverticulosis, small right pleural effusion and probable right pneumonia Acute respiratory failure due to aspiration pneumonia COPD/Asthma exacerbation On mechanical assisted ventilation (VCV Vt: 400 RR: 20 PEEP: 5 FIO2: 30%). CPAP trial underway On bronchodilator, IV steroids (reduced to methylprednisolone IV 40 mg daily), IV antibiotics and oxygen therapy Planning bronchoscopy on 01/01/2025 to assist extubation HIRAL hemodynamically mediated (VMN) Anion-Gap metabolic acidosis with non compensated respiratory alkalosis - Resolved Hyperlactacidemia Severe hyperkalemia - Resolved Hyperphosphatemia - Resolved Anuria - Resolved Nephrology on board: Indicated emergent hemodialysis sessions, optimized medical therapy (bicarbonate drip, currently off). Last session on 12/28/2024 (1 L off). Nephrology recommends removing hemodialysis catheter on 12/30/2024. Required multiple hyperkalemia protocol treatments Completed EKG which showed sinus tachycardia, no sine wave or other fatal arrhythmias Chronic diastolic congestive heart failure (HFpEF, LVEF 55%) - Unlikely exacerbation Moderate-severe pulmonary hypertension Troponin x3 negative, EKG shows no ST elevation, BNP mildly elevated 12/2023 echocardiogram showed LVEF 55%, moderately severely elevated RVSP (54 mmHg) New echocardiogram shows LVEF 65%, slightly dilated LA, normal RV function, moderate degree pulmonary hypertension (RVSP 45 mmHg) Mild thrombocytopenia Normocytic anemia History of DVT - ruled out acute DVT Follow up cbc Currently on SCDs Discontinue heparin. Does received during hemodialysis session On erythropoietin 62119 units 3 times a week Completed bilateral lower limb Venous US: No DVT Diabetes - Controlled (Hemoglobin A1C 5.6%) Hypertension Dyslipidemia Continue aspirin, statin and ezetimibe On insulin sliding scale Nutrition: Glucerna Prophylaxis for PUD and DVT: Pantoprazol and SCDs Lines: 12/26/2024 Right IJ VCV 12/26/2024 ET tube 7.5 12/26/2024 NG tube 12/26/2024 Left IJ HD catheter - DC 12/30/2024 12/26/2024 Fontenot catheter 12/29/2024 Rectal tube Drips Propofol Off Fentanyl Off Precedex intermittent (for agitation Goals of care discussed with patient and POA (granddaughter Cammie at [phone]) for over 28 minutes: Full code status Discussed plan with Dr Lujan, patient, granddaughter and nurses: Patient currently on ICU status on mechanical assisted ventilation without sedation (intermittent Precedex), adjusted IV antibiotics, IV steroids (reducing dose). CPAP trial underway (started on 12/30/2024). Planning on completing bronchoscopy on 01/01/2025 to assist extubation. Patient has critical prognosis. Critical care time spent including chart review, discussion with family and patient evaluation, excluding procedures: 66 minutes Plan discussed with: Patient, Other (Granddaughter ([id number], Cammie) and nurses) My Orders My Orders Orders - LUTHER SEPULVEDA Procedure Category Date Status Time Furosemide Injection PHA 12/31/24 In Process (Lasix Injection) 18:00 Complete Blood Count LAB 01/01/25 Verified 04:00 Basic Metabolic Panel LAB 01/01/25 Verified 04:00 Magnesium LAB 01/01/25 Verified 04:00 Phosphorus LAB 01/01/25 Verified 04:00 Abg W/ Co-Ox RT 01/01/25 Logged 04:00 Dietary Evaluation Review Comments: 1. Increase speed of TF Glucerna to 35ml/hr providing 1008kcal, 50g protein, 676ml free water, meeting 100% of pt's Protein needs 80% of energy needs. If includes the 504kcal from Propofol, pt's will have 120% of her energy needs met. 2. Reassess with updated lab values, kidney function and respiratory status 3. When off vent, consider CCHO-60 Renal Diet with 50g protein restriction after passing a COLLECTION SPECIALIST eval Expected Outcomes/Goals: controlled blood glucose, avoid uremic syndrome, maintain BW. Date of Service: Dec 31, 2024 Billing Provider: BEVERLY LUJAN MD Common Visit Codes: [id number] CARE 30-74 MIN (crit care time 45 minutes) LUTHER SEPULVEDA Dec 31, 2024 17:14 BEVERLY LUJNA MD Jan 02, 2025 21:44
[2024-12-31] MEDS: POTASSIUM CHL 20MEQ/100ML 100 ML IV SCH (17:48)
[2024-12-31] MEDS: FUROSEMIDE 40 MG/4 ML VIAL IV SCH (17:54)
--- NOTE | 2024-12-31 21:28 | DVH ---
EXAM: XY CHEST PORTABLE HISTORY: pink tinged secretions in ett TECHNIQUE: 1 view of the chest COMPARISON: XY CHEST XRAY 1 VIEW on DOS: 12/31/24 FINDINGS/IMPRESSION: LUNGS: Small right-sided pleural effusion. MEDIASTINUM: Unremarkable BONES: No acute osseous abnormality OTHER: Endotracheal tube 4.9 cm above the gabriel. Right central venous catheter extending to the cavo atrial junction
--- NOTE | 2024-12-31 22:49 | DVHPN2 ---
Progress Note - Dictate Date Seen: Dec 31, 2024 Medical Necessity Reason Pt with a Central, PICC or Fol: Yes The following are medically ne: Central Line (central line and Left IJ HD catheter), Fontenot Catheter Subjective Ms. Viveros is a 69 years old female with a history of hypertension, diabetes, congestive heart failure, COPD, asthma, rheumatoid arthritis, chronic pain syndrome/lumbar disc disease, she was brought to the hospital on 12/25/2024 with a chief complaint of low blood pressure. I saw her on 01/15/2021 for ALOC/opiate ALOC/opiate overdose I have seen examined the patient with his nurse, she is awake, she follows verbal commands earlier today, but did not follow me Was on CPAP earlier today Precedex 0.5 mcg/Kg/Hr Blood culture, 12/25/2024: Hepatitis panel, 12/26/2024: UDS, 01/13/2021: Cannabinoids, alcohol: 6 12/26/2024: Negative Urinalysis, 12/25/2024: WBC: 342, urine WBC clumps: Present, urine leukocyte esterase: 3+ ABG, 12/25/2024: Metabolic acidosis, 12/26/2024: Hypoxia, metabolic acidosis, WBC/HGB/PLT/MCV, 12/25/2024: 10.5/12.9/134/83.8. 12/26/2024: 21.8/12.5/156/91.3, 12/28/2024: 14.7/10.8/97/81.5 K 12/25/2024: 5, 6.1, 12/26/2024: 7.5, 6.8 Anion gap, 12/26/2024: 29 BUN/CR, 12/26/2024: 43/8.2, 11/24/2024: 21/3.42 GFR, 12/26/2024: 5, 12/28/2024: 14 Lactic acid, 12/25/2024: 8.8, 13.1, 12/26/2024: 6.3, 9.5 HGB A1c, 12/26/2024: 5.6 TBI/AST/ALT/AP, 12/26/2024: 0.4/56/26/62 Ammonia, 12/26/2024: 87 TG/HDL/LDL/HDL, 12/26/2024: 154/188/117/52 Vitamin B12, 02/26/2024: 490 Folic acid, 12/2620: 20.25 TSH, 12/26/2024: 0.87 Chest x-ray, 12/25/2024: Bronchovascular crowding due to low lung volumes. Underlying pulmonary vascular congestion can not be excluded Chest x-ray, 12/26/24: 1. No acute cardiopulmonary disease. 2. Pulmonary markings reflect supine 3. Endotracheal tube 2.7 cm above the gabriel 4. Enteric tube below the left diaphragm in the stomach 5. Right internal jugular catheter in good position at the cavoatrial junction. CT head, 01/13/2021: No mass effect or acute intracranial bleed. Minimal chronic sinusitis change CT head, 12/25/2024: 1. There is no acute infarct, intracranial hemorrhage, or mass effect. 2. There is no hydrocephalus or significant midline shift. 3. 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 4. Mild chronic microvascular ischemic changes and mild parenchymal volume loss. 5. No acute, depressed calvarial fractures. 6. No large scalp hematomas CT abdomen/pelvis, 12/25/2024: Wall thickening of the rectum which may be due to inadequate distention /proctitis. Descending colon and sigmoid diverticulosis without diverticulitis. Moderate amount of fecal material within the colon. Small right-sided pleural effusion with bibasilar atelectasis. Right basilar pneumonia can not be excluded vital signs Vital Sign Date Time Temp Pulse Resp B/P (MAP) Pulse Ox O2 Delivery O2 Flow Rate FiO2 12/31/24 22:07 84 20 126/87 (100) 96 30 12/31/24 21:58 Mechanical Ventilator+ 12/31/24 20:00 99.0 99.0 Total Intake and Output 12/30/24 12/30/24 12/31/24 15:00 23:00 07:00 Intake Total 131.448 ml 111.124 ml 392.512 ml Output Total 800 ml 630 ml Balance 131.448 ml -688.876 ml -237.488 ml medications Current Medications Medications Dose Ordered Sig/Liz Route Start Time Stop Time Status Last Admin Dose Admin Pantoprazole Sodium 40 mg DAILY IV 12/26/24 00:00 12/31/24 10:06 40 MG Levalbuterol HCl 0.625 mg Q6HR NEB 12/26/24 00:00 12/31/24 17:58 0.625 MG Ipratropium [place] 0.5 mg Q6HR NEB 12/26/24 00:00 12/31/24 17:58 0.5 MG Propofol 100 ml @ 1.908 mls/ hr Q24H IV 12/26/24 15:30 12/31/24 05:16 15.264 MLS/HR Fentanyl Citrate 250 ml @ 2.5 mls/hr Q24H IV 12/26/24 15:30 12/30/24 00:43 22.5 MLS/HR Aspirin 81 mg DAILY PO 12/27/24 10:00 12/31/24 10:07 81 MG Atorvastatin Calcium 80 mg HS PO 12/27/24 22:00 12/30/24 21:41 80 MG EZETIMIBE 10 mg DAILY PO 12/27/24 10:00 12/31/24 10:07 10 MG Diagnostic Test (Pha) 1 strip Q6HR 12/27/24 00:00 12/31/24 17:54 1 STRIP Insulin Human Regular Q6HR SC 12/27/24 00:00 12/31/24 18:23 2 UNITS Dextrose 50 ml UD PRN IV 12/26/24 22:15 Ceftriaxone Sodium 50 ml @ 100 mls/hr DAILY@09 IV 12/29/24 09:00 12/31/24 10:06 100 MLS/HR Enteral Nutritional Formula 1,000 ml 30ML/HR GT 12/28/24 22:00 12/29/24 19:24 1,000 ML Methylprednisolone Sodium Succinate 40 mg DAILY IV 12/30/24 10:00 12/31/24 10:06 40 MG Furosemide 40 mg BIDD IV 12/31/24 18:00 12/31/24 17:54 40 MG Amlodipine Besylate 10 mg DAILY PO 12/31/24 10:00 12/31/24 10:07 10 MG Acetylcysteine 200 mg Q8HR NEB 01/01/25 00:00 objective The patient is well-nourished and well-developed with no distress. The patient is intubated MENTAL STATUS: Subjective CRANIAL NERVES: Pupils are equal, round and reactive.There is conjugated eye movement. No signs of facial weakness. There are gagging or coughing reflexes during oral care SENSATION: No responses to pain stimuli. MOTOR: Normal tone in the upper and lower extremity. Normal muscle bulk. No fasciculations. Minimal movement in the extremities REFLEXES: Deep tendon reflexes are symmetrical. No pathological reflexes. CEREBELLAR/COORDINATION: Deferred GAIT/STATION: deferred laboratory and microbiology Laboratory Tests 12/31/24 02:47 Test 12/31/24 02:47 Range/Units Serum Glucose 103 74-106 mg/dL Problem List ALOC/Coma Acute metabolic encephalopathy Acute respiratory failure Toxic cephalopathy ? Hepatic encephalitis Lactic acidosis/leukocytosis/sepsis Urinary tract infection Hyperkalemia Kidney failure Cognitive dysfunction, ? MCI, ? Mild dementia/Alzheimer's disease Assessment/Plan Monitoring Support treatment Blood culture Urine culture EEG ICU care Stabilize vitals/pressor drip Respiratory support/vent management Oxygen IV antibodies GI prophylaxis Nephrology on case More recommendation per clinical course This medical document was created using an electronic medical record system with [employer] dictation system. Although this document has been carefully reviewed, there may still be some phonetic and typographical errors. These areas are purely typographical due to imperfections of the software programs, and do not reflect any compromise in the patient's medical care. Prognosis Guarded Dietary Evaluation Review Comments: 1. Increase speed of TF Glucerna to 35ml/hr providing 1008kcal, 50g protein, 676ml free water, meeting 100% of pt's Protein needs 80% of energy needs. If includes the 504kcal from Propofol, pt's will have 120% of her energy needs met. 2. Reassess with updated lab values, kidney function and respiratory status 3. When off vent, consider CCHO-60 Renal Diet with 50g protein restriction after passing a CATH LAB NURSE eval Expected Outcomes/Goals: controlled blood glucose, avoid uremic syndrome, maintain BW. Plan discussed with: Other TERESA DSOUZA MD Dec 31, 2024 22:49
[2024-12-31] MEDS: ACETYLCYSTEINE 20%(200MG/ML) SOL 4ML NEB SCH (23:55)
[2025-01-01] VITALS (88 sets, daily range): BP systolic 86–176; BP diastolic 56–127; PULSE 74–105; RESP 11–28; TEMP 97.9–99.1; O2SAT 92–100
[2025-01-01 04:07] LABS: Anion Gap 16 (5-15); Calcium 9.3 mg/dL (8.7-10.4); Carbon Dioxide 25 mmol/L (20-31); Chloride 102 mmol/L (98-107); Sodium 143 mmol/L (136-145)
[2025-01-01 04:10] LABS: Hematocrit 34.8 % (36.0-46.0); Hemoglobin 11.7 g/dL (12.2-16.2); Mean Corpuscular Hemoglobin 27.6 pg (28.0-32.0); Mean Corpuscular Volume 82.1 fL (80.0-100.0); Nucleated Red Blood Cells % 0.1 %
[2025-01-01 04:13] LABS: BUN/Creatinine Ratio 16.1 (10.0-20.0); Blood Urea Nitrogen 19 mg/dL (9-23); Glucose 126 mg/dL (74-106); Potassium 3.3 mmol/L (3.5-5.1)
[2025-01-01 04:14] LABS: Magnesium 1.5 mg/dL (1.6-2.6)
--- NOTE | 2025-01-01 05:26 | DVH ---
CHEST RADIOGRAPH Indication: Intubated Technique: Single frontal view of the chest was obtained COMPARISON: XY CHEST PORTABLE on DOS: 12/31/24, XY CHEST XRAY 1 VIEW on DOS: 12/31/24, XY CHEST XRAY 1 VIEW on DOS: 12/30/24, XY CHEST XRAY 1 VIEW on DOS: 12/29/24, XY CHEST XRAY 1 VIEW on DOS: 12/28/24, XY CH EST XRAY 1 VIEW on DOS: 12/29/24 FINDINGS: Lines and Tubes: Endotracheal tube terminates above the gabriel. Enteric tube is in satisfactory posi tion. Bilateral IJ approach central venous catheters are in satisfactory positions. Lungs: Mild interstitial prominence with right basilar opacities and indistinctness of the right cheryl diaphragm. No pneumothorax. Cardiomediastinal contours: Unremarkable Bones: No acute osseous abnormality. IMPRESSION: Lines and tubes are in satisfactory position. No significant interval change
[2025-01-01] MEDS: POTASSIUM CHL 20MEQ/100ML 100 ML IV ONE (06:21)
[2025-01-01] MEDS ORDERED: POTASSIUM CHL 20MEQ/100ML 100 ML IV SCH (06:30)
[2025-01-01 06:56] LABS: Base Excess 0.3 mmol/L (-2.0-3.0)
[2025-01-01] MEDS: POTASSIUM CHL 20MEQ/100ML 100 ML IV SCH (08:05)
[2025-01-01] MEDS: MAGNESIUM SULFATE 1GM/100ML 100 ML IV SCH (08:07)
--- NOTE | 2025-01-01 10:30 | DVHPN2 ---
Progress Note Date Seen: Jan 01, 2025 Medical Necessity Reason Pt with a Central, PICC or Fol: Yes The following are medically ne: Central Line (central line and Left IJ HD catheter), Fontenot Catheter Subjective Review of Systems: RESPIRATORY:Abnormal Other Systems: Patient seen and examined by myself today in follow-up Objective vital signs Vital Sign Date Time Temp Pulse Resp B/P (MAP) Pulse Ox O2 Delivery O2 Flow Rate FiO2 01/01/25 09:18 83 20 120/88 (99) 93 30 01/01/25 06:00 Mechanical Ventilator+ 01/01/25 04:00 97.9 97.9 Total Intake and Output 12/31/24 12/31/24 01/01/25 15:00 23:00 07:00 Intake Total 51.908 ml 292.720 ml 122.725 ml Output Total 3600 ml 2310 ml Balance 51.908 ml -3307.280 ml -2187.275 ml medications Current Medications Medications Dose Ordered Sig/Liz Route Start Time Stop Time Status Last Admin Dose Admin Pantoprazole Sodium 40 mg DAILY IV 12/26/24 00:00 01/01/25 08:16 40 MG Levalbuterol HCl 0.625 mg Q6HR NEB 12/26/24 00:00 01/01/25 05:57 0.625 MG Ipratropium [place] 0.5 mg Q6HR NEB 12/26/24 00:00 01/01/25 05:57 0.5 MG Propofol 100 ml @ 1.908 mls/ hr Q24H IV 12/26/24 15:30 12/31/24 05:16 15.264 MLS/HR Fentanyl Citrate 250 ml @ 2.5 mls/hr Q24H IV 12/26/24 15:30 12/30/24 00:43 22.5 MLS/HR Aspirin 81 mg DAILY PO 12/27/24 10:00 01/01/25 08:16 81 MG Atorvastatin Calcium 80 mg HS PO 12/27/24 22:00 12/31/24 23:17 80 MG EZETIMIBE 10 mg DAILY PO 12/27/24 10:00 01/01/25 08:16 10 MG Diagnostic Test (Pha) 1 strip Q6HR 12/27/24 00:00 01/01/25 06:21 1 STRIP Insulin Human Regular Q6HR SC 12/27/24 00:00 01/01/25 06:22 2 UNITS Dextrose 50 ml UD PRN IV 12/26/24 22:15 Ceftriaxone Sodium 50 ml @ 100 mls/hr DAILY@09 IV 12/29/24 09:00 01/01/25 08:07 100 MLS/HR Enteral Nutritional Formula 1,000 ml 30ML/HR GT 12/28/24 22:00 12/29/24 19:24 1,000 ML Methylprednisolone Sodium Succinate 40 mg DAILY IV 12/30/24 10:00 01/01/25 08:16 40 MG Furosemide 40 mg BIDD IV 12/31/24 18:00 01/01/25 06:20 40 MG Amlodipine Besylate 10 mg DAILY PO 12/31/24 10:00 12/31/24 10:07 10 MG Acetylcysteine 200 mg Q8HR NEB 01/01/25 00:00 01/01/25 05:57 200 MG Losartan Potassium 50 mg DAILY PO 01/01/25 10:00 Potassium Chloride 100 ml @ 50 mls/hr Q2H IV 01/01/25 08:30 01/01/25 14:29 01/01/25 10:23 50 MLS/HR laboratory and microbiology Laboratory Tests 01/01/25 03:09 Test 01/01/25 03:09 Range/Units Serum Glucose 126 H 74-106 mg/dL Microbiology Date/Time Source Procedure Growth Status 12/28/24 23:22 Nose MRSA Screen - Final Complete 12/26/24 14:44 Sputum Gram Stain - Final Complete 12/26/24 14:44 Sputum Respiratory Culture - Final Complete 12/25/24 16:44 Blood Blood Culture - Final NO GROWTH AFTER 5 DAYS OF INCUBATION. Complete 12/25/24 00:45 Voided Urine Urine Culture - Final Escherichia coli Complete Problem List/Assessment/Plan Problem List/Assessment/Plan Nurse Acute kidney injury superimposed Chronic Kidney Disease secondary hemodynamic mediated requiring intermittent hemodialysis acute respiratory failure, patient intubated on ventilator PNA dementia metabolic acidosis Hypokalemia Diabetes mellitus type 2 Hypertension Anemia of chronic kidney disease Recommendations Kidney function continues to improve off hemodialysis Increased urine output Strict I&Os Avoid nephrotoxic medications KCL replacement Insulin sliding scale Blood pressure control Free H2O 150 cc NG tube Q 6 hour once starting tube feeding Kidneys reported within normal limit on CT of the abdomen We will continue to follow Plan discussed with: Other (Nurse) Dietary Evaluation Review Expected Outcomes/Goals: controlled blood glucose, avoid uremic syndrome, maintain BW. CHUN TORRES MD Jan 01, 2025 10:30
[2025-01-01] MEDS: LOSARTAN POTASSIUM 50 MG TAB PO SCH (10:37)
--- NOTE | 2025-01-01 11:45 | DVHPNRES ---
Progress Note Date Seen: Jan 01, 2025 Resident Creating Document: LUTHER SEPULVEDA RESIDENT Medical Necessity Reason Pt with a Central, PICC or Fol: Yes The following are medically ne: Central Line (central line and Left IJ HD catheter), Fontenot Catheter Subjective Review of Systems Mer Viveros is a 69-year-old female who presents to the ER via EMS for progressive altered level of consciousness, generalized weakness for the past weeks, which worsened significantly 24 hours before her admission. Due to clinical status, could not obtain review of systems. Obtained history from granddaughter (BROWN, Cammie). Per POAshwini, she is completely normal at baseline, no cognitive impairments and can complete ADLs, regardless her history of CVA. The day of her admission, BROWN saw patient with increased respiratory effort, prompting her visit. Past Medical History: Hypertension, diabetes, dyslipidemia, CHF, COPD/asthma with multiple admissions, CVA. Surgical History: Denies Family History: Sister had breast cancer Social History: Lives in [place] with granddaughter (she is the caregiver and the [id number]). Ex tobacco abuse (10 pack-year history of smoking). Denies current tobacco, alcohol and other drug abuse. Allergies: Denies Home Medications: Gabapentin 800 mg daily, amlodipine 5 mg p.o. daily, nitroglycerin p.r.n., oxycodone, inhalers, losartan, acetaminophen, montelukast, rosuvastatin, aspirin, metformin Patient seen and examined at bedside. Cannot obtain ROS due to on mechanical assisted ventilation, sedation is off. Urine cultures shows E coli multisensitive, blood and sputum cultures are negative finalized. Last hemodialysis session on 12/28/2024, nephrology specialist on board recommends no more HD at the time (removed HD catheter on 12/30/2024). Completed bronchoscopy for bronchial washing, sent samples for cytology and cultures. Patient completed 1st CPAP trial on 12/30/2024, planning on extubation after successful bronchoscopy Objective vital signs Vital Sign Date Time Temp Pulse Resp B/P (MAP) Pulse Ox O2 Delivery O2 Flow Rate FiO2 01/01/25 11:27 92 27 143/99 (114) 98 30 01/01/25 06:00 Mechanical Ventilator+ 01/01/25 04:00 97.9 97.9 Total Intake and Output 12/31/24 12/31/2401/01/25 15:00 23:00 07:00 Intake Total 51.908 ml 292.720 ml 122.725 ml Output Total 3600 ml 2310 ml Balance 51.908 ml -3307.280 ml -2187.275 ml medications Current Medications Medications Dose Ordered Sig/Liz Route Start Time Stop Time Status Last Admin Dose Admin Pantoprazole Sodium 40 mg DAILY IV 12/26/24 00:00 01/01/25 08:16 40 MG Levalbuterol HCl 0.625 mg Q6HR NEB 12/26/24 00:00 01/01/25 05:57 0.625 MG Ipratropium [place] 0.5 mg Q6HR NEB 12/26/24 00:00 01/01/25 05:57 0.5 MG Propofol 100 ml @ 1.908 mls/ hr Q24H IV 12/26/24 15:30 12/31/24 05:16 15.264 MLS/HR Fentanyl Citrate 250 ml @ 2.5 mls/hr Q24H IV 12/26/24 15:30 12/30/24 00:43 22.5 MLS/HR Aspirin 81 mg DAILY PO 12/27/24 10:00 01/01/25 08:16 81 MG Atorvastatin Calcium 80 mg HS PO 12/27/24 22:00 12/31/24 23:17 80 MG EZETIMIBE 10 mg DAILY PO 12/27/24 10:00 01/01/25 08:16 10 MG Diagnostic Test (Pha) 1 strip Q6HR 12/27/24 00:00 01/01/25 06:21 1 STRIP Insulin Human Regular Q6HR SC 12/27/24 00:00 01/01/25 06:22 2 UNITS Dextrose 50 ml UD PRN IV 12/26/24 22:15 Ceftriaxone Sodium 50 ml @ 100 mls/hr DAILY@09 IV 12/29/24 09:00 01/01/25 08:07 100 MLS/HR Enteral Nutritional Formula 1,000 ml 30ML/HR GT 12/28/24 22:00 12/29/24 19:24 1,000 ML Methylprednisolone Sodium Succinate 40 mg DAILY IV 12/30/24 10:00 01/01/25 08:16 40 MG Furosemide 40 mg BIDD IV 12/31/24 18:00 01/01/25 06:20 40 MG Amlodipine Besylate 10 mg DAILY PO 12/31/24 10:00 01/01/25 10:38 10 MG Acetylcysteine 200 mg Q8HR NEB 01/01/25 00:00 01/01/25 05:57 200 MG Losartan Potassium 50 mg DAILY PO 01/01/25 10:00 01/01/25 10:37 50 MG Potassium Chloride 100 ml @ 50 mls/hr Q2H IV 01/01/25 08:30 01/01/25 14:29 01/01/25 10:23 50 MLS/HR Examination Patient lying in bed, no sedoanalgesia due to mechanical ventilation (before extubation) General: RASS -1, afebrile, mucosae are moist Cardiovascular: Normal S1 and S2. No murmurs, gallops or rubs Respiratory: Mechanically assisted ventilation, equal bilateral airway entree. Bilateral rhonchus predominantly in right base Abdomen: Soft, nontender, no organomegaly, normal bowel sounds MSK/skin: Mobilizes limbs, follows commands. Skin is dry and warm. Presents generalized edema especially in bilateral hands Neurological: Orientation cannot be assessed. No apparent motor no sensitive deficits. Pupils are isocoric and reactive laboratory and microbiology Laboratory Tests 01/01/25 03:09 Test 01/01/25 03:09 Range/Units Serum Glucose 126 H 74-106 mg/dL Microbiology Date/Time Source Procedure Growth Status 12/28/24 23:22 Nose MRSA Screen - Final Complete 12/26/24 14:44 Sputum Gram Stain - Final Complete 12/26/24 14:44 Sputum Respiratory Culture - Final Complete 12/25/24 16:44 Blood Blood Culture - Final NO GROWTH AFTER 5 DAYS OF INCUBATION. Complete 12/25/24 00:45 Voided Urine Urine Culture - Final Escherichia coli Complete Problem List/Assessment/Plan Problem List/Assessment/Plan Metabolic encephalopathy secondary to septic shock likely due to aspiration pneumonia History of CVA Sedoanalgesia Hyperammonemia - Resolved Completed head CT which showed no acute intracranial pathology. Present chronic microvascular changes Turned off sedation for CPAP trial. Intermittent Precedex for agitation Neurology on board: consulted due to progressive ALOC, which most likely cause is metabolic encephalopathy due to septic shock. Required lactulose, currently discontinued due to diarrhea Septic shock secondary to aspiration pneumia vs UTI Probable Aspiration pneumonia Gram positive / Gram negative Complicated UTI to E coli Questionable proctitis Currently under empiric IV antibiotics (Ceftriaxone, previously on Meropenem, Vancomycin, Cefepime and azithromycin) Required IV fluid resuscitation and IV vasopressors, currently off vasoactive drugs Urinary culture shows E coli, rest of cultures finalized negative (sputum and blood). COVID, Influenza and MRSA swab negative Obtained abdomen and pelvis CT which showed thick rectal wall (probable proctitis), diverticulosis, small right pleural effusion and probable right pneumonia Acute respiratory failure due to aspiration pneumonia COPD/Asthma exacerbation On mechanical assisted ventilation (VCV Vt: 400 RR: 20 PEEP: 5 FIO2: 30%). CPAP trial underway, planning extubation on 01/01/2025 On bronchodilator, IV steroids (reduced to methylprednisolone IV 40 mg daily), IV antibiotics and oxygen therapy Completed bronchoscopy on 01/01/2025 with successful bronchial wash. HIRAL hemodynamically mediated (VMN) Anion-Gap metabolic acidosis with non compensated respiratory alkalosis - Resolved Hyperlactacidemia Severe hyperkalemia - Resolved Hyperphosphatemia - Resolved Anuria - Resolved Nephrology on board: Indicated emergent hemodialysis sessions, optimized medical therapy (bicarbonate drip, currently off). Last session on 12/28/2024 (1 L off). Nephrology recommends removing hemodialysis catheter on 12/30/2024. Required multiple hyperkalemia protocol treatments Completed EKG which showed sinus tachycardia, no sine wave or other fatal arrhythmias Chronic diastolic congestive heart failure (HFpEF, LVEF 55%) - Unlikely exacerbation Moderate-severe pulmonary hypertension Troponin x3 negative, EKG shows no ST elevation, BNP mildly elevated 12/2023 echocardiogram showed LVEF 55%, moderately severely elevated RVSP (54 mmHg) New echocardiogram shows LVEF 65%, slightly dilated LA, normal RV function, moderate degree pulmonary hypertension (RVSP 45 mmHg) Mild thrombocytopenia Normocytic anemia History of DVT - ruled out acute DVT Follow up cbc Currently on SCDs Discontinue heparin. Does received during hemodialysis session On erythropoietin 20187 units 3 times a week Completed bilateral lower limb Venous US: No DVT Diabetes - Controlled (Hemoglobin A1C 5.6%) Hypertension Dyslipidemia Continue aspirin, statin and ezetimibe On insulin sliding scale Nutrition: Glucerna Prophylaxis for PUD and DVT: Pantoprazol and SCDs Lines: 12/26/2024 Right IJ VCV 12/26/2024 ET tube 7.5 12/26/2024 NG tube 12/26/2024 Left IJ HD catheter - DC 12/30/2024 12/26/2024 Fontenot catheter 12/29/2024 Rectal tube Drips Propofol Off Fentanyl Off Precedex intermittent (for agitation Goals of care discussed with patient and POA (granddaughter Cammie at [phone]) for over 28 minutes: Full code status Discussed plan with Dr Lujan, patient, granddaughter and nurses: Patient currently on ICU status on mechanical assisted ventilation without sedation (intermittent Precedex), adjusted IV antibiotics, IV steroids (reducing dose). Completed bronchoscopy with bronchial wash, completed CPAP trial for past 72hs, planning on extubation after bronch. Patient has critical prognosis. Critical care time spent including chart review, discussion with family and patient evaluation, excluding procedures and CPAP trial: 77 minutes Plan discussed with: Patient, Other (Granddaugther and nurses) My Orders My Orders Orders - LUTHER SEPULVEDA Procedure Category Date Status Time Abg W/ Co-Ox RT 01/01/25 Logged 04:00 Cpap Trial For Am ORDERS 12/31/24 Transmitted 17:07 Losartan Tablet PHA 01/01/25 In Process (Cozaar Tablet) 10:00 Potassium Chl PHA 01/01/25 In Process 20meq/100ml 08:30 Cpap Trial For Am ORDERS 01/01/25 Transmitted 11:24 Dietary Evaluation Review Expected Outcomes/Goals: controlled blood glucose, avoid uremic syndrome, maintain BW. Date of Service: Jan 01, 2025 Billing Provider: BEVERLY LUJAN MD Common Visit Codes: [id number] CARE 30-74 MIN (crit care time 80 minutes inc extubation) LUTHER SEPULVEDA Jan 01, 2025 11:45 BEVERLY LUJAN MD Jan 02, 2025 21:45
[2025-01-01 13:06] LABS: Base Excess 4.1 mmol/L (-2.0-3.0)
--- NOTE | 2025-01-01 14:42 | DVHINCON2 ---
Date of service: Dec 31, [address] Lujan Reason for Consultation Acute respiratory failure History of Present Illness History Source: Patient, RN Notes, MD Notes Exam Limitations: Clinical condition HPI Patient is a 69-year old lady with a history of morbid obesity, hypertension, diabetes and COPD who presented with shortness of breath. Was seen in the emergency room where she was intubated for respiratory failure and placed on mechanical ventilation, initial settings RR 20, tidal volume 400, PEEP 5, FiO2 30%. Secretions reported by RT and pulmonology was consulted to assist in performing bronchoscopy. Home Meds Active Scripts Riejbqfmbue-Hjdaohvcfhwl-Rozyd (Trelegy Ellipta 100-62.5-25 Mcg/INH) 1 Aer Aer, 1 AER IN BID for 30 Days, #1 AER Prov:GREGORIO LAWSON RESIDENT 05/14/24 Reported Medications Nitroglycerin (NTROSTAT SUBLINGUAL) 0.4 Mg Sl, 0.4 MG SL PRN, TAB *MAY REPEAT EVERY 5 MINUTES X 3 TOTAL IF NO RELIEF, INITIATE ANALGESIC THERAPY. NOTIFY PHYSICIAN *Do not crush. 12/30/24 Albuterol Sulfate (Albuterol Sulfate Hfa) 108 Mcg/Act Aer, 108 MCG IN UD for 16 Days, #6.7 05/11/24 Rosuvastatin Calcium (Rosuvastatin Calcium) 40 Mg Tab, 1 TAB PO HS 04/18/23 Ezetimibe (Ezetimibe) 10 Mg Tab, 1 TAB PO DAILY 04/17/23 Gabapentin (Gabapentin) 800 Mg Tab, 300 MG PO DAILY 04/17/23 Losartan Potassium (Losartan Potassium) 100 Mg Tab, 1 TAB PO DAILY 04/17/23 Oxycodone HCl (Oxycodone Hydrochloride) 15 Mg Tab, 10 MG PO BID 04/17/23 Amlodipine Besylate (Amlodipine Besylate) 10 Mg Tab, 1 TAB PO DAILY 01/13/21 Metformin HCl (Metformin Hydrochloride) 1,000 Mg Tab, 1 TAB PO BID 01/13/21 Discontinued Reported Medications Aspirin (Aspirin Low Dose) 81 Mg Chw, 1 TAB PO DAILY for 90 Days, #90 05/11/24 Docusate Sodium (Docusate Sodium) 250 Mg Cap, 1 CAP PO BID for 30 Days, #60 05/11/24 Diclofenac Sodium (Diclofenac Sodium Dr) 75 Mg Tab, 1 TAB PO BID 04/18/23 Montelukast Sodium (MONTELUKAST SODIUM) 10 Mg Tab, 1 TAB PO DAILY 04/17/23 Past Medical History Cardiac: HTN Pulmonary: COPD Central Nervous System: No pertinent Hx GI: No pertinent Hx Hemotology/Oncology: No pertinent Hx Hepatobiliary: No pertinent Hx Psychiatric: No pertinent Hx Musculoskeletal: No pertinent Hx Rheumotologic: No pertinent Hx Infectious Disease: No peritnent Hx ENT: No pertinent Hx Renal/: No pertinent Hx Endocrine: NIDDM Dermatology: No pertinent Hx Past Surgical History: No pertinent Hx Family History: Cancer, DM, Hypertension Patient Family History: FH: cancer G8 MOTHER G8 FATHER FH: diabetes mellitus G8 MOTHER G8 FATHER FH: hypertension G8 MOTHER G8 FATHER Smoker: No Hx (Negative) Alocohol: None Drugs: None Lives with: With family Domestic Violence: Neg Review of Systems Comments unable to obtain: patient intubated and sedated H&P Exam Vital Signs Vital Signs Date Time Temp Pulse Resp B/P (MAP) Pulse Ox O2 Delivery O2 Flow Rate FiO2 01/01/25 14:15 91 12 127/82 (97) 92 01/01/25 14:00 Mechanical Ventilator+ 30 30 01/01/25 12:00 99.1 99.1 General Appeara: Well developed, Well nourished, Normal Appearance Head Exam: Normal inspection Neck Exam: Normal inspection, Non-tender, Normal alignment Eye Exam: bilateral eye Normal inspection, bilateral eye PERRL, bilateral eye EOMI Ear Exam: bilateral ear Auricle normal, bilateral ear Canal normal, bilateral ear TM normal Nasal Exam: Normal inspection Mouth: Normal Inspection Pulmonary/Respiratory: Decreased breath sounds Cardiovascular/Chest: Normal inspection Peripheral Pulses: 4+ Radial (R), 4+ Radial (L), 4+ Brachial (R), 4+ Brachial (L) Abdominal Exam: Normal bowel sounds Labs/Xrays Labs Test 01/01/25 13:09 01/01/25 12:59 01/01/25 06:21 01/01/25 03:09 Range/Units POC Glucose 163 H 70-106 mg/dl Blood Gas Specimen Type Arterial Blood Gas Sample Site Left radial Blood Gas Patient Temperature 37.0 Arterial Blood Date Drawn [id number] Arterial Blood pH 7.508 H 7.350-7.450 Arterial Blood Partial Pressure CO2 34.8 32.0-45.0 mmHg Arterial Blood Partial Pressure O2 289.9 H 83.0-108.0 mmHg Arterial Blood HCO3 27.0 21.0-28.0 mmol/L Arterial Blood Oxygen Saturation 99.4 H 94.0-98.0 % Arterial Blood Base Excess 4.1 H -2.0-3.0 mmol/L Arterial Blood Oxyhemoglobin 99.1 H 94.0-98.0 % Arterial Blood Carboxyhemoglobin 0.1 L 0.5-1.5 % Arterial Blood Methemoglobin 0.2 0.0-1.5 % Willem Test Modified Blood Gas Total Hemoglobin 13.00 12.0-16.0 g/dL Blood Gas Modality Vent - cpap Blood Gas Spontaneous Rate 23 FiO2 % 30.0 Blood Gas Tidal Volume 451.0 Blood Gas Pressure Support 8 Blood Gas PEEP or CPAP 5.0 Blood Gas Set Respiration Rate 20.0 White Blood Count 10.2 4.4-10.8 10^3/uL Red Blood Count 4.24 4.0-5.20 10^6/uL Hemoglobin 11.7 L 12.2-16.2 g/dL Hematocrit 34.8 #L 36.0-46.0 % Mean Corpuscular Volume 82.1 80.0-100.0 fL Mean Corpuscular Hemoglobin 27.6 L 28.0-32.0 pg Mean Corpuscular Hemoglobin Concent 33.6 32.0-36.0 g/dL Red Cell Distribution Width 14.3 11.8-14.3 % Platelet Count 122 L 140-450 10^3/uL Mean Platelet Volume 10.1 6.9-10.8 fL Neutrophils (%) (Auto) 70.7 37.0-80.0 % Lymphocytes (%) (Auto) 21.0 10.0-50.0 % Monocytes (%) (Auto) 7.5 0.0-12.0 % Eosinophils (%) (Auto) 0.4 0.0-7.0 % Basophils (%) (Auto) 0.4 0.0-2.0 % Neutrophils # (Auto) 7.2 1.6-8.6 10 ^3/uL Lymphocytes # (Auto) 2.1 0.4-5.4 10 ^3/uL Monocytes # (Auto) 0.8 0-1.3 10 ^3/uL Eosinophils # (Auto) 0 0-0.8 10 ^3/uL Basophils # (Auto) 0 0-0.2 10 ^3/uL Nucleated Red Blood Cells 0.1 % Sodium Level 143 136-145 mmol/L Potassium Level 3.3 L 3.5-5.1 mmol/L Chloride Level 102 98-107 mmol/L Carbon Dioxide Level 25 20-31 mmol/L Anion Gap 16 H 5-15 Blood Urea Nitrogen 19 9-23 mg/dL Creatinine 1.18 H 0.550-1.02 mg/dL Glomerular Filtration Rate Calc 50 >90 mL/min BUN/Creatinine Ratio 16.1 10.0-20.0 Serum Glucose 126 H 74-106 mg/dL Calcium Level 9.3 8.7-10.4 mg/dL Phosphorus Level 3.0 2.4-5.1 mg/dL Magnesium Level 1.5 L 1.6-2.6 mg/dL Test 12/31/24 02:47 12/30/24 04:00 12/29/24 03:38 12/27/24 03:19 Range/Units Total Bilirubin 0.4 0.2-1.0 mg/dL Aspartate Amino Transferase (AST) 32 13-40 U/L Alanine Aminotransferase (ALT) 21 7-40 U/L Alkaline Phosphatase 52 46-116 U/L Total Protein 5.3 L 5.7-8.2 g/dL Albumin 3.5 3.2-4.8 g/dL Prothrombin Time 10.8 9.3-11.8 sec Prothrombin Time INR 1.02 0.9-1.15 Activated Partial Thromboplast Time 25.1 24.5-34.5 SEC Random Vancomycin Level 10.2 H 5-10 ug/mL Lactic Acid Level 0.9 0.4-2.0 mmol/L Hepatitis B Surface Antigen Negative Negative Test 12/26/24 20:57 12/26/24 20:55 12/26/24 19:29 12/26/24 16:24 Range/Units Differential Total Cells Counted 100.0 100 Neutrophils % (Manual) 88 H 37.0-80.0 Band Neutrophils % (Manual) 1 Lymphocytes % (Manual) 8 L 10.0-50.0 Monocytes % (Manual) 3 0-12 Eosinophils % (Manual) 0 0-7 Basophils % (Manual) 0 0.0-2.0 Metamyelocytes % (manual) 0 Myelocytes % (Manual) 0 Promyelocytes % (Manual) 0 Blast Cells % (Manual) 0 Reactive Lymphocytes 0 Platelet Estimate Decreased Ovalocytes Few Jaciel Cells Few Ammonia 16 11-32 umol/L Blood Gas Critical Value Read Back Yes Blood Gas Notified Whom Dr. kristal john Blood Gas Notified Time [id number] Blood Gas Notified By Urine Opiates Screen Neg NEGATIVE Urine Fentanyl Screen Neg NEGATIVE Urine Barbiturates Screen Neg NEGATIVE Urine Phencyclidine Screen Neg NEGATIVE Urine Amphetamines Screen Neg NEGATIVE Urine Benzodiazepines Screen Neg NEGATIVE Urine Cocaine Screen Neg NEGATIVE Urine Cannabinoids Screen Neg NEGATIVE Test 12/26/24 15:32 12/26/24 10:41 12/26/24 00:04 12/25/24 20:42 Range/Units Hepatitis A IgM Antibody Negative Hepatitis B Core IgM Antibody Negative Negative Hepatitis C Antibody Negative Negative Hemoglobin A1c 5.6 <5.7 % A1C Triglycerides Level 154 H < 150 mg/dL Cholesterol Level 188 < 200 mg/dL LDL Cholesterol 117 H < 100 mg/dL HDL Cholesterol 52 40-59 mg/dL Lipase 31 12-53 U/L Vitamin B12 Level 453 211-911 pg/mL Vitamin D 25-Hydroxy 4.6 L 30.0-100 ng/mL Thyroid Stimulating Hormone (TSH) 0.87 0.55-4.78 uIU/mL Blood Gas Liter Flow 4.00 Troponin I High Sensitivity 12 </=34 ng/L Test 12/25/24 19:00 12/25/24 17:43 12/25/24 16:44 12/25/24 00:45 Range/Units Influenza Type A Antigen Negative Negative Influenza Type B Antigen Negative Negative SARS-CoV-2 Antigen (Rapid) Negative NEGATIVE Specimen Drawn By Group Activities Aide varsha kendra B-Type Natriuretic Peptide 148.36 0-100 pg/mL Urine Color Light-orange Yellow Urine Clarity Ex.turbid Clear Urine pH 5.5 5.0-9.0 Urine Specific [place] 1.024 1.001-1.035 Urine Protein 2+ H Negative Urine Ketones Negative Negative Urine Blood 1+ H Negative /uL Urine Nitrite Negative Negative Urine Bilirubin Negative Negative Urine Urobilinogen Normal Negative mg/dL Urine Leukocyte Esterase 3+ Negative /uL Urine RBC 10 0 - 4 /hpf Urine WBC Clumps Present None Seen /hpf Urine Microscopic WBC 342 H 0-5 /HPF Urine Squamous Epithelial Cells Few <5 /hpf Urine Bacteria Many H None Seen /hpf Urine Hyaline Casts Few 0 - 2 /lpf Urine Yeast (Budding) Moderate None Seen /hpf Urine Osmolality 317 mOsm/kg Urine Creatinine 196.43 H 30.0-125.0 mg/dL Urine Sodium 41 40-220 mmol/L Urine Potassium 15 12-62 mmol/L Urine Glucose Normal Normal mg/dL Urine Total Protein 249.3 H 1-14 mg/dL Microbiology Date/Time Source Procedure Growth Status 12/28/24 23:22 Nose MRSA Screen - Final Complete 12/26/24 14:44 Sputum Gram Stain - Final Complete 12/26/24 14:44 Sputum Respiratory Culture - Final Complete 12/25/24 16:44 Blood Blood Culture - Final NO GROWTH AFTER 5 DAYS OF INCUBATION. Complete 12/25/24 00:45 Voided Urine Urine Culture - Final Escherichia coli Complete Assessment/Plan Plan Impression Acute hypoxemic respiratory failure Morbid obesity Pneumonia Septic shock Patient seen and examined in ICU Events On mechanical ventilation S/p intubation PEEP 5, FiO2 30% Labs and imaging reviewed ABG reviewed Management Vent support Titrate to maintain sats 90% or above Sedation for vent synchrony Continue antibiotics F/u cultures Bronchodilators Monitor renal function Monitor electrolytes Supplement as needed Pressors as needed for hemodynamic support To maintain a mean arterial pressure of 65 mmHg Will consider bronchoscopy DVT prophylaxis Critical care time 35 minutes Plan discussed with: Other (Rn) RAYMOND DANG MD Jan 01, 2025 14:42
--- NOTE | 2025-01-01 14:43 | DVHPN2 ---
Progress Note - Dictate Date Seen: Jan 01, 2025 Medical Necessity Reason Pt with a Central, PICC or Fol: Yes The following are medically ne: Central Line (central line and Left IJ HD catheter), Fontenot Catheter vital signs Vital Sign Date Time Temp Pulse Resp B/P (MAP) Pulse Ox O2 Delivery O2 Flow Rate FiO2 01/01/25 14:15 91 12 127/82 (97) 92 01/01/25 14:00 Mechanical Ventilator+ 30 30 01/01/25 12:00 99.1 99.1 Total Intake and Output 12/31/24 12/31/24 01/01/25 15:00 23:00 07:00 Intake Total 51.908 ml 292.720 ml 134.275 ml Output Total 3600 ml 2310 ml Balance 51.908 ml -3307.280 ml -2175.725 ml medications Current Medications Medications Dose Ordered Sig/Liz Route Start Time Stop Time Status Last Admin Dose Admin Pantoprazole Sodium 40 mg DAILY IV 12/26/24 00:00 01/01/25 08:16 40 MG Levalbuterol HCl 0.625 mg Q6HR NEB 12/26/24 00:00 01/01/25 13:19 0.625 MG Ipratropium [place] 0.5 mg Q6HR NEB 12/26/24 00:00 01/01/25 13:19 0.5 MG Propofol 100 ml @ 1.908 mls/ hr Q24H IV 12/26/24 15:30 12/31/24 05:16 15.264 MLS/HR Fentanyl Citrate 250 ml @ 2.5 mls/hr Q24H IV 12/26/24 15:30 12/30/24 00:43 22.5 MLS/HR Aspirin 81 mg DAILY PO 12/27/24 10:00 01/01/25 08:16 81 MG Atorvastatin Calcium 80 mg HS PO 12/27/24 22:00 12/31/24 23:17 80 MG EZETIMIBE 10 mg DAILY PO 12/27/24 10:00 01/01/25 08:16 10 MG Diagnostic Test (Pha) 1 strip Q6HR 12/27/24 00:00 01/01/25 13:30 1 STRIP Insulin Human Regular Q6HR SC 12/27/24 00:00 01/01/25 06:22 2 UNITS Dextrose 50 ml UD PRN IV 12/26/24 22:15 Ceftriaxone Sodium 50 ml @ 100 mls/hr DAILY@09 IV 12/29/24 09:00 01/01/25 08:07 100 MLS/HR Enteral Nutritional Formula 1,000 ml 30ML/HR GT 12/28/24 22:00 12/29/24 19:24 1,000 ML Methylprednisolone Sodium Succinate 40 mg DAILY IV 12/30/24 10:00 01/01/25 08:16 40 MG Furosemide 40 mg BIDD IV 12/31/24 18:00 01/01/25 06:20 40 MG Amlodipine Besylate 10 mg DAILY PO 12/31/24 10:00 01/01/25 10:38 10 MG Acetylcysteine 200 mg Q8HR NEB 01/01/25 00:00 01/01/25 13:22 200 MG Losartan Potassium 50 mg DAILY PO 01/01/25 10:00 01/01/25 10:37 50 MG laboratory and microbiology Laboratory Tests 01/01/25 03:09 Test 01/01/25 03:09 Range/Units Serum Glucose 126 H 74-106 mg/dL Assessment/Plan Impression Acute hypoxemic respiratory failure Morbid obesity Pneumonia Septic shock Patient seen and examined in ICU Events On mechanical ventilation S/p intubation PEEP 5, FiO2 30% Failed weaning trial Bronchoscopy was performed at the bedside See separate note for procedure in detail Labs and imaging reviewed ABG reviewed Management Vent support Titrate to maintain sats 90% or above Sedation holiday daily If patient follows commands, proceed to weaning trial Pressure support 7/5, extubate when ready Continue antibiotics F/u cultures Bronchodilators Monitor renal function Monitor electrolytes Supplement as needed Pressors as needed for hemodynamic support To maintain a mean arterial pressure of 65 mmHg DVT prophylaxis Critical care time 35 minutes Dietary Evaluation Review Expected Outcomes/Goals: controlled blood glucose, avoid uremic syndrome, maintain BW. Plan discussed with: Other (Rn) RAYMOND DANG MD Jan 01, 2025 14:43
--- NOTE | 2025-01-01 14:44 | DVHNC2 ---
Procedure - Procedure- Bronchoscopy and bronchial washings Indication- Secretions Procedure in detail Consent was obtained and timeout performed per protocol. The patient was placed on 100% FiO2. Olympus bronchoscope was used and passed through the endotracheal tube, tracheobronchial tree was examined. There were thin secretions in the lower lobes bilaterally that were loosened up with approximately 50 cc of normal saline and thoroughly suctioned into a separate specimen container. There were no endobronchial lesions however, mucosa appeared inflamed and easily friable. After the procedure, the scope was removed. Patient tolerated the procedure well. RAYMOND DANG MD Jan 01, 2025 14:44
[2025-01-01] MEDS: MORPHINE SULFATE 4 MG/ML SYR/VIAL IV ONE (16:59)
--- NOTE | 2025-01-01 19:06 | DVHPN2 ---
Progress Note - Dictate Date Seen: Jan 01, 2025 Medical Necessity Reason Pt with a Central, PICC or Fol: Yes The following are medically ne: Central Line (central line and Left IJ HD catheter), Fontenot Catheter Subjective Ms. Viveros is a 69 years old female with a history of hypertension, diabetes, congestive heart failure, COPD, asthma, rheumatoid arthritis, chronic pain syndrome/lumbar disc disease, she was brought to the hospital on 12/25/2024 with a chief complaint of low blood pressure. I saw her on 01/15/2021 for ALOC/opiate ALOC/opiate overdose I have seen examined the patient with his nurse, she is awake, she follows verbal commands, but is not able to vocalize, she moves the arms and legs She is extubated on 01/01/2025 Precedex 0.2 mcg/Kg/Hr Blood culture, 12/25/2024: Hepatitis panel, 12/26/2024: UDS, 01/13/2021: Cannabinoids, alcohol: 6 12/26/2024: Negative Urinalysis, 12/25/2024: WBC: 342, urine WBC clumps: Present, urine leukocyte esterase: 3+ ABG, 12/25/2024: Metabolic acidosis, 12/26/2024: Hypoxia, metabolic acidosis, WBC/HGB/PLT/MCV, 12/25/2024: 10.5/12.9/134/83.8. 12/26/2024: 21.8/12.5/156/91.3, 12/28/2024: 14.7/10.8/97/81.5 K 12/25/2024: 5, 6.1, 12/26/2024: 7.5, 6.8 Anion gap, 12/26/2024: 29 BUN/CR, 12/26/2024: 43/8.2, 11/24/2024: 21/3.42 GFR, 12/26/2024: 5, 12/28/2024: 14 Lactic acid, 12/25/2024: 8.8, 13.1, 12/26/2024: 6.3, 9.5 HGB A1c, 12/26/2024: 5.6 TBI/AST/ALT/AP, 12/26/2024: 0.4/56/26/62 Ammonia, 12/26/2024: 87 TG/HDL/LDL/HDL, 12/26/2024: 154/188/117/52 Vitamin B12, 02/26/2024: 490 Folic acid, 12/2620: 20.25 TSH, 12/26/2024: 0.87 Chest x-ray, 12/25/2024: Bronchovascular crowding due to low lung volumes. Underlying pulmonary vascular congestion can not be excluded Chest x-ray, 12/26/24: 1. No acute cardiopulmonary disease. 2. Pulmonary markings reflect supine 3. Endotracheal tube 2.7 cm above the gabriel 4. Enteric tube below the left diaphragm in the stomach 5. Right internal jugular catheter in good position at the cavoatrial junction. CT head, 01/13/2021: No mass effect or acute intracranial bleed. Minimal chronic sinusitis change CT head, 12/25/2024: 1. There is no acute infarct, intracranial hemorrhage, or mass effect. 2. There is no hydrocephalus or significant midline shift. 3. 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 4. Mild chronic microvascular ischemic changes and mild parenchymal volume loss. 5. No acute, depressed calvarial fractures. 6. No large scalp hematomas CT abdomen/pelvis, 12/25/2024: Wall thickening of the rectum which may be due to inadequate distention /proctitis. Descending colon and sigmoid diverticulosis without diverticulitis. Moderate amount of fecal material within the colon. Small right-sided pleural effusion with bibasilar atelectasis. Right basilar pneumonia can not be excluded vital signs Vital Sign Date Time Temp Pulse Resp B/P (MAP) Pulse Ox O2 Delivery O2 Flow Rate FiO2 01/01/25 18:15 88 15 145/92 (109) 01/01/25 18:00 100 Venturi Mask 7 30 30 01/01/25 16:00 98.5 98.5 Total Intake and Output 12/31/24 12/31/24 01/01/25 15:00 23:00 07:00 Intake Total 51.908 ml 292.720 ml 134.275 ml Output Total 3600 ml 2310 ml Balance 51.908 ml -3307.280 ml -2175.725 ml medications Current Medications Medications Dose Ordered Sig/Liz Route Start Time Stop Time Status Last Admin Dose Admin Pantoprazole Sodium 40 mg DAILY IV 12/26/24 00:00 01/01/25 08:16 40 MG Levalbuterol HCl 0.625 mg Q6HR NEB 12/26/24 00:00 01/01/25 18:44 0.625 MG Ipratropium [place] 0.5 mg Q6HR NEB 12/26/24 00:00 01/01/25 18:44 0.5 MG Propofol 100 ml @ 1.908 mls/ hr Q24H IV 12/26/24 15:30 12/31/24 05:16 15.264 MLS/HR Fentanyl Citrate 250 ml @ 2.5 mls/hr Q24H IV 12/26/24 15:30 12/30/24 00:43 22.5 MLS/HR Aspirin 81 mg DAILY PO 12/27/24 10:00 01/01/25 08:16 81 MG Atorvastatin Calcium 80 mg HS PO 12/27/24 22:00 12/31/24 23:17 80 MG EZETIMIBE 10 mg DAILY PO 12/27/24 10:00 01/01/25 08:16 10 MG Diagnostic Test (Pha) 1 strip Q6HR 12/27/24 00:00 01/01/25 17:00 1 STRIP Insulin Human Regular Q6HR SC 12/27/24 00:00 01/01/25 17:39 3 UNITS Dextrose 50 ml UD PRN IV 12/26/24 22:15 Ceftriaxone Sodium 50 ml @ 100 mls/hr DAILY@09 IV 12/29/24 09:00 01/01/25 08:07 100 MLS/HR Enteral Nutritional Formula 1,000 ml 30ML/HR GT 12/28/24 22:00 12/29/24 19:24 1,000 ML Methylprednisolone Sodium Succinate 40 mg DAILY IV 12/30/24 10:00 01/01/25 08:16 40 MG Furosemide 40 mg BIDD IV 12/31/24 18:00 01/01/25 17:00 40 MG Amlodipine Besylate 10 mg DAILY PO 12/31/24 10:00 01/01/25 10:38 10 MG Acetylcysteine 200 mg Q8HR NEB 01/01/25 00:00 01/01/25 18:44 200 MG Losartan Potassium 50 mg DAILY PO 01/01/25 10:00 01/01/25 10:37 50 MG objective The patient is well-nourished and well-developed with no distress. MENTAL STATUS: Subjective CRANIAL NERVES: Pupils are equal, round and reactive. Normal conjugated eye movement, normal motor and sensory examined in bilateral trigeminal distribution, no facial weakness SENSATION: Okay to pinprick and light touch MOTOR: Normal tone in the upper and lower extremity. Normal muscle bulk. No fasciculations. She moves the arms and legs REFLEXES: Deep tendon reflexes are symmetrical. No pathological reflexes. CEREBELLAR/COORDINATION: Deferred GAIT/STATION: deferred laboratory and microbiology Laboratory Tests 01/01/25 03:09 Test 01/01/25 03:09 Range/Units Serum Glucose 126 H 74-106 mg/dL Problem List Coma, resolved Acute metabolic encephalopathy Acute respiratory failure Toxic cephalopathy ? Hepatic encephalitis Lactic acidosis/leukocytosis/sepsis Urinary tract infection Hyperkalemia Kidney failure Cognitive dysfunction, ? MCI, ? Mild dementia/Alzheimer's disease Assessment/Plan Monitoring Support treatment Blood culture Urine culture EEG ICU care Stabilize vitals Respiratory support Oxygen IV antibodies GI prophylaxis Nephrology on case More recommendation per clinical course This medical document was created using an electronic medical record system with [employer] dictation system. Although this document has been carefully reviewed, there may still be some phonetic and typographical errors. These areas are purely typographical due to imperfections of the software programs, and do not reflect any compromise in the patient's medical care. Prognosis poor Dietary Evaluation Review Expected Outcomes/Goals: controlled blood glucose, avoid uremic syndrome, maintain BW. Plan discussed with: Other TERESA DSOUZA MD Jan 01, 2025 19:06
[2025-01-01] MEDS: MORPHINE SULFATE INJ 2 MG/ml SYRG IV ONE (22:26)
[2025-01-02] VITALS (24 sets, daily range): BP systolic 111–153; BP diastolic 77–99; PULSE 75–108; RESP 11–24; TEMP 98.1–99.3; O2SAT 91–100
[2025-01-02 03:48] LABS: Hematocrit 36.4 % (36.0-46.0); Hemoglobin 12.2 g/dL (12.2-16.2); Mean Corpuscular Hemoglobin 27.5 pg (28.0-32.0); Mean Corpuscular Volume 81.8 fL (80.0-100.0); Nucleated Red Blood Cells % 0.1 %
[2025-01-02 03:51] LABS: Anion Gap 14 (5-15); Carbon Dioxide 28 mmol/L (20-31); Chloride 101 mmol/L (98-107); Potassium 3.6 mmol/L (3.5-5.1); Sodium 143 mmol/L (136-145)
[2025-01-02 03:52] LABS: Calcium 9.3 mg/dL (8.7-10.4)
[2025-01-02 03:57] LABS: BUN/Creatinine Ratio 22.6 (10.0-20.0); Glucose 81 mg/dL (74-106)
[2025-01-02 03:59] LABS: Blood Urea Nitrogen 24 mg/dL (9-23); Magnesium 1.6 mg/dL (1.6-2.6)
--- NOTE | 2025-01-02 05:47 | DVH ---
CHEST RADIOGRAPH Indication: Intubated Technique: Single frontal view of the chest was obtained COMPARISON: XY CHEST XRAY 1 VIEW on DOS: 01/01/25, XY CHEST PORTABLE on DOS: 12/31/24, XY CHEST XRAY 1 VIEW on DOS: 12/31/24, XY CHEST XRAY 1 VIEW on DOS: 12/30/24, XY CHEST XRAY 1 VIEW on DOS: 12/29/24 FINDINGS: Lines and Tubes: Status post interval extubation and removal of enteric catheter. Right internal jugu lar central venous catheter unchanged. Lungs: Mild right basilar atelectasis. Lungs are otherwise clear. Pleura: No effusion. No pneumothorax. Cardiomediastinal contours: Unremarkable Bones: Unremarkable IMPRESSION: 1. Status post interval extubation and removal of enteric catheter. Right IJ catheter unchanged. 2. Mild right basilar atelectasis.
[2025-01-02] MEDS: MAGNESIUM SULFATE 1GM/100ML 100 ML IV SCH (09:55)
--- NOTE | 2025-01-02 10:05 | DVHPN2 ---
Progress Note Date Seen: Jan 02, 2025 Medical Necessity Reason Pt with a Central, PICC or Fol: Yes The following are medically ne: Central Line (central line and Left IJ HD catheter), Fontenot Catheter Subjective Patient reports: No new complaints Other Systems: Patient seen and examined by myself today in follow-up Objective vital signs Vital Sign Date Time Temp Pulse Resp B/P (MAP) Pulse Ox O2 Delivery O2 Flow Rate FiO2 01/02/25 09:56 125/82 01/02/25 09:00 99.3 94 15 99 99.3 01/02/25 08:00 Nasal Cannula* 1 24 Total Intake and Output 01/01/25 01/01/25 01/02/25 15:00 23:00 07:00 Intake Total 505.825 ml 80 ml 0 ml Output Total 1950 ml 1650 ml Balance 505.825 ml -1870 ml -1650 ml medications Current Medications Medications Dose Ordered Sig/Liz Route Start Time Stop Time Status Last Admin Dose Admin Pantoprazole Sodium 40 mg DAILY IV 12/26/24 00:00 01/02/25 09:55 40 MG Levalbuterol HCl 0.625 mg Q6HR NEB 12/26/24 00:00 01/02/25 06:24 0.625 MG Ipratropium [place] 0.5 mg Q6HR NEB 12/26/24 00:00 01/02/25 06:24 0.5 MG Propofol 100 ml @ 1.908 mls/ hr Q24H IV 12/26/24 15:30 12/31/24 05:16 15.264 MLS/HR Fentanyl Citrate 250 ml @ 2.5 mls/hr Q24H IV 12/26/24 15:30 12/30/24 00:43 22.5 MLS/HR Aspirin 81 mg DAILY PO 12/27/24 10:00 01/02/25 09:56 81 MG Atorvastatin Calcium 80 mg HS PO 12/27/24 22:00 12/31/24 23:17 80 MG EZETIMIBE 10 mg DAILY PO 12/27/24 10:00 01/02/25 09:56 10 MG Diagnostic Test (Pha) 1 strip Q6HR 12/27/24 00:00 01/02/25 05:13 1 STRIP Insulin Human Regular Q6HR SC 12/27/24 00:00 01/01/25 17:39 3 UNITS Dextrose 50 ml UD PRN IV 12/26/24 22:15 Ceftriaxone Sodium 50 ml @ 100 mls/hr DAILY@09 IV 12/29/24 09:00 01/02/25 09:54 100 MLS/HR Enteral Nutritional Formula 1,000 ml 30ML/HR GT 12/28/24 22:00 12/29/24 19:24 1,000 ML Methylprednisolone Sodium Succinate 40 mg DAILY IV 12/30/24 10:00 01/02/25 09:55 40 MG Furosemide 40 mg BIDD IV 12/31/24 18:00 01/02/25 06:11 40 MG Amlodipine Besylate 10 mg DAILY PO 12/31/24 10:00 01/02/25 09:55 10 MG Acetylcysteine 200 mg Q8HR NEB 01/01/25 00:00 01/02/25 06:24 200 MG Losartan Potassium 50 mg DAILY PO 01/01/25 10:00 01/02/25 09:56 50 MG Magnesium Sulfate/ Dextrose 100 ml @ 100 mls/hr Q1HR IV 01/02/25 10:00 01/02/25 11:59 01/02/25 09:55 100 MLS/HR Examination: LUNGS:Normal, CVS:Normal, MSK:Normal laboratory and microbiology Laboratory Tests 01/02/25 03:14 Test 01/02/25 03:14 Range/Units Serum Glucose 81 74-106 mg/dL Microbiology Date/Time Source Procedure Growth Status 12/28/24 23:22 Nose MRSA Screen - Final Complete 12/26/24 14:44 Sputum Gram Stain - Final Complete 12/26/24 14:44 Sputum Respiratory Culture - Final Complete 12/25/24 16:44 Blood Blood Culture - Final NO GROWTH AFTER 5 DAYS OF INCUBATION. Complete 12/25/24 00:45 Voided Urine Urine Culture - Final Escherichia coli Complete Problem List/Assessment/Plan Problem List/Assessment/Plan Acute kidney injury superimposed Chronic Kidney Disease secondary hemodynamic mediated s/p intermittent hemodialysis acute respiratory failure, extubated PNA dementia metabolic acidosis Hypokalemia Hypomagnesemia Diabetes mellitus type 2 Hypertension Anemia of chronic kidney disease Recommendations Kidney function continues to improve off hemodialysis Increased urine output Strict I&Os Avoid nephrotoxic medications KCL replacement Magnesium sulfate IV piggyback Insulin sliding scale Blood pressure control Kidneys reported within normal limit on CT of the abdomen We will continue to follow Plan discussed with: Patient My Orders My Orders Orders - CHUN TORRES MD Procedure Category Date Status Time Magnesium Sulfate PHA 01/02/25 In Process 1gm/100ml 10:00 Dietary Evaluation Review Expected Outcomes/Goals: controlled blood glucose, avoid uremic syndrome, maintain BW. CHUN TORRES MD Jan 02, 2025 10:05
[2025-01-02] MEDS: POTASSIUM CHL 20MEQ/100ML 100 ML IV SCH (11:16)
[2025-01-02] MEDS: MORPHINE SULFATE INJ 2 MG/ml SYRG IV PRN (11:21)
--- NOTE | 2025-01-02 12:41 | DVHPN2 ---
Progress Note - Dictate Date Seen: Jan 02, 2025 Medical Necessity Reason Pt with a Central, PICC or Fol: Yes The following are medically ne: Central Line (central line and Left IJ HD catheter), Fontenot Catheter vital signs Vital Sign Date Time Temp Pulse Resp B/P (MAP) Pulse Ox O2 Delivery O2 Flow Rate FiO2 01/02/25 12:03 98 19 130/83 01/02/25 11:29 100 01/02/25 11:16 Nasal Cannula* 1 24 01/02/25 09:00 99.3 99.3 Total Intake and Output 01/01/25 01/01/25 01/02/25 15:00 23:00 07:00 Intake Total 505.825 ml 80 ml 0 ml Output Total 1950 ml 1650 ml Balance 505.825 ml -1870 ml -1650 ml medications Current Medications Medications Dose Ordered Sig/Liz Route Start Time Stop Time Status Last Admin Dose Admin Pantoprazole Sodium 40 mg DAILY IV 12/26/24 00:00 01/02/25 09:55 40 MG Levalbuterol HCl 0.625 mg Q6HR NEB 12/26/24 00:00 01/02/25 11:16 0.625 MG Ipratropium [place] 0.5 mg Q6HR NEB 12/26/24 00:00 01/02/25 11:15 0.5 MG Aspirin 81 mg DAILY PO 12/27/24 10:00 01/02/25 09:56 81 MG Atorvastatin Calcium 80 mg HS PO 12/27/24 22:00 12/31/24 23:17 80 MG EZETIMIBE 10 mg DAILY PO 12/27/24 10:00 01/02/25 09:56 10 MG Diagnostic Test (Pha) 1 strip Q6HR 12/27/24 00:00 01/02/25 12:01 1 STRIP Insulin Human Regular Q6HR SC 12/27/24 00:00 01/02/25 12:03 2 UNITS Dextrose 50 ml UD PRN IV 12/26/24 22:15 Ceftriaxone Sodium 50 ml @ 100 mls/hr DAILY@09 IV 12/29/24 09:00 01/02/25 09:54 100 MLS/HR Enteral Nutritional Formula 1,000 ml 30ML/HR GT 12/28/24 22:00 12/29/24 19:24 1,000 ML Methylprednisolone Sodium Succinate 40 mg DAILY IV 12/30/24 10:00 01/02/25 09:55 40 MG Furosemide 40 mg BIDD IV 12/31/24 18:00 01/02/25 06:11 40 MG Amlodipine Besylate 10 mg DAILY PO 12/31/24 10:00 01/02/25 09:55 10 MG Acetylcysteine 200 mg Q8HR NEB 01/01/25 00:00 01/02/25 11:16 200 MG Losartan Potassium 50 mg DAILY PO 01/01/25 10:00 01/02/25 09:56 50 MG Potassium Chloride 100 ml @ 50 mls/hr Q2H IV 01/02/25 10:15 01/02/25 14:14 01/02/25 12:35 50 MLS/HR Morphine Sulfate 2 mg Q4HPRN PRN IV 01/02/25 10:15 01/02/25 11:21 2 MG laboratory and microbiology Laboratory Tests 01/02/25 03:14 Test 01/02/25 03:14 Range/Units Serum Glucose 81 74-106 mg/dL Assessment/Plan Impression Acute hypoxemic respiratory failure Morbid obesity Pneumonia Septic shock Patient seen and examined in ICU Events S/p extubation yesterday doing well no new complaints passed swallow eval s/p Bronchoscopy Labs and imaging reviewed ABG reviewed Management suppl02 titrate to sats above 90% advance diet remove c line/catheter Continue antibiotics F/u cultures Bronchodilators Monitor renal function Monitor electrolytes Supplement as needed Pressors as needed for hemodynamic support To maintain a mean arterial pressure of 65 mmHg DVT prophylaxis ok to d/grade Critical care time 35 minutes Dietary Evaluation Review Expected Outcomes/Goals: controlled blood glucose, avoid uremic syndrome, maintain BW. Plan discussed with: Other (rn) RAYMOND DANG MD Jan 02, 2025 12:41
--- NOTE | 2025-01-02 14:27 | DVHPN2 ---
Subjective The patient is seen and examined at bedside. Feel a little bit better. The patient was transferred from ICU to telemetry. Reviewed: Care Plan, H&P, Labs, Medications, Previous Orders, Radiology Changes from previous H/P or p: No Changes Eyes: No Pain, No Vision change, No Conjunctivae inflammation, No Eyelid inflammation, No Other, No Redness ENT: No Ear pain, No Ear discharge, No Nose pain, No Nose discharge, No Nose congestion, No Mouth pain, No Mouth swelling, No Throat pain, No Throat swelling, No Other Cardiovascular: No Chest Pain, No Palpitations, No Orthopnea, No Paroxysmal Noc. Dyspnea, No Edema, No Lt Headedness, No Other Respiratory: Shortness of breath Gastrointestinal: No Nausea; Vomiting, Abdominal Pain; No Diarrhea, No Constipation, No Melena, No Hematochezia, No Other Genitourinary: No Dysuria, No Frequency, No Incontinence, No Hematuria, No Retention, No Other Musculoskeletal: No other, No neck pain, No shoulder pain, No arm pain, No back pain, No hand pain, No leg pain, No foot pain Skin: No Rash, No Lesions, No Jaundice, No Bruising, No Other Objective Vitals Vital Signs Date Time Temp Pulse Resp B/P (MAP) Pulse Ox O2 Delivery O2 Flow Rate FiO2 01/02/25 12:03 98 19 130/83 01/02/25 12:00 98.9 99 98.9 01/02/25 12:00 Nasal Cannula* 1 24 Intake/Output Intake and Output 01/02/25 07:00 Intake Total 585.825 ml Output Total 3600 ml Balance -3014.175 ml Intake Oral 80 ml IV Total 505.825 ml Output Urine Total 3600 ml General Appearance: Alert, No acute distress HEENT: Atraumatic, PERRLA, EOMI, Mucous membr. moist/pink Neck: Supple Lungs: Clear to auscultation, Normal air movement Cardiovascular: Regular rate, Normal S1, Normal S2, No murmurs, Gallops, Rubs Abdomen: Normal bowel sounds, Soft, No tenderness Neuro: Cranial nerves 3-12 NL Psych/Mental Status: Mental status NL Medications Current Medications Medications Dose Ordered Sig/Liz Route Start Time Stop Time Status Last Admin Dose Admin Pantoprazole Sodium 40 mg DAILY IV 12/26/24 00:00 01/02/25 09:55 40 MG Levalbuterol HCl 0.625 mg Q6HR NEB 12/26/24 00:00 01/02/25 11:16 0.625 MG Ipratropium [place] 0.5 mg Q6HR NEB 12/26/24 00:00 01/02/25 11:15 0.5 MG Aspirin 81 mg DAILY PO 12/27/24 10:00 01/02/25 09:56 81 MG Atorvastatin Calcium 80 mg HS PO 12/27/24 22:00 12/31/24 23:17 80 MG EZETIMIBE 10 mg DAILY PO 12/27/24 10:00 01/02/25 09:56 10 MG Diagnostic Test (Pha) 1 strip Q6HR 12/27/24 00:00 01/02/25 12:01 1 STRIP Insulin Human Regular Q6HR SC 12/27/24 00:00 01/02/25 12:03 2 UNITS Dextrose 50 ml UD PRN IV 12/26/24 22:15 Ceftriaxone Sodium 50 ml @ 100 mls/hr DAILY@09 IV 12/29/24 09:00 01/02/25 09:54 100 MLS/HR Methylprednisolone Sodium Succinate 40 mg DAILY IV 12/30/24 10:00 01/02/25 09:55 40 MG Furosemide 40 mg BIDD IV 12/31/24 18:00 01/02/25 06:11 40 MG Amlodipine Besylate 10 mg DAILY PO 12/31/24 10:00 01/02/25 09:55 10 MG Acetylcysteine 200 mg Q8HR NEB 01/01/25 00:00 01/02/25 11:16 200 MG Losartan Potassium 50 mg DAILY PO 01/01/25 10:00 01/02/25 09:56 50 MG Morphine Sulfate 2 mg Q4HPRN PRN IV 01/02/25 10:15 01/02/25 11:21 2 MG Laboratory Results Laboratory Tests 01/02/25 03:14 Chemistry Test 01/02/25 03:14 Calcium Level 9.3 mg/dL (8.7-10.4) Magnesium Level 1.6 mg/dL (1.6-2.6) Phosphorus Level 3.1 mg/dL (2.4-5.1) Urinalysis Test 12/25/24 00:45 Urine Color Light-orange (Yellow) Urine Clarity Ex.turbid (Clear) Urine pH 5.5 (5.0-9.0) Urine Specific [place] 1.024 (1.001-1.035) Urine Protein 2+ (Negative) H Urine Ketones Negative (Negative) Urine Blood 1+ /uL (Negative) H Urine Nitrite Negative (Negative) Urine Bilirubin Negative (Negative) Urine Urobilinogen Normal mg/dL (Negative) Urine Leukocyte Esterase 3+ /uL (Negative) Urine RBC 10 /hpf (0 - 4) Urine WBC Clumps Present /hpf (None Seen) Urine Microscopic WBC 342 /HPF (0-5) H Urine Squamous Epithelial Cells Few /hpf (<5) Urine Bacteria Many /hpf (None Seen) H Urine Hyaline Casts Few /lpf (0 - 2) Urine Yeast (Budding) Moderate /hpf (None Seen) Urine Osmolality 317 mOsm/kg Urine Creatinine 196.43 mg/dL (30.0-125.0) H Urine Sodium 41 mmol/L (40-220) Urine Potassium 15 mmol/L (12-62) Urine Glucose Normal mg/dL (Normal) Urine Total Protein 249.3 mg/dL (1-14) H Microbiology Microbiology Date/Time Source Procedure Growth Status 01/01/25 11:20 Bronchial Washings Gram Stain - Final Resulted 01/01/25 11:20 Bronchial Washings Respiratory Culture - Preliminary Resulted 12/28/24 23:22 Nose MRSA Screen - Final Complete 12/25/24 16:44 Blood Blood Culture - Final NO GROWTH AFTER 5 DAYS OF INCUBATION. Complete 12/25/24 00:45 Voided Urine Urine Culture - Final Escherichia coli Complete Labs and/or images reviewed: Labs reviewed by me Assessment/Plan Assessment/Plan Metabolic encephalopathy secondary to septic shock likely due to aspiration pneumonia History of CVA Sedoanalgesia Hyperammonemia - Resolved Completed head CT which showed no acute intracranial pathology. Present chronic microvascular changes Turned off sedation for CPAP trial. Intermittent Precedex for agitation Neurology on board: consulted due to progressive ALOC, which most likely cause is metabolic encephalopathy due to septic shock. Required lactulose, currently discontinued due to diarrhea Septic shock secondary to aspiration pneumia vs UTI Probable Aspiration pneumonia Gram positive / Gram negative Complicated UTI to E coli Questionable proctitis Currently under empiric IV antibiotics (Ceftriaxone, previously on Meropenem, Vancomycin, Cefepime and azithromycin) Required IV fluid resuscitation and IV vasopressors, currently off vasoactive drugs Urinary culture shows E coli, rest of cultures finalized negative (sputum and blood). COVID, Influenza and MRSA swab negative Obtained abdomen and pelvis CT which showed thick rectal wall (probable proctitis), diverticulosis, small right pleural effusion and probable right pneumonia Acute respiratory failure due to aspiration pneumonia COPD/Asthma exacerbation On mechanical assisted ventilation (VCV Vt: 400 RR: 20 PEEP: 5 FIO2: 30%). Status post extubated On bronchodilator, IV steroids (reduced to methylprednisolone IV 40 mg daily), IV antibiotics and oxygen therapy Completed bronchoscopy on 01/01/2025 with successful bronchial wash. HIRAL hemodynamically mediated (VMN) Anion-Gap metabolic acidosis with non compensated respiratory alkalosis - Resolved Hyperlactacidemia Severe hyperkalemia - Resolved Hyperphosphatemia - Resolved Anuria - Resolved Nephrology on board: Indicated emergent hemodialysis sessions, optimized medical therapy (bicarbonate drip, currently off). Last session on 12/28/2024 (1 L off). Nephrology recommends removing hemodialysis catheter on 12/30/2024. Required multiple hyperkalemia protocol treatments Completed EKG which showed sinus tachycardia, no sine wave or other fatal arrhythmias Chronic diastolic congestive heart failure (HFpEF, LVEF 55%) - Unlikely exacerbation Moderate-severe pulmonary hypertension Troponin x3 negative, EKG shows no ST elevation, BNP mildly elevated 12/2023 echocardiogram showed LVEF 55%, moderately severely elevated RVSP (54 mmHg) New echocardiogram shows LVEF 65%, slightly dilated LA, normal RV function, moderate degree pulmonary hypertension (RVSP 45 mmHg) Mild thrombocytopenia Normocytic anemia History of DVT - ruled out acute DVT Follow up cbc Currently on SCDs Discontinue heparin. Does received during hemodialysis session On erythropoietin 04462 units 3 times a week Completed bilateral lower limb Venous US: No DVT Diabetes - Controlled (Hemoglobin A1C 5.6%) Hypertension Dyslipidemia Continue aspirin, statin and ezetimibe On insulin sliding scale Nutrition: Glucerna Prophylaxis for PUD and DVT: Pantoprazol and SCDs Lines: 12/26/2024 Right IJ VCV 12/26/2024 ET tube 7.5 12/26/2024 NG tube 12/26/2024 Left IJ HD catheter - DC 12/30/2024 12/26/2024 Fontenot catheter 12/29/2024 Rectal tube Drips Propofol Off Fentanyl Off Precedex intermittent (for agitation) off Continuing current management. Encouraged the patient to be out of bed and ambulate. We will get PT evaluation. This medical document was created using an electronic medical record system with [employer] computerized dictation system. Although this document has been carefully reviewed, there may still be some phonetic and typographical errors. These areas are purely typographical due to imperfections of the software programs, and do not reflect any compromise in the patient's medical care. Plan discussed with: Patient Date of Service: Jan 02, 2025 Billing Provider: AFSHAN ZIMMERMAN MD Common Visit Codes: [id number] INP/OBS CARE(HIGH) AFSHAN ZIMMERMAN MD Jan 02, 2025 14:27
[2025-01-03] VITALS (17 sets, daily range): BP systolic 108–137; BP diastolic 75–91; PULSE 90–104; RESP 16–22; TEMP 96.2–98.3; O2SAT 91–100
[2025-01-03] MEDS: MELATONIN 5 MG TAB PO SCH (01:23)
--- NOTE | 2025-01-03 05:43 | DVH ---
CHEST RADIOGRAPH Indication: Intubated Technique: Single frontal view of the chest was obtained Comparison: XY CHEST XRAY 1 VIEW on DOS: 01/02/25, XY CHEST XRAY 1 VIEW on DOS: 01/01/25, XY CHEST PORT ABLE on DOS: 12/31/24 IMPRESSION: Heart appears normal in size. There are low lung volumes with bibasilar atelectasis. No focal airsp brett opacity, effusion, or pneumothorax. Right IJ catheter has been removed. Imaged states intubation, however no endotracheal tube is visualized.
[2025-01-03 10:02] LABS: Hematocrit 38.1 % (36.0-46.0); Hemoglobin 12.3 g/dL (12.2-16.2); Mean Corpuscular Hemoglobin 26.4 pg (28.0-32.0); Mean Corpuscular Volume 81.4 fL (80.0-100.0); Nucleated Red Blood Cells % 0.0 %
[2025-01-03 10:04] LABS: Potassium 3.6 mmol/L (3.5-5.1); Sodium 137 mmol/L (136-145)
[2025-01-03 10:05] LABS: Anion Gap 14 (5-15); Calcium 9.0 mg/dL (8.7-10.4); Carbon Dioxide 25 mmol/L (20-31)
[2025-01-03 10:07] LABS: Chloride 98 mmol/L (98-107)
[2025-01-03 10:10] LABS: BUN/Creatinine Ratio 17.9 (10.0-20.0)
[2025-01-03 10:16] LABS: Blood Urea Nitrogen 24 mg/dL (9-23); Glucose 222 mg/dL (74-106)
--- NOTE | 2025-01-03 11:14 | DVHPN2 ---
Progress Note Date Seen: Jan 03, 2025 Medical Necessity Reason Pt with a Central, PICC or Fol: Yes The following are medically ne: Central Line (central line and Left IJ HD catheter), Fontenot Catheter Subjective Patient reports: No new complaints Other Systems: Patient seen and examined by myself today in follow-up, patient transferred out from the ICU to the floor Objective vital signs Vital Sign Date Time Temp Pulse Resp B/P (MAP) Pulse Ox O2 Delivery O2 Flow Rate FiO2 01/03/25 09:04 96.2 92 18 137/89 (105) 98 96.2 01/03/25 08:00 Room Air* 0 21 Total Intake and Output 01/02/25 01/02/25 01/03/25 15:00 23:00 07:00 Intake Total 450 ml 550 ml 400 ml Output Total 1150 ml 1100 ml Balance 450 ml -600 ml -700 ml medications Current Medications Medications Dose Ordered Sig/Liz Route Start Time Stop Time Status Last Admin Dose Admin Pantoprazole Sodium 40 mg DAILY IV 12/26/24 00:00 01/03/25 08:39 40 MG Levalbuterol HCl 0.625 mg Q6HR NEB 12/26/24 00:00 01/03/25 06:21 0.625 MG Ipratropium [place] 0.5 mg Q6HR NEB 12/26/24 00:00 01/03/25 06:20 0.5 MG Aspirin 81 mg DAILY PO 12/27/24 10:00 01/03/25 08:43 81 MG Atorvastatin Calcium 80 mg HS PO 12/27/24 22:00 01/02/25 21:28 80 MG EZETIMIBE 10 mg DAILY PO 12/27/24 10:00 01/03/25 08:43 10 MG Diagnostic Test (Pha) 1 strip Q6HR 12/27/24 00:00 01/03/25 06:12 1 STRIP Insulin Human Regular Q6HR SC 12/27/24 00:00 01/02/25 17:58 4 UNITS Dextrose 50 ml UD PRN IV 12/26/24 22:15 Ceftriaxone Sodium 50 ml @ 100 mls/hr DAILY@09 IV 12/29/24 09:00 01/03/25 08:40 100 MLS/HR Methylprednisolone Sodium Succinate 40 mg DAILY IV 12/30/24 10:00 01/03/25 08:40 40 MG Furosemide 40 mg BIDD IV 12/31/24 18:00 01/03/25 06:12 40 MG Amlodipine Besylate 10 mg DAILY PO 12/31/24 10:00 01/03/25 08:41 10 MG Acetylcysteine 200 mg Q8HR NEB 01/01/25 00:00 01/03/25 06:21 200 MG Losartan Potassium 50 mg DAILY PO 01/01/25 10:00 01/03/25 08:43 50 MG Morphine Sulfate 2 mg Q4HPRN PRN IV 01/02/25 10:15 01/03/25 06:21 2 MG Melatonin 5 mg HS PO 01/03/25 01:15 01/03/25 01:23 5 MG Examination: LUNGS:Normal laboratory and microbiology Laboratory Tests 01/03/25 09:34 Test 01/03/25 09:34 Range/Units Serum Glucose 222 H 74-106 mg/dL Microbiology Date/Time Source Procedure Growth Status 01/01/25 11:20 Bronchial Washings Gram Stain - Final Resulted 01/01/25 11:20 Bronchial Washings Respiratory Culture - Preliminary Resulted 12/28/24 23:22 Nose MRSA Screen - Final Complete 12/25/24 16:44 Blood Blood Culture - Final NO GROWTH AFTER 5 DAYS OF INCUBATION. Complete 12/25/24 00:45 Voided Urine Urine Culture - Final Escherichia coli Complete Problem List/Assessment/Plan Problem List/Assessment/Plan Acute kidney injury superimposed Chronic Kidney Disease secondary hemodynamic mediated s/p intermittent hemodialysis acute respiratory failure, extubated PNA dementia metabolic acidosis Hypokalemia Hypomagnesemia Diabetes mellitus type 2 Hypertension Anemia of chronic kidney disease Recommendations Kidney function worsened today Increased urine output Hold diuresis Strict I&Os Avoid nephrotoxic medications KCL replacement Magnesium sulfate IV piggyback Insulin sliding scale Blood pressure control Kidneys reported within normal limit on CT of the abdomen We will continue to follow Plan discussed with: Patient Dietary Evaluation Review Expected Outcomes/Goals: controlled blood glucose, avoid uremic syndrome, maintain BW. CHUN TORRES MD Jan 03, 2025 11:14
[2025-01-03] MEDS: SODIUM CHLORIDE 0.9% 1,000 ML IV ONE (11:15)
[2025-01-03] MEDS: MAGNESIUM SULFATE 1GM/100ML 100 ML IV SCH (12:05)
[2025-01-03] MEDS: D5W/SOD CHLO 0.9% 1,000 ML IV SCH (14:30)
--- NOTE | 2025-01-03 14:43 | DVHPN2 ---
Progress Note - Dictate Date Seen: Jan 03, 2025 Medical Necessity Reason Pt with a Central, PICC or Fol: Yes The following are medically ne: Central Line (central line and Left IJ HD catheter), Fontenot Catheter vital signs Vital Sign Date Time Temp Pulse Resp B/P (MAP) Pulse Ox O2 Delivery O2 Flow Rate FiO2 01/03/25 13:00 97.2 102 22 113/91 (98) 98 97.2 01/03/25 11:23 Room Air 0.0 01/03/25 11:23 21 Total Intake and Output 01/02/25 01/02/25 01/03/25 15:00 23:00 07:00 Intake Total 450 ml 550 ml 400 ml Output Total 1150 ml 1100 ml Balance 450 ml -600 ml -700 ml medications Current Medications Medications Dose Ordered Sig/Liz Route Start Time Stop Time Status Last Admin Dose Admin Pantoprazole Sodium 40 mg DAILY IV 12/26/24 00:00 01/03/25 08:39 40 MG Levalbuterol HCl 0.625 mg Q6HR NEB 12/26/24 00:00 01/03/25 11:22 0.625 MG Ipratropium [place] 0.5 mg Q6HR NEB 12/26/24 00:00 01/03/25 11:22 0.5 MG Aspirin 81 mg DAILY PO 12/27/24 10:00 01/03/25 08:43 81 MG Atorvastatin Calcium 80 mg HS PO 12/27/24 22:00 01/02/25 21:28 80 MG EZETIMIBE 10 mg DAILY PO 12/27/24 10:00 01/03/25 08:43 10 MG Diagnostic Test (Pha) 1 strip Q6HR 12/27/24 00:00 01/03/25 12:05 1 STRIP Insulin Human Regular Q6HR SC 12/27/24 00:00 01/03/25 12:12 4 UNITS Dextrose 50 ml UD PRN IV 12/26/24 22:15 Ceftriaxone Sodium 50 ml @ 100 mls/hr DAILY@09 IV 12/29/24 09:00 01/03/25 08:40 100 MLS/HR Methylprednisolone Sodium Succinate 40 mg DAILY IV 12/30/24 10:00 01/03/25 08:40 40 MG Amlodipine Besylate 10 mg DAILY PO 12/31/24 10:00 01/03/25 08:41 10 MG Acetylcysteine 200 mg Q8HR NEB 01/01/25 00:00 01/03/25 11:22 200 MG Losartan Potassium 50 mg DAILY PO 01/01/25 10:00 01/03/25 08:43 50 MG Morphine Sulfate 2 mg Q4HPRN PRN IV 01/02/25 10:15 01/03/25 06:21 2 MG Melatonin 5 mg HS PO 01/03/25 01:15 01/03/25 01:23 5 MG Dextrose/Sodium Chloride 1,000 ml @ 80 mls/hr [id number] IV 01/03/25 12:15 01/03/25 14:30 80 MLS/HR laboratory and microbiology Laboratory Tests 01/03/25 09:34 Test 01/03/25 09:34 Range/Units Serum Glucose 222 H 74-106 mg/dL Assessment/Plan Impression Acute hypoxemic respiratory failure Morbid obesity Pneumonia Septic shock Patient seen and examined i Events S/p extubation Low oxygen requirements On room air No distress S/p Bronchoscopy Labs and imaging reviewed ABG reviewed Management suppl02 titrate to sats above 90% advance diet as tolerated Continue antibiotics F/u cultures Bronchodilators Monitor renal function Monitor electrolytes Supplement as needed DVT prophylaxis Dietary Evaluation Review Expected Outcomes/Goals: controlled blood glucose, avoid uremic syndrome, maintain BW. Plan discussed with: Patient RAYMOND DANG MD Jan 03, 2025 14:43
--- NOTE | 2025-01-03 22:58 | DVHPN2 ---
Subjective The patient is seen and examined at bedside. Feel a little bit better. Reviewed: Care Plan, H&P, Labs, Medications, Previous Orders, Radiology Changes from previous H/P or p: No Changes Eyes: No Pain, No Vision change, No Conjunctivae inflammation, No Eyelid inflammation, No Other, No Redness ENT: No Ear pain, No Ear discharge, No Nose pain, No Nose discharge, No Nose congestion, No Mouth pain, No Mouth swelling, No Throat pain, No Throat swelling, No Other Cardiovascular: No Chest Pain, No Palpitations, No Orthopnea, No Paroxysmal Noc. Dyspnea, No Edema, No Lt Headedness, No Other Respiratory: Shortness of breath Gastrointestinal: No Nausea; Vomiting, Abdominal Pain; No Diarrhea, No Constipation, No Melena, No Hematochezia, No Other Genitourinary: No Dysuria, No Frequency, No Incontinence, No Hematuria, No Retention, No Other Musculoskeletal: No other, No neck pain, No shoulder pain, No arm pain, No back pain, No hand pain, No leg pain, No foot pain Skin: No Rash, No Lesions, No Jaundice, No Bruising, No Other Objective Vitals Vital Signs Date Time Temp Pulse Resp B/P (MAP) Pulse Ox O2 Delivery O2 Flow Rate FiO2 01/03/25 20:00 98 20 94 Room Air* 0 21 01/03/25 17:00 97.8 108/75 (86) 97.8 Intake/Output Intake and Output 01/03/25 07:00 Intake Total 1400 ml Output Total 2250 ml Balance -850 ml Intake Oral 950 ml IV Total 450 ml Output Urine Total 2250 ml General Appearance: Alert, No acute distress HEENT: Atraumatic, PERRLA, EOMI, Mucous membr. moist/pink Neck: Supple Lungs: Clear to auscultation, Normal air movement Cardiovascular: Regular rate, Normal S1, Normal S2, No murmurs, Gallops, Rubs Abdomen: Normal bowel sounds, Soft, No tenderness Neuro: Cranial nerves 3-12 NL Psych/Mental Status: Mental status NL Medications Current Medications Medications Dose Ordered Sig/Liz Route Start Time Stop Time Status Last Admin Dose Admin Pantoprazole Sodium 40 mg DAILY IV 12/26/24 00:00 01/03/25 08:39 40 MG Levalbuterol HCl 0.625 mg Q6HR NEB 12/26/24 00:00 01/03/25 18:32 0.625 MG Ipratropium [place] 0.5 mg Q6HR NEB 12/26/24 00:00 01/03/25 18:32 0.5 MG Aspirin 81 mg DAILY PO 12/27/24 10:00 01/03/25 08:43 81 MG Atorvastatin Calcium 80 mg HS PO 12/27/24 22:00 01/03/25 21:41 80 MG EZETIMIBE 10 mg DAILY PO 12/27/24 10:00 01/03/25 08:43 10 MG Diagnostic Test (Pha) 1 strip Q6HR 12/27/24 00:00 01/03/25 17:50 1 STRIP Insulin Human Regular Q6HR SC 12/27/24 00:00 01/03/25 17:50 4 UNITS Dextrose 50 ml UD PRN IV 12/26/24 22:15 Ceftriaxone Sodium 50 ml @ 100 mls/hr DAILY@09 IV 12/29/24 09:00 01/03/25 08:40 100 MLS/HR Methylprednisolone Sodium Succinate 40 mg DAILY IV 12/30/24 10:00 01/03/25 08:40 40 MG Amlodipine Besylate 10 mg DAILY PO 12/31/24 10:00 01/03/25 08:41 10 MG Acetylcysteine 200 mg Q8HR NEB 01/01/25 00:00 01/03/25 18:32 200 MG Losartan Potassium 50 mg DAILY PO 01/01/25 10:00 01/03/25 08:43 50 MG Morphine Sulfate 2 mg Q4HPRN PRN IV 01/02/25 10:15 01/03/25 06:21 2 MG Melatonin 5 mg HS PO 01/03/25 01:15 01/03/25 21:41 5 MG Dextrose/Sodium Chloride 1,000 ml @ 80 mls/hr [id number] IV 01/03/25 12:15 01/03/25 14:30 80 MLS/HR Laboratory Results Laboratory Tests 01/03/25 09:34 Chemistry Test 01/03/25 09:34 Calcium Level 9.0 mg/dL (8.7-10.4) Urinalysis Test 12/25/24 00:45 Urine Color Light-orange (Yellow) Urine Clarity Ex.turbid (Clear) Urine pH 5.5 (5.0-9.0) Urine Specific Joseph 1.024 (1.001-1.035) Urine Protein 2+ (Negative) H Urine Ketones Negative (Negative) Urine Blood 1+ /uL (Negative) H Urine Nitrite Negative (Negative) Urine Bilirubin Negative (Negative) Urine Urobilinogen Normal mg/dL (Negative) Urine Leukocyte Esterase 3+ /uL (Negative) Urine RBC 10 /hpf (0 - 4) Urine WBC Clumps Present /hpf (None Seen) Urine Microscopic WBC 342 /HPF (0-5) H Urine Squamous Epithelial Cells Few /hpf (<5) Urine Bacteria Many /hpf (None Seen) H Urine Hyaline Casts Few /lpf (0 - 2) Urine Yeast (Budding) Moderate /hpf (None Seen) Urine Osmolality 317 mOsm/kg Urine Creatinine 196.43 mg/dL (30.0-125.0) H Urine Sodium 41 mmol/L (40-220) Urine Potassium 15 mmol/L (12-62) Urine Glucose Normal mg/dL (Normal) Urine Total Protein 249.3 mg/dL (1-14) H Microbiology Microbiology Date/Time Source Procedure Growth Status 01/01/25 11:20 Bronchial Washings Gram Stain - Final Resulted 01/01/25 11:20 Bronchial Washings Respiratory Culture - Preliminary Resulted 12/28/24 23:22 Nose MRSA Screen - Final Complete 12/25/24 16:44 Blood Blood Culture - Final NO GROWTH AFTER 5 DAYS OF INCUBATION. Complete 12/25/24 00:45 Voided Urine Urine Culture - Final Escherichia coli Complete Labs and/or images reviewed: Labs reviewed by me Assessment/Plan Assessment/Plan Metabolic encephalopathy secondary to septic shock likely due to aspiration pneumonia History of CVA Sedoanalgesia Hyperammonemia - Resolved Completed head CT which showed no acute intracranial pathology. Present chronic microvascular changes Turned off sedation for CPAP trial. Intermittent Precedex for agitation Neurology on board: consulted due to progressive ALOC, which most likely cause is metabolic encephalopathy due to septic shock. Required lactulose, currently discontinued due to diarrhea Septic shock secondary to aspiration pneumia vs UTI Probable Aspiration pneumonia Gram positive / Gram negative Complicated UTI to E coli Questionable proctitis Currently under empiric IV antibiotics (Ceftriaxone, previously on Meropenem, Vancomycin, Cefepime and azithromycin) Required IV fluid resuscitation and IV vasopressors, currently off vasoactive drugs Urinary culture shows E coli, rest of cultures finalized negative (sputum and blood). COVID, Influenza and MRSA swab negative Obtained abdomen and pelvis CT which showed thick rectal wall (probable proctitis), diverticulosis, small right pleural effusion and probable right pneumonia Acute respiratory failure due to aspiration pneumonia COPD/Asthma exacerbation On mechanical assisted ventilation (VCV Vt: 400 RR: 20 PEEP: 5 FIO2: 30%). Status post extubated On bronchodilator, IV steroids (reduced to methylprednisolone IV 40 mg daily), IV antibiotics and oxygen therapy Completed bronchoscopy on 01/01/2025 with successful bronchial wash. HIRAL hemodynamically mediated (VMN) Anion-Gap metabolic acidosis with non compensated respiratory alkalosis - Resolved Hyperlactacidemia Severe hyperkalemia - Resolved Hyperphosphatemia - Resolved Anuria - Resolved Nephrology on board: Indicated emergent hemodialysis sessions, optimized medical therapy (bicarbonate drip, currently off). Last session on 12/28/2024 (1 L off). Nephrology recommends removing hemodialysis catheter on 12/30/2024. Required multiple hyperkalemia protocol treatments Completed EKG which showed sinus tachycardia, no sine wave or other fatal arrhythmias Chronic diastolic congestive heart failure (HFpEF, LVEF 55%) - Unlikely exacerbation Moderate-severe pulmonary hypertension Troponin x3 negative, EKG shows no ST elevation, BNP mildly elevated 12/2023 echocardiogram showed LVEF 55%, moderately severely elevated RVSP (54 mmHg) New echocardiogram shows LVEF 65%, slightly dilated LA, normal RV function, moderate degree pulmonary hypertension (RVSP 45 mmHg) Mild thrombocytopenia Normocytic anemia History of DVT - ruled out acute DVT Follow up cbc Currently on SCDs Discontinue heparin. Does received during hemodialysis session On erythropoietin 36475 units 3 times a week Completed bilateral lower limb Venous US: No DVT Diabetes - Controlled (Hemoglobin A1C 5.6%) Hypertension Dyslipidemia Continue aspirin, statin and ezetimibe On insulin sliding scale Nutrition: Glucerna Prophylaxis for PUD and DVT: Pantoprazol and SCDs Lines: 12/26/2024 Right IJ VCV 12/26/2024 ET tube 7.5 12/26/2024 NG tube 12/26/2024 Left IJ HD catheter - DC 12/30/2024 12/26/2024 Fontenot catheter 12/29/2024 Rectal tube Drips Propofol Off Fentanyl Off Precedex intermittent (for agitation) off Continuing current management. Encouraged the patient to be out of bed and ambulate. We will get PT evaluation. This medical document was created using an electronic medical record system with [employer] direct computerized dictation system. Although this document has been carefully reviewed, there may still be some phonetic and typographical errors. These areas are purely typographical due to imperfections of the software programs, and do not reflect any compromise in the patient's medical care. Plan discussed with: Patient My Orders Orders - AFSHAN ZIMMERMAN MD Procedure Category Date Status Time Complete Blood Count LAB 01/04/25 Verified 05:00 Complete Blood Count LAB 01/05/25 Verified 05:00 Basic Metabolic Panel LAB 01/04/25 Verified 05:00 Basic Metabolic Panel LAB 01/05/25 Verified 05:00 Date of Service: Jan 03, 2025 Billing Provider: AFSHAN ZIMMERMAN MD Common Visit Codes: [id number] INP/OBS CARE(HIGH) AFSHAN ZIMMERMAN MD Jan 03, 2025 22:58
--- NOTE | 2025-01-03 23:27 | DVHPN2 ---
Progress Note - Dictate Date Seen: Jan 03, 2025 Medical Necessity Reason Pt with a Central, PICC or Fol: Yes The following are medically ne: Central Line (central line and Left IJ HD catheter), Fontenot Catheter Subjective Ms. Viveros is a 69 years old female with a history of hypertension, diabetes, congestive heart failure, COPD, asthma, rheumatoid arthritis, chronic pain syndrome/lumbar disc disease, she was brought to the hospital on 12/25/2024 with a chief complaint of low blood pressure. I saw her on 01/15/2021 for ALOC/opiate ALOC/opiate overdose I have seen examined the patient with his nurse, she is awake, she follows, but may only oriented to herself, she does not vocalize, moves the arms She is extubated on 01/01/2025 Blood culture, 12/25/2024: No growth Urine culture, 12/25/2024: E coli Hepatitis panel, 12/26/2024: Negative UDS, 01/13/2021: Cannabinoids, alcohol: 6. 12/26/2024: Negative Urinalysis, 12/25/2024: WBC: 342, urine WBC clumps: Present, urine leukocyte esterase: 3+ ABG, 12/25/2024: Metabolic acidosis, 12/26/2024: Hypoxia, metabolic acidosis, WBC/HGB/PLT/MCV, 12/25/2024: 10.5/12.9/134/83.8. 12/26/2024: 21.8/12.5/156/91.3, 12/28/2024: 14.7/10.8/97/81.5 K 12/25/2024: 5, 6.1, 12/26/2024: 7.5, 6.8 Anion gap, 12/26/2024: 29 BUN/CR, 12/26/2024: 43/8.2, 11/24/2024: 21/3.42 GFR, 12/26/2024: 5, 12/28/2024: 14 Lactic acid, 12/25/2024: 8.8, 13.1, 12/26/2024: 6.3, 9.5 HGB A1c, 12/26/2024: 5.6 TBI/AST/ALT/AP, 12/26/2024: 0.4/56/26/62 Ammonia, 12/26/2024: 87 TG/HDL/LDL/HDL, 12/26/2024: 154/188/117/52 Vitamin B12, 02/26/2024: 490 Folic acid, 12/2620: 20.25 TSH, 12/26/2024: 0.87 Chest x-ray, 12/25/2024: Bronchovascular crowding due to low lung volumes. Underlying pulmonary vascular congestion can not be excluded Chest x-ray, 12/26/24: 1. No acute cardiopulmonary disease. 2. Pulmonary markings reflect supine 3. Endotracheal tube 2.7 cm above the gabriel 4. Enteric tube below the left diaphragm in the stomach 5. Right internal jugular catheter in good position at the cavoatrial junction. CT head, 01/13/2021: No mass effect or acute intracranial bleed. Minimal chronic sinusitis change CT head, 12/25/2024: 1. There is no acute infarct, intracranial hemorrhage, or mass effect. 2. There is no hydrocephalus or significant midline shift. 3. 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 4. Mild chronic microvascular ischemic changes and mild parenchymal volume loss. 5. No acute, depressed calvarial fractures. 6. No large scalp hematomas CT abdomen/pelvis, 12/25/2024: Wall thickening of the rectum which may be due to inadequate distention /proctitis. Descending colon and sigmoid diverticulosis without diverticulitis. Moderate amount of fecal material within the colon. Small right-sided pleural effusion with bibasilar atelectasis. Right basilar pneumonia can not be excluded vital signs Vital Sign Date Time Temp Pulse Resp B/P (MAP) Pulse Ox O2 Delivery O2 Flow Rate FiO2 01/03/25 20:00 98 20 94 Room Air* 0 21 01/03/25 17:00 97.8 108/75 (86) 97.8 Total Intake and Output 01/02/25 01/02/25 01/03/25 15:00 23:00 07:00 Intake Total 450 ml 550 ml 400 ml Output Total 1150 ml 1100 ml Balance 450 ml -600 ml -700 ml medications Current Medications Medications Dose Ordered Sig/Liz Route Start Time Stop Time Status Last Admin Dose Admin Pantoprazole Sodium 40 mg DAILY IV 12/26/24 00:00 01/03/25 08:39 40 MG Levalbuterol HCl 0.625 mg Q6HR NEB 12/26/24 00:00 01/03/25 18:32 0.625 MG Ipratropium [place] 0.5 mg Q6HR NEB 12/26/24 00:00 01/03/25 18:32 0.5 MG Aspirin 81 mg DAILY PO 12/27/24 10:00 01/03/25 08:43 81 MG Atorvastatin Calcium 80 mg HS PO 12/27/24 22:00 01/03/25 21:41 80 MG EZETIMIBE 10 mg DAILY PO 12/27/24 10:00 01/03/25 08:43 10 MG Diagnostic Test (Pha) 1 strip Q6HR 12/27/24 00:00 01/03/25 17:50 1 STRIP Insulin Human Regular Q6HR SC 12/27/24 00:00 01/03/25 17:50 4 UNITS Dextrose 50 ml UD PRN IV 12/26/24 22:15 Ceftriaxone Sodium 50 ml @ 100 mls/hr DAILY@09 IV 12/29/24 09:00 01/03/25 08:40 100 MLS/HR Methylprednisolone Sodium Succinate 40 mg DAILY IV 12/30/24 10:00 01/03/25 08:40 40 MG Amlodipine Besylate 10 mg DAILY PO 12/31/24 10:00 01/03/25 08:41 10 MG Acetylcysteine 200 mg Q8HR NEB 01/01/25 00:00 01/03/25 18:32 200 MG Losartan Potassium 50 mg DAILY PO 01/01/25 10:00 01/03/25 08:43 50 MG Morphine Sulfate 2 mg Q4HPRN PRN IV 01/02/25 10:15 01/03/25 06:21 2 MG Melatonin 5 mg HS PO 01/03/25 01:15 01/03/25 21:41 5 MG Dextrose/Sodium Chloride 1,000 ml @ 80 mls/hr [id number] IV 01/03/25 12:15 01/03/25 14:30 80 MLS/HR objective The patient is well-nourished and well-developed with no distress. MENTAL STATUS: Subjective CRANIAL NERVES: Pupils are equal, round and reactive. Normal conjugated eye movement, normal motor and sensory examined in bilateral trigeminal distribution, no facial weakness SENSATION: Okay to pinprick and light touch MOTOR: Normal tone in the upper and lower extremity. Normal muscle bulk. No fasciculations. She moves the arms REFLEXES: Deep tendon reflexes are symmetrical. No pathological reflexes. CEREBELLAR/COORDINATION: Deferred GAIT/STATION: deferred laboratory and microbiology Laboratory Tests 01/03/25 09:34 Test 01/03/25 09:34 Range/Units Serum Glucose 222 H 74-106 mg/dL Problem List Coma, resolved Acute metabolic encephalopathy Acute respiratory failure Toxic cephalopathy ? Hepatic encephalitis Lactic acidosis/leukocytosis/sepsis Urinary tract infection Hyperkalemia Kidney failure Cognitive dysfunction, ? MCI, ? Mild dementia/Alzheimer's disease Assessment/Plan Monitoring Support treatment EEG Telemetry care Oxygen IV antibodies GI prophylaxis Nephrology on case More recommendation per clinical course This medical document was created using an electronic medical record system with [employer] dictation system. Although this document has been carefully reviewed, there may still be some phonetic and typographical errors. These areas are purely typographical due to imperfections of the software programs, and do not reflect any compromise in the patient's medical care. Prognosis poor Dietary Evaluation Review Expected Outcomes/Goals: controlled blood glucose, avoid uremic syndrome, maintain BW. Plan discussed with: Other TERESA DSOUZA MD Jan 03, 2025 23:27
[2025-01-04] VITALS (14 sets, daily range): BP systolic 103–129; BP diastolic 76–95; PULSE 76–99; RESP 14–18; TEMP 97.1–98.6; O2SAT 94–100
--- NOTE | 2025-01-04 05:38 | DVH ---
CHEST RADIOGRAPH Indication: Intubated Technique: 1 view Comparison: XY CHEST XRAY 1 VIEW on DOS: 01/03/25, XY CHEST XRAY 1 VIEW on DOS: 01/02/25, XY CHEST XRAY 1 VIEW on DOS: 01/01/25, XY CHEST PORTABLE on DOS: 12/31/24, XY CHEST XRAY 1 VIEW on DOS: 12/31/24 FINDINGS: Lines and Tubes: External leads. Lungs/Pleura: No focal consolidation, pleural effusion or pneumothorax. Cardiomediastinum: Unchanged. Other: Unchanged osseous structures. IMPRESSION: 1. No significant change from the previous study.
[2025-01-04 06:34] LABS: Chloride 100 mmol/L (98-107); Potassium 3.6 mmol/L (3.5-5.1); Sodium 138 mmol/L (136-145)
[2025-01-04 06:35] LABS: Anion Gap 14 (5-15); Calcium 9.7 mg/dL (8.7-10.4); Carbon Dioxide 24 mmol/L (20-31)
[2025-01-04 06:40] LABS: BUN/Creatinine Ratio 23.1 (10.0-20.0); Blood Urea Nitrogen 28 mg/dL (9-23)
[2025-01-04 06:41] LABS: Hematocrit 39.9 % (36.0-46.0); Hemoglobin 13.4 g/dL (12.2-16.2); Mean Corpuscular Hemoglobin 27.0 pg (28.0-32.0); Mean Corpuscular Volume 80.4 fL (80.0-100.0); Nucleated Red Blood Cells % 0.0 %
[2025-01-04 06:51] LABS: Glucose 135 mg/dL (74-106)
--- NOTE | 2025-01-04 11:06 | DVHPN2 ---
Subjective The patient is seen and examined at bedside. Feel a little bit better. Reviewed: Care Plan, H&P, Labs, Medications, Previous Orders, Radiology Eyes: No Pain, No Vision change, No Conjunctivae inflammation, No Eyelid inflammation, No Other, No Redness ENT: No Ear pain, No Ear discharge, No Nose pain, No Nose discharge, No Nose congestion, No Mouth pain, No Mouth swelling, No Throat pain, No Throat swelling, No Other Cardiovascular: No Chest Pain, No Palpitations, No Orthopnea, No Paroxysmal Noc. Dyspnea, No Edema, No Lt Headedness, No Other Respiratory: Shortness of breath Gastrointestinal: No Nausea; Vomiting, Abdominal Pain; No Diarrhea, No Constipation, No Melena, No Hematochezia, No Other Genitourinary: No Dysuria, No Frequency, No Incontinence, No Hematuria, No Retention, No Other Musculoskeletal: No other, No neck pain, No shoulder pain, No arm pain, No back pain, No hand pain, No leg pain, No foot pain Skin: No Rash, No Lesions, No Jaundice, No Bruising, No Other Objective Vitals Vital Signs Date Time Temp Pulse Resp B/P (MAP) Pulse Ox O2 Delivery O2 Flow Rate FiO2 01/04/25 10:01 125/91 01/04/25 09:49 80 14 100 2.0 28 01/04/25 09:00 98.2 98.2 01/04/25 06:25 Nasal Cannula* Intake/Output Intake and Output 01/04/25 07:00 Intake Total 750 ml Output Total 900 ml Balance -150 ml Intake Oral 300 ml IV Total 450 ml Output Urine Total 900 ml General Appearance: Alert, No acute distress HEENT: Atraumatic, PERRLA, EOMI, Mucous membr. moist/pink Neck: Supple Lungs: Clear to auscultation, Normal air movement Cardiovascular: Regular rate, Normal S1, Normal S2, No murmurs, Gallops, Rubs Abdomen: Normal bowel sounds, Soft, No tenderness Neuro: Cranial nerves 3-12 NL Psych/Mental Status: Mental status NL Medications Current Medications Medications Dose Ordered Sig/Liz Route Start Time Stop Time Status Last Admin Dose Admin Pantoprazole Sodium 40 mg DAILY IV 12/26/24 00:00 01/04/25 10:00 40 MG Levalbuterol HCl 0.625 mg Q6HR NEB 12/26/24 00:00 01/04/25 06:25 0.625 MG Ipratropium [place] 0.5 mg Q6HR NEB 12/26/24 00:00 01/04/25 06:25 0.5 MG Aspirin 81 mg DAILY PO 12/27/24 10:00 01/04/25 10:00 81 MG Atorvastatin Calcium 80 mg HS PO 12/27/24 22:00 01/03/25 21:41 80 MG EZETIMIBE 10 mg DAILY PO 12/27/24 10:00 01/04/25 10:07 10 MG Diagnostic Test (Pha) 1 strip Q6HR 12/27/24 00:00 01/04/25 06:00 1 STRIP Insulin Human Regular Q6HR SC 12/27/24 00:00 01/04/25 06:51 4 UNITS Dextrose 50 ml UD PRN IV 12/26/24 22:15 Ceftriaxone Sodium 50 ml @ 100 mls/hr DAILY@09 IV 12/29/24 09:00 01/04/25 10:00 100 MLS/HR Methylprednisolone Sodium Succinate 40 mg DAILY IV 12/30/24 10:00 01/04/25 10:00 40 MG Amlodipine Besylate 10 mg DAILY PO 12/31/24 10:00 01/04/25 10:01 10 MG Acetylcysteine 200 mg Q8HR NEB 01/01/25 00:00 01/04/25 06:25 200 MG Losartan Potassium 50 mg DAILY PO 01/01/25 10:00 01/04/25 10:00 50 MG Morphine Sulfate 2 mg Q4HPRN PRN IV 01/02/25 10:15 01/03/25 06:21 2 MG Melatonin 5 mg HS PO 01/03/25 01:15 01/03/25 21:41 5 MG Laboratory Results Laboratory Tests 01/04/25 06:10 Chemistry Test 01/04/25 06:10 Calcium Level 9.7 mg/dL (8.7-10.4) Urinalysis Test 12/25/24 00:45 Urine Color Light-orange (Yellow) Urine Clarity Ex.turbid (Clear) Urine pH 5.5 (5.0-9.0) Urine Specific [place] 1.024 (1.001-1.035) Urine Protein 2+ (Negative) H Urine Ketones Negative (Negative) Urine Blood 1+ /uL (Negative) H Urine Nitrite Negative (Negative) Urine Bilirubin Negative (Negative) Urine Urobilinogen Normal mg/dL (Negative) Urine Leukocyte Esterase 3+ /uL (Negative) Urine RBC 10 /hpf (0 - 4) Urine WBC Clumps Present /hpf (None Seen) Urine Microscopic WBC 342 /HPF (0-5) H Urine Squamous Epithelial Cells Few /hpf (<5) Urine Bacteria Many /hpf (None Seen) H Urine Hyaline Casts Few /lpf (0 - 2) Urine Yeast (Budding) Moderate /hpf (None Seen) Urine Osmolality 317 mOsm/kg Urine Creatinine 196.43 mg/dL (30.0-125.0) H Urine Sodium 41 mmol/L (40-220) Urine Potassium 15 mmol/L (12-62) Urine Glucose Normal mg/dL (Normal) Urine Total Protein 249.3 mg/dL (1-14) H Microbiology Microbiology Date/Time Source Procedure Growth Status 01/01/25 11:20 Bronchial Washings Gram Stain - Final Resulted 01/01/25 11:20 Bronchial Washings Respiratory Culture - Preliminary Resulted 12/28/24 23:22 Nose MRSA Screen - Final Complete 12/25/24 16:44 Blood Blood Culture - Final NO GROWTH AFTER 5 DAYS OF INCUBATION. Complete 12/25/24 00:45 Voided Urine Urine Culture - Final Escherichia coli Complete Assessment/Plan Assessment/Plan Metabolic encephalopathy secondary to septic shock likely due to aspiration pneumonia History of CVA Sedoanalgesia Hyperammonemia - Resolved Completed head CT which showed no acute intracranial pathology. Present chronic microvascular changes Turned off sedation for CPAP trial. Intermittent Precedex for agitation Neurology on board: consulted due to progressive ALOC, which most likely cause is metabolic encephalopathy due to septic shock. Required lactulose, currently discontinued due to diarrhea Septic shock secondary to aspiration pneumia vs UTI Probable Aspiration pneumonia Gram positive / Gram negative Complicated UTI to E coli Questionable proctitis Currently under empiric IV antibiotics (Ceftriaxone, previously on Meropenem, Vancomycin, Cefepime and azithromycin) Required IV fluid resuscitation and IV vasopressors, currently off vasoactive drugs Urinary culture shows E coli, rest of cultures finalized negative (sputum and blood). COVID, Influenza and MRSA swab negative Obtained abdomen and pelvis CT which showed thick rectal wall (probable proctitis), diverticulosis, small right pleural effusion and probable right pneumonia Acute respiratory failure due to aspiration pneumonia COPD/Asthma exacerbation On mechanical assisted ventilation (VCV Vt: 400 RR: 20 PEEP: 5 FIO2: 30%). Status post extubated On bronchodilator, IV steroids (reduced to methylprednisolone IV 40 mg daily), IV antibiotics and oxygen therapy Completed bronchoscopy on 01/01/2025 with successful bronchial wash. HIRAL hemodynamically mediated (VMN) Anion-Gap metabolic acidosis with non compensated respiratory alkalosis - Resolved Hyperlactacidemia Severe hyperkalemia - Resolved Hyperphosphatemia - Resolved Anuria - Resolved Nephrology on board: Indicated emergent hemodialysis sessions, optimized medical therapy (bicarbonate drip, currently off). Last session on 12/28/2024 (1 L off). Nephrology recommends removing hemodialysis catheter on 12/30/2024. Required multiple hyperkalemia protocol treatments Completed EKG which showed sinus tachycardia, no sine wave or other fatal arrhythmias Chronic diastolic congestive heart failure (HFpEF, LVEF 55%) - Unlikely exacerbation Moderate-severe pulmonary hypertension Troponin x3 negative, EKG shows no ST elevation, BNP mildly elevated 12/2023 echocardiogram showed LVEF 55%, moderately severely elevated RVSP (54 mmHg) New echocardiogram shows LVEF 65%, slightly dilated LA, normal RV function, moderate degree pulmonary hypertension (RVSP 45 mmHg) Mild thrombocytopenia Normocytic anemia History of DVT - ruled out acute DVT Follow up cbc Currently on SCDs Discontinue heparin. Does received during hemodialysis session On erythropoietin 70715 units 3 times a week Completed bilateral lower limb Venous US: No DVT Diabetes - Controlled (Hemoglobin A1C 5.6%) Hypertension Dyslipidemia Continue aspirin, statin and ezetimibe On insulin sliding scale Nutrition: Glucerna Prophylaxis for PUD and DVT: Pantoprazol and SCDs Lines: 12/26/2024 Right IJ VCV 12/26/2024 ET tube 7.5 12/26/2024 NG tube 12/26/2024 Left IJ HD catheter - DC 12/30/2024 12/26/2024 Fontenot catheter 12/29/2024 Rectal tube Drips Propofol Off Fentanyl Off Precedex intermittent (for agitation) off Continuing current management. Encouraged the patient to be out of bed and ambulate. We will get PT evaluation. This medical document was created using an electronic medical record system with [employer] computerized dictation system. Although this document has been carefully reviewed, there may still be some phonetic and typographical errors. These areas are purely typographical due to imperfections of the software programs, and do not reflect any compromise in the patient's medical care. AFSHAN ZIMMERMAN MD Jan 04, 2025 11:06
--- NOTE | 2025-01-04 19:05 | DVHPN2 ---
Progress Note Date Seen: Jan 04, 2025 Medical Necessity Reason Pt with a Central, PICC or Fol: Yes The following are medically ne: Central Line (central line and Left IJ HD catheter), Fontenot Catheter Subjective Patient reports: No new complaints Review of Systems: Deferred Objective vital signs Vital Sign Date Time Temp Pulse Resp B/P (MAP) Pulse Ox O2 Delivery O2 Flow Rate FiO2 01/04/25 17:00 98.1 96 18 108/76 (87) 97 98.1 01/04/25 09:49 2.0 28 01/04/25 08:00 Nasal Cannula* Total Intake and Output 01/03/25 01/03/25 01/04/25 15:00 23:00 07:00 Intake Total 150 ml 250 ml 350 ml Output Total 400 ml 500 ml Balance 150 ml -150 ml -150 ml medications Current Medications Medications Dose Ordered Sig/Liz Route Start Time Stop Time Status Last Admin Dose Admin Pantoprazole Sodium 40 mg DAILY IV 12/26/24 00:00 01/04/25 10:00 40 MG Aspirin 81 mg DAILY PO 12/27/24 10:00 01/04/25 10:00 81 MG Atorvastatin Calcium 80 mg HS PO 12/27/24 22:00 01/03/25 21:41 80 MG EZETIMIBE 10 mg DAILY PO 12/27/24 10:00 01/04/25 10:07 10 MG Diagnostic Test (Pha) 1 strip Q6HR 12/27/24 00:00 01/04/25 16:46 1 STRIP Insulin Human Regular Q6HR SC 12/27/24 00:00 01/04/25 16:50 6 UNITS Dextrose 50 ml UD PRN IV 12/26/24 22:15 Ceftriaxone Sodium 50 ml @ 100 mls/hr DAILY@09 IV 12/29/24 09:00 01/04/25 10:00 100 MLS/HR Methylprednisolone Sodium Succinate 40 mg DAILY IV 12/30/24 10:00 01/04/25 10:00 40 MG Amlodipine Besylate 10 mg DAILY PO 12/31/24 10:00 01/04/25 10:01 10 MG Acetylcysteine 200 mg Q8HR NEB 01/01/25 00:00 01/04/25 12:36 200 MG Losartan Potassium 50 mg DAILY PO 01/01/25 10:00 01/04/25 10:00 50 MG Morphine Sulfate 2 mg Q4HPRN PRN IV 01/02/25 10:15 01/03/25 06:21 2 MG Melatonin 5 mg HS PO 01/03/25 01:15 01/03/25 21:41 5 MG Ipratropium [place] 0.5 mg Q8HR NEB 01/04/25 22:00 UNV Levalbuterol HCl 0.625 mg Q8HR NEB 01/04/25 22:00 UNV laboratory and microbiology Laboratory Tests 01/04/25 06:10 Test 01/04/25 06:10 Range/Units Serum Glucose 135 H 74-106 mg/dL Microbiology Date/Time Source Procedure Growth Status 01/01/25 11:20 Bronchial Washings Gram Stain - Final Resulted 01/01/25 11:20 Bronchial Washings Respiratory Culture - Preliminary Resulted 12/28/24 23:22 Nose MRSA Screen - Final Complete 12/25/24 16:44 Blood Blood Culture - Final NO GROWTH AFTER 5 DAYS OF INCUBATION. Complete 12/25/24 00:45 Voided Urine Urine Culture - Final Escherichia coli Complete Problem List/Assessment/Plan Problem List/Assessment/Plan Acute kidney injury superimposed Chronic Kidney Disease secondary hemodynamic mediated s/p intermittent hemodialysis acute respiratory failure, extubated PNA dementia metabolic acidosis Hypokalemia Hypomagnesemia Diabetes mellitus type 2 Hypertension Anemia of chronic kidney disease recs Renal function improved no need for dialysis Plan discussed with: Patient Dietary Evaluation Review Expected Outcomes/Goals: controlled blood glucose, avoid uremic syndrome, maintain BW. BECKI SHIRLEY MD Jan 04, 2025 19:05
--- NOTE | 2025-01-04 22:22 | DVHPNRES ---
Progress Note Date Seen: Jan 04, 2025 Resident Creating Document: LUCY PETERSEN RESIDENT Medical Necessity Reason Pt with a Central, PICC or Fol: Yes The following are medically ne: Central Line (central line and Left IJ HD catheter), Fontenot Catheter Subjective Review of Systems Mer Viveros is a 69-year-old female who presents to the ER via EMS for progressive altered level of consciousness, generalized weakness for the past weeks, which worsened significantly 24 hours before her admission. Due to clinical status, could not obtain review of systems. Obtained history from granddaughter (BROWN, Cammie). Per POAshwini, she is completely normal at baseline, no cognitive impairments and can complete ADLs, regardless her history of CVA. The day of her admission, BROWN saw patient with increased respiratory effort, prompting her visit. Past Medical History: Hypertension, diabetes, dyslipidemia, CHF, COPD/asthma with multiple admissions, CVA. Surgical History: Denies Family History: Sister had breast cancer Social History: Lives in [place] with granddaughter (she is the caregiver and the [id number]). Ex tobacco abuse (10 pack-year history of smoking). Denies current tobacco, alcohol and other drug abuse. Allergies: Denies Home Medications: Gabapentin 800 mg daily, amlodipine 5 mg p.o. daily, nitroglycerin p.r.n., oxycodone, inhalers, losartan, acetaminophen, montelukast, rosuvastatin, aspirin, metformin Patient seen and examined at bedside. Cannot obtain ROS due to on mechanical assisted ventilation, sedation is off. Urine cultures shows E coli multisensitive, blood and sputum cultures are negative finalized. Last hemodialysis session on 12/28/2024, nephrology specialist on board recommends no more HD at the time (removed HD catheter on 12/30/2024). Completed bronchoscopy for bronchial washing, sent samples for cytology and cultures. Patient completed 1st CPAP trial on 12/30/2024, planning on extubation after successful bronchoscopy Objective vital signs Vital Sign Date Time Temp Pulse Resp B/P (MAP) Pulse Ox O2 Delivery O2 Flow Rate FiO2 01/01/25 11:27 92 27 143/99 (114) 98 30 01/01/25 06:00 Mechanical Ventilator+ 01/01/25 04:00 97.9 97.9 Total Intake and Output 12/31/24 12/31/24 01/01/25 15:00 23:00 07:00 Intake Total 51.908 ml 292.720 ml 122.725 ml Output Total 3600 ml 2310 ml Balance 51.908 ml -3307.280 ml -2187.275 ml medications Current Medications Medications Dose Ordered Sig/Liz Route Start Time Stop Time Status Last Admin Dose Admin Pantoprazole Sodium 40 mg DAILY IV 12/26/24 00:00 01/01/25 08:16 40 MG Levalbuterol HCl 0.625 mg Q6HR NEB 12/26/24 00:00 01/01/25 05:57 0.625 MG Ipratropium [place] 0.5 mg Q6HR NEB 12/26/24 00:00 01/01/25 05:57 0.5 MG Propofol 100 ml @ 1.908 mls/ hr Q24H IV 12/26/24 15:30 12/31/24 05:16 15.264 MLS/HR Fentanyl Citrate 250 ml @ 2.5 mls/hr Q24H IV 12/26/24 15:30 12/30/24 00:43 22.5 MLS/HR Aspirin 81 mg DAILY PO 12/27/24 10:00 01/01/25 08:16 81 MG Atorvastatin Calcium 80 mg HS PO 12/27/24 22:00 12/31/24 23:17 80 MG EZETIMIBE 10 mg DAILY PO 12/27/24 10:00 01/01/25 08:16 10 MG Diagnostic Test (Pha) 1 strip Q6HR 12/27/24 00:00 01/01/25 06:21 1 STRIP Insulin Human Regular Q6HR SC 12/27/24 00:00 01/01/25 06:22 2 UNITS Dextrose 50 ml UD PRN IV 12/26/24 22:15 Ceftriaxone Sodium 50 ml @ 100 mls/hr DAILY@09 IV 12/29/24 09:00 01/01/25 08:07 100 MLS/HR Enteral Nutritional Formula 1,000 ml 30ML/HR GT 12/28/24 22:00 12/29/24 19:24 1,000 ML Methylprednisolone Sodium Succinate 40 mg DAILY IV 12/30/24 10:00 01/01/25 08:16 40 MG Furosemide 40 mg BIDD IV 12/31/24 18:00 01/01/25 06:20 40 MG Amlodipine Besylate 10 mg DAILY PO 12/31/24 10:00 01/01/25 10:38 10 MG Acetylcysteine 200 mg Q8HR NEB 01/01/25 00:00 01/01/25 05:57 200 MG Losartan Potassium 50 mg DAILY PO 01/01/25 10:00 01/01/25 10:37 50 MG Potassium Chloride 100 ml @ 50 mls/hr Q2H IV 01/01/25 08:30 01/01/25 14:29 01/01/25 10:23 50 MLS/HR Examination Patient lying in bed, no sedoanalgesia due to mechanical ventilation (before extubation) General: RASS -1, afebrile, mucosae are moist Cardiovascular: Normal S1 and S2. No murmurs, gallops or rubs Respiratory: Mechanically assisted ventilation, equal bilateral airway entree. Bilateral rhonchus predominantly in right base Abdomen: Soft, nontender, no organomegaly, normal bowel sounds MSK/skin: Mobilizes limbs, follows commands. Skin is dry and warm. Presents generalized edema especially in bilateral hands Neurological: Orientation cannot be assessed. No apparent motor no sensitive deficits. Pupils are isocoric and reactive laboratory and microbiology Laboratory Tests 01/01/25 03:09 Test 01/01/25 03:09 Range/Units Serum Glucose 126 H 74-106 mg/dL Microbiology Date/Time Source Procedure Growth Status 12/28/24 23:22 Nose MRSA Screen - Final Complete 12/26/24 14:44 Sputum Gram Stain - Final Complete 12/26/24 14:44 Sputum Respiratory Culture - Final Complete 12/25/24 16:44 Blood Blood Culture - Final NO GROWTH AFTER 5 DAYS OF INCUBATION. Complete 12/25/24 00:45 Voided Urine Urine Culture - Final Escherichia coli Complete Problem List/Assessment/Plan Problem List/Assessment/Plan Metabolic encephalopathy secondary to septic shock likely due to aspiration pneumonia History of CVA Sedoanalgesia Hyperammonemia - Resolved Completed head CT which showed no acute intracranial pathology. Present chronic microvascular changes Turned off sedation for CPAP trial. Intermittent Precedex for agitation Neurology on board: consulted due to progressive ALOC, which most likely cause is metabolic encephalopathy due to septic shock. Required lactulose, currently discontinued due to diarrhea Septic shock secondary to aspiration pneumia vs UTI Probable Aspiration pneumonia Gram positive / Gram negative Complicated UTI to E coli Questionable proctitis Currently under empiric IV antibiotics (Ceftriaxone, previously on Meropenem, Vancomycin, Cefepime and azithromycin) Required IV fluid resuscitation and IV vasopressors, currently off vasoactive drugs Urinary culture shows E coli, rest of cultures finalized negative (sputum and blood). COVID, Influenza and MRSA swab negative Obtained abdomen and pelvis CT which showed thick rectal wall (probable proctitis), diverticulosis, small right pleural effusion and probable right pneumonia Acute respiratory failure due to aspiration pneumonia COPD/Asthma exacerbation On mechanical assisted ventilation (VCV Vt: 400 RR: 20 PEEP: 5 FIO2: 30%). CPAP trial underway, planning extubation on 01/01/2025 On bronchodilator, IV steroids (reduced to methylprednisolone IV 40 mg daily), IV antibiotics and oxygen therapy Completed bronchoscopy on 01/01/2025 with successful bronchial wash. HIRAL hemodynamically mediated (VMN) Anion-Gap metabolic acidosis with non compensated respiratory alkalosis - Resolved Hyperlactacidemia Severe hyperkalemia - Resolved Hyperphosphatemia - Resolved Anuria - Resolved Nephrology on board: Indicated emergent hemodialysis sessions, optimized medical therapy (bicarbonate drip, currently off). Last session on 12/28/2024 (1 L off). Nephrology recommends removing hemodialysis catheter on 12/30/2024. Required multiple hyperkalemia protocol treatments Completed EKG which showed sinus tachycardia, no sine wave or other fatal arrhythmias Chronic diastolic congestive heart failure (HFpEF, LVEF 55%) - Unlikely exacerbation Moderate-severe pulmonary hypertension Troponin x3 negative, EKG shows no ST elevation, BNP mildly elevated 12/2023 echocardiogram showed LVEF 55%, moderately severely elevated RVSP (54 mmHg) New echocardiogram shows LVEF 65%, slightly dilated LA, normal RV function, moderate degree pulmonary hypertension (RVSP 45 mmHg) Mild thrombocytopenia Normocytic anemia History of DVT - ruled out acute DVT Follow up cbc Currently on SCDs Discontinue heparin. Does received during hemodialysis session On erythropoietin 45764 units 3 times a week Completed bilateral lower limb Venous US: No DVT Diabetes - Controlled (Hemoglobin A1C 5.6%) Hypertension Dyslipidemia Continue aspirin, statin and ezetimibe On insulin sliding scale Nutrition: Glucerna Prophylaxis for PUD and DVT: Pantoprazol and SCDs Lines: 12/26/2024 Right IJ VCV 12/26/2024 ET tube 7.5 12/26/2024 NG tube 12/26/2024 Left IJ HD catheter - DC 12/30/2024 12/26/2024 Fontenot catheter 12/29/2024 Rectal tube Drips Propofol Off Fentanyl Off Precedex intermittent (for agitation Goals of care discussed with patient and POA (granddaughter Cammie at [phone]) for over 28 minutes: Full code status Discussed plan with Dr Lujan, patient, granddaughter and nurses: Patient currently on ICU status on mechanical assisted ventilation without sedation (intermittent Precedex), adjusted IV antibiotics, IV steroids (reducing dose). Completed bronchoscopy with bronchial wash, completed CPAP trial for past 72hs, planning on extubation after bronch. Patient has critical prognosis. Critical care time spent including chart review, discussion with family and patient evaluation, excluding procedures and CPAP trial: 77 minutes Plan discussed with: Patient, Other (Granddaugther and nurses) Objective vital signs Vital Sign Date Time Temp Pulse Resp B/P (MAP) Pulse Ox O2 Delivery O2 Flow Rate FiO2 01/04/25 17:00 98.1 96 18 108/76 (87) 97 98.1 01/04/25 09:49 2.0 28 01/04/25 08:00 Nasal Cannula* Total Intake and Output 01/03/25 01/03/25 01/04/25 15:00 23:00 07:00 Intake Total 150 ml 250 ml 350 ml Output Total 400 ml 500 ml Balance 150 ml -150 ml -150 ml medications Current Medications Medications Dose Ordered Sig/Liz Route Start Time Stop Time Status Last Admin Dose Admin Pantoprazole Sodium 40 mg DAILY IV 12/26/24 00:00 01/04/25 10:00 40 MG Aspirin 81 mg DAILY PO 12/27/24 10:00 01/04/25 10:00 81 MG Atorvastatin Calcium 80 mg HS PO 12/27/24 22:00 01/04/25 21:24 80 MG EZETIMIBE 10 mg DAILY PO 12/27/24 10:00 01/04/25 10:07 10 MG Diagnostic Test (Pha) 1 strip Q6HR 12/27/24 00:00 01/04/25 16:46 1 STRIP Insulin Human Regular Q6HR SC 12/27/24 00:00 01/04/25 16:50 6 UNITS Dextrose 50 ml UD PRN IV 12/26/24 22:15 Ceftriaxone Sodium 50 ml @ 100 mls/hr DAILY@09 IV 12/29/24 09:00 01/04/25 10:00 100 MLS/HR Methylprednisolone Sodium Succinate 40 mg DAILY IV 12/30/24 10:00 01/04/25 10:00 40 MG Amlodipine Besylate 10 mg DAILY PO 12/31/24 10:00 01/04/25 10:01 10 MG Acetylcysteine 200 mg Q8HR NEB 01/01/25 00:00 01/04/25 12:36 200 MG Losartan Potassium 50 mg DAILY PO 01/01/25 10:00 01/04/25 10:00 50 MG Morphine Sulfate 2 mg Q4HPRN PRN IV 01/02/25 10:15 01/03/25 06:21 2 MG Melatonin 5 mg HS PO 01/03/25 01:15 01/04/25 21:23 5 MG Ipratropium [place] 0.5 mg Q8HR NEB 01/04/25 22:00 Levalbuterol HCl 0.625 mg Q8HR NEB 01/04/25 22:00 laboratory and microbiology Laboratory Tests 01/04/25 06:10 Test 01/04/25 06:10 Range/Units Serum Glucose 135 H 74-106 mg/dL Microbiology Date/Time Source Procedure Growth Status 01/01/25 11:20 Bronchial Washings Gram Stain - Final Resulted 01/01/25 11:20 Bronchial Washings Respiratory Culture - Preliminary Resulted 12/28/24 23:22 Nose MRSA Screen - Final Complete 12/25/24 16:44 Blood Blood Culture - Final NO GROWTH AFTER 5 DAYS OF INCUBATION. Complete 12/25/24 00:45 Voided Urine Urine Culture - Final Escherichia coli Complete Labs and/or images reviewed: Labs reviewed by me, Image(s) reviewed by me Problem List/Assessment/Plan Problem List/Assessment/Plan Metabolic encephalopathy secondary to septic shock likely due to aspiration pneumonia History of CVA Sedoanalgesia Hyperammonemia - Resolved Completed head CT which showed no acute intracranial pathology. Present chronic microvascular changes Turned off sedation for CPAP trial. Intermittent Precedex for agitation Neurology on board: consulted due to progressive ALOC, which most likely cause is metabolic encephalopathy due to septic shock. Required lactulose, currently discontinued due to diarrhea Septic shock secondary to aspiration pneumia vs UTI Probable Aspiration pneumonia Gram positive / Gram negative Complicated UTI to E coli Questionable proctitis Currently under empiric IV antibiotics (Ceftriaxone, previously on Meropenem, Vancomycin, Cefepime and azithromycin) Required IV fluid resuscitation and IV vasopressors, currently off vasoactive drugs Urinary culture shows E coli, rest of cultures finalized negative (sputum and blood). COVID, Influenza and MRSA swab negative Obtained abdomen and pelvis CT which showed thick rectal wall (probable proctitis), diverticulosis, small right pleural effusion and probable right pneumonia Acute respiratory failure due to aspiration pneumonia COPD/Asthma exacerbation On mechanical assisted ventilation (VCV Vt: 400 RR: 20 PEEP: 5 FIO2: 30%). CPAP trial underway, planning extubation on 01/01/2025 On bronchodilator, IV steroids (reduced to methylprednisolone IV 40 mg daily), IV antibiotics and oxygen therapy Completed bronchoscopy on 01/01/2025 with successful bronchial wash. HIRAL hemodynamically mediated (VMN) Anion-Gap metabolic acidosis with non compensated respiratory alkalosis - Resolved Hyperlactacidemia Severe hyperkalemia - Resolved Hyperphosphatemia - Resolved Anuria - Resolved Nephrology on board: Indicated emergent hemodialysis sessions, optimized medical therapy (bicarbonate drip, currently off). Last session on 12/28/2024 (1 L off). Nephrology recommends removing hemodialysis catheter on 12/30/2024. Required multiple hyperkalemia protocol treatments Completed EKG which showed sinus tachycardia, no sine wave or other fatal arrhythmias Chronic diastolic congestive heart failure (HFpEF, LVEF 55%) - Unlikely exacerbation Moderate-severe pulmonary hypertension Troponin x3 negative, EKG shows no ST elevation, BNP mildly elevated 12/2023 echocardiogram showed LVEF 55%, moderately severely elevated RVSP (54 mmHg) New echocardiogram shows LVEF 65%, slightly dilated LA, normal RV function, moderate degree pulmonary hypertension (RVSP 45 mmHg) Mild thrombocytopenia Normocytic anemia History of DVT - ruled out acute DVT Follow up cbc Currently on SCDs Discontinue heparin. Does received during hemodialysis session On erythropoietin 09896 units 3 times a week Completed bilateral lower limb Venous US: No DVT Diabetes - Controlled (Hemoglobin A1C 5.6%) Hypertension Dyslipidemia Continue aspirin, statin and ezetimibe On insulin sliding scale Case discussed with Dr. Lujan, patients, family and RN Plan discussed with: Patient, Other (RN) My Orders My Orders Orders - LUCY PETERSEN Procedure Category Date Status Time Pt Request For Service PT 01/04/25 Logged 13:44 Dietary Evaluation Review Expected Outcomes/Goals: controlled blood glucose, avoid uremic syndrome, maintain BW. LUCY PETERSEN Jan 04, 2025 22:22
[2025-01-04] MEDS: LEVALBUTEROL HCL 1.25 MG/3 ML NEB NEB SCH (22:31)
[2025-01-04] MEDS: IPRATROPIUM BROM 0.5 MG/2.5ML INH SOL NEB SCH (22:31)
--- NOTE | 2025-01-04 23:18 | DVHPN2 ---
Progress Note - Dictate Date Seen: Jan 04, 2025 Medical Necessity Reason Pt with a Central, PICC or Fol: Yes The following are medically ne: Central Line (central line and Left IJ HD catheter), Fontenot Catheter Subjective Ms. Viveros is a 69 years old female with a history of hypertension, diabetes, congestive heart failure, COPD, asthma, rheumatoid arthritis, chronic pain syndrome/lumbar disc disease, she was brought to the hospital on 12/25/2024 with a chief complaint of low blood pressure. I saw her on 01/15/2021 for ALOC/opiate ALOC/opiate overdose I have seen examined the patient with his nurse, she is awake, oriented to person, place, she follows verbal commands, he reports doing fine Voice is soft and weak She is extubated on 01/01/2025 Blood culture, 12/25/2024: No growth Urine culture, 12/25/2024: E coli Hepatitis panel, 12/26/2024: Negative UDS, 01/13/2021: Cannabinoids, alcohol: 6. 12/26/2024: Negative Urinalysis, 12/25/2024: WBC: 342, urine WBC clumps: Present, urine leukocyte esterase: 3+ ABG, 12/25/2024: Metabolic acidosis, 12/26/2024: Hypoxia, metabolic acidosis, WBC/HGB/PLT/MCV, 12/25/2024: 10.5/12.9/134/83.8. 12/26/2024: 21.8/12.5/156/91.3, 12/28/2024: 14.7/10.8/97/81.5 K 12/25/2024: 5, 6.1, 12/26/2024: 7.5, 6.8 Anion gap, 12/26/2024: 29 BUN/CR, 12/26/2024: 43/8.2, 11/24/2024: 21/3.42 GFR, 12/26/2024: 5, 12/28/2024: 14 Lactic acid, 12/25/2024: 8.8, 13.1, 12/26/2024: 6.3, 9.5 HGB A1c, 12/26/2024: 5.6 TBI/AST/ALT/AP, 12/26/2024: 0.4/56/26/62 Ammonia, 12/26/2024: 87 TG/HDL/LDL/HDL, 12/26/2024: 154/188/117/52 Vitamin B12, 02/26/2024: 490 Folic acid, 12/2620: 20.25 TSH, 12/26/2024: 0.87 Chest x-ray, 12/25/2024: Bronchovascular crowding due to low lung volumes. Underlying pulmonary vascular congestion can not be excluded Chest x-ray, 12/26/24: 1. No acute cardiopulmonary disease. 2. Pulmonary markings reflect supine 3. Endotracheal tube 2.7 cm above the gabriel 4. Enteric tube below the left diaphragm in the stomach 5. Right internal jugular catheter in good position at the cavoatrial junction. CT head, 01/13/2021: No mass effect or acute intracranial bleed. Minimal chronic sinusitis change CT head, 12/25/2024: 1. There is no acute infarct, intracranial hemorrhage, or mass effect. 2. There is no hydrocephalus or significant midline shift. 3. 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 4. Mild chronic microvascular ischemic changes and mild parenchymal volume loss. 5. No acute, depressed calvarial fractures. 6. No large scalp hematomas CT abdomen/pelvis, 12/25/2024: Wall thickening of the rectum which may be due to inadequate distention /proctitis. Descending colon and sigmoid diverticulosis without diverticulitis. Moderate amount of fecal material within the colon. Small right-sided pleural effusion with bibasilar atelectasis. Right basilar pneumonia can not be excluded vital signs Vital Sign Date Time Temp Pulse Resp B/P (MAP) Pulse Ox O2 Delivery O2 Flow Rate FiO2 01/04/25 22:31 98 Nasal Cannula 2.0 01/04/25 22:31 84 18 01/04/25 22:31 28 01/04/25 21:00 97.6 103/77 (86) 97.6 Total Intake and Output 01/03/25 01/03/25 01/04/25 15:00 23:00 07:00 Intake Total 150 ml 250 ml 350 ml Output Total 400 ml 500 ml Balance 150 ml -150 ml -150 ml medications Current Medications Medications Dose Ordered Sig/Liz Route Start Time Stop Time Status Last Admin Dose Admin Pantoprazole Sodium 40 mg DAILY IV 12/26/24 00:00 01/04/25 10:00 40 MG Aspirin 81 mg DAILY PO 12/27/24 10:00 01/04/25 10:00 81 MG Atorvastatin Calcium 80 mg HS PO 12/27/24 22:00 01/04/25 21:24 80 MG EZETIMIBE 10 mg DAILY PO 12/27/24 10:00 01/04/25 10:07 10 MG Diagnostic Test (Pha) 1 strip Q6HR 12/27/24 00:00 01/04/25 16:46 1 STRIP Insulin Human Regular Q6HR SC 12/27/24 00:00 01/04/25 16:50 6 UNITS Dextrose 50 ml UD PRN IV 12/26/24 22:15 Ceftriaxone Sodium 50 ml @ 100 mls/hr DAILY@09 IV 12/29/24 09:00 01/04/25 10:00 100 MLS/HR Methylprednisolone Sodium Succinate 40 mg DAILY IV 12/30/24 10:00 01/04/25 10:00 40 MG Amlodipine Besylate 10 mg DAILY PO 12/31/24 10:00 01/04/25 10:01 10 MG Acetylcysteine 200 mg Q8HR NEB 01/01/25 00:00 01/04/25 12:36 200 MG Losartan Potassium 50 mg DAILY PO 01/01/25 10:00 01/04/25 10:00 50 MG Morphine Sulfate 2 mg Q4HPRN PRN IV 01/02/25 10:15 01/03/25 06:21 2 MG Melatonin 5 mg HS PO 01/03/25 01:15 01/04/25 21:23 5 MG Ipratropium [place] 0.5 mg Q8HR NEB 01/04/25 22:00 Levalbuterol HCl 0.625 mg Q8HR NEB 01/04/25 22:00 objective The patient is well-nourished and well-developed with no distress. MENTAL STATUS: Subjective CRANIAL NERVES: Pupils are equal, round and reactive. Normal conjugated eye movement, normal motor and sensory examined in bilateral trigeminal distribution, no facial weakness SENSATION: Okay to pinprick and light touch MOTOR: Normal tone in the upper and lower extremity. Normal muscle bulk. No fasciculations. She moves the arms REFLEXES: Deep tendon reflexes are symmetrical. No pathological reflexes. CEREBELLAR/COORDINATION: Deferred GAIT/STATION: deferred laboratory and microbiology Laboratory Tests 01/04/25 06:10 Test 01/04/25 06:10 Range/Units Serum Glucose 135 H 74-106 mg/dL Problem List Coma, resolved Acute metabolic encephalopathy Acute respiratory failure Toxic cephalopathy ? Hepatic encephalitis Lactic acidosis/leukocytosis/sepsis Urinary tract infection Hyperkalemia Kidney failure Cognitive dysfunction, ? MCI, ? Mild dementia/Alzheimer's disease Assessment/Plan Monitoring Support treatment EEG Telemetry care Oxygen IV antibodies GI prophylaxis Nephrology on case More recommendation per clinical course This medical document was created using an electronic medical record system with [employer] dictation system. Although this document has been carefully reviewed, there may still be some phonetic and typographical errors. These areas are purely typographical due to imperfections of the software programs, and do not reflect any compromise in the patient's medical care. Prognosis poor Dietary Evaluation Review Expected Outcomes/Goals: controlled blood glucose, avoid uremic syndrome, maintain BW. Plan discussed with: Other TERESA DSOUZA MD Jan 04, 2025 23:18
[2025-01-05] VITALS (15 sets, daily range): BP systolic 91–119; BP diastolic 66–91; PULSE 87–103; RESP 14–20; TEMP 96.5–99.4; O2SAT 89–100
--- NOTE | 2025-01-05 05:46 | DVH ---
CHEST RADIOGRAPH Indication: Intubated Technique: Single frontal view of the chest was obtained COMPARISON: XY CHEST XRAY 1 VIEW on DOS: 01/04/25, XY CHEST XRAY 1 VIEW on DOS: 01/03/25, XY CHEST XRAY 1 VIEW on DOS: 01/02/25, XY CHEST XRAY 1 VIEW on DOS: 01/01/25, XY CHEST PORTABLE on DOS: 12/31/24 FINDINGS: Lines and Tubes: None Lungs: Clear Pleura: No effusion. No pneumothorax. Cardiomediastinal contours: Unremarkable Bones: Unremarkable IMPRESSION: 1. No acute disease.
[2025-01-05] MEDS: HYDROcodone-ACET 5/325MG TAB PO ONE (09:01)
[2025-01-05 11:19] LABS: Chloride 101 mmol/L (98-107); Potassium 3.7 mmol/L (3.5-5.1); Sodium 139 mmol/L (136-145)
[2025-01-05 11:20] LABS: Anion Gap 11 (5-15); Calcium 9.1 mg/dL (8.7-10.4); Carbon Dioxide 27 mmol/L (20-31)
[2025-01-05 11:25] LABS: BUN/Creatinine Ratio 27.8 (10.0-20.0); Blood Urea Nitrogen 30 mg/dL (9-23); Glucose 229 mg/dL (74-106); Hemoglobin 12.1 g/dL (12.2-16.2)
[2025-01-05 11:28] LABS: Hematocrit 36.9 % (36.0-46.0); Mean Corpuscular Hemoglobin 26.8 pg (28.0-32.0); Mean Corpuscular Volume 81.4 fL (80.0-100.0); Nucleated Red Blood Cells % 0.1 %
--- NOTE | 2025-01-05 12:55 | DVHPN2 ---
Progress Note - Dictate Date Seen: Jan 04, 2025 Medical Necessity Reason Pt with a Central, PICC or Fol: Yes The following are medically ne: Fontenot Catheter vital signs Vital Sign Date Time Temp Pulse Resp B/P (MAP) Pulse Ox O2 Delivery O2 Flow Rate FiO2 01/05/25 09:01 100/77 01/05/25 09:00 99.1 102 14 100 99.1 01/05/25 08:00 Nasal Cannula* 2 28 Total Intake and Output 01/04/25 01/04/25 01/05/25 15:00 23:00 07:00 Intake Total 120 ml 600 ml 200 ml Output Total 200 ml 300 ml Balance 120 ml 400 ml -100 ml medications Current Medications Medications Dose Ordered Sig/Liz Route Start Time Stop Time Status Last Admin Dose Admin Pantoprazole Sodium 40 mg DAILY IV 12/26/24 00:00 01/05/25 09:00 40 MG Aspirin 81 mg DAILY PO 12/27/24 10:00 01/05/25 09:02 81 MG Atorvastatin Calcium 80 mg HS PO 12/27/24 22:00 01/04/25 21:24 80 MG EZETIMIBE 10 mg DAILY PO 12/27/24 10:00 01/05/25 09:01 10 MG Diagnostic Test (Pha) 1 strip Q6HR 12/27/24 00:00 01/05/25 05:31 1 STRIP Insulin Human Regular Q6HR SC 12/27/24 00:00 01/04/25 16:50 6 UNITS Dextrose 50 ml UD PRN IV 12/26/24 22:15 Ceftriaxone Sodium 50 ml @ 100 mls/hr DAILY@09 IV 12/29/24 09:00 01/05/25 08:07 100 MLS/HR Methylprednisolone Sodium Succinate 40 mg DAILY IV 12/30/24 10:00 01/05/25 09:00 40 MG Amlodipine Besylate 10 mg DAILY PO 12/31/24 10:00 01/05/25 09:00 10 MG Acetylcysteine 200 mg Q8HR NEB 01/01/25 00:00 01/05/25 06:21 200 MG Losartan Potassium 50 mg DAILY PO 01/01/25 10:00 01/05/25 09:01 50 MG Morphine Sulfate 2 mg Q4HPRN PRN IV 01/02/25 10:15 01/03/25 06:21 2 MG Melatonin 5 mg HS PO 01/03/25 01:15 01/04/25 21:23 5 MG Ipratropium [place] 0.5 mg Q8HR NEB 01/04/25 22:00 01/05/25 06:21 0.5 MG Levalbuterol HCl 0.625 mg Q8HR NEB 01/04/25 22:00 01/05/25 06:22 0.625 MG laboratory and microbiology Laboratory Tests 01/05/25 10:45 Test 01/05/25 10:45 Range/Units Serum Glucose 229 H 74-106 mg/dL Assessment/Plan Impression Acute hypoxemic respiratory failure Morbid obesity Pneumonia Septic shock Patient seen and examined Events S/p extubation Low oxygen requirements On room air No acute events S/p Bronchoscopy Labs and imaging reviewed ABG reviewed Management suppl02 titrate to sats above 90% advance diet as tolerated Continue antibiotics F/u cultures Bronchodilators Monitor renal function Monitor electrolytes Supplement as needed DVT prophylaxis Dietary Evaluation Review Expected Outcomes/Goals: controlled blood glucose, avoid uremic syndrome, maintain BW. Plan discussed with: Patient RAYMOND DANG MD Jan 05, 2025 12:55
--- NOTE | 2025-01-05 12:56 | DVHPN2 ---
Progress Note - Dictate Date Seen: Jan 05, 2025 Medical Necessity Reason Pt with a Central, PICC or Fol: Yes The following are medically ne: Fontenot Catheter vital signs Vital Sign Date Time Temp Pulse Resp B/P (MAP) Pulse Ox O2 Delivery O2 Flow Rate FiO2 01/05/25 09:01 100/77 01/05/25 09:00 99.1 102 14 100 99.1 01/05/25 08:00 Nasal Cannula* 2 28 Total Intake and Output 01/04/25 01/04/25 01/05/25 15:00 23:00 07:00 Intake Total 120 ml 600 ml 200 ml Output Total 200 ml 300 ml Balance 120 ml 400 ml -100 ml medications Current Medications Medications Dose Ordered Sig/Liz Route Start Time Stop Time Status Last Admin Dose Admin Pantoprazole Sodium 40 mg DAILY IV 12/26/24 00:00 01/05/25 09:00 40 MG Aspirin 81 mg DAILY PO 12/27/24 10:00 01/05/25 09:02 81 MG Atorvastatin Calcium 80 mg HS PO 12/27/24 22:00 01/04/25 21:24 80 MG EZETIMIBE 10 mg DAILY PO 12/27/24 10:00 01/05/25 09:01 10 MG Diagnostic Test (Pha) 1 strip Q6HR 12/27/24 00:00 01/05/25 05:31 1 STRIP Insulin Human Regular Q6HR SC 12/27/24 00:00 01/04/25 16:50 6 UNITS Dextrose 50 ml UD PRN IV 12/26/24 22:15 Ceftriaxone Sodium 50 ml @ 100 mls/hr DAILY@09 IV 12/29/24 09:00 01/05/25 08:07 100 MLS/HR Methylprednisolone Sodium Succinate 40 mg DAILY IV 12/30/24 10:00 01/05/25 09:00 40 MG Amlodipine Besylate 10 mg DAILY PO 12/31/24 10:00 01/05/25 09:00 10 MG Acetylcysteine 200 mg Q8HR NEB 01/01/25 00:00 01/05/25 06:21 200 MG Losartan Potassium 50 mg DAILY PO 01/01/25 10:00 01/05/25 09:01 50 MG Morphine Sulfate 2 mg Q4HPRN PRN IV 01/02/25 10:15 01/03/25 06:21 2 MG Melatonin 5 mg HS PO 01/03/25 01:15 01/04/25 21:23 5 MG Ipratropium [place] 0.5 mg Q8HR NEB 01/04/25 22:00 01/05/25 06:21 0.5 MG Levalbuterol HCl 0.625 mg Q8HR NEB 01/04/25 22:00 01/05/25 06:22 0.625 MG laboratory and microbiology Laboratory Tests 01/05/25 10:45 Test 01/05/25 10:45 Range/Units Serum Glucose 229 H 74-106 mg/dL Assessment/Plan Impression Acute hypoxemic respiratory failure Morbid obesity Pneumonia Septic shock Patient seen and examined Events S/p extubation Low oxygen requirements On room air No distress S/p Bronchoscopy Labs and imaging reviewed ABG reviewed Management suppl02 as needed titrate to sats above 90% advance diet as tolerated Continue antibiotics F/u cultures Bronchodilators Monitor renal function Monitor electrolytes Supplement as needed DVT prophylaxis Dietary Evaluation Review Expected Outcomes/Goals: controlled blood glucose, avoid uremic syndrome, maintain BW. Plan discussed with: Patient RAYMOND DANG MD Jan 05, 2025 12:56
--- NOTE | 2025-01-05 16:55 | DVHPN2 ---
Progress Note Date Seen: Jan 05, 2025 Medical Necessity Reason Pt with a Central, PICC or Fol: Yes The following are medically ne: Fontenot Catheter Subjective Review of Systems: Deferred Objective vital signs Vital Sign Date Time Temp Pulse Resp B/P (MAP) Pulse Ox O2 Delivery O2 Flow Rate FiO2 01/05/25 13:46 103 18 100 01/05/25 13:00 98.8 91/66 (74) 98.8 01/05/25 08:00 Nasal Cannula* 2 28 Total Intake and Output 01/04/25 01/04/25 01/05/25 15:00 23:00 07:00 Intake Total 120 ml 600 ml 200 ml Output Total 200 ml 300 ml Balance 120 ml 400 ml -100 ml medications Current Medications Medications Dose Ordered Sig/Liz Route Start Time Stop Time Status Last Admin Dose Admin Pantoprazole Sodium 40 mg DAILY IV 12/26/24 00:00 01/05/25 09:00 40 MG Aspirin 81 mg DAILY PO 12/27/24 10:00 01/05/25 09:02 81 MG Atorvastatin Calcium 80 mg HS PO 12/27/24 22:00 01/04/25 21:24 80 MG EZETIMIBE 10 mg DAILY PO 12/27/24 10:00 01/05/25 09:01 10 MG Diagnostic Test (Pha) 1 strip Q6HR 12/27/24 00:00 01/05/25 16:01 1 STRIP Insulin Human Regular Q6HR SC 12/27/24 00:00 01/05/25 16:00 6 UNITS Dextrose 50 ml UD PRN IV 12/26/24 22:15 Ceftriaxone Sodium 50 ml @ 100 mls/hr DAILY@09 IV 12/29/24 09:00 01/05/25 08:07 100 MLS/HR Methylprednisolone Sodium Succinate 40 mg DAILY IV 12/30/24 10:00 01/05/25 09:00 40 MG Amlodipine Besylate 10 mg DAILY PO 12/31/24 10:00 01/05/25 09:00 10 MG Acetylcysteine 200 mg Q8HR NEB 01/01/25 00:00 01/05/25 13:36 200 MG Losartan Potassium 50 mg DAILY PO 01/01/25 10:00 01/05/25 09:01 50 MG Morphine Sulfate 2 mg Q4HPRN PRN IV 01/02/25 10:15 01/03/25 06:21 2 MG Melatonin 5 mg HS PO 01/03/25 01:15 01/04/25 21:23 5 MG Ipratropium [place] 0.5 mg Q8HR NEB 01/04/25 22:00 01/05/25 13:36 0.5 MG Levalbuterol HCl 0.625 mg Q8HR NEB 01/04/25 22:00 01/05/25 13:36 0.625 MG laboratory and microbiology Laboratory Tests 01/05/25 10:45 Test 01/05/25 10:45 Range/Units Serum Glucose 229 H 74-106 mg/dL Microbiology Date/Time Source Procedure Growth Status 01/01/25 11:20 Bronchial Washings Gram Stain - Final Complete 01/01/25 11:20 Bronchial Washings Respiratory Culture - Final Complete 12/28/24 23:22 Nose MRSA Screen - Final Complete 12/25/24 16:44 Blood Blood Culture - Final NO GROWTH AFTER 5 DAYS OF INCUBATION. Complete 12/25/24 00:45 Voided Urine Urine Culture - Final Escherichia coli Complete Problem List/Assessment/Plan Problem List/Assessment/Plan Acute kidney injury superimposed Chronic Kidney Disease secondary hemodynamic mediated s/p intermittent hemodialysis acute respiratory failure, extubated PNA dementia metabolic acidosis Hypokalemia Hypomagnesemia Diabetes mellitus type 2 Hypertension Anemia of chronic kidney disease recs Renal function improved Dialysis has been held Plan discussed with: Patient Dietary Evaluation Review Expected Outcomes/Goals: controlled blood glucose, avoid uremic syndrome, maintain BW. BECKI SHIRLEY MD Jan 05, 2025 16:55
--- NOTE | 2025-01-05 22:15 | DVHPNRES ---
Progress Note Date Seen: Jan 05, 2025 Resident Creating Document: LUCY PETERSEN RESIDENT Medical Necessity Reason Pt with a Central, PICC or Fol: Yes The following are medically ne: Fontenot Catheter Subjective Review of Systems Mer Viveros is a 69-year-old female who presents to the ER via EMS for progressive altered level of consciousness, generalized weakness for the past weeks, which worsened significantly 24 hours before her admission. Due to clinical status, could not obtain review of systems. Obtained history from granddaughter (BROWN, Cammie). Per POAshwini, she is completely normal at baseline, no cognitive impairments and can complete ADLs, regardless her history of CVA. The day of her admission, BROWN saw patient with increased respiratory effort, prompting her visit. Past Medical History: Hypertension, diabetes, dyslipidemia, CHF, COPD/asthma with multiple admissions, CVA. Surgical History: Denies Family History: Sister had breast cancer Social History: Lives in [place] with granddaughter (she is the caregiver and the [id number]). Ex tobacco abuse (10 pack-year history of smoking). Denies current tobacco, alcohol and other drug abuse. Allergies: Denies Home Medications: Gabapentin 800 mg daily, amlodipine 5 mg p.o. daily, nitroglycerin p.r.n., oxycodone, inhalers, losartan, acetaminophen, montelukast, rosuvastatin, aspirin, metformin Patient seen and examined at bedside. She denies any chest pain, shortness of breath, abdominal pain, fever or any other complaints. She was tolerating food. Objective vital signs Vital Sign Date Time Temp Pulse Resp B/P (MAP) Pulse Ox O2 Delivery O2 Flow Rate FiO2 01/05/25 17:00 98.3 90 15 106/75 (85) 96 98.3 01/05/25 08:00 Nasal Cannula* 2 28 Total Intake and Output 01/04/25 01/04/25 01/05/25 15:00 23:00 07:00 Intake Total 120 ml 600 ml 200 ml Output Total 200 ml 300 ml Balance 120 ml 400 ml -100 ml medications Current Medications Medications Dose Ordered Sig/Liz Route Start Time Stop Time Status Last Admin Dose Admin Pantoprazole Sodium 40 mg DAILY IV 12/26/24 00:00 01/05/25 09:00 40 MG Aspirin 81 mg DAILY PO 12/27/24 10:00 01/05/25 09:02 81 MG Atorvastatin Calcium 80 mg HS PO 12/27/24 22:00 01/04/25 21:24 80 MG EZETIMIBE 10 mg DAILY PO 12/27/24 10:00 01/05/25 09:01 10 MG Diagnostic Test (Pha) 1 strip Q6HR 12/27/24 00:00 01/05/25 16:01 1 STRIP Insulin Human Regular Q6HR SC 12/27/24 00:00 01/05/25 16:00 6 UNITS Dextrose 50 ml UD PRN IV 12/26/24 22:15 Ceftriaxone Sodium 50 ml @ 100 mls/hr DAILY@09 IV 12/29/24 09:00 01/05/25 08:07 100 MLS/HR Methylprednisolone Sodium Succinate 40 mg DAILY IV 12/30/24 10:00 01/05/25 09:00 40 MG Amlodipine Besylate 10 mg DAILY PO 12/31/24 10:00 01/05/25 09:00 10 MG Acetylcysteine 200 mg Q8HR NEB 01/01/25 00:00 01/05/25 21:39 200 MG Losartan Potassium 50 mg DAILY PO 01/01/25 10:00 01/05/25 09:01 50 MG Morphine Sulfate 2 mg Q4HPRN PRN IV 01/02/25 10:15 01/03/25 06:21 2 MG Melatonin 5 mg HS PO 01/03/25 01:15 01/04/25 21:23 5 MG Ipratropium [place] 0.5 mg Q8HR NEB 01/04/25 22:00 01/05/25 21:38 0.5 MG Levalbuterol HCl 0.625 mg Q8HR NEB 01/04/25 22:00 01/05/25 21:38 0.625 MG Examination Patient lying in bed, no sedoanalgesia due to mechanical ventilation (before extubation) General: RASS -1, afebrile, mucosae are moist Cardiovascular: Normal S1 and S2. No murmurs, gallops or rubs Respiratory: Mechanically assisted ventilation, equal bilateral airway entree. Bilateral rhonchus predominantly in right base Abdomen: Soft, nontender, no organomegaly, normal bowel sounds MSK/skin: Mobilizes limbs, follows commands. Skin is dry and warm. Presents generalized edema especially in bilateral hands Neurological: Orientation cannot be assessed. No apparent motor no sensitive deficits. Pupils are isocoric and reactive laboratory and microbiology Laboratory Tests 01/05/25 10:45 Test 01/05/25 10:45 Range/Units Serum Glucose 229 H 74-106 mg/dL Microbiology Date/Time Source Procedure Growth Status 01/01/25 11:20 Bronchial Washings Gram Stain - Final Complete 01/01/25 11:20 Bronchial Washings Respiratory Culture - Final Complete 12/28/24 23:22 Nose MRSA Screen - Final Complete 12/25/24 16:44 Blood Blood Culture - Final NO GROWTH AFTER 5 DAYS OF INCUBATION. Complete 12/25/24 00:45 Voided Urine Urine Culture - Final Escherichia coli Complete Labs and/or images reviewed: Labs reviewed by me, Image(s) reviewed by me Problem List/Assessment/Plan Problem List/Assessment/Plan Metabolic encephalopathy secondary to septic shock likely due to aspiration pneumonia History of CVA Sedoanalgesia Hyperammonemia - Resolved Completed head CT which showed no acute intracranial pathology. Present chronic microvascular changes Turned off sedation for CPAP trial. Intermittent Precedex for agitation Neurology on board: consulted due to progressive ALOC, which most likely cause is metabolic encephalopathy due to septic shock. Required lactulose, currently discontinued due to diarrhea Septic shock secondary to aspiration pneumia vs UTI Probable Aspiration pneumonia Gram positive / Gram negative Complicated UTI to E coli Questionable proctitis Currently under empiric IV antibiotics (Ceftriaxone, previously on Meropenem, Vancomycin, Cefepime and azithromycin) Required IV fluid resuscitation and IV vasopressors, currently off vasoactive drugs Urinary culture shows E coli, rest of cultures finalized negative (sputum and blood). COVID, Influenza and MRSA swab negative Obtained abdomen and pelvis CT which showed thick rectal wall (probable proctitis), diverticulosis, small right pleural effusion and probable right pneumonia Acute respiratory failure due to aspiration pneumonia COPD/Asthma exacerbation On mechanical assisted ventilation (VCV Vt: 400 RR: 20 PEEP: 5 FIO2: 30%). CPAP trial underway, planning extubation on 01/01/2025 On bronchodilator, IV steroids (reduced to methylprednisolone IV 40 mg daily), IV antibiotics and oxygen therapy Completed bronchoscopy on 01/01/2025 with successful bronchial wash. HIRAL hemodynamically mediated (VMN) Anion-Gap metabolic acidosis with non compensated respiratory alkalosis - Resolved Hyperlactacidemia Severe hyperkalemia - Resolved Hyperphosphatemia - Resolved Anuria - Resolved Nephrology on board: Indicated emergent hemodialysis sessions, optimized medical therapy (bicarbonate drip, currently off). Last session on 12/28/2024 (1 L off). Nephrology recommends removing hemodialysis catheter on 12/30/2024. Required multiple hyperkalemia protocol treatments Completed EKG which showed sinus tachycardia, no sine wave or other fatal arrhythmias Chronic diastolic congestive heart failure (HFpEF, LVEF 55%) - Unlikely exacerbation Moderate-severe pulmonary hypertension Troponin x3 negative, EKG shows no ST elevation, BNP mildly elevated 12/2023 echocardiogram showed LVEF 55%, moderately severely elevated RVSP (54 mmHg) New echocardiogram shows LVEF 65%, slightly dilated LA, normal RV function, moderate degree pulmonary hypertension (RVSP 45 mmHg) Mild thrombocytopenia Normocytic anemia History of DVT - ruled out acute DVT Follow up cbc Currently on SCDs Discontinue heparin. Does received during hemodialysis session On erythropoietin 37082 units 3 times a week Completed bilateral lower limb Venous US: No DVT Diabetes - Controlled (Hemoglobin A1C 5.6%) Hypertension Dyslipidemia Continue aspirin, statin and ezetimibe On insulin sliding scale GI prophylaxis: Pantoprazole DVT prophylaxis: SCDs Goals of care discussed with the patient for more than 27 minutes: Full code status Case discussed with Dr. Lujan , patient and RN Plan discussed with: Patient, Other (RN) My Orders My Orders Orders - LUCY PETERSEN RESIDENT Procedure Category Date Status Time Transfer Orders XFER 01/05/25 Transmitted 13:11 Discontinue Tele CRISSY 01/05/25 In Process 13:13 Dietary Evaluation Review Expected Outcomes/Goals: controlled blood glucose, avoid uremic syndrome, maintain BW. LUCY PETERSEN RESIDENT Jan 05, 2025 22:15
[2025-01-06] VITALS (10 sets, daily range): BP systolic 115–135; BP diastolic 82–91; PULSE 71–104; RESP 16–18; TEMP 96.1–98.2; O2SAT 90–100
--- NOTE | 2025-01-06 06:57 | DVH ---
CHEST RADIOGRAPH Indication: Intubated Technique: Single frontal view of the chest was obtained Comparison: XY CHEST XRAY 1 VIEW on DOS: 01/05/25 FINDINGS: Lines and Tubes: None Lungs: No focal consolidation. Pleura: No effusion. No pneumothorax. Cardiomediastinal contours: Unremarkable Bones: No acute osseous abnormality. IMPRESSION: 1. No acute cardiopulmonary disease.
[2025-01-06 10:03] LABS: Anion Gap 12 (5-15); Carbon Dioxide 26 mmol/L (20-31); Chloride 102 mmol/L (98-107); Hematocrit 40.5 % (36.0-46.0); Hemoglobin 13.4 g/dL (12.2-16.2); Mean Corpuscular Hemoglobin 27.4 pg (28.0-32.0); Mean Corpuscular Volume 82.9 fL (80.0-100.0); Nucleated Red Blood Cells % 0.1 %; Potassium 3.5 mmol/L (3.5-5.1); Sodium 140 mmol/L (136-145)
[2025-01-06 10:04] LABS: Calcium 9.6 mg/dL (8.7-10.4)
[2025-01-06 10:09] LABS: BUN/Creatinine Ratio 15.1 (10.0-20.0); Blood Urea Nitrogen 16 mg/dL (9-23)
[2025-01-06 10:19] LABS: Glucose 187 mg/dL (74-106)
--- NOTE | 2025-01-06 12:12 | DVHPN2 ---
Progress Note - Dictate Date Seen: Jan 06, 2025 Medical Necessity Reason Pt with a Central, PICC or Fol: Yes The following are medically ne: Fontenot Catheter vital signs Vital Sign Date Time Temp Pulse Resp B/P (MAP) Pulse Ox O2 Delivery O2 Flow Rate FiO2 01/06/25 09:46 122/87 01/06/25 09:21 97.9 96 17 90 97.9 01/06/25 06:10 Room Air 0.0 01/06/25 06:10 21 Total Intake and Output 01/05/25 01/05/25 01/06/25 15:00 23:00 07:00 Intake Total 250 ml 200 ml Output Total 300 ml 300 ml Balance -50 ml -100 ml medications Current Medications Medications Dose Ordered Sig/Liz Route Start Time Stop Time Status Last Admin Dose Admin Pantoprazole Sodium 40 mg DAILY IV 12/26/24 00:00 01/06/25 09:44 40 MG Aspirin 81 mg DAILY PO 12/27/24 10:00 01/06/25 09:46 81 MG Atorvastatin Calcium 80 mg HS PO 12/27/24 22:00 01/05/25 22:14 80 MG EZETIMIBE 10 mg DAILY PO 12/27/24 10:00 01/06/25 09:45 10 MG Diagnostic Test (Pha) 1 strip Q6HR 12/27/24 00:00 01/06/25 11:08 1 STRIP Insulin Human Regular Q6HR SC 12/27/24 00:00 01/06/25 11:28 4 UNITS Dextrose 50 ml UD PRN IV 12/26/24 22:15 Ceftriaxone Sodium 50 ml @ 100 mls/hr DAILY@09 IV 12/29/24 09:00 01/06/25 09:44 100 MLS/HR Methylprednisolone Sodium Succinate 40 mg DAILY IV 12/30/24 10:00 01/06/25 09:45 40 MG Amlodipine Besylate 10 mg DAILY PO 12/31/24 10:00 01/06/25 09:46 10 MG Acetylcysteine 200 mg Q8HR NEB 01/01/25 00:00 01/06/25 06:10 200 MG Losartan Potassium 50 mg DAILY PO 01/01/25 10:00 01/06/25 09:46 50 MG Morphine Sulfate 2 mg Q4HPRN PRN IV 01/02/25 10:15 01/03/25 06:21 2 MG Melatonin 5 mg HS PO 01/03/25 01:15 01/05/25 22:15 5 MG Ipratropium [place] 0.5 mg Q8HR NEB 01/04/25 22:00 01/06/25 06:10 0.5 MG Levalbuterol HCl 0.625 mg Q8HR NEB 01/04/25 22:00 01/06/25 06:10 0.625 MG laboratory and microbiology Laboratory Tests 01/06/25 09:25 Test 01/06/25 09:25 Range/Units Serum Glucose 187 H 74-106 mg/dL Assessment/Plan Impression Acute hypoxemic respiratory failure Morbid obesity Pneumonia Septic shock Patient seen and examined Events S/p extubation Low oxygen requirements On room air No distress Labs and imaging reviewed Management suppl02 as needed titrate to sats above 90% advance diet as tolerated Continue antibiotics F/u cultures Bronchodilators Monitor renal function Monitor electrolytes Supplement as needed DVT prophylaxis Dietary Evaluation Review Expected Outcomes/Goals: controlled blood glucose, avoid uremic syndrome, maintain BW. Plan discussed with: Other (rn) RAYMOND DANG MD Jan 06, 2025 12:12
--- NOTE | 2025-01-06 19:35 | DVHPN2 ---
Progress Note Date Seen: Jan 06, 2025 Medical Necessity Reason Pt with a Central, PICC or Fol: Yes The following are medically ne: Fontenot Catheter Subjective Patient reports: Other (No new events) Objective vital signs Vital Sign Date Time Temp Pulse Resp B/P (MAP) Pulse Ox O2 Delivery O2 Flow Rate FiO2 01/06/25 17:00 97.7 98 18 132/82 (99) 99 97.7 01/06/25 13:41 Room Air* 0 21 Total Intake and Output 01/05/25 01/05/25 01/06/25 15:00 23:00 07:00 Intake Total 250 ml 200 ml Output Total 300 ml 300 ml Balance -50 ml -100 ml medications Current Medications Medications Dose Ordered Sig/Liz Route Start Time Stop Time Status Last Admin Dose Admin Pantoprazole Sodium 40 mg DAILY IV 12/26/24 00:00 01/06/25 09:44 40 MG Aspirin 81 mg DAILY PO 12/27/24 10:00 01/06/25 09:46 81 MG Atorvastatin Calcium 80 mg HS PO 12/27/24 22:00 01/05/25 22:14 80 MG EZETIMIBE 10 mg DAILY PO 12/27/24 10:00 01/06/25 09:45 10 MG Diagnostic Test (Pha) 1 strip Q6HR 12/27/24 00:00 01/06/25 18:00 1 STRIP Insulin Human Regular Q6HR SC 12/27/24 00:00 01/06/25 18:01 6 UNITS Dextrose 50 ml UD PRN IV 12/26/24 22:15 Ceftriaxone Sodium 50 ml @ 100 mls/hr DAILY@09 IV 12/29/24 09:00 01/06/25 09:44 100 MLS/HR Methylprednisolone Sodium Succinate 40 mg DAILY IV 12/30/24 10:00 01/06/25 09:45 40 MG Amlodipine Besylate 10 mg DAILY PO 12/31/24 10:00 01/06/25 09:46 10 MG Acetylcysteine 200 mg Q8HR NEB 01/01/25 00:00 01/06/25 19:07 200 MG Losartan Potassium 50 mg DAILY PO 01/01/25 10:00 01/06/25 09:46 50 MG Morphine Sulfate 2 mg Q4HPRN PRN IV 01/02/25 10:15 01/03/25 06:21 2 MG Melatonin 5 mg HS PO 01/03/25 01:15 01/05/25 22:15 5 MG Ipratropium [place] 0.5 mg Q8HR NEB 01/04/25 22:00 01/06/25 19:06 0.5 MG Levalbuterol HCl 0.625 mg Q8HR NEB 01/04/25 22:00 01/06/25 19:06 0.625 MG laboratory and microbiology Laboratory Tests 01/06/25 09:25 Test 01/06/25 09:25 Range/Units Serum Glucose 187 H 74-106 mg/dL Microbiology Date/Time Source Procedure Growth Status 01/01/25 11:20 Bronchial Washings Gram Stain - Final Complete 01/01/25 11:20 Bronchial Washings Respiratory Culture - Final Complete 12/28/24 23:22 Nose MRSA Screen - Final Complete 12/25/24 16:44 Blood Blood Culture - Final NO GROWTH AFTER 5 DAYS OF INCUBATION. Complete 12/25/24 00:45 Voided Urine Urine Culture - Final Escherichia coli Complete Problem List/Assessment/Plan Problem List/Assessment/Plan Acute kidney injury superimposed Chronic Kidney Disease secondary hemodynamic mediated s/p intermittent hemodialysis acute respiratory failure, extubated PNA dementia metabolic acidosis Hypokalemia Hypomagnesemia Diabetes mellitus type 2 Hypertension Anemia of chronic kidney disease recs Renal function improved Dialysis has been held I will sign off this case please reconsult if needed Plan discussed with: Other Dietary Evaluation Review Expected Outcomes/Goals: controlled blood glucose, avoid uremic syndrome, maintain BW. BECKI SHIRLEY MD Jan 06, 2025 19:35
--- NOTE | 2025-01-06 19:56 | DVHDSRES ---
Discharge Summary Date of Admission Resident Creating Document: LUCY PETERSEN Dec 25, 2024 at 23:35 Date of Discharge: Jan 06, 2025 Admitting Diagnosis Acute hypoxic respiratory failure due to aspiration pneumonia Labs/Diagnostic Data: Laboratory Results Test 01/06/25 17:23 01/06/25 09:25 01/02/25 03:14 01/01/25 12:59 POC Glucose 254 mg/dl (70-106) White Blood Count 16.5 10^3/uL (4.4-10.8) Red Blood Count 4.89 10^6/uL (4.0-5.20) Hemoglobin 13.4 g/dL (12.2-16.2) Hematocrit 40.5 % (36.0-46.0) Mean Corpuscular Volume 82.9 fL (80.0-100.0) Mean Corpuscular Hemoglobin 27.4 pg (28.0-32.0) Mean Corpuscular Hemoglobin Concent 33.0 g/dL (32.0-36.0) Red Cell Distribution Width 14.2 % (11.8-14.3) Platelet Count 214 10^3/uL (140-450) Mean Platelet Volume 9.7 fL (6.9-10.8) Neutrophils (%) (Auto) 70.8 % (37.0-80.0) Lymphocytes (%) (Auto) 21.0 % (10.0-50.0) Monocytes (%) (Auto) 7.4 % (0.0-12.0) Eosinophils (%) (Auto) 0.3 % (0.0-7.0) Basophils (%) (Auto) 0.5 % (0.0-2.0) Neutrophils # (Auto) 11.7 10 ^3/uL (1.6-8.6) Lymphocytes # (Auto) 3.5 10 ^3/uL (0.4-5.4) Monocytes # (Auto) 1.2 10 ^3/uL (0-1.3) Eosinophils # (Auto) 0 10 ^3/uL (0-0.8) Basophils # (Auto) 0.1 10 ^3/uL (0-0.2) Nucleated Red Blood Cells 0.1 % Sodium Level 140 mmol/L (136-145) Potassium Level 3.5 mmol/L (3.5-5.1) Chloride Level 102 mmol/L (98-107) Carbon Dioxide Level 26 mmol/L (20-31) Anion Gap 12 (5-15) Blood Urea Nitrogen 16 mg/dL (9-23) Creatinine 1.06 mg/dL (0.550-1.02) Glomerular Filtration Rate Calc 57 mL/min (>90) BUN/Creatinine Ratio 15.1 (10.0-20.0) Serum Glucose 187 mg/dL (74-106) Calcium Level 9.6 mg/dL (8.7-10.4) Phosphorus Level 3.1 mg/dL (2.4-5.1) Magnesium Level 1.6 mg/dL (1.6-2.6) Blood Gas Specimen Type Arterial Blood Gas Sample Site Left radial Blood Gas Patient Temperature 37.0 Arterial Blood Date Drawn [id number] Arterial Blood pH 7.508 (7.350-7.450) Arterial Blood Partial Pressure CO2 34.8 mmHg (32.0-45.0) Arterial Blood Partial Pressure O2 289.9 mmHg (83.0-108.0) Arterial Blood HCO3 27.0 mmol/L (21.0-28.0) Arterial Blood Oxygen Saturation 99.4 % (94.0-98.0) Arterial Blood Base Excess 4.1 mmol/L (-2.0-3.0) Arterial Blood Oxyhemoglobin 99.1 % (94.0-98.0) Arterial Blood Carboxyhemoglobin 0.1 % (0.5-1.5) Arterial Blood Methemoglobin 0.2 % (0.0-1.5) Willem Test Modified Blood Gas Total Hemoglobin 13.00 g/dL (12.0-16.0) Blood Gas Modality Vent - cpap Blood Gas Spontaneous Rate 23 FiO2 % 30.0 Blood Gas Tidal Volume 451.0 Blood Gas Pressure Support 8 Blood Gas PEEP or CPAP 5.0 Test 01/01/25 06:21 12/31/24 02:47 12/30/24 04:00 12/29/24 03:38 Blood Gas Set Respiration Rate 20.0 Total Bilirubin 0.4 mg/dL (0.2-1.0) Aspartate Amino Transferase (AST) 32 U/L (13-40) Alanine Aminotransferase (ALT) 21 U/L (7-40) Alkaline Phosphatase 52 U/L (46-116) Total Protein 5.3 g/dL (5.7-8.2) Albumin 3.5 g/dL (3.2-4.8) Prothrombin Time 10.8 sec (9.3-11.8) Prothrombin Time INR 1.02 (0.9-1.15) Activated Partial Thromboplast Time 25.1 SEC (24.5-34.5) Random Vancomycin Level 10.2 ug/mL (5-10) Lactic Acid Level 0.9 mmol/L (0.4-2.0) Test 12/27/24 03:19 12/26/24 20:57 12/26/24 20:55 12/26/24 19:29 Hepatitis B Surface Antigen Negative (Negative) Differential Total Cells Counted 100.0 (100) Neutrophils % (Manual) 88 (37.0-80.0) Band Neutrophils % (Manual) 1 Lymphocytes % (Manual) 8 (10.0-50.0) Monocytes % (Manual) 3 (0-12) Eosinophils % (Manual) 0 (0-7) Basophils % (Manual) 0 (0.0-2.0) Metamyelocytes % (manual) 0 Myelocytes % (Manual) 0 Promyelocytes % (Manual) 0 Blast Cells % (Manual) 0 Reactive Lymphocytes 0 Platelet Estimate Decreased Ovalocytes Few [place] Cells Few Ammonia 16 umol/L (11-32) Blood Gas Critical Value Read Back Yes Blood Gas Notified Whom Dr. kristal john Blood Gas Notified Time [id number] Blood Gas Notified By Test 12/26/24 16:24 12/26/24 15:32 12/26/24 10:41 12/26/24 00:04 Urine Opiates Screen Neg (NEGATIVE) Urine Fentanyl Screen Neg (NEGATIVE) Urine Barbiturates Screen Neg (NEGATIVE) Urine Phencyclidine Screen Neg (NEGATIVE) Urine Amphetamines Screen Neg (NEGATIVE) Urine Benzodiazepines Screen Neg (NEGATIVE) Urine Cocaine Screen Neg (NEGATIVE) Urine Cannabinoids Screen Neg (NEGATIVE) Hepatitis A IgM Antibody Negative Hepatitis B Core IgM Antibody Negative (Negative) Hepatitis C Antibody Negative (Negative) Hemoglobin A1c 5.6 % A1C (<5.7) Triglycerides Level 154 mg/dL (< 150) Cholesterol Level 188 mg/dL (< 200) LDL Cholesterol 117 mg/dL (< 100) HDL Cholesterol 52 mg/dL (40-59) Lipase 31 U/L (12-53) Vitamin B12 Level 453 pg/mL (211-911) Vitamin D 25-Hydroxy 4.6 ng/mL (30.0-100) Thyroid Stimulating Hormone (TSH) 0.87 uIU/mL (0.55-4.78) Blood Gas Liter Flow 4.00 Test 12/25/24 20:42 12/25/24 19:00 12/25/24 17:43 12/25/24 16:44 Troponin I High Sensitivity 12 ng/L (</=34) Influenza Type A Antigen Negative (Negative) Influenza Type B Antigen Negative (Negative) SARS-CoV-2 Antigen (Rapid) Negative (NEGATIVE) Specimen Drawn By Electronic Warfare Operator varsha kendra B-Type Natriuretic Peptide 148.36 pg/mL (0-100) Test 12/25/24 00:45 Urine Color Light-orange (Yellow) Urine Clarity Ex.turbid (Clear) Urine pH 5.5 (5.0-9.0) Urine Specific [place] 1.024 (1.001-1.035) Urine Protein 2+ (Negative) Urine Ketones Negative (Negative) Urine Blood 1+ /uL (Negative) Urine Nitrite Negative (Negative) Urine Bilirubin Negative (Negative) Urine Urobilinogen Normal mg/dL (Negative) Urine Leukocyte Esterase 3+ /uL (Negative) Urine RBC 10 /hpf (0 - 4) Urine WBC Clumps Present /hpf (None Seen) Urine Microscopic WBC 342 /HPF (0-5) Urine Squamous Epithelial Cells Few /hpf (<5) Urine Bacteria Many /hpf (None Seen) Urine Hyaline Casts Few /lpf (0 - 2) Urine Yeast (Budding) Moderate /hpf (None Seen) Urine Osmolality 317 mOsm/kg Urine Creatinine 196.43 mg/dL (30.0-125.0) Urine Sodium 41 mmol/L (40-220) Urine Potassium 15 mmol/L (12-62) Urine Glucose Normal mg/dL (Normal) Urine Total Protein 249.3 mg/dL (1-14) Other Laboratory Tests 01/06/25 09:25 Brief Hx & Hospital Course: Mer Viveros is a 69-year-old female who presents to the ER via EMS for progressive altered level of consciousness, generalized weakness for the past weeks, which worsened significantly 24 hours before her admission. Due to clinical status, could not obtain review of systems. Obtained history from granddaughter (Cammie DASILVA). Per BROWN, she is completely normal at baseline, no cognitive impairments and can complete ADLs, regardless her history of CVA. The day of her admission, BROWN saw patient with increased respiratory effort, prompting her visit. Past Medical History: Hypertension, diabetes, dyslipidemia, CHF, COPD/asthma with multiple admissions, CVA. Surgical History: Denies Family History: Sister had breast cancer Social History: Lives in [place] with granddaughter (she is the caregiver and the [id number]). Ex tobacco abuse (10 pack-year history of smoking). Denies current tobacco, alcohol and other drug abuse. Allergies: Denies Home Medications: Gabapentin 800 mg daily, amlodipine 5 mg p.o. daily, nitroglycerin p.r.n., oxycodone, inhalers, losartan, acetaminophen, montelukast, rosuvastatin, aspirin, metformin On admission, she was found to be in septic shock, likely secondary to aspiration pneumonia and a complicated UTI due to E coli. She developed metabolic encephalopathy, which was evaluated by Neurology and attributed to her septic state. She required intubation for acute respiratory failure and was placed on mechanical ventilation. A bronchoscopy was performed on April 02, 2025, revealing inflamed and friable mucosa without endobronchial lesions, approximately 50 cc of normal saline was instilled and suctioned for bronchial wash. She tolerated the procedure well. Imaging studies included a head CT showing no acute intracranial pathology but chronic bilateral stratocapsular infarction and mild microvascular ischemic changes. Chest x-rays revealed bronchoalveolar crowding due to low lung volumes and a small right-sided pleural effusion with bibasilar atelectasis, CT of the abdomen and pelvis showed rectal wall thickening suggestive of proctitis, diverticulosis without diverticulitis, and moderate fecal loading. Venous Doppler studies ruled out DVT. She was treated with empiric IV antibiotics including ceftriaxone, meropenem, vancomycin, cefepime and azithromycin. She also received IV steroids methylprednisolone 40 mg daily, bronchodilators and oxygen therapy. Sedation was managed with intermittent Precedex and lactulose was discontinued due to diarrhea. Her respiratory status improved and she was successfully extubated following a CPAP trial. The patient developed HIRAL requiring emergent hemodialysis, managed by Nephrology. She was treated with bicarbonate drip and hyperkalemia protocol. Her renal function stabilized and Nephrology recommended removal of the dialysis catheter. Laboratory abnormalities including hyperkalemia, hyperphosphatemia, hyperlactatemia, and anion gap metabolic acidosis with non compensated respiratory alkalosis resolved during hospitalization. She also had mild thrombocytopenia and normocytic anemia, for which she received erythropoietin 09322 units 3 times weekly. Cardiac evaluation included serial troponins all negative, EKG showing sinus tachycardia without ischemic changes, and BNP mildly elevated. A prior echocardiogram from 2023 showed LV ejection fraction 55% and RVSP 54 mm Hg.. Her chronic heart failure was not seemed to be exacerbated during this admission. At discharge, the patient was clinically stable, alert and oriented. Her respiratory status had improved, renal function was stable, and she was off vasopressors. She was tolerating oral intake and no longer required mechanical ventilation. She was discharged on her home medications, with continuation of erythropoietin and follow up antibiotics as indicated. She was advised to follow up with her primary care physician, pulmonology for COPD management, Nephrology for dialysis catheter removal and renal monitoring, neurology for altered mental status records, and Gastroenterology for evaluation of possible proctitis. Repeat imaging and lab monitoring were recommended if symptoms persisted. The patient verbalized understanding of the discharge and treatment plan. However, patient is waiting for discharge to SNF facility, the family appealed against spray placement to a Past specific SNF, they are waiting to be placed at their preferred location or for SNF. The patient is in the hospital. Monitoring and following up till safely discharge to SNF. Pt is lying on bed General Appearance: Alert, Oriented X3, Cooperative, Mild distress HEENT: Atraumatic, Mucous membranes moist/pink Respiratory: Clear to auscultation, Normal air movement, No added sounds Cardiovascular: Regular rate, Normal S1, Normal S2, No murmurs Abdominal/ : Active bowel sounds, Soft, no distention, no tenderness Extremities: No edema, Normal pulses, No tenderness/swelling Skin: No Significant rash, except past surgical scars Neuro: Normal speech, sensorimotor deficits none Psych/Mental Status: Mental status NL, Mood NL Nurse was there as reflesher during examination Case discussed with Dr. Lujan Operations or Procedures Bronchoscopy:Consent was obtained and timeout performed per protocol. The patient was placed on 100% FiO2. Olympus bronchoscope was used and passed through the endotracheal tube, tracheobronchial tree was examined. There were thin secretions in the lower lobes bilaterally that were loosened up with approximately 50 cc of normal saline and thoroughly suctioned into a separate specimen container. There were no endobronchial lesions however, mucosa appeared inflamed and easily friable. After the procedure, the scope was removed. Patient tolerated the procedure well. CXR: 12/25/2024ronchovascular crowding due to low lung volumes. Underlying pulmonary vascular congestion can not be excluded. CXR on 01/06/2025: Abdomen pelvis CT: on 12/25/2024 Wall thickening of the rectum which may be due to inadequate distention /proctitis. Descending colon and sigmoid diverticulosis without diverticulitis. Moderate amount of fecal material within the colon. Small right-sided pleural effusion with bibasilar atelectasis. Right basilar pneumonia can not be excluded. extremity venous study:No right or left femoropopliteal venous thrombosis. If clinical concern/symptoms persist or worsen, short-interval follow-up study is suggested. Head CT on 12/25/2024: 1. There is no acute infarct, intracranial hemorrhage, or mass effect. 2. There is no hydrocephalus or significant midline shift. 3. 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 4. Mild chronic microvascular ischemic changes and mild parenchymal volume loss. 5. No acute, depressed calvarial fractures. 6. No large scalp hematomas. Condition at Discharge: Stable Final Diagnosis/Problems List Acute hypoxic resp failure Metabolic encephalopathy secondary to septic shock likely due to aspiration pneumonia History of CVA Sedoanalgesia Hyperammonemia - Resolved Septic shock secondary to aspiration pneumia vs UTI Probable Aspiration pneumonia Gram positive / Gram negative Complicated UTI to E coli Questionable proctitis Acute respiratory failure due to aspiration pneumonia COPD/Asthma exacerbation HIRAL hemodynamically mediated (VMN) Anion-Gap metabolic acidosis with non compensated respiratory alkalosis - Resolved Hyperlactacidemia Severe hyperkalemia - Resolved Hyperphosphatemia - Resolved Anuria - Resolved Chronic diastolic congestive heart failure (HFpEF, LVEF 55%) - Unlikely exacerbation Moderate-severe pulmonary hypertension Normocytic anemia History of DVT - ruled out acute DVT Diabetes - Controlled (Hemoglobin A1C 5.6%) Hypertension Dyslipidemia Discharge Disposition: Longterm Facility Discharge Instruct/Medications Diet: Consistent carbohydrate, Cardiac 2g Na,low cholest Activity: No Restrictions, As Tolerated Follow Up/Referral: Fu with PCP Medications: as per EMR Scheduled Albuterol Sulfate (Albuterol Sulfate Hfa), 108 MCG IN UD, (Reported) Amlodipine Besylate (Amlodipine Besylate), 1 TAB PO DAILY, (Reported) Ezetimibe (Ezetimibe), 1 TAB PO DAILY, (Reported) Dzetmqzugin-Rtiofmvblmbg-Wkzal (Trelegy Ellipta 100-62.5-25 Mcg/INH), 1 AER IN BID Gabapentin (Gabapentin), 300 MG PO DAILY, (Reported) Losartan Potassium (Losartan Potassium), 1 TAB PO DAILY, (Reported) Metformin HCl (Metformin Hydrochloride), 1 TAB PO BID, (Reported) Nitroglycerin (Ntrostat Sublingual), 0.4 MG SL PRN, (Reported) Oxycodone HCl (Oxycodone Hydrochloride), 10 MG PO BID, (Reported) Rosuvastatin Calcium (Rosuvastatin Calcium), 1 TAB PO HS, (Reported) Discharge Statement: "Patient was advised to return to the ER or call 911 if any headaches, dizziness, shortness of breath, chest pain, abdominal pain, bleeding, fevers, or worsening of medical condition. Patient was counseled about treatment plan, medications, possible side effects, patientverbalized understanding. All questions were answered to the best of my ability. This discharge took greater then 30 minutes in planning, reviewing documentation, counseling the patient, and discussing with other team members." ASSESSMENT ASSESSMENT Assessment Acute hypoxic resp failure LUCY PETERSEN RESIDENT Jan 06, 2025 19:56
[2025-01-07] VITALS (14 sets, daily range): BP systolic 106–149; BP diastolic 74–89; PULSE 59–107; RESP 16–20; TEMP 97.9–98.6; O2SAT 90–100
[2025-01-07] MEDS: MAGNESIUM SULFATE 1GM/100ML 100 ML IV ONE (08:27)
[2025-01-07] MEDS: MELATONIN 5 MG TAB ONE (08:27)
--- NOTE | 2025-01-07 13:20 | DVHPN2 ---
Progress Note - Dictate Date Seen: Jan 07, 2025 Medical Necessity Reason Pt with a Central, PICC or Fol: Yes The following are medically ne: Font[place]ot Catheter vital signs Vital Sign Date Time Temp Pulse Resp B/P (MAP) Pulse Ox O2 Delivery O2 Flow Rate FiO2 01/07/25 09:57 149/77 01/07/25 06:16 98 16 100 01/07/25 06:08 Room Air 01/07/25 06:08 0 21 01/07/25 05:00 98.0 98.0 Total Intake and Output 01/06/25 01/06/25 01/07/25 15:00 23:00 07:00 Intake Total 50 ml 800 ml 50 ml Output Total 400 ml 450 ml Balance 50 ml 400 ml -400 ml medications Current Medications Medications Dose Ordered Sig/Liz Route Start Time Stop Time Status Last Admin Dose Admin Pantoprazole Sodium 40 mg DAILY IV 12/26/24 00:00 01/07/25 09:56 40 MG Aspirin 81 mg DAILY PO 12/27/24 10:00 01/07/25 09:54 81 MG Atorvastatin Calcium 80 mg HS PO 12/27/24 22:00 01/06/25 21:59 80 MG EZETIMIBE 10 mg DAILY PO 12/27/24 10:00 01/07/25 09:55 10 MG Diagnostic Test (Pha) 1 strip Q6HR 12/27/24 00:00 01/07/25 11:40 1 STRIP Insulin Human Regular Q6HR SC 12/27/24 00:00 01/07/25 00:01 2 UNITS Dextrose 50 ml UD PRN IV 12/26/24 22:15 Ceftriaxone Sodium 50 ml @ 100 mls/hr DAILY@09 IV 12/29/24 09:00 01/07/25 08:27 100 MLS/HR Methylprednisolone Sodium Succinate 40 mg DAILY IV 12/30/24 10:00 01/07/25 09:56 40 MG Amlodipine Besylate 10 mg DAILY PO 12/31/24 10:00 01/07/25 09:57 10 MG Acetylcysteine 200 mg Q8HR NEB 01/01/25 00:00 01/07/25 06:08 200 MG Losartan Potassium 50 mg DAILY PO 01/01/25 10:00 01/07/25 09:57 50 MG Morphine Sulfate 2 mg Q4HPRN PRN IV 01/02/25 10:15 01/03/25 06:21 2 MG Melatonin 5 mg HS PO 01/03/25 01:15 01/05/25 22:15 5 MG Ipratropium [place] 0.5 mg Q8HR NEB 01/04/25 22:00 01/07/25 06:08 0.5 MG Levalbuterol HCl 0.625 mg Q8HR NEB 01/04/25 22:00 01/07/25 06:08 0.625 MG laboratory and microbiology Laboratory Tests 01/06/25 09:25 Test 01/06/25 09:25 Range/Units Serum Glucose 187 H 74-106 mg/dL Assessment/Plan Impression Acute hypoxemic respiratory failure Morbid obesity Pneumonia Septic shock Patient seen and examined Events S/p extubation Low oxygen requirements On room air No acute events Labs and imaging reviewed Management suppl02 as needed titrate to sats above 90% advance diet as tolerated Continue antibiotics F/u cultures Bronchodilators Monitor renal function Monitor electrolytes Supplement as needed DVT prophylaxis Dietary Evaluation Review Expected Outcomes/Goals: controlled blood glucose, avoid uremic syndrome, maintain BW. Plan discussed with: Patient RAYMOND DANG MD Jan 07, 2025 13:20
[2025-01-07] MEDS: HYDROcodone-ACET 5/325MG TAB PO ONE (21:10)
--- NOTE | 2025-01-07 21:33 | DVHPNRES ---
Progress Note Date Seen: Jan 07, 2025 Resident Creating Document: LUCY PETERSEN RESIDENT Medical Necessity Reason Pt with a Central, PICC or Fol: Yes The following are medically ne: Fontenot Catheter Subjective Review of Systems Mer Viveros is a 69-year-old female who presents to the ER via EMS for progressive altered level of consciousness, generalized weakness for the past weeks, which worsened significantly 24 hours before her admission. Due to clinical status, could not obtain review of systems. Obtained history from granddaughter (BROWN, Cammie). Per POAshwini, she is completely normal at baseline, no cognitive impairments and can complete ADLs, regardless her history of CVA. The day of her admission, BROWN saw patient with increased respiratory effort, prompting her visit. Past Medical History: Hypertension, diabetes, dyslipidemia, CHF, COPD/asthma with multiple admissions, CVA. Surgical History: Denies Family History: Sister had breast cancer Social History: Lives in [place] with granddaughter (she is the caregiver and the [id number]). Ex tobacco abuse (10 pack-year history of smoking). Denies current tobacco, alcohol and other drug abuse. Allergies: Denies Home Medications: Gabapentin 800 mg daily, amlodipine 5 mg p.o. daily, nitroglycerin p.r.n., oxycodone, inhalers, losartan, acetaminophen, montelukast, rosuvastatin, aspirin, metformin Patient seen and examined at bedside. She reports having mild shortness of breaths and back pain. She denies any chest pain, abdominal pain, fever or any other complaints today. Objective vital signs Vital Sign Date Time Temp Pulse Resp B/P (MAP) Pulse Ox O2 Delivery O2 Flow Rate FiO2 01/07/25 20:43 98.6 96 20 106/74 (85) 97 98.6 01/07/25 20:00 Room Air* 0 21 Total Intake and Output 01/06/25 01/06/25 01/07/25 15:00 23:00 07:00 Intake Total 50 ml 800 ml 50 ml Output Total 400 ml 450 ml Balance 50 ml 400 ml -400 ml medications Current Medications Medications Dose Ordered Sig/Liz Route Start Time Stop Time Status Last Admin Dose Admin Pantoprazole Sodium 40 mg DAILY IV 12/26/24 00:00 01/07/25 09:56 40 MG Aspirin 81 mg DAILY PO 12/27/24 10:00 01/07/25 09:54 81 MG Atorvastatin Calcium 80 mg HS PO 12/27/24 22:00 01/06/25 21:59 80 MG EZETIMIBE 10 mg DAILY PO 12/27/24 10:00 01/07/25 09:55 10 MG Diagnostic Test (Pha) 1 strip Q6HR 12/27/24 00:00 01/07/25 16:42 1 STRIP Insulin Human Regular Q6HR SC 12/27/24 00:00 01/07/25 17:55 6 UNITS Dextrose 50 ml UD PRN IV 12/26/24 22:15 Ceftriaxone Sodium 50 ml @ 100 mls/hr DAILY@09 IV 12/29/24 09:00 01/07/25 08:27 100 MLS/HR Methylprednisolone Sodium Succinate 40 mg DAILY IV 12/30/24 10:00 01/07/25 09:56 40 MG Amlodipine Besylate 10 mg DAILY PO 12/31/24 10:00 01/07/25 09:57 10 MG Acetylcysteine 200 mg Q8HR NEB 01/01/25 00:00 01/07/25 19:59 200 MG Losartan Potassium 50 mg DAILY PO 01/01/25 10:00 01/07/25 09:57 50 MG Morphine Sulfate 2 mg Q4HPRN PRN IV 01/02/25 10:15 01/03/25 06:21 2 MG Melatonin 5 mg HS PO 01/03/25 01:15 01/05/25 22:15 5 MG Ipratropium [place] 0.5 mg Q8HR NEB 01/04/25 22:00 01/07/25 19:59 0.5 MG Levalbuterol HCl 0.625 mg Q8HR NEB 01/04/25 22:00 01/07/25 19:59 0.625 MG Examination Patient lying in bed, no sedoanalgesia due to mechanical ventilation (before extubation) General: RASS -1, afebrile, mucosae are moist Cardiovascular: Normal S1 and S2. No murmurs, gallops or rubs Respiratory: Mechanically assisted ventilation, equal bilateral airway entree. Bilateral rhonchus predominantly in right base Abdomen: Soft, nontender, no organomegaly, normal bowel sounds MSK/skin: Mobilizes limbs, follows commands. Skin is dry and warm. Presents generalized edema especially in bilateral hands Neurological: Orientation cannot be assessed. No apparent motor no sensitive deficits. Pupils are isocoric and reactive laboratory and microbiology Laboratory Tests 01/06/25 09:25 Test 01/06/25 09:25 Range/Units Serum Glucose 187 H 74-106 mg/dL Microbiology Date/Time Source Procedure Growth Status 01/01/25 11:20 Bronchial Washings Gram Stain - Final Complete 01/01/25 11:20 Bronchial Washings Respiratory Culture - Final Complete 12/28/24 23:22 Nose MRSA Screen - Final Complete 12/25/24 16:44 Blood Blood Culture - Final NO GROWTH AFTER 5 DAYS OF INCUBATION. Complete 12/25/24 00:45 Voided Urine Urine Culture - Final Escherichia coli Complete Labs and/or images reviewed: Labs reviewed by me, Image(s) reviewed by me Problem List/Assessment/Plan Problem List/Assessment/Plan Metabolic encephalopathy secondary to septic shock likely due to aspiration pneumonia History of CVA Sedoanalgesia Hyperammonemia - Resolved Completed head CT which showed no acute intracranial pathology. Present chronic microvascular changes Turned off sedation for CPAP trial. Intermittent Precedex for agitation Neurology on board: consulted due to progressive ALOC, which most likely cause is metabolic encephalopathy due to septic shock. Required lactulose, currently discontinued due to diarrhea Septic shock secondary to aspiration pneumia vs UTI Probable Aspiration pneumonia Gram positive / Gram negative Complicated UTI to E coli Questionable proctitis Currently under empiric IV antibiotics (Ceftriaxone, previously on Meropenem, Vancomycin, Cefepime and azithromycin) Required IV fluid resuscitation and IV vasopressors, currently off vasoactive drugs Urinary culture shows E coli, rest of cultures finalized negative (sputum and blood). COVID, Influenza and MRSA swab negative Obtained abdomen and pelvis CT which showed thick rectal wall (probable proctitis), diverticulosis, small right pleural effusion and probable right pneumonia Acute respiratory failure due to aspiration pneumonia COPD/Asthma exacerbation On mechanical assisted ventilation (VCV Vt: 400 RR: 20 PEEP: 5 FIO2: 30%). CPAP trial underway, planning extubation on 01/01/2025 On bronchodilator, IV steroids (reduced to methylprednisolone IV 40 mg daily), IV antibiotics and oxygen therapy Completed bronchoscopy on 01/01/2025 with successful bronchial wash. HIRAL hemodynamically mediated (VMN) Anion-Gap metabolic acidosis with non compensated respiratory alkalosis - Resolved Hyperlactacidemia Severe hyperkalemia - Resolved Hyperphosphatemia - Resolved Anuria - Resolved Nephrology on board: Indicated emergent hemodialysis sessions, optimized medical therapy (bicarbonate drip, currently off). Last session on 12/28/2024 (1 L off). Nephrology recommends removing hemodialysis catheter on 12/30/2024. Required multiple hyperkalemia protocol treatments Completed EKG which showed sinus tachycardia, no sine wave or other fatal arrhythmias Chronic diastolic congestive heart failure (HFpEF, LVEF 55%) - Unlikely exacerbation Moderate-severe pulmonary hypertension Troponin x3 negative, EKG shows no ST elevation, BNP mildly elevated 12/2023 echocardiogram showed LVEF 55%, moderately severely elevated RVSP (54 mmHg) New echocardiogram shows LVEF 65%, slightly dilated LA, normal RV function, moderate degree pulmonary hypertension (RVSP 45 mmHg) Mild thrombocytopenia Normocytic anemia History of DVT - ruled out acute DVT Follow up cbc Currently on SCDs Discontinue heparin. Does received during hemodialysis session On erythropoietin 03204 units 3 times a week Completed bilateral lower limb Venous US: No DVT Diabetes - Controlled (Hemoglobin A1C 5.6%) Hypertension Dyslipidemia Continue aspirin, statin and ezetimibe On insulin sliding scale Chronic back pain [place] and lidocaine patch given Goals of care discussed with patient and POA (granddaughter Cammie at [phone]) for over 28 minutes: Full code status Discussed plan with Dr Lujan, patient, granddaughter and nurses. Plan discussed with: Patient, Other Dietary Evaluation Review Expected Outcomes/Goals: controlled blood glucose, avoid uremic syndrome, maintain BW. LUCY PETERSEN RESIDENT Jan 07, 2025 21:33
[2025-01-07] MEDS: LIDOCAINE 5% TOPICAL PATCH TOP ONE (22:04)
--- NOTE | 2025-01-07 23:00 | DVHPN2 ---
Progress Note - Dictate Date Seen: Jan 07, 2025 Medical Necessity Reason Pt with a Central, PICC or Fol: Yes The following are medically ne: Fontenot Catheter Subjective Ms. Viveros is a 69 years old female with a history of hypertension, diabetes, congestive heart failure, COPD, asthma, rheumatoid arthritis, chronic pain syndrome/lumbar disc disease, she was brought to the hospital on 12/25/2024 with a chief complaint of low blood pressure. I saw her on 01/15/2021 for ALOC/opiate ALOC/opiate overdose I have seen examined the patient with his nurse, she is awake, oriented to person, place, she knows year she follows verbal commands, he reports doing fine Voice is better Blood culture, 12/25/2024: No growth Urine culture, 12/25/2024: E coli Hepatitis panel, 12/26/2024: Negative UDS, 01/13/2021: Cannabinoids, alcohol: 6. 12/26/2024: Negative Urinalysis, 12/25/2024: WBC: 342, urine WBC clumps: Present, urine leukocyte esterase: 3+ ABG, 12/25/2024: Metabolic acidosis, 12/26/2024: Hypoxia, metabolic acidosis, WBC/HGB/PLT/MCV, 12/25/2024: 10.5/12.9/134/83.8. 12/26/2024: 21.8/12.5/156/91.3, 12/28/2024: 14.7/10.8/97/81.5 K 12/25/2024: 5, 6.1, 12/26/2024: 7.5, 6.8 Anion gap, 12/26/2024: 29 BUN/CR, 12/26/2024: 43/8.2, 11/24/2024: 21/3.42 GFR, 12/26/2024: 5, 12/28/2024: 14 Lactic acid, 12/25/2024: 8.8, 13.1, 12/26/2024: 6.3, 9.5 HGB A1c, 12/26/2024: 5.6 TBI/AST/ALT/AP, 12/26/2024: 0.4/56/26/62 Ammonia, 12/26/2024: 87 TG/HDL/LDL/HDL, 12/26/2024: 154/188/117/52 Vitamin B12, 02/26/2024: 490 Folic acid, 12/2620: 20.25 TSH, 12/26/2024: 0.87 Chest x-ray, 12/25/2024: Bronchovascular crowding due to low lung volumes. Underlying pulmonary vascular congestion can not be excluded Chest x-ray, 12/26/24: 1. No acute cardiopulmonary disease. 2. Pulmonary markings reflect supine 3. Endotracheal tube 2.7 cm above the gabriel 4. Enteric tube below the left diaphragm in the stomach 5. Right internal jugular catheter in good position at the cavoatrial junction. CT head, 01/13/2021: No mass effect or acute intracranial bleed. Minimal chronic sinusitis change CT head, 12/25/2024: 1. There is no acute infarct, intracranial hemorrhage, or mass effect. 2. There is no hydrocephalus or significant midline shift. 3. 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 4. Mild chronic microvascular ischemic changes and mild parenchymal volume loss. 5. No acute, depressed calvarial fractures. 6. No large scalp hematomas CT abdomen/pelvis, 12/25/2024: Wall thickening of the rectum which may be due to inadequate distention /proctitis. Descending colon and sigmoid diverticulosis without diverticulitis. Moderate amount of fecal material within the colon. Small right-sided pleural effusion with bibasilar atelectasis. Right basilar pneumonia can not be excluded vital signs Vital Sign Date Time Temp Pulse Resp B/P (MAP) Pulse Ox O2 Delivery O2 Flow Rate FiO2 01/07/25 20:43 98.6 96 20 106/74 (85) 97 98.6 01/07/25 20:00 Room Air* 0 21 Total Intake and Output 01/06/25 01/06/25 01/07/25 15:00 23:00 07:00 Intake Total 50 ml 800 ml 50 ml Output Total 400 ml 450 ml Balance 50 ml 400 ml -400 ml medications Current Medications Medications Dose Ordered Sig/Liz Route Start Time Stop Time Status Last Admin Dose Admin Pantoprazole Sodium 40 mg DAILY IV 12/26/24 00:00 01/07/25 09:56 40 MG Aspirin 81 mg DAILY PO 12/27/24 10:00 01/07/25 09:54 81 MG Atorvastatin Calcium 80 mg HS PO 12/27/24 22:00 01/07/25 21:11 80 MG EZETIMIBE 10 mg DAILY PO 12/27/24 10:00 01/07/25 09:55 10 MG Diagnostic Test (Pha) 1 strip Q6HR 12/27/24 00:00 01/07/25 16:42 1 STRIP Insulin Human Regular Q6HR SC 12/27/24 00:00 01/07/25 17:55 6 UNITS Dextrose 50 ml UD PRN IV 12/26/24 22:15 Ceftriaxone Sodium 50 ml @ 100 mls/hr DAILY@09 IV 12/29/24 09:00 01/07/25 08:27 100 MLS/HR Methylprednisolone Sodium Succinate 40 mg DAILY IV 12/30/24 10:00 01/07/25 09:56 40 MG Amlodipine Besylate 10 mg DAILY PO 12/31/24 10:00 01/07/25 09:57 10 MG Acetylcysteine 200 mg Q8HR NEB 01/01/25 00:00 01/07/25 19:59 200 MG Losartan Potassium 50 mg DAILY PO 01/01/25 10:00 01/07/25 09:57 50 MG Morphine Sulfate 2 mg Q4HPRN PRN IV 01/02/25 10:15 01/03/25 06:21 2 MG Melatonin 5 mg HS PO 01/03/25 01:15 01/07/25 21:09 5 MG Ipratropium [place] 0.5 mg Q8HR NEB 01/04/25 22:00 01/07/25 19:59 0.5 MG Levalbuterol HCl 0.625 mg Q8HR NEB 01/04/25 22:00 01/07/25 19:59 0.625 MG Lidocaine 1 patch HS TOP 01/08/25 22:00 objective The patient is well-nourished and well-developed with no distress. MENTAL STATUS: Subjective CRANIAL NERVES: Pupils are equal, round and reactive. Normal conjugated eye movement, normal motor and sensory examined in bilateral trigeminal distribution, no facial weakness SENSATION: Okay to pinprick and light touch MOTOR: Normal tone in the upper and lower extremity. Normal muscle bulk. No fasciculations. She moves the arms and the legs REFLEXES: Deep tendon reflexes are symmetrical. No pathological reflexes. CEREBELLAR/COORDINATION: Deferred GAIT/STATION: deferred laboratory and microbiology Laboratory Tests 01/06/25 09:25 Test 01/06/25 09:25 Range/Units Serum Glucose 187 H 74-106 mg/dL Problem List Coma, resolved Acute metabolic encephalopathy Acute respiratory failure Toxic cephalopathy ? Hepatic encephalitis Lactic acidosis/leukocytosis/sepsis Urinary tract infection Hyperkalemia Kidney failure Cognitive dysfunction, ? MCI, ? Mild dementia/Alzheimer's disease Assessment/Plan Monitoring Support treatment Telemetry care Oxygen IV antibodies GI prophylaxis Nephrology on case More recommendation per clinical course This medical document was created using an electronic medical record system with [employer] dictation system. Although this document has been carefully reviewed, there may still be some phonetic and typographical errors. These areas are purely typographical due to imperfections of the software programs, and do not reflect any compromise in the patient's medical care. Prognosis poor Dietary Evaluation Review Expected Outcomes/Goals: controlled blood glucose, avoid uremic syndrome, maintain BW. Plan discussed with: Other TERESA DSOUZA MD Jan 07, 2025 23:00
[2025-01-08] VITALS (11 sets, daily range): BP systolic 96–128; BP diastolic 64–98; PULSE 83–99; RESP 18–20; TEMP 98–98.6; O2SAT 92–99
[2025-01-08 07:08] LABS: Hematocrit 40.1 % (36.0-46.0); Hemoglobin 13.1 g/dL (12.2-16.2); Mean Corpuscular Hemoglobin 26.9 pg (28.0-32.0); Mean Corpuscular Volume 82.4 fL (80.0-100.0); Nucleated Red Blood Cells % 0.1 %
[2025-01-08 07:15] LABS: Anion Gap 10 (5-15); Carbon Dioxide 26 mmol/L (20-31); Chloride 103 mmol/L (98-107); Potassium 3.8 mmol/L (3.5-5.1); Sodium 139 mmol/L (136-145)
[2025-01-08 07:16] LABS: Calcium 9.7 mg/dL (8.7-10.4)
[2025-01-08 07:21] LABS: BUN/Creatinine Ratio 16.7 (10.0-20.0); Blood Urea Nitrogen 16 mg/dL (9-23)
[2025-01-08 07:25] LABS: Glucose 103 mg/dL (74-106)
--- NOTE | 2025-01-08 13:28 | DVH ---
CHEST RADIOGRAPH Indication: Evaluate aspiratrion Technique: Single frontal view of the chest was obtained Comparison: XY CHEST XRAY 1 VIEW on DOS: 01/06/25, XY CHEST XRAY 1 VIEW on DOS: 01/05/25, XY CHEST XRAY 1 VIEW on DOS: 01/04/25, XY CHEST XRAY 1 VIEW on DOS: 01/03/25, XY CHEST XRAY 1 VIEW on DOS: 01/02/25 FINDINGS: Lines and Tubes: None Lungs: No focal consolidation. Pleura: No effusion. No pneumothorax. Cardiomediastinal contours: Unremarkable Bones: No acute osseous abnormality. IMPRESSION: No acute cardiopulmonary disease.
--- NOTE | 2025-01-08 16:07 | DVHPN2 ---
Progress Note - Dictate Date Seen: Jan 08, 2025 Medical Necessity Reason Pt with a Central, PICC or Fol: Yes The following are medically ne: Fontenot Catheter vital signs Vital Sign Date Time Temp Pulse Resp B/P (MAP) Pulse Ox O2 Delivery O2 Flow Rate FiO2 01/08/25 15:47 98.3 97 20 95 01/08/25 13:47 Room Air 01/08/25 13:47 0 21 01/08/25 12:48 112/85 (94) Total Intake and Output 01/07/25 01/07/25 01/08/25 15:00 23:00 07:00 Intake Total 480 ml 520 ml Output Total 150 ml 380 ml Balance 330 ml 140 ml medications Current Medications Medications Dose Ordered Sig/Liz Route Start Time Stop Time Status Last Admin Dose Admin Pantoprazole Sodium 40 mg DAILY IV 12/26/24 00:00 01/08/25 10:30 40 MG Aspirin 81 mg DAILY PO 12/27/24 10:00 01/08/25 10:30 81 MG Atorvastatin Calcium 80 mg HS PO 12/27/24 22:00 01/07/25 21:11 80 MG EZETIMIBE 10 mg DAILY PO 12/27/24 10:00 01/08/25 10:30 10 MG Diagnostic Test (Pha) 1 strip Q6HR 12/27/24 00:00 01/08/25 11:49 1 STRIP Insulin Human Regular Q6HR SC 12/27/24 00:00 01/08/25 13:36 3 UNITS Dextrose 50 ml UD PRN IV 12/26/24 22:15 Ceftriaxone Sodium 50 ml @ 100 mls/hr DAILY@09 IV 12/29/24 09:00 01/08/25 08:16 100 MLS/HR Methylprednisolone Sodium Succinate 40 mg DAILY IV 12/30/24 10:00 01/08/25 10:30 40 MG Amlodipine Besylate 10 mg DAILY PO 12/31/24 10:00 01/08/25 10:31 10 MG Acetylcysteine 200 mg Q8HR NEB 01/01/25 00:00 01/08/25 13:47 200 MG Losartan Potassium 50 mg DAILY PO 01/01/25 10:00 01/08/25 10:31 50 MG Morphine Sulfate 2 mg Q4HPRN PRN IV 01/02/25 10:15 01/03/25 06:21 2 MG Melatonin 5 mg HS PO 01/03/25 01:15 01/07/25 21:09 5 MG Ipratropium [place] 0.5 mg Q8HR NEB 01/04/25 22:00 01/08/25 13:47 0.5 MG Levalbuterol HCl 0.625 mg Q8HR NEB 01/04/25 22:00 01/08/25 13:47 0.625 MG Lidocaine 1 patch HS TOP 01/08/25 22:00 laboratory and microbiology Laboratory Tests 01/08/25 06:32 Test 01/08/25 06:32 Range/Units Serum Glucose 103 74-106 mg/dL Assessment/Plan Impression Acute hypoxemic respiratory failure Morbid obesity Pneumonia Septic shock Patient seen and examined Events S/p extubation Low oxygen requirements On room air No acute events Labs and imaging reviewed Management suppl02 as needed titrate to sats above 90% advance diet as tolerated Continue antibiotics F/u cultures Bronchodilators Monitor renal function Monitor electrolytes Supplement as needed DVT prophylaxis Dietary Evaluation Review Expected Outcomes/Goals: controlled blood glucose, avoid uremic syndrome, maintain BW. Plan discussed with: Patient RAYMOND DANG MD Jan 08, 2025 16:07
[2025-01-08] MEDS ORDERED: LIDOCAINE 5% TOPICAL PATCH TOP SCH (22:00)
== END 2025-01-08 18:45 | DRG 870 ==
LOC: EDBD 16:03 → ER 16:11 → OVERFLOW 23:35 → TELE-WESTW 23:37 → ICU WEST 12-28 22:30 → TELE-WESTW 01-02 15:25 → WEST WING 01-06 21:32
PROVIDERS: ADMIT Student in an Organized Health Care Education/Training Program; ATTEND Student in an Organized Health Care Education/Training Program
PROC: 02HV33Z Insertion of Infusion Device into Superior Vena Cava, Percutaneous Approach (ICD-10-PCS; principal; 2024-12-26)
PROC: 02HV33Z Insertion of Infusion Device into Superior Vena Cava, Percutaneous Approach (ICD-10-PCS; 2024-12-26)
PROC: 5A1D70Z Performance of Urinary Filtration, Intermittent, Less than 6 Hours Per Day (ICD-10-PCS; 2024-12-26)
PROC: 5A1955Z Respiratory Ventilation, Greater than 96 Consecutive Hours (ICD-10-PCS; 2024-12-27)
PROC: 0BH17EZ Insertion of Endotracheal Airway into Trachea, Via Natural or Artificial Opening (ICD-10-PCS; 2024-12-27)
PROC: 5A1D70Z Performance of Urinary Filtration, Intermittent, Less than 6 Hours Per Day (ICD-10-PCS; 2024-12-27)
PROC: 5A1D70Z Performance of Urinary Filtration, Intermittent, Less than 6 Hours Per Day (ICD-10-PCS; 2024-12-28)
PROC: 0B9J8ZZ Drainage of Left Lower Lung Lobe, Via Natural or Artificial Opening Endoscopic (ICD-10-PCS; 2025-01-01)
PROC: 0B9F8ZZ Drainage of Right Lower Lung Lobe, Via Natural or Artificial Opening Endoscopic (ICD-10-PCS; 2025-01-01)
DX: A41.9 Sepsis, unspecified organism (principal); G93.41 Metabolic encephalopathy; R65.21 Severe sepsis with septic shock; G92.8 Other toxic encephalopathy; J69.0 Pneumonitis due to inhalation of food and vomit; N17.0 Acute kidney failure with tubular necrosis; I50.41 Acute combined systolic (congestive) and diastolic (congestive) heart failure; J96.21 Acute and chronic respiratory failure with hypoxia; N39.0 Urinary tract infection, site not specified; E87.20 Acidosis, unspecified; J98.11 Atelectasis; J45.901 Unspecified asthma with (acute) exacerbation; J44.1 Chronic obstructive pulmonary disease with (acute) exacerbation; J44.0 Chronic obstructive pulmonary disease with (acute) lower respiratory infection; E72.20 Disorder of urea cycle metabolism, unspecified; E87.5 Hyperkalemia; I27.20 Pulmonary hypertension, unspecified; D69.6 Thrombocytopenia, unspecified; D63.1 Anemia in chronic kidney disease; E83.39 Other disorders of phosphorus metabolism; I11.0 Hypertensive heart disease with heart failure; E66.01 Morbid (severe) obesity due to excess calories; E11.9 Type 2 diabetes mellitus without complications; E86.0 Dehydration; Z20.822 Contact with and (suspected) exposure to COVID-19; G89.4 Chronic pain syndrome; E87.6 Hypokalemia; E83.42 Hypomagnesemia; K62.89 Other specified diseases of anus and rectum; K57.30 Diverticulosis of large intestine without perforation or abscess without bleeding; I49.8 Other specified cardiac arrhythmias; F17.200 Nicotine dependence, unspecified, uncomplicated; E78.5 Hyperlipidemia, unspecified; B96.29 Other Escherichia coli [E. coli] as the cause of diseases classified elsewhere; Z68.27 Body mass index [BMI] 27.0-27.9, adult; Z86.718 Personal history of other venous thrombosis and embolism; Z90.710 Acquired absence of both cervix and uterus; Z86.73 Personal history of transient ischemic attack (TIA), and cerebral infarction without residual deficits; Z87.01 Personal history of pneumonia (recurrent); Z83.3 Family history of diabetes mellitus; Z82.49 Family history of ischemic heart disease and other diseases of the circulatory system; Z79.899 Other long term (current) drug therapy; Z79.84 Long term (current) use of oral hypoglycemic drugs; Z79.82 Long term (current) use of aspirin
CPT/HCPCS: 36415; 36556; 36600; 70450; 71045; 74176; 76775; 80048; 80053; 80061; 80074; 80202; 80307; 81001; 82140; 82306; 82570; 82607; 82805; 82962; 83036; 83605; 83690; 83735; 83880; 83935; 84100; 84133; 84156; 84300; 84443; 84484; 85007; 85025; 85027; 85610; 85730; 87040; 87070; 87081; 87086; 87088; 87186; 87205; 87340; 87426; 87804; 90935; 92610; 93005; 93306; 93970; 94002; 94003; 94640; 96365; 97110; 97116; 97163; G0378; J0692; J1642; J1815; J2185; J2405; J2470; J2704; J3480; P9047